=== PATIENT | female | born 1965 | race Caucasian/White ===

== ENCOUNTER → 2017-08-09 09:23 | Outpatient (CLI) | payer OTHER, SELFPAY ==
[2017-08-09 09:39] VITALS: BP 110/69; PULSE 65; RESP 16; TEMP 36.2; O2SAT 99; BMI 35.2
[2017-08-09] MEDS: Cosyntropin 0.25 MG Vial IM (09:51)
== END ==
PROVIDERS: PCP Family Medicine; Visit Provider Nurse Practitioner
DX: R53.81 Other malaise (principal); R53.82 Chronic fatigue, unspecified
CPT/HCPCS: 36415; 82533; 96372; J0834

== ENCOUNTER → 2019-02-13 | Outpatient (CLI) | payer OTHER, SELFPAY | END | disposition home or self-care (01) | LOC: RAD.FUTURE 10:13 | PROVIDERS: Family Provider Nurse Practitioner Family; PCP Nurse Practitioner Family; Referring Provider Nurse Practitioner Family; Visit Provider Nurse Practitioner Family | DX: M25.561 Pain in right knee (principal) ==

== ENCOUNTER → 2019-02-19 | Outpatient (CLI) | payer OTHER, SELFPAY ==
[2017-08-09 09:39] VITALS: BMI 35.2
--- NOTE | 2019-02-19 13:37 | RAD_ITS ---
STUDY: X-RAY - RIGHT KNEE REASON FOR EXAM: Female, 53 years old. Increasing right knee pain TECHNIQUE: 4 view(s) of the knee. COMPARISON: None. FINDINGS: Normal visualized distal femur. Normal visualized proximal tibia and fibula. Normal proximal tibiofibular articulation. There is no demonstrated fracture. Normal medial femorotibial compartment. Normal lateral femorotibial compartment. Normal patellofemoral articulation. There is no demonstrated joint effusion. The soft tissue structures are unremarkable. RAD/Knee 4 or More Views IMPRESSION: No fracture or dislocation. Possible small effusion. Electronically Signed: Adriel Lambert MD at 18:44 EDT , Service support ,
== END | disposition home or self-care (01) ==
LOC: RAD 14:20
PROVIDERS: Family Provider Nurse Practitioner Family; PCP Nurse Practitioner Family; Referring Provider Nurse Practitioner Family; Visit Provider Nurse Practitioner Family
DX: M25.561 Pain in right knee (principal)
CPT/HCPCS: 73564

== ENCOUNTER → 2019-02-26 | Outpatient (CLI) | payer OTHER, SELFPAY ==
[2019-02-26 12:53] LABS: Platelet Count 173 K/mm3 (150-450); RET-HE 36.7 pg (30-35); Reticulocyte Count 1.02 % (0.5-1.5)
[2019-02-26 13:29] LABS: Vitamin B12 690 pg/mL (211-911)
[2019-02-26 14:02] LABS: Ferritin 60 ng/mL (8-252); Iron 50 ug/dL (50-170); Iron Binding Capacity,Total 307 ug/dL (250-450)
== END | disposition home or self-care (01) ==
LOC: LAB 11:47
PROVIDERS: PCP Nurse Practitioner Family; Visit Provider Nurse Practitioner Family
DX: D64.9 Anemia, unspecified (principal)
CPT/HCPCS: 36415; 82607; 82728; 82746; 83540; 83550; 85045

== ENCOUNTER → 2019-03-20 | Outpatient (CLI) | payer OTHER, SELFPAY ==
--- NOTE | 2019-03-20 18:04 | MRI_ITS ---
STUDY: MRI RIGHT KNEE REASON FOR EXAM: Female, 53 years old. Right knee pain and swelling. TECHNIQUE: Standardized fat and water weighted pulse sequences were obtained in all 3 orthogonal planes. COMPARISON: X-ray February 19, 2019. FINDINGS: There is truncation and tear of the body of the medial meniscus, series 3 image 34/42. Normal hyaline cartilage of the medial femorotibial compartment. There is mild osteoarthritic spur formation of the medial knee compartment. Normal medial collateral ligamentous complex (MCL). Normal distal semimembranosus, gracilis and semitendinosus tendons. Normal lateral meniscus. Normal hyaline cartilage of the lateral femorotibial compartment. Normal lateral femoral condyle and tibial plateau. Normal proximal tibiofibular articulation. Normal lateral collateral (fibular) ligament. Normal popliteus tendon. Normal biceps femoris tendon. Normal anterior cruciate ligament (ACL). Normal posterior cruciate ligament (PCL). There is arthrosis of the patellofemoral articulation. There is diffuse, less than 50% thickness articular cartilage loss of the patellofemoral compartment. Normal medial and lateral patellar retinaculum. Normal quadriceps tendon. Normal patellar tendon. Normal Hoffa's fat pad. There is a moderate volume joint effusion. There is a 4.9 cm Troncoso's cyst. The soft tissues are unremarkable. The otherwise visualized osseous structures are unremarkable. MRI/Lower Ext Joint Only (Routine) IMPRESSION: Medial meniscus tear. Degenerative change. Joint effusion with popliteal cyst. Electronically Signed: Ajay Taveras MD at 19:56 EST , Service support ,
== END | disposition home or self-care (01) ==
PROVIDERS: Family Provider Nurse Practitioner Family; PCP Nurse Practitioner Family; Referring Provider Nurse Practitioner Family; Visit Provider Nurse Practitioner Family
DX: M25.561 Pain in right knee (principal)
CPT/HCPCS: 73721

== ENCOUNTER → 2019-03-20 | Outpatient (CLI) | payer OTHER, SELFPAY | END | disposition home or self-care (01) | LOC: LAB.FUTURE 21:47 → LABSPEC 03-21 08:18 | PROVIDERS: Family Provider Nurse Practitioner Family; PCP Nurse Practitioner Family; Referring Provider Nurse Practitioner Family; Visit Provider Nurse Practitioner Family | DX: D64.9 Anemia, unspecified (principal) | CPT/HCPCS: 82274 ==

== ENCOUNTER 2019-04-10 06:59 | Day surgery (SDC) | payer OTHER, SELFPAY ==
--- NOTE | 1949-[birth year] 01:33 | HP_ITS ---
I have re-examined the patient. There are no clinical changes since date of exam. Intake Vital Signs 04/02/19 Body Mass Index (BMI) 35.2 Intake Visit Reasons: Right knee Chief Complaint: right knee Accompanied by: self Is patient in pain?: Yes Pain scale (1-10): 7 Allergies Penicillins Allergy (Verified 04/04/19 14:34) Hives Medications echinacea 380 mg capsule 380 mg PO QDAY 05/22/17 [History Confirmed 04/04/19] ibuprofen 200 mg capsule 200 mg PO Q6H PRN cap 05/22/17 [History Confirmed 04/04/19] bupropion HCl 100 mg tablet 100 mg PO BID 04/02/19 [History Confirmed 04/04/19] Activated Charcoal [Charcoal] 400 mg PO QHS 04/04/19 [History Confirmed 04/04/19] Aloe Vera Juice 1 oz PO TID 04/04/19 [History Confirmed 04/04/19] Fiber Choice 3 cap PO QHS 04/04/19 [History Confirmed 04/04/19] Glucose Metobolic Support 1 tab PO TID 04/04/19 [History Confirmed 04/04/19] L.acidoph,Paracasei, B.lactis [Probiotic] 1 ea PO DAILY 04/04/19 [History Confirmed 04/04/19] Sovereign Silver 1 oz PO TID 04/04/19 [History Confirmed 04/04/19] Tri Iodine 1 tab PO QMONTH 04/04/19 [History Confirmed 04/04/19] PFSH Medical History (Updated 06/02/17 @ 15:33 by Tiffanie Bah) Multiple thyroid nodules (Acute) Adrenal abnormality (Acute) Anxiety (Acute) Back problem (Acute) Bladder infection (Acute) Depression (Acute) Gallstones (Acute) H/O: hysterectomy (Acute) Headache (Acute) Hives (Acute) Plantar neuroma of right foot (Acute) Pneumonia (Acute) Surgical History (Updated 05/22/17 @ 14:43 by Rain Giles) H/O colonoscopy (Acute) H/O hernia repair (Acute) H/O vein stripping (Acute) History of tonsillectomy (Acute) Hx of cholecystectomy (Acute) S/P LASIK surgery of both eyes (Acute) Family History (Updated 06/02/17 @ 15:35 by Tiffanie Bah) Brother Arthritis Daughter Asthma Mother Breast cancer Melanoma in situ Father CAD (coronary artery disease) Social History (Updated 04/05/19 @ 12:52 by Smiley Lainez DO) Smoking Status: Never smoker second hand exposure: No alcohol intake: never substance use type: does not use HPI Right knee: Surgical H&P: Yes Details: Parts of this documentation were recorded by a scribe, this documentation accurately reflects the service provided and the decisions made by me, Smiley Lainez DO 04/02/19 1248. AUSTIN MAZA is a 53 year old F NEW patient here today for right knee pain. She was referred by Nora Dixon. Patient has had this pain since October. She does not recall any injury. Patient is having medial sided right knee pain. She does have popping and painful giving out of her knee. She feels that her knee is very weak and she feels that it is very unstable. Denies numbness, tingling or other associated symptoms. She has had been through PT, she has had x-rays and has had an MRI completed of her right knee. She has also tried steroid injections and PRP injections and Gel injections none of which were not effective. ROS Abby Reports joint pain, Reports joint swelling, Reports muscle weakness, Denies numbness, Denies radiating pain into limb, Reports stiffness, Denies tingling Skin/Breast Denies redness, Denies lesions, Denies itching, Denies rash Neuro No numbness, No tingling Ortho Exam Right Knee Homans Sign: No Knee ROM: Yes ROM-Extension -20 to 0, No ROM-Flexion 0-140 Examination: Yes Med jt line tenderness, Yes Pain with flexion, Yes Kacey's Test No rales rhonchi wheezing, no abdominal pain, no audible bruits Assessment & Plan Problems 1. Tear of medial meniscus of right knee, current, unspecified tear type, initial encounter S83.819A Plan Personally reviewed the patient's medical history, medications, surgeries and recent exams if available. X-rays were reviewed. There is no obvious fracture, dislocation, or lucency noted. Educated on the anatomy of the knee and explained that the MRI shows a medial meniscus tear, her treatment options are do nothing, steroid injection, knee arthroscopy or oral nsaids. Explained that surgery does increase her risk of OA secondary to surgery. Reviewed the difference between repair vs debridement and the post op restrictions based on either procedure. We will get her into an kiln car unloader brace post op. Reviewed the pre-operative plans with the patient. Risks and benefits of the procedure were fully explained, including but not limited to infection, neurovascular injury, continued pain, arthritis, stiffness, need for further surgery, re-injury, DVT, PE, general risks of anesthesia, and loss of limb or life. The patient understands all the risks and does wish to proceed with written consent. Follow up post op or sooner if pain, swelling, numbness or associated symptoms, or concerns develop. All questions answered. Patient in agreement of plan. Coding Level of Care Code 64746 Diagnoses Tear of medial meniscus of right knee, current, unspecified tear type, initial encounter S83.241A ??Encounter type: initial encounter ??Meniscus tear of knee type: unspecified type ??Tear current or old: current 04/05/19 3445 <Electronically signed by Smiley cuellar DO> Date _ Smiley Lainez DO
[2019-04-02 12:52] VITALS: BMI 35.2
[2019-04-10] VITALS (7 sets, daily range): BP systolic 102–139; BP diastolic 58–115; PULSE 60–85; RESP 16–18; TEMP 36.1–37.1; O2SAT 95–100; BMI 41.0
[2019-04-10] MEDS: Lactated Ringers 1,000 ML 100 ML IV (07:31)
[2019-04-10] MEDS: Cefazolin 2 GM in 0.9% Normal Saline 100 ML IV (08:31)
--- NOTE | 2019-04-10 09:00 | DCINST_ITS ---
Discharge Diet: No Restrictions Discharge Activity: May not drive while taking narcotic pain medications. May shower in (days): 3 Ice area for (Minutes): 20 - every 1-2 hours Weight Bearing Status: Full weight bearing Keep extremity elevated above heart level: Right Leg Call your doctor if your incision/area has: Sudden Increased Bleeding, Increased Pain/ Swelling, Increased Redness, Foul Smelling Discharge Call your doctor if you observe: Fever of 101 or Higher, Coldness, Increased Pain, Numbness or Tingling, Change in Color, Inability to urinate, Shortness of breath, Dizziness, Chest pain Change Dressing in (Days):: 3 Remove Dressing in (days):: 3 Cleanse incision/area with: Soap & Water Additional Instructions: Can remove dressing on day 3 and cleanse with soap and water (no scrubbing and pat dry). Change dressing daily thereafter. Can use crutches for ambulation until comfortable Allergies/Adverse Reactions: Allergies Penicillins Allergy (Verified 04/10/19 07:20) Hives Medications to take at Discharge echinacea 380 mg capsule 380 mg PO QDAY 05/22/17 ibuprofen 200 mg capsule 200 mg PO Q6H PRN cap 05/22/17 bupropion HCl 100 mg tablet 100 mg PO BID 04/02/19 Activated Charcoal [Charcoal] 400 mg PO QHS 04/04/19 Aloe Vera Juice 1 oz PO TID 04/04/19 Fiber Choice 3 cap PO QHS 04/04/19 Glucose Metobolic Support 1 tab PO TID 04/04/19 L.acidoph,Paracasei, B.lactis [Probiotic] 1 ea PO DAILY 04/04/19 Sovereign Silver 1 oz PO TID 04/04/19 Tri Iodine 1 tab PO QMONTH 04/04/19 Primary Care Physician: Nora Dixon NP-C [Primary Care Provider] - Test Results: Test results from this visit will be discussed in further detail at your follow- up appointment, if applicable. Please Follow Up With: Donnie Bagley PA When: 2 weeks
[2019-04-10] MEDS: Mupirocin Ointment 22gm Tube 1 APPLIC (09:33)
[2019-04-10] MEDS: Epinephrine (1 mg/ml) 1 MG/ML VIAL (09:33)
--- NOTE | 2019-04-10 09:45 | PCM.OPRPT ---
Report of Operation Date of Procedure: 04/10/19 Pre-Operative Diagnosis: right knee osteoarthritis, medial meniscus tear Post-Operative Diagnosis: same, synovitis Surgery/Procedure Performed:: sark, pmm, patella/trochlea chondroplasty, extensive synovectomy paper sales representative: Donnie Bagley Type of Anesthesia:: General Anesthesiologist: Keith Plaza Fluids Replaced: 1000ml lr Description of Procedure: Preop note Patient is a 53-year-old female with continued right knee pain. Patient has locking and clicking after sustaining a twisting injury to her right knee. Risk benefits and alternatives surgery discussed with patient. MRI confirms medial meniscus tear as well as some arthritis. Risk including but not limited to blood loss, blood clot, infection, neurovascular, failure procedure, loss of life and loss of limb. Patient is aware would like to see with right knee arthroscopy repair as indicated. Operative note Patient seen and examined preop holding area. Right knee was marked. Patient brought to the operating placed supine on the operating table. Signed, anesthesia, antibiotics were administered. The right leg was prepped and draped in usual sterile fashion with a tourniquet on her upper thigh. All bony bump all bony prominences well-padded SCDs placed on her contralateral limb. We marked her anterior lateral anteromedial portal placement. We then elevated exsanguinated the leg and tremors crit was raised to a pressure of 300 torr. We then used an 11 blade creator anterior lateral portal. We began our diagnostic arthroscopy. The patient had grade 2 fibrillated changes on the inferior pole of the patella and grade 3 eburnated changes throughout her trochlea. The moved to the medial joint line. Created anterior medial portal under direct visualization. Patient had extensive synovitis in the anterior medial anterior lateral gutters which was resected with a shaver. We then able to visualize the posterior horn medial meniscus tear which was under stable to probing. We use a combination of a basket and a shaver to resect back the unstable meniscus we then reinserted the probe to ensure that we had good remnant meniscus remaining in good stability and which we did have. ACL and PCL present within the notch. Patient had grade 3 thinning chondromalacia throughout the medial femoral condyle middle medial tibial plateau. The lateral femoral condyle and the lateral tibial plateau were intact and stable probing as well as the lateral meniscus. Again ACL and PCL were present in the notch. The knee was then irrigated with copious amounts of sterile saline. We used a shaver to debride back loose pieces of cartilage of both the patella and the trochlea. Again the knee was irrigated gated with copious muscle sterile saline. Tourniquet was raised for that was deflated. Patient portals were closed with interrupted 4-0 nylon stitches sterile dressings were applied. Patient tolerated procedure well no complication transferred recovery room in stable condition Postoperative note Weight-bear as tolerated right leg Pharmacy has prescriptions Follow-up in 2 weeks We will give family pictures at postop visit Discuss signs and symptoms to watch for for blood clots and infection Call with concerns This note was generated with [employer] dictation software. It may contain incorrect words, spelling, and punctuation that were not noted in checking the note before signing.
[2019-04-10] MEDS: HYDROcodone Bitartrate/Apap 5/325 Tablet PO (11:18)
== END 2019-04-10 15:00 | disposition home or self-care (01) ==
LOC: SDC 07:00 → AC 07:02
PROVIDERS: Family Provider Nurse Practitioner Family; PCP Nurse Practitioner Family; Referring Provider Orthopaedic Surgery; Visit Provider Orthopaedic Surgery
PROC: (CPT 29882; principal; 2019-04-10 08:25)
DX: S83.241A Other tear of medial meniscus, current injury, right knee, initial encounter (principal); M17.11 Unilateral primary osteoarthritis, right knee; F41.9 Anxiety disorder, unspecified; F32.9 Major depressive disorder, single episode, unspecified; Z79.899 Other long term (current) drug therapy; X50.1XXA Overexertion from prolonged static or awkward postures, initial encounter; Y93.89 Activity, other specified; Y92.89 Other specified places as the place of occurrence of the external cause; Y99.8 Other external cause status
CPT/HCPCS: 01400; 29877; J7120; J2405

== ENCOUNTER → 2019-04-23 14:35 | Outpatient (CLI) | payer OTHER, SELFPAY ==
[2019-04-23 12:34] VITALS: BMI 41.0
--- NOTE | 2019-04-23 14:37 | VDLE_ITS ---
Reason For Study: pain RIGHT LEFT CFV is compressible, spontaneous, phasic, CFV is compressible, spontaneous, phasic, competent and demonstrates normal competent, and demonstrates normal augmentation. augmentation. FV is compressible, spontaneous, phasic, competent and demonstrates normal augmentation. POP V is compressible, spontaneous, phasic, competent and demonstrates normal augmentation. T/P Trunk is compressible. PTV is compressible. RT PerV is compressible. GSV is absent. Hypoechoic area behind the knee measuring 1.1 x 3.57 cm. Area is nonvascular. Procedure Exam performed in department. The exam was diagnostic. A preliminary report was called and/or faxed to Dr. Lainez's office. Interpretation Summary There is no evidence of right lower extremity deep vein thrombosis. Right popliteal fossa 1.1 x 3.5 cm Troncoso's cyst Surgically absent right great saphenous vein Patent and compressible left common femoral vein Ordering Physician: Smiley Lainez Performed By: Tam Mishra RVSascha
== END ==
PROVIDERS: Family Provider Nurse Practitioner Family; PCP Nurse Practitioner Family; Referring Provider Orthopaedic Surgery; Visit Provider Orthopaedic Surgery
DX: M79.661 Pain in right lower leg (principal)
CPT/HCPCS: 93971

== ENCOUNTER → 2019-06-18 15:07 | Outpatient (CLI) | payer OTHER, SELFPAY ==
[2019-06-18 14:18] VITALS: BMI 41.0
--- NOTE | 2019-06-18 15:08 | RAD_ITS ---
STUDY: X-RAY - RIGHT KNEE REASON FOR EXAM: Female, 53 years old. KNEE PAIN TECHNIQUE: 4 view(s) of the knee. COMPARISON: None. FINDINGS: Normal visualized distal femur. Normal visualized proximal tibia and fibula. Normal proximal tibiofibular articulation. There is no demonstrated fracture. There is mild degenerative arthrosis of the medial femorotibial compartment. Normal lateral femorotibial compartment. There is mild degenerative arthrosis of the patellofemoral articulation. Trace amount of joint fluid. The soft tissue structures are unremarkable. RAD/Knee 4 or More Views IMPRESSION: Mild degenerative disease as described above along with minimal joint effusion. Electronically Signed: Amanda Dobson MD at 3:47 EST , Service support ,
== END ==
PROVIDERS: PCP Nurse Practitioner Family; Referring Provider Physician Assistant; Visit Provider Physician Assistant
DX: M25.561 Pain in right knee (principal)
CPT/HCPCS: 73564

== ENCOUNTER → 2019-07-05 13:53 | Outpatient (CLI) | payer OTHER, SELFPAY ==
[2019-06-18 14:18] VITALS: BMI 41.0
[2019-07-05 14:33] LABS: Absolute Lymphocyte Count 4.95 X10^3/uL (0.83-4.51); Basophil# 0.08 X10^3/uL; Basophil% 1.1 % (0-1); Eosinophil# 0.03 X10^3/uL; Eosinophils% 0.4 % (0-5); Hematocrit 36.8 % (37-47); Hemoglobin 12.1 g/dL (12.0-15.0); Lymphocyte # 4.95 X10^3/ul (4.0); Lymphocyte % 66.6 % (19-41); Mean Corp Hgb Conc 32.9 g/dL (32-36); Mean Corpuscular Hgb 29.1 pg (27.0-32.0); Mean Corpuscular Volume 88.5 fL (81-99); Mean Platelet Vol. 9.8 fl (6.2-12.0); Monocyte# 0.39 X10^3/uL; Monocyte% 5.2 % (0-10); NRBC Flagged by Analyzer 0 % (0-5); Neutrophil # 1.97 X10^3/uL (2.7-7.7); Neutrophil % 26.6 % (47-70); POSITIVE MORPHOLOGY YES; Platelet Count 125 K/mm3 (150-450); RBC Distribution Width CV 13.8 % (11.6-14.6); RBC Distribution Width SD 44.5 fl (35.1-43.9); Red Blood Count 4.16 M/mm3 (4.2-5.4); White Blood Count 7.4 K/mm3 (4.4-11.0)
[2019-07-05 14:37] LABS: Differential Indicated SCAN CRITERIA MET
[2019-07-05 14:55] LABS: Reactive Lymphocyte 1+
[2019-07-05 15:04] LABS: ALB/GLOB Ratio 1.1 RATIO (0.9-2.4); AST(SGOT) 40 U/L (15-37); Alanine Aminotransfer ALT/SGPT 71 U/L (13-56); Albumin, Serum 3.4 g/dL (3.2-5.0); Alkaline Phosphatase 88 U/L (45-117); Anion Gap 7 (5-15); BUN 18 mg/dL (7-18); BUN/Creat Ratio 20.7 RATIO (10-20); Calcium,Total 8.8 mg/dL (8.5-10.1); Chloride 111 mmol/L (98-107); Creatinine, Serum 0.87 mg/dL (0.55-1.02); EST Glomerular Filtration Rate 72 mL/min (>60); Est Glom Filt Rate - Afr Amer 87 mL/min (>60); Globulin 3.1 g/dL (2.2-4.2); Glucose 82 mg/dL (74-106); Potassium 3.8 mmol/L (3.5-5.1); Protein, Total 6.5 g/dL (6.4-8.2); Sodium Level 142 mmol/L (136-145); Thyroid Stim Hormone (TSH) 2.21 uIU/mL (0.358-3.74)
== END ==
PROVIDERS: PCP Nurse Practitioner Family; Referring Provider Nurse Practitioner Family; Visit Provider Nurse Practitioner Family
DX: H53.8 Other visual disturbances (principal); D64.9 Anemia, unspecified; R53.83 Other fatigue
CPT/HCPCS: 36415; 80053; 84443; 85025

== ENCOUNTER → 2019-07-09 12:09 | Outpatient (CLI) | payer OTHER, SELFPAY ==
[2019-06-18 14:18] VITALS: BMI 41.0
[2019-07-09 14:11] LABS: Hepatitis B Surface Antibody Reactive; Hepatitis B Surface Antigen Non-Reactive (Nonreactive); Hepatitis C Antibody Non-Reactive (Nonreactive)
[2019-07-10 16:08] LABS: Hepatitis A IgM Antibody Negative (Negative)
[2019-07-10 20:03] LABS: EBV Acute VCA IgM < 36.0 U/mL (0.0-35.9); Hepatitis B Core AB IgM Negative (Negative)
== END ==
LOC: LAB.FUTURE 12:10 → LAB 07-10 07:09
PROVIDERS: PCP Nurse Practitioner Family; Referring Provider Nurse Practitioner Family; Visit Provider Nurse Practitioner Family
DX: R74.8 Abnormal levels of other serum enzymes (principal); R53.83 Other fatigue; R79.89 Other specified abnormal findings of blood chemistry
CPT/HCPCS: 36415; 86664; 86665; 86705; 86706; 86709; 86803; 87340

== ENCOUNTER → 2019-07-23 15:52 | Outpatient (CLI) | payer OTHER, SELFPAY ==
[2019-06-18 14:18] VITALS: BMI 41.0
== END ==
PROVIDERS: PCP Nurse Practitioner Family; Referring Provider Nurse Practitioner Family; Visit Provider Nurse Practitioner Family
DX: G47.19 Other hypersomnia (principal)
CPT/HCPCS: 95806

== ENCOUNTER → 2019-09-18 12:20 | Outpatient (CLI) | payer OTHER, SELFPAY ==
[2019-06-18 14:18] VITALS: BMI 41.0
--- NOTE | 2019-09-18 13:28 | CT_ITS ---
STUDY: CT SCAN OF LOWER EXTREMITY RIGHT REASON FOR EXAM: Female, 54 years old. RIGHT VARUS DEFORMITY. NORMA KNEE PROTOCOL RADIATION DOSAGE (If Supplied By Facility): CTDIvol = ( 32.62 ) mGy, DLP = ( 4301.50 ) mGycm. Individualized dose optimization techniques were used for this CT.? TECHNIQUE: Multiple axial tomographic images of the right hip joint, knee joint and ankle joints were obtained. Coronal and sagittal reconstruction was obtained as well. COMPARISON: None. FINDINGS: The right hip joint is unremarkable. No significant narrowing or bony degenerative changes are seen. Marked degree of the joint space narrowing of the medial compartment of the knee joint. No evidence of joint effusion. No bony destruction is seen. Imaging of the ankle joint is unremarkable. No significant abnormality is seen. CT/Extremity Lower without Contra IMPRESSION: Marked degree of joint space narrowing involving the medial compartment of the knee joint. Electronically Signed: Nicholas Lopez, at 14:58 EDT , Service support ,
== END ==
PROVIDERS: PCP Nurse Practitioner Family; Referring Provider Specialist; Visit Provider Specialist
DX: M21.161 Varus deformity, not elsewhere classified, right knee (principal)
CPT/HCPCS: 73700

== ENCOUNTER 2019-09-25 06:25 | Day surgery (SDC) | payer OTHER, SELFPAY ==
[2019-06-18 14:18] VITALS: BMI 41.0
--- NOTE | 2019-09-18 13:04 | EKG12_ITS ---
Test Reason : PRE OP Blood Pressure : / mmHG Vent. Rate : 062 BPM Atrial Rate : 062 BPM P-R Int : 138 ms QRS Dur : 088 ms QT Int : 380 ms P-R-T Axes : 033 017 016 degrees QTc Int : 385 ms Normal sinus rhythm Nonspecific ST abnormality Abnormal ECG Confirmed by BRETT KIRBY ([id number]), editor trade journal PATRICIA OLEA (54) on 09/23/2019 10:11:48 AM Referred By: Huber Roa Confirmed By:BRETT KIRBY
[2019-09-18 13:13] LABS: Absolute Lymphocyte Count 2.05 X10^3/uL (0.83-4.51); Absolute Neutrophil Count 2.9 X10^3/uL (2.0-7.7); Basophil# 0.03 X10^3/uL; Basophil% 0.6 % (0-1); Eosinophil# 0.05 X10^3/uL; Eosinophils% 0.9 % (0-5); Hematocrit 38.3 % (37-47); Hemoglobin 12.5 g/dL (12.0-15.0); Lymphocyte # 2.05 X10^3/ul (4.0); Lymphocyte % 38.2 % (19-41); Mean Corp Hgb Conc 32.6 g/dL (32-36); Mean Corpuscular Hgb 28.8 pg (27.0-32.0); Mean Corpuscular Volume 88.2 fL (81-99); Mean Platelet Vol. 9.6 fl (6.2-12.0); Monocyte% 5.6 % (0-10); NRBC Flagged by Analyzer 0 % (0-5); Neutrophil # 2.93 X10^3/uL (2.7-7.7); Neutrophil % 54.5 % (47-70); Platelet Count 151 K/mm3 (150-450); RBC Distribution Width CV 12.8 % (11.6-14.6); RBC Distribution Width SD 41.4 fl (35.1-43.9); Red Blood Count 4.34 M/mm3 (4.2-5.4); White Blood Count 5.4 K/mm3 (4.4-11.0)
[2019-09-18 13:50] LABS: Anion Gap 6 (5-15); BUN 14 mg/dL (7-18); BUN/Creat Ratio 16.3 RATIO (10-20); Chloride 106 mmol/L (98-107); Creatinine, Serum 0.86 mg/dL (0.55-1.02); EST Glomerular Filtration Rate 73 mL/min (>60); Est Glom Filt Rate - Afr Amer 88 mL/min (>60); Glucose 80 mg/dL (74-106); Potassium 4.1 mmol/L (3.5-5.1); Sodium Level 141 mmol/L (136-145)
--- NOTE | 2019-09-19 16:19 | PCM.HP.BLA ---
History and Physical History and Physical [facility] Patient Name: Jerica Dlegado : 1965 From: JED SERRANO NP DATE OF SURGERY: 09/25/2019 SCHEDULED PROCEDURE: Right knee medial compartment unicompartmental knee arthroplasty HISTORY OF PRESENT ILLNESS: Preoperative history and physical exam was performed on September 18, 2019. This is a 54-year-old female who has been having ongoing knee pain for approximately 10 months. The pain is 8 on a scale of 10 on average. She describes the pain as constant and aching. The pain is increased with walking or weightbearing. Stairs increases the pain. The pain is located of the medial joint line. The pain does wake her at night. The patient is unable to perform activities of daily living without pain. 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 Previous treatments include prednisone, meloxicam, corticosteroid injections, viscosupplementation injections and PRP injections. The patient reports having arthroscopic surgery in March 2019. She denies chest pain, shortness of breath, fevers, chills or recent infections. Surgical clearance was requested from Nora Dixon APRN, JOCELYN. She has given clearance pending lab results. The patient has a medical history pertinent for depression and sleep apnea. After failing conservative measures and discussing treatment options with Dr. Huber Roa, the patient does wish to proceed with a right knee medial compartment unicompartmental knee arthroplasty. REVIEW OF SYSTEMS: ROS: Const: Reports weight change, but denies change in appetite and fever. CV: Denies chest pain, heart murmur and irregular heartbeat. Resp: Denies cough, pneumonia, shortness of breath, tuberculosis and wheezing. GI: Reports constipation, but denies diarrhea, heartburn, nausea, rectal itching, bloody stools and vomiting. : Denies incontinence. Musculo: Reports leg swelling, but denies pain, trouble walking and weakness. Skin: Denies Raynaud's, history of shingles and tattoo. Neuro: Denies ambulatory dysfunction, dizziness, numbness/tingling and tremor. Psych: Reports anxiety and stress, but denies insomnia. Manjinder/Lymph: Reports anemia, but denies bleeding/bruising tendency and past transfusion. Reviewed, no changes. PAST MEDICAL HISTORY: Advance Care Plan: No Advance Directives Effective Date: 09/18/2019 PMH: Medical Problems: Arthritis - (08/12/2019) Depression - (08/12/2019) Sleep Apnea - (08/12/2019) Accidents: Fracture - leg fx 5-8 years ago Surgical Hx: Gallbladder, Hernia Repair, Hysterectomy, Tonsillectomy, Bilat Leg Sheela Stripping Anesthesia Complications: None Assistive Devices: Glasses - READERS Reviewed and updated. 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 Personal Habits: Cigarette Use: Never Smoked Cigarettes - (08/12/2019).Smokeless Tobacco: Never Used Smokeless Tobacco - (08/12/2019).E-Cigarette Use: Never used.Alcohol: Denies use - (08/12/2019).Drug Use: Denies Use.Enjoy Exercising: Exercises 1-3 X/Week. Reviewed and updated. VITALS: Ht: 63.5 Wt: 240lb Wt k.864 BMI: 41.8 BP: 133/95 Pulse: 63 Resp: 12 T: 97.5 T: 36.4C ALLERGIES: Penicillin - hives MEDICATIONS: Oxycodone HCL 5 mg 1-2 tab by mouth every 4 hours, Meloxicam 7.5 mg 1 by mouth twice a day, Promethazine HCL 12.5 mg 1-2 tablets by mouth every 6 hours, Famotidine 20 mg 1 by mouth every day, Transderm-Scop (1.5 MG) 1 MG/3Days 1 patch behind ear every 3 days, to begin the night before surgery PRE-OP EXAM: General appearance:NORMAL Other: Eyes: Conjunctivae and lids: NORMAL Pupils: ERR Ears, Nose, Mouth, and Throat: NORMAL Other: Inspection of lips, teeth and gums: NORMAL Other: Respiratory: Assessment of respiratory effort: NORMAL Other: Auscultation of lungs: clear to auscultation no wheezes, rhonchi or rales. Cardiovascular: Auscultation of heart: regular rate and rhythm, no murmurs, gallops or rubs. Gastrointestinal: Exam of abdomen: soft, nontender, nondistended bowel sounds present. Neurological: see below Psychiatric: Orientation to time, place and person: NORMAL Other: Mood and affect: NORMAL Other: PHYSICAL EXAMINATION: The patient ambulates with a markedly antalgic gait. Bilateral knees are obese. Right knee with mild effusion. Left knee with no effusion. Varus alignment bilaterally. Range of motion: 0-115 right knee. 0-120 left knee. IMAGING STUDIES: X-rays and MRI of the right knee from [facility] were reviewed and x-rays reveal progressive medial joint space narrowing consistent with moderate stage III medial compartment osteoarthritis. The MRI is consistent with degenerative changes of the medial compartment with full-thickness cartilage loss of the distal femoral condyle and an intact ACL. Lateral compartment is healthy with mild patellofemoral compartment changes. IMPRESSION: 1. post-traumatic osteoarthritis, right knee 2. depression 3. sleep apnea PLAN: Dr. Huber Roa did discuss and review with the patient all treatment options including surgical versus nonsurgical. Patient does wish to proceed with the above-stated procedure. Potential risk, benefits and complications of the procedure were discussed in detail including but not limited to , infection, nerve and blood vessel damage, persistent pain, numbness, tingling, paresthesias, blood clot, pulmonary embolism and requirement for possible further surgery. The patient expressed full understanding and has no further questions for the doctor. The patient does agree to proceed with the above-stated procedure and has signed the surgery consent form. The patient was given prescriptions for the following medications at her preoperative visit: Famotidine, meloxicam, oxycodone, promethazine and scopolamine patch. She was also instructed to potato picker [id number] aspirin 81 mg, extra strength Tylenol 500 mg and senna. She will bring a walker the day of surgery. This dictation was created using voice recognition software. Phonetic and/or grammatical errors may exist. ___ I have re-examined the patient. There are no clinical changes since date of exam. ___ See progress notes for changes. ___ Dictated on admission Date: Time: Signature:
[2019-09-25] VITALS (23 sets, daily range): BP systolic 81–113; BP diastolic 41–83; PULSE 52–85; RESP 16; TEMP 36.3–36.4; O2SAT 16–100; BMI 43.2
[2019-09-25 07:11] LABS: Bedside Glucose 75 mg/dL (70-110)
[2019-09-25] MEDS: Lactated Ringers 1,000 ML 100 ML IV (07:23)
[2019-09-25] MEDS: Gabapentin 600 MG Tablet PO (07:24)
[2019-09-25] MEDS: Celecoxib 200 MG Capsule 400 MG PO (07:24)
[2019-09-25] MEDS: Acetaminophen 500 MG Tablet 1000 MG PO (07:24)
[2019-09-25] MEDS: Scopolamine 1mg/72hr Patch 1 PATCH TD (08:15)
--- NOTE | 2019-09-25 08:16 | RAD_ITS ---
STUDY: X-RAY - RIGHT KNEE REASON FOR EXAM: Female, 54 years old. Post op knee TECHNIQUE: 2 view(s) of the knee. COMPARISON: Comparison is made with prior examination dated June 18, 2019. FINDINGS: The patient is status post medial hemiarthroplasty. There is good alignment. Postoperative soft tissue changes. RAD/Knee 1 or 2 Views IMPRESSION: The patient is status post medial hemiarthroplasty. There is good alignment. Postoperative soft tissue changes. Electronically Signed: Nicholas Lopez, at 11:26 EDT , Service support ,
[2019-09-25] MEDS: Cefazolin 2 GM in 0.9% Normal Saline 100 ML IV (08:53)
--- NOTE | 2019-09-25 10:31 | OP.PCM_ITS ---
Report of Operation Date of Procedure: 09/25/19 Pre-Operative Diagnosis: Right knee anteromedial osteoarthritis, primary Post-Operative Diagnosis: Right knee anteromedial osteoarthritis, primary Surgery/Procedure Performed:: Right knee medial compartment robotic assisted minimally invasive knee arthroplasty Description of Surgical Findings:: ACL intact, patellofemoral and lateral compartments appropriate. Well-balanced knee. lighter: Joanna Campbell Type of Anesthesia:: Spinal Anesthesiologist: Keith Plaza Special Medications: 2 g Ancef, 1 g TXA at incision, 1 g TXA closure, 10 mg Decadron, joint cocktail (5 mg Duramorph, 30 mL of 0.5% Ropivicaine, 1000 units of epinephrine, 30 mg of Toradol) Specimen's removed: Bony cuts Estimated Blood Loss (mL): 75 Fluids Replaced: 2400 mL crystalloid Description of Procedure: Implants used: 1. Farrukh size 4 femur 2. Farrukh size 3 tibia 3. Farrukh 8 mm polyethylene component Brief history operative indications: 54-year-old F with history of R knee anterior medial varus osteoarthritis with radiographic findings with loss of joint space, osteophyte formation and subchondral sclerosis. Failed conservative measures as mentioned in the H&P. Discussion of total knee arthroplasty as well as risk and benefits were discussed the patient including but not limited to blood loss, DVTs, PEs, neurovascular damage, general risk of anesthesia including loss of life, and stiffness or instability were discussed with patient. Patient demonstrated understanding and was able to sign informed consent. Procedure: On the date of procedure patient's R lower extremity was marked in the preoperative area. The patient was then taken back to the operating room where the patient was placed on the table in the supine position. All bony prominences were identified a well-padded. Anesthesia assumed control of the C-spine and airway and remained controlled throughout the remainder of the procedure. A tourniquet was placed on the R upper thigh and the leg was prepped in a sterile fashion. The surgeon then scrubbed at this time .Upon reentering the room R lower extremity was draped in a standard orthopedic fashion. A timeout was then called and everyone agreed upon the side, the site, the procedure to be performed, patient's identity and antibiotics given. Esmarch bandage was used to exsanguinate the extremity and the tourniquet was placed up to 250 mmHg with the knee in flexion. A midline skin incision was made and sharp dissection was taken down through skin subcutaneous tissue and fat. The standard medial parapatellar incision was made and the patella was subluxed medially. The standard minimal MCL release was done and a minimal fat pad for visualization. At this time we directed our attention towards the placement of the robotic navigation pins. 2 pins were placed in the tibia handbreadth below the tibial tubercle and 2 pins were placed in the femur with the patella in the trochlear groove 1 handbreadth above the patella. Bicortical fixation was obtained on all 4 pins. Once these pins were placed the arrays and checkpoints were placed and the femur and tibia were registered. After registering the bony landmarks bone spurs were removed and the soft tissues were tensioned and this intraoperative information was used to make intraoperative adjustments to implant position and balance the knee. The robotic arm was brought in and our attention was then directed towards the femur at this time based on our preoperative and intraoperative planning the size 4 femoral component was burred appropriately to the distal femur. Once we had appropriately burred the distal femur the pegs and he will were also burred. Next our attention was directed to the tibia. Where using our preoperative plan we buried the proximal tibia for a size 3 tibial component and then approp riately burred the pegs. Once we had burred the femur and the tibia all excess osteophytes were again removed. The trial components were placed in the tibial trial component was used to press the posterior keel. The knee was taken through range of motion and balancing was verified using the robotic navigation. Once we were happy with our components trial components were removed and the bone was repaired reaming the distal femur and using the toothbrush saw to slot the proximal tibia. Once the bone was adequately prepared the knee was scoped. Out normal saline and 40 mL of joint cocktail was injected in the posterior medial knee. The bone ends were appropriately dried and once the cement was ready the final components were cemented into place with the trial polyethylene and held at 20? flexion. Once the cement had adequately cured and all cement was removed and the final 8 millimeter polyethylene was put into place and the final knee showed is good patella tracking and well-balanced knee without overcorrection. It should be noted that throughout the procedure the MCL was protected during all bony cuts by my assistant director. Once the final components were placed a the wound was copiously irrigated with 500 mL dilute Betadine solution followed by 1 L of normal saline solution and the periarticular injection was given. The wound was closed in a layer sow fashion using #1 vicryl interrupted sutures for the arthrotomy, 2-0 interrupted Vicryl suture for the subcuticular layer and mague for final skin closure. A sterile compressive dressing was then placed. The patient was then awakened from anesthesia, transferred to the [facility] and transferred to the PACU for recovery. Post op plan DVT ppx: ASA 81mg BID for six weeks, thigh high compression stockings for 2 weeks Follow up: in office in 2 weeks for wound check PT: to start POD #0 at hospital, outpatient PT should be arranged. - Complications No intraoperative complications - Admit VTE Documentation VTE Present on Admission: No VTE Mechan Device Prophylaxis: SCD's, Thigh High HAN Hose VTE Pharm Prophylaxis ordered?: Yes
[2019-09-25] MEDS: Cefazolin 1 GM/50 ML BAG IV (12:47)
== END 2019-09-25 16:18 | disposition home or self-care (01) ==
LOC: SDC 06:26 → AC 06:27
PROVIDERS: PCP Nurse Practitioner Family; Referring Provider Specialist; Visit Provider Specialist
PROC: (CPT 27447; principal; 2019-09-25 08:00)
DX: M17.11 Unilateral primary osteoarthritis, right knee (principal); Z11.59 Encounter for screening for other viral diseases; G47.30 Sleep apnea, unspecified; K59.09 Other constipation; G25.81 Restless legs syndrome; R94.31 Abnormal electrocardiogram [ECG] [EKG]
CPT/HCPCS: 01400; 27447; 64447; S2900; 36415; 73560; 80048; 82962; 85025; 87635; 93005; 97162; 97166; C1776; G2023; J7120; J2405; U0002

== ENCOUNTER → 2020-04-27 07:55 | Outpatient (CLI) | payer OTHER, SELFPAY ==
[2019-09-25 06:58] VITALS: BMI 43.2
[2020-04-27 09:40] LABS: Hemoglobin 12.7 g/dL (12.0-15.0); Mean Corp Hgb Conc 32.6 g/dL (32-36); Mean Corpuscular Hgb 28.8 pg (27.0-32.0); Mean Corpuscular Volume 88.4 fL (81-99); Mean Platelet Vol. 9.5 fl (6.2-12.0); Platelet Count 180 K/mm3 (150-450); RBC Distribution Width CV 13.3 % (11.6-14.6); RBC Distribution Width SD 43.6 fl (35.1-43.9); Red Blood Count 4.41 M/mm3 (4.2-5.4); White Blood Count 4.8 K/mm3 (4.4-11.0)
[2020-04-27 10:00] LABS: Vitamin B12 445 pg/mL (211-911)
[2020-04-27 10:08] LABS: Hemoglobin A1c 5.1 % (3.8-5.6)
[2020-04-27 10:16] LABS: Anion Gap 4 (5-15); BUN 12 mg/dL (7-18); Calcium,Total 9.5 mg/dL (8.5-10.1); Chloride 107 mmol/L (98-107); EST Glomerular Filtration Rate 79 mL/min (>60); Est Glom Filt Rate - Afr Amer 95 mL/min (>60); Glucose 77 mg/dL (74-106); Potassium 3.7 mmol/L (3.5-5.1); Sodium Level 141 mmol/L (136-145); Thyroid Stim Hormone (TSH) 3.59 uIU/mL (0.358-3.74)
[2020-04-29 06:26] LABS: Vitamin D 1,25-Dihydroxy 36.3 pg/mL (19.9-79.3)
== END ==
PROVIDERS: PCP Nurse Practitioner Family
DX: D64.9 Anemia, unspecified (principal); R53.83 Other fatigue; Z68.41 Body mass index [BMI] 40.0-44.9, adult
CPT/HCPCS: 36415; 80048; 82607; 82652; 82746; 83036; 84443; 85027

== ENCOUNTER → 2020-07-24 15:49 | Outpatient (CLI) | payer OTHER, SELFPAY ==
[2019-09-25 06:58] VITALS: BMI 43.2
--- NOTE | 2020-07-24 15:57 | RAD_ITS ---
STUDY: X-RAY - RIGHT SHOULDER REASON FOR EXAM: Female, 54 years old. Right shoulder pain. TECHNIQUE: 4 view(s) of the shoulder. COMPARISON: None. FINDINGS: Normal glenohumeral articulation. There is degenerative arthrosis of the acromioclavicular joint without inferior osseous spur formation. Normal acromion. There is no acute fracture, dislocation or destructive osseous pathology. Normal humeral head and visualized proximal humerus. The soft tissue structures are unremarkable. Normal visualized pulmonary apex. RAD/Shoulder min 2 Views IMPRESSION: Minimal degenerative changes of the acromioclavicular joint. There is no acute fracture or dislocation. Electronically Signed: Osei Murphy DO at 21:03 EST Tel [phone], Service support ,
--- NOTE | 2020-07-24 15:57 | RAD_ITS ---
STUDY: X-RAY - RIGHT HUMERUS REASON FOR EXAM: Female, 54 years old. Right upper extremity pain. TECHNIQUE: 2 view(s) of the humerus. COMPARISON: None. FINDINGS: Normal visualized humerus. There is no demonstrated fracture or osseous destructive process. Mild arthrosis of the shoulder. The elbow appears grossly normal. There is no demonstrated soft tissue abnormality. RAD/Humerus min 2 Views IMPRESSION: No acute fracture or dislocation of the humerus. There is mild degenerative changes of the glenohumeral joint Electronically Signed: Osei Murphy DO at 21:02 EST Tel [phone], Service support ,
== END ==
DX: M25.511 Pain in right shoulder (principal); M79.601 Pain in right arm
CPT/HCPCS: 73030; 73060

== ENCOUNTER → 2020-08-14 15:52 | Outpatient (CLI) | payer OTHER, SELFPAY ==
[2019-09-25 06:58] VITALS: BMI 43.2
--- NOTE | 2020-08-14 15:57 | MRI_ITS ---
STUDY: MRI UPPER EXTREMITY RIGHT HUMERUS WITHOUT CONTRAST REASON FOR EXAM: Female, 54 years old. PAIN IN R ARM, palpable lump (marked with oil capsules) TECHNIQUE: Standardized fat and water weighted pulse sequences were obtained in all 3 orthogonal planes. COMPARISON: None. FINDINGS: Normal subcutis adipose space. There is no demonstrated solid, cystic, or lipomatous mass within the subcutaneous adipose space. Normal visualized muscles and fascia. Normal visualized neurovascular bundles. Normal humerus. Specifically, no evidence of abnormality marked with oil capsules. MRI/Upper Ext/No Jt/ wo IMPRESSION: Normal unenhanced MRI of the upper extremity. Electronically Signed: Hany Redmond DO at 1:31 EDT Tel , Service support ,
== END ==
DX: M79.601 Pain in right arm (principal)
CPT/HCPCS: 73218

== ENCOUNTER → 2020-09-21 07:56 | Outpatient (CLI) | payer OTHER, SELFPAY ==
[2020-09-10 14:25] VITALS: BMI 43.2
[2020-09-21 10:46] LABS: ALB/GLOB Ratio 1.3 RATIO (0.9-2.4); AST(SGOT) 14 U/L (15-37); Alanine Aminotransfer ALT/SGPT 22 U/L (13-56); Albumin, Serum 3.9 g/dL (3.2-5.0); Alkaline Phosphatase 77 U/L (45-117); Anion Gap 5 (5-15); BUN 13 mg/dL (7-18); BUN/Creat Ratio 16.2 RATIO (10-20); Calcium,Total 9.1 mg/dL (8.5-10.1); Chloride 107 mmol/L (98-107); EST Glomerular Filtration Rate 78 mL/min (>60); Est Glom Filt Rate - Afr Amer 95 mL/min (>60); Globulin 3.1 g/dL (2.2-4.2); Glucose 85 mg/dL (74-106); Potassium 3.7 mmol/L (3.5-5.1); Sodium Level 140 mmol/L (136-145)
== END ==
DX: E66.9 Obesity, unspecified (principal); Z68.41 Body mass index [BMI] 40.0-44.9, adult
CPT/HCPCS: 36415; 80053

== ENCOUNTER → 2021-02-16 14:29 | Outpatient (CLI) | payer OTHER, SELFPAY | DX: R39.9 Unspecified symptoms and signs involving the genitourinary system (principal) | CPT/HCPCS: 36415; 86769; 87086; 87088 ==

== ENCOUNTER → 2021-02-26 08:27 | Outpatient (CLI) | payer OTHER, SELFPAY ==
[2021-02-26 09:20] LABS: Color, Urine Yellow (Yellow); Glucose, Dipstick Normal (Normal); Ketone-Dipstick Negative (Negative); Leukocyte Esterase-Dipstick Negative /ul (Negative); Nitrite-Dipstick Negative (Negative); Occult Blood-Urine Negative /ul (Negative); Protein-Dipstick Negative (Negative); Urine Bilirubin Dipstick Negative (Negative); Urine Clarity Sl. Cloudy (Clear); Urine Urobilinogen Normal (Normal)
== END ==
DX: R39.9 Unspecified symptoms and signs involving the genitourinary system (principal)
CPT/HCPCS: 81002; 87086; 87088

== ENCOUNTER → 2021-03-19 15:05 | Outpatient (CLI) | payer OTHER, SELFPAY ==
--- NOTE | 2021-03-19 15:09 | US_ITS ---
STUDY: ULTRASOUND - US Abdomen Limited (quadrant) 03/19/2021 4:02 PM REASON FOR EXAM: Female, 55 years old. ABD MASSABD MASS TECHNIQUE: A superficial ultrasound was performed with real-time and static green-scale imaging. COMPARISON: None. FINDINGS: There is no fluid collection. There is no abscess. There is a well-circumscribed lesion in the level of the palpable abnormality. This measures 21 x 27 x 10 mm. There is soft tissue edema. US/Abdomen Limited IMPRESSION: Ultrasound findings suggest a lipoma in the area of interest Electronically Signed: Nathan Ricketts MD at 16:03 EDT , Service support ,
== END ==
DX: R19.00 Intra-abdominal and pelvic swelling, mass and lump, unspecified site (principal)
CPT/HCPCS: 76705

== ENCOUNTER → 2021-10-25 | Outpatient (CLI) | payer OTHER, SELFPAY ==
--- NOTE | 2021-10-25 15:33 | BI_ITS ---
MAMMOGRAPHY - BILATERAL SCREENING REASON FOR EXAM: Female, 56 years old. Routine annual screening examination. PERTINENT HISTORY: Mother with breast cancer. TECHNIQUE: Digital bilateral breast lora (3D mammographic acquisition) in the CC and MLO projections. 2-D mediolateral oblique (MLO) and craniocaudad (CC) views of both breasts were obtained. CAD: Full Field Digital Mammography with Computer Added Detection was performed. COMPARISON: Comparison is made with prior study dated 02/20/2015. FINDINGS: Breast Composition: There are scattered areas of fibroglandular density. There are no dominant masses or suspicious calcifications. Stable small benign-appearing bilateral No other significant abnormalities are identified. There has been no significant change since the prior study. BI/SCRN MAMM (CAD)W/LORA BILAT IMPRESSION: Stable bilateral screening mammogram. Yearly follow-up mammogram recommended. (A) ASSESSMENT CATEGORY: BIRADS Category 2: Benign. A letter regarding these results will be sent to the patient by the facility within 30 days. Approximately 10% of breast cancers are not detected by mammography. A normal mammogram should not delay biopsy of a clinically suspicious abnormality. [id number] Electronically Signed: Nicholas Lopez MD at 8:10 EDT ,
== END | disposition home or self-care (01) ==
PROVIDERS: PCP Student in an Organized Health Care Education/Training Program; Visit Provider Student in an Organized Health Care Education/Training Program
DX: Z12.31 Encounter for screening mammogram for malignant neoplasm of breast (principal)
CPT/HCPCS: 77063; 77067

== ENCOUNTER → 2021-10-26 | Outpatient (CLI) | payer OTHER, SELFPAY ==
[2021-10-26 10:11] LABS: Absolute Lymphocyte Count 1.64 X10^3/uL (0.83-4.51); Absolute Neutrophil Count 2.9 X10^3/uL (2.0-7.7); Basophil# 0.04 X10^3/uL; Basophil% 0.8 % (0-1); Eosinophil# 0.07 X10^3/uL; Eosinophils% 1.4 % (0-5); Hematocrit 37.4 % (37-47); Hemoglobin 12.4 g/dL (12.0-15.0); Lymphocyte # 1.64 X10^3/ul (0.83-4.51); Lymphocyte % 33.3 % (19-41); Mean Corp Hgb Conc 33.2 g/dL (32-36); Mean Corpuscular Hgb 29.5 pg (27.0-32.0); Mean Corpuscular Volume 88.8 fL (81-99); Mean Platelet Vol. 9.8 fl (6.2-12.0); Monocyte# 0.29 X10^3/uL; Monocyte% 5.9 % (0-10); NRBC Flagged by Analyzer 0 % (0-5); Neutrophil # 2.87 X10^3/uL (2.7-7.7); Neutrophil % 58.2 % (47-70); Platelet Count 171 K/mm3 (150-450); RBC Distribution Width CV 13.2 % (11.6-14.6); RBC Distribution Width SD 43.2 fl (35.1-43.9); Red Blood Count 4.21 M/mm3 (4.2-5.4); White Blood Count 4.9 K/mm3 (4.4-11.0)
[2021-10-26 10:29] LABS: Vitamin B12 431 pg/mL (211-911); Vitamin D,25 Hydroxy 34.8 ng/mL
[2021-10-26 11:03] LABS: ALB/GLOB Ratio 1.3 RATIO (0.9-2.4); AST(SGOT) 13 U/L (15-37); Alanine Aminotransfer ALT/SGPT 23 U/L (13-56); Albumin, Serum 3.7 g/dL (3.2-5.0); Alkaline Phosphatase 67 U/L (45-117); Anion Gap 5 (5-15); BUN 13 mg/dL (7-18); Calcium,Total 8.5 mg/dL (8.5-10.1); Chloride 108 mmol/L (98-107); Cholesterol 206 mg/dL (200); Creatinine, Serum 0.76 mg/dL (0.55-1.02); EST Glomerular Filtration Rate 82 mL/min (>60); Est Glom Filt Rate - Afr Amer 100 mL/min (>60); Globulin 2.9 g/dL (2.2-4.2); Glucose 72 mg/dL (74-106); High Density Lipoprotein 75 mg/dL; Potassium 3.6 mmol/L (3.5-5.1); Protein, Total 6.6 g/dL (6.4-8.2); Sodium Level 141 mmol/L (136-145); Triglycerides 47 mg/dL; Very Low Density Lipoprotein 9 mg/dL (5-40)
== END | disposition home or self-care (01) ==
PROVIDERS: PCP Student in an Organized Health Care Education/Training Program; Referring Provider Student in an Organized Health Care Education/Training Program; Visit Provider Student in an Organized Health Care Education/Training Program
DX: Z00.00 Encounter for general adult medical examination without abnormal findings (principal)
CPT/HCPCS: 36415; 80053; 80061; 82306; 82607; 84443; 85025

== ENCOUNTER → 2021-11-10 | Outpatient (CLI) | payer OTHER, SELFPAY ==
--- NOTE | 2021-11-10 12:42 | VDLE_ITS ---
Reason For Study: bilat vein stripping, venous insufficiency RIGHT LEFT CFV is compressible, spontaneous, phasic, CFV is compressible, spontaneous, phasic, competent and demonstrates normal competent, and demonstrates normal augmentation. augmentation. FV is compressible, spontaneous, phasic, FV is compressible, spontaneous, phasic, competent and demonstrates normal competent and demonstrates normal augmentation. augmentation. POP V is compressible, spontaneous, phasic, POP V is compressible, spontaneous, phasic, competent and demonstrates normal competent and demonstrates normal augmentation. augmentation. T/P Trunk is compressible. T/P Trunk is compressible. PTV is compressible. PTV is compressible. RT PerV is compressible. LT PerV is compressible. SFJ is INCOMPETENT and measures .78 cm. SFJ is INCOMPETENT and measures .77 cm. SSV proximal calf is INCOMPETENT for greater ASV proximal thigh is INCOMPETENT for greater than 0.5 seconds and measures .28 x .28 cm. than 0.5 seconds and measures .63 x .55 cm. ASV proximal thigh is INCOMPETENT for greater SSV proximal calf is competent and than 0.5 seconds and measures .42 x .46 cm. measures .14 x .16 cm. Tool Grinder Operator V 15 cm proximal to the medial ASV mid calf is INCOMPETENT for greater than malleolus is incompetent for greater than .5 0.5 seconds and measures .32 x .32 cm. seconds. Procedure This is a venous duplex using B-mode, color flow and spectral Doppler. Exam performed in department. The exam was diagnostic. VL/Venous Duplex US - Rehan Extrem Interpretation Summary Deep veins of the lower extremities are bilaterally patent and compressible seg mentally. There is no evidence of deep vein thrombosis on either side. Valvular competence appears in tact within the proximal deep venous systems bilaterally. The great saphenous veins are absent bilaterally. Sapheno- femoral junctions are bilaterally incompetent . The right small saphenous vein is patent and incompetent. The left small saphenous vein is patent and competent. An accessor y saphenous vein in the right proximal thigh is incompetent. An accessory saphenous vein in the lef t proximal thigh is incompetent. An accessory saphenous vein in the left mid-calf is incompetent. A trolley worker vein in the right calf, located 15 centimeters proximal to the right medial malleolus, is incompetent. Ordering Physician: Bobby Soto Performed By: Tam Mishra RVT
== END | disposition home or self-care (01) ==
LOC: CVS 12:41
PROVIDERS: PCP Student in an Organized Health Care Education/Training Program; Referring Provider Surgery; Visit Provider Surgery
DX: I83.93 Asymptomatic varicose veins of bilateral lower extremities (principal)
CPT/HCPCS: 93970

== ENCOUNTER → 2022-01-25 | Outpatient (CLI) | payer OTHER, SELFPAY ==
--- NOTE | 2022-01-25 16:11 | EKG12_ITS ---
Test Reason : PREOP Blood Pressure : / mmHG Vent. Rate : 068 BPM Atrial Rate : 068 BPM P-R Int : 138 ms QRS Dur : 088 ms QT Int : 374 ms P-R-T Axes : 091 000 023 degrees QTc Int : 397 ms Normal sinus rhythm Nonspecific ST abnormality Abnormal ECG Confirmed by ALEXIA BREWER, JAILENE ([id number]), publication editor SMITA PASCUAL ([id number]) on 01/26/2022 8:41:37 AM Referred By: ARACELI ORTEGA Confirmed By:JAILENE HALE MD
== END | disposition home or self-care (01) ==
PROVIDERS: PCP Student in an Organized Health Care Education/Training Program
DX: L98.7 Excessive and redundant skin and subcutaneous tissue (principal); Z41.1 Encounter for cosmetic surgery
CPT/HCPCS: 93005

== ENCOUNTER → 2022-01-28 | Outpatient (CLI) | payer OTHER, SELFPAY ==
[2022-01-28 08:32] LABS: Hematocrit 38.8 % (37-47); Hemoglobin 12.7 g/dL (12.0-15.0); Mean Corp Hgb Conc 32.7 g/dL (32-36); Mean Corpuscular Hgb 29.5 pg (27.0-32.0); Mean Platelet Vol. 9.2 fl (6.2-12.0); Platelet Count 176 K/mm3 (150-450); RBC Distribution Width CV 13.2 % (11.6-14.6); RBC Distribution Width SD 43.7 fl (35.1-43.9); Red Blood Count 4.31 M/mm3 (4.2-5.4); White Blood Count 6.1 K/mm3 (4.4-11.0)
[2022-01-28 08:55] LABS: Anion Gap 6 (5-15); BUN 17 mg/dL (7-18); BUN/Creat Ratio 22.5 RATIO (10-20); Calcium,Total 9.3 mg/dL (8.5-10.1); Chloride 106 mmol/L (98-107); Creatinine, Serum 0.76 mg/dL (0.55-1.02); EST Glomerular Filtration Rate 84 mL/min (>60); Est Glom Filt Rate - Afr Amer 101 mL/min (>60); Glucose 85 mg/dL (74-106); Potassium 3.8 mmol/L (3.5-5.1); Sodium Level 142 mmol/L (136-145)
== END | disposition home or self-care (01) ==
LOC: LAB.FUTURE 08:21
PROVIDERS: PCP Student in an Organized Health Care Education/Training Program
DX: L98.7 Excessive and redundant skin and subcutaneous tissue (principal); Z41.1 Encounter for cosmetic surgery
CPT/HCPCS: 36415; 80048; 85027

== ENCOUNTER 2022-03-28 15:54 | Emergency (ER) | payer OTHER, SELFPAY ==
[2022-03-28 15:56] VITALS: BP 129/83; PULSE 83; RESP 16; TEMP 36.8; O2SAT 99; BMI 34.5
== END 2022-03-28 16:40 | disposition left against medical advice (07) ==
LOC: ED 16:50
PROVIDERS: PCP Student in an Organized Health Care Education/Training Program
DX: Z53.21 Procedure and treatment not carried out due to patient leaving prior to being seen by health care provider (principal)

== ENCOUNTER → 2022-12-06 | Outpatient (CLI) | payer OTHER, SELFPAY ==
--- NOTE | 2022-12-06 12:59 | RAD_ITS ---
INDICATION: PAIN EXAMINATION/TECHNIQUE: X-RAY - XR Spine Cervical 2 or 3 Views COMPARISON: 03/24/2013 FINDINGS: VERTEBRAE: Preserved vertebral body height. No fracture. No spondylolisthesis. Preservation of the normal cervical lordosis. No significant facet arthropathy. DISCS: Disc space loss and endplate disease most prominent at C5-6 and C6-7. NECK SOFT TISSUES: No prevertebral soft tissue widening. LUNG APICES: Clear. RAD/Cerv Spine 2 or 3 Views IMPRESSION: Degenerative disc and endplate disease most prominent at C5-6 and C6-7. Electronically Signed: Car Rosenberg MD at 23:24 EDT ,
--- NOTE | 2022-12-06 13:00 | RAD_ITS ---
INDICATION: Right shoulder pain EXAMINATION/TECHNIQUE: X-RAY - RIGHT XR Shoulder Min 2 Views 4 VIEWS COMPARISON: 07/24/2020 FINDINGS: SOFT TISSUES: No soft tissue swelling or gas. No radiopaque foreign body. BONES/JOINTS: No acute fracture or subluxation. The humeral head appears seated in the glenoid fossa. Acromioclavicular and coracoclavicular relationships are maintained. No sclerotic or destructive changes observed. RAD/Shoulder min 2 Views IMPRESSION: Negative. Electronically Signed: Car Rosenberg MD at 23:25 EDT ,
== END | disposition home or self-care (01) ==
PROVIDERS: PCP Student in an Organized Health Care Education/Training Program; Referring Provider Internal Medicine; Visit Provider Internal Medicine
DX: M25.511 Pain in right shoulder (principal); G89.29 Other chronic pain
CPT/HCPCS: 72040; 73030

== ENCOUNTER → 2023-04-24 | Outpatient (CLI) | payer OTHER, SELFPAY ==
[2023-04-24 09:57] LABS: Absolute Lymphocyte Count 1.85 X10^3/uL (0.83-4.51); Absolute Neutrophil Count 2.9 X10^3/uL (2.0-7.7); Basophil# 0.04 X10^3/uL; Basophil% 0.8 % (0-1); Eosinophil# 0.09 X10^3/uL; Eosinophils% 1.7 % (0-5); Hematocrit 41.5 % (37-47); Hemoglobin 13.7 g/dL (12.0-15.0); Lymphocyte # 1.85 X10^3/ul (0.83-4.51); Mean Corpuscular Hgb 29.1 pg (27.0-32.0); Mean Corpuscular Volume 88.3 fL (81-99); Mean Platelet Vol. 9.6 fl (6.2-12.0); Monocyte# 0.38 X10^3/uL; Monocyte% 7.2 % (0-10); NRBC Flagged by Analyzer 0 % (0-5); Neutrophil # 2.91 X10^3/uL (2.7-7.7); Neutrophil % 55.1 % (47-70); Platelet Count 180 K/mm3 (150-450); RBC Distribution Width CV 13.1 % (11.6-14.6); RBC Distribution Width SD 42.4 fl (35.1-43.9); White Blood Count 5.3 K/mm3 (4.4-11.0)
[2023-04-24 11:14] LABS: ALB/GLOB Ratio 1.2 RATIO (0.9-2.4); AST(SGOT) 15 U/L (15-37); Alanine Aminotransfer ALT/SGPT 23 U/L (13-56); Albumin, Serum 3.7 g/dL (3.2-5.0); Alkaline Phosphatase 74 U/L (45-117); Anion Gap 8 (5-15); BUN 14 mg/dL (7-18); BUN/Creat Ratio 19.2 RATIO (10-20); Calcium,Total 8.9 mg/dL (8.5-10.1); Chloride 108 mmol/L (98-107); Creatinine, Serum 0.73 mg/dL (0.55-1.02); EST Glomerular Filtration Rate 86 mL/min (>60); Est Glom Filt Rate - Afr Amer 105 mL/min (>60); Glucose 73 mg/dL (74-106); Potassium 3.9 mmol/L (3.5-5.1); Protein, Total 6.7 g/dL (6.4-8.2); Sodium Level 142 mmol/L (136-145); Thyroid Stim Hormone (TSH) 2.82 uIU/mL (0.358-3.74)
[2023-04-27 15:16] LABS: Magnesium 2.4 mg/dL (1.6-2.6)
== END | disposition home or self-care (01) ==
PROVIDERS: PCP Student in an Organized Health Care Education/Training Program; Referring Provider Student in an Organized Health Care Education/Training Program; Visit Provider Student in an Organized Health Care Education/Training Program
DX: R00.2 Palpitations (principal)
CPT/HCPCS: 36415; 80053; 83735; 84443; 85025

== ENCOUNTER → 2023-04-27 | Outpatient (CLI) | payer OTHER, SELFPAY ==
--- NOTE | 2023-04-27 13:03 | ECHOD_ITS ---
Reason For Study: Palpitations Procedure This was a 2D Doppler, Color Flow transthoracic echocardiogram. Exam performed in department. Left Ventricle Normal LV size. The estimated ejection fraction is 55 %. No evidence for diastolic dysfunction. No regional wall motion abnormalities noted. Right Ventricle Normal RV size. Normal systolic function. Atria Normal left atrium. Normal right atrium. No doppler evidence for ASD. Mitral Valve There is no mitral valve stenosis. Trivial mitral valve insufficiency. Tricuspid Valve There is no tricuspid stenosis. Trivial tricuspid valve insufficiency. Pulmonary artery systolic pressure is 30 mmHg. Aortic Valve Trisinus/trileaflet aortic valve. There is no aortic stenosis. No aortic valve insufficiency. Pulmonic Valve There is no pulmonic valvular stenosis. Trivial pulmonic valve insufficiency. Great Vessels Normal aortic root. Pericardium/Pleural No pericardial effusion. MMode/2D Measurements & Calculations LVIDd: 4.8 cm IVSd: 1.1 cm Ao root diam: 3.4 cm LVIDs: 2.9 cm LVPWd: 0.81 cm LA dimension: 4.2 cm RVDd: 3.1 cm FS: 39.7 % LAV(MOD-bp): 54.3 ml LA A4 area: 19.3 cm2 RA A4 area: 15.5 cm2 LAV(MOD-sp2): 51.3 ml LAV(MOD-sp4): 49.6 ml TAPSE: 1.7 cm Time Measurements MV dec time: 0.18 sec Doppler Measurements & Calculations MV E max librado: 64.5 cm/sec Lat Peak E' Librado: 13.1 cm/sec Med Peak E' Librado: 9.4 cm/sec MV A max librado: 70.3 cm/sec E/E' lat: 4.9 E/E' med: 6.9 MV E/A: 0.92 MV V2 max: 88.8 cm/sec MV P1/2t max librado: 79.6 cm/sec Ao V2 max: 144.6 cm/sec MV max P.2 mmHg MV P1/2t: 66.9 msec Ao max P.4 mmHg MV V2 mean: 50.2 cm/sec MV dec slope: 348.3 cm/sec2 Ao V2 mean: 102.7 cm/sec MV mean P.2 mmHg Ao mean P.8 mmHg MV V2 VTI: 25.3 cm MVA(P1/2t): 3.3 cm2 Ao V2 VTI: 32.8 cm AV (velocity ratio): 0.75 LV V1 max: 112.3 cm/sec PA V2 max: 87.2 cm/sec TR max librado: 239.6 cm/sec LV V1 max P.1 mmHg TR max P.0 mmHg LV V1 mean P.5 mmHg LV V1 mean: 72.8 cm/sec LV V1 VTI: 24.5 cm ECHO/Echo Complete Interpretation Summary The estimated ejection fraction is 55 %. No evidence for diastolic dysfunction. Trivial mitral valve insufficiency. Ordering Physician: YOMI LACY Referring Physician: YOMI LACY Performed By: Aren Stewart RCS
== END | disposition home or self-care (01) ==
LOC: CVS 13:00
PROVIDERS: PCP Student in an Organized Health Care Education/Training Program; Referring Provider Student in an Organized Health Care Education/Training Program; Visit Provider Student in an Organized Health Care Education/Training Program
DX: R00.2 Palpitations (principal)
CPT/HCPCS: 93306

== ENCOUNTER → 2023-05-12 | Outpatient (CLI) | payer OTHER, SELFPAY ==
--- OUTSIDE RECORDS SUMMARY | 2023-05-12 12:12 | XMS RPT_ITS | CCD ---
Author Name Unknown Address [address] [place] [address] Organization [facility] Care Team Providers Care [employer] [facility] Aide Name Role Phone Iza Swenson NP Unavailable Zack, Nora D. Unavailable QUINN LEE Unavailable Unavailable ZACK, NORA D. Unavailable Unavailable SABRINA RAMIREZ Unavailable Unavailabl e ZACK, NORA D. Unavailable Unavailable Winger, Nora D Attending Unavailable Zack, Nora D Primary Care Unavailable Winger, Nora D Admitting Unavailable Winger, Nora D Attending Unavailable Zack, Nora D Primary Care Unavailable Winger, Nora D Admitting Unavailable Zack, Nora D Attending Unavailable Zack, Nora D Primary Care Unavailable Winger, Nora D Admitting Unavailable Winger, Nora D Attending Unavailable Zack, Nora D Primary Care Unavailable Winger, Nora D Admitting Unavailable Zack, Nora D Attending Unavailable Winger, Nora D Primary Care Unavailable Zack, Nora D Admitting Unavailable Winger, Nora D Attending Unavailable Zack, Nora D Primary Care Unavailable Zack, Nora D Attending Unavailable Zack, Nora D Primary Care Unavailable Winger, Nora D Admitting Unavailable Unavailable Primary Care Provider Unavailabl e Hollie Neely Unavailable Unavailable Winger, Nora D Unavailable Unavailable Lotus Yuli Unavailable Unavailable Zack, Nora Unavailable Unavailable Raul Dhillon Unavailable Unavailable Ahmet, Goldie Unavailable Unavailable Ag Coles Unavailable Unavailable Ahmet, Goldie Unavailable Unavailable Winger, Nora D Unavailable Unavailable Ag Coles Unavailable Unavailable Nora Dixon. Primary Care Provider [phone] Ahemt Goldie Malick Unavailable Unavailable Unavailable Unavailable Unavailable Sanket Ag Floresen Unavailable Goldie Leo Unavailable Unavailable Mayco De Leon Unavailable Gaston Rojas MD Primary Care Provider [phone] Nora Dixon Primary Care Provider Cindi, Kathi Colon Unavailable Yomi Lacy Unavailable CINDI, Mrs. KATHI PHIPPS Referring Unavailabl e CINDI, Mrs. KATHI PHIPPS Attending Unavailabl e CINDI, Mrs. KATHI PHIPPS Primary Care Unavailabl e Lacy, Dr. Gonzalez Attending Unavailable Lacy, Dr. Gonzalez Primary Care Unavailable Lacy, Dr. Gonzalez Referring Unavailable Lacy, Dr. Gonzalez Attending Unavailable Regino, Dr. Gonzalez Primary Care Unavailable Lacy, Dr. Gonzalez Referring Unavailable Yomi Lacy DO Primary Care Provider CUAUHTEMOC MEYERS Admitting Unavailable CUAUHTEMOC MEYERS Attending Unavailable YOMI RUST~[id number] REGINO Primary Care Unavailable Haley, Ginger Mayco Pizano Attending Lakeisha Lacy, Dr. Gonzalez Ama Primary Care Unavailab le Regino DO Yomi A Primary Care Provider YOMI LACY Attending Unavailable YOMI LACY Primary Care Unavailable ANA AVALOS Attending Unavailable YOMI LACY Primary Care Unavailable ANA AVALOS Attending Unavailable YOMI LACY A Primary Care Unavailable LACYERIC FranciscoYOMI A Attending Unavailable YOMI LACY A Primary Care Unavailable Allergies Allergy Classification Reported Allergen(s) Allergy Type Date of Onset Reaction(s) Facility (6 sources) Penicillins; Translations: [PENICILLINS] Propensity to adverse reactions to drug 8 [facility] (4 sources) Penicillins Propensity to adverse reactions to drug 9 [facility] (20 sources) Penicillins; Translations: [Penicillins] drug allergy [facility] Work Phone: (1 source) Penicillins Propensity to adverse reactions 6 [facility] Work Phone: (4 sources) Penicillins Drug Allergy 2 [facility] Medications Current Medications Medication Drug Class(es) Dates Sig (Normalized) Sig (Original) acetaminophen 500 mg / diphenhydrAMINE hydrochloride 25 mg oral tablet (1 source) Histamine-1 Receptor Antagonist take 1 tablet by mouth once daily in the evening diphenhydrAMINE-a cetaminophen (TYLENOL PM) 25-500 mg per tablet Take 1 tablet by mouth 1 (one) time each day. 0 Active acetaminophen 325 mg / oxyCODONE hydrochloride 5 mg oral tablet (1 source) Opioid Agonist Start: 02-17-2022 End: 02-21-2022 take 1 tablet by mouth every six hours as needed oxyCODONE-acetami nophen (PERCOCET) 5-325 mg per tablet Take 1 tablet by mouth every 6 (six) hours if needed for severe pain for up to 4 days. Max Daily Amount: 4 tablets 15 tablet 0 02/17/2022 02/21/2022 Active D-BIOTIN (3 sources) take 1 tablet by mouth once daily Biotin 00729 MCG Tab Take 10,000 mcg by mouth daily. 0 Active ECHINACEA ORAL (1 source) ECHINACEA ORAL Take by mouth. 0 Active Echinacea Preparation (1 source) echinacea oral tablet Quantity: 0 Refills: 0 Ordered: 03-Mar-2021 Catalina Rutledge Generic Substitution Allowed fluticasone propionate 0.05 mg/actuat metered dose nasal spray (1 source) Corticosteroid Start: 01-29-2018 fluticasone (FLONASE) 50 mcg/actuation nasal spray Indications: Acute recurrent sinusitis, unspecified location INSTILL 2 SPRAYS EACH NARES QD PRN FOR RELIEF OF ALLERGY SYMPTOMS. 16 g 0 01/29/2018 Active 12 hr guaiFENesin 600 mg extended release oral tablet (1 source) Start: 01-29-2018 guaiFENesin (MUCINEX) 600 mg 12 hr tablet Indications: Acute recurrent sinusitis, unspecified location Use 1 to 2 tablets every 12 hours as needed, expectorant (helps to thin secretions). Drink plenty of water.. 40 tablet 0 01/29/2018 Active ibuprofen 400 mg oral tablet (6 sources) Nonsteroidal Anti-inflammatory Drug take 1 tablet by mouth every six hours as needed ibuprofen (ADVIL,MOTRIN) 400 mg tablet Take 400 mg by mouth every 6 (six) hours if needed for mild pain. 0 Active Completed/Discontinued Medications Medication Drug Class(es) Dates Sig (Normalized) Sig (Original) acetaminophen 500 mg oral tablet (1 source) Start: 02-17-2022 End: 02-17-2022 acetaminophen (TYLENOL) tablet 1,000 mg albuterol 0.83 mg/ml inhalation solution (1 source) beta2-Adrenergic Agonist Start: 02-17-2022 End: 02-17-2022 albuterol 2.5 mg /3 mL (0.083 %) nebulizer solution 2.5 mg biotin 5 mg disintegrating oral tablet (8 sources) biotin 5,000 mcg ODT Take by mouth once daily. 0 Active Problems Active Problems Problem Classification Problem Date Documented Da te Episodic/Chronic Anxiety disorders (13 sources) Anxiety; Translations: [Anxiety state, unspecified] Chronic Cardiac dysrhythmias (4 sources) Palpitations; Translations: [Palpitations] Onset: 04-17-2023 04-17-2023 Episodic Coma; stupor; and brain damage (1 source) Daytime somnolence; Translations: [Excessive daytime sleepiness] Episodic Deficiency and other anemia (14 sources) Anemia; Translations: [Anemia, unspecified] Episodic Disorders of lipid metabolism (16 sources) Dyslipidemia; Translations: [Other and unspecified hyperlipidemia] Onset: 06-15-2022 07-27-2022 Chronic Past or Other Problems Problem Classification Problem Date Documented Date Episodic/Chronic Joint disorders and dislocations; trauma-related (20 sources) Tear of medial meniscus of knee; Translations: [Tear of medial cartilage or meniscus of knee, current] Resolved: 05-29-2019 Episodic Other and unspecified benign neoplasm (1 source) Neuroma of foot; Translations: [Benign neoplasm of peripheral nerves and autonomic nervous system of lower limb, including hip] Onset: 11-22-2011 11-22-2011 Episodic Other and unspecified benign neoplasm (7 sources) Lipoma (clinical); Translations: [Lipoma, unspecified site] Onset: 06-15-2022 06-15-2022 Episodic Other connective tissue disease (1 source) Personal history of other diseases of the musculoskeletal system and connective tissue; Translations: [Personal history of diseases of the ms sys and conn tiss] Onset: 01-20-2022 Episodic Other nervous system disorders (5 sources) Paresthesia of hand ; Translations: [Anesthesia of skin] Onset: 12-01-2022 12-01-2022 Episodic Other nervous system disorders (2 sources) Anesthesia of skin; Translations: [Anesthesia of skin] Onset: 12-01-2022 Episodic Other nervous system disorders (2 sources) Paresthesia of skin; Translations: [Paresthesia of skin] Onset: 12-01-2022 Episodic Other non-traumatic joint disorders (14 sources) Knee pain; Translations: [Pain in unspecified knee] Onset: 02-01-2019 02-01-2019 Episodic Other non-traumatic joint disorders (18 sources) Pain in unspecified knee; Translations: [Knee pain] Onset: 06-15-2022 06-15-2022 Episodic Other non-traumatic joint disorders (5 sources) Chronic pain of right upper limb; Translations: [Pain in right shoulder] Onset: 12-01-2022 12-01-2022 Episodic Other non-traumatic joint disorders (2 sources) Pain in right shoulder; Translations: [Pain in right shoulder] Onset: 12-01-2022 Episodic Other screening for suspected conditions (not mental disorders or infectious disease) (20 sources) Patient encounter status; Translations: [Other screening mammogram] Onset: 07-27-2022 01-05-2023 Episodic Results Test Name Value Interpretation Reference Range Facil ity Vital Signs Date Time Vital Sign Value Performing Clinician Facility 04-17-2023 08:49-0500 Body height 160 cm [employer] Phone: [facility] 04-17-2023 08:49-0500 Body mass index (BMI) [Ratio] 37.84 kg/m2 [employer] Phone: [facility] 04-17-2023 08:49-0500 Body weight 96.89 kg Yomi Lacy DO Work Phone: [facility] 04-17-2023 08:49-0500 Diastolic blood pressure 72 mm[Hg] Yomi Lacy DO Work Phone: [facility] 04-17-2023 08:49-0500 Heart rate 64 /min Yomi Lacy DO Work Phone: [facility] 04-17-2023 08:49-0500 Systolic blood pressure 116 mm[Hg] Yomi Lacy DO Work Phone: [facility] 01-05-2023 13:31-0400 Body height 160 cm Ana [place] DO Work Phone: [facility] 01-05-2023 13:31-0400 Body mass index (BMI) [Ratio] 35.85 kg/m2 Ana [place] DO Work Phone: [facility] 01-05-2023 13:31-0400 Body weight 91.81 kg Ana [place] DO Work Phone: [facility] 01-05-2023 13:31-0400 Diastolic blood pressure 76 mm[Hg] Ana [place] DO Work Phone: [facility] 01-05-2023 13:31-0400 Heart rate 63 /min Ana [place] DO Work Phone: [facility] 01-05-2023 13:31-0400 SaO2% (BldA) [Mass fraction] 98 % Ana [place] DO Work Phone: [facility] 01-05-2023 13:31-0400 Systolic blood pressure 130 mm[Hg] Ana [place] DO Work Phone: [facility] 12-01-2022 11:00-0400 Body height 160 cm Ana [place] DO Work Phone: [facility] 07-20-2023 11:00-0400 Body mass index (BMI) [Ratio] 35.96 kg/m2 Ana [place] DO Work Phone: [facility] 12-01-2022 11:00-0400 Body weight 92.08 kg Ana [place] DO Work Phone: [facility] 12-01-2022 11:00-0400 Diastolic blood pressure 76 mm[Hg] Ana [place] DO Work Phone: [facility] 12-01-2022 11:00-0400 Heart rate 70 /min Ana Avalos DO Work Phone: [facility] 12-01-2022 11:00-0400 SaO2% (BldA) [Mass fraction] 98 % Ana Avalos DO Work Phone: [facility] 12-01-2022 11:00-0400 Systolic blood pressure 124 mm[Hg] Ana Avalos DO Work Phone: [facility] 02-17-2022 13:00-0400 Body temperature 98.4 [degF] Cuauhtemoc Meyers MD Work Phone: [employer] 02-17-2022 13:00-0400 Heart rate 66 /min Cuauhtemoc Meyers MD Work Phone: [employer] 02-17-2022 13:00-0400 Respiratory rate 11 /min Cuauhtemoc Meyers MD Work Phone: [employer] 02-17-2022 13:00-0400 SaO2% (BldA) [Mass fraction] 100 % Cuauhtemoc Meyers MD Work Phone: [employer] 02-17-2022 12:40-0400 Diastolic blood pressure 80 mm[Hg] Cuauhtemoc Meyers MD Work Phone: [employer] 02-17-2022 12:40-0400 Systolic blood pressure 106 mm[Hg] Cuauhtemoc Meyers MD Work Phone: [employer] 02-17-2022 06:05-0400 Body height 161.3 cm Cuauhtemoc Meyers MD Work Phone: [facility] 02-17-2022 06:05-0400 Body mass index (BMI) [Ratio] 34.9 kg/m2 Cuauhtemoc Meyers MD Work Phone: [facility] 02-17-2022 06:05-0400 Body weight 90.8 kg Cuauhtemoc Meyers MD Work Phone: [facility] 02-02-2022 14:15-0400 Body height 160.02 cm Yomi A Lacy Work Phone: [facility] DO Work Phone: 02-02-2022 14:15-0400 Body mass index (BMI) [Ratio] 35.78 kg/m2 Yomi A Lacy Work Phone: [facility] DO Work Phone: 02-02-2022 14:15-0400 Body surface area Derived from formula 1.94 m2 Yomi A Lacy Work Phone: [facility] DO Work Phone: 02-02-2022 14:15-0400 Body weight 91.63 kg Yomi A Lacy Work Phone: [facility] DO Work Phone: 02-02-2022 14:15-0400 Diastolic blood pressure 74 mm[Hg] Yomi A Lacy Work Phone: [facility] DO Work Phone: 02-02-2022 14:15-0400 Heart rate 64 /min Yomi A Lacy Work Phone: [facility] DO Work Phone: 02-02-2022 14:15-0400 Systolic blood pressure 114 mm[Hg] Yomi A Lacy Work Phone: [facility] DO Work Phone: 10-20-2021 08:58-0400 Body height 160.02 cm Yomi A Lacy Work Phone: [facility] DO Work Phone: 10-20-2021 08:58-0400 Body mass index (BMI) [Ratio] 37.09 kg/m2 Yomi A Lacy Work Phone: [facility] DO Work Phone: 10-20-2021 08:58-0400 Body surface area Derived from formula 1.97 m2 Yomi A Lacy Work Phone: [facility] DO Work Phone: 10-20-2021 08:58-0400 Body weight 94.97 kg Yomi A Lacy Work Phone: [facility] DO Work Phone: 10-20-2021 08:58-0400 Diastolic blood pressure 74 mm[Hg] Yomi A Lacy Work Phone: [facility] DO Work Phone: 10-20-2021 08:58-0400 Heart rate 64 /min Yomi A Lacy Work Phone: [facility] DO Work Phone: 10-20-2021 08:58-0400 SaO2% (BldA) [Mass fraction] 94 % Yomi A Lacy Work Phone: [facility] DO Work Phone: 10-20-2021 08:58-0400 Systolic blood pressure 118 mm[Hg] Yomi Lacy Work Phone: [facility] DO Work Phone: 10-01-2021 16:15-0400 Body height 162.56 cm Kathi Colon Compton Work Phone: [facility] Work Phone: 10-01-2021 16:15-0400 Body mass index (BMI) [Ratio] 35.75 kg/m2 Kathi Colon Cindi Work Phone: [facility] Work Phone: 10-01-2021 16:15-0400 Body surface area Derived from formula 1.99 m2 Kathi Colon Cindi Work Phone: [facility] Work Phone: 10-01-2021 16:15-0400 Body weight 94.46 kg Kathi Colon Compton Work Phone: [facility] Work Phone: 10-01-2021 16:15-0400 Diastolic blood pressure 70 mm[Hg] Kathi L Compton Work Phone: [facility] Work Phone: 10-01-2021 16:15-0400 Heart rate 64 /min Kathi L Compton Work Phone: [facility] Work Phone: 10-01-2021 16:15-0400 Systolic blood pressure 134 mm[Hg] Kathi L Cindi Work Phone: [facility] Work Phone: 03-03-2021 15:53-0400 Body height 160 cm Ag Coles Other Phone: [facility] 03-03-2021 15:53-0400 Body temperature 98.06 [degF] Ag Flowerser Other Phone: [facility] 03-03-2021 15:53-0400 Diastolic blood pressure 83 mm[Hg] Ag Flowerser Other Phone: [facility] 03-03-2021 15:53-0400 Heart rate 74 /min Ag Flowerser Other Phone: [facility] 03-03-2021 15:53-0400 Respiratory rate 16 /min Ag Flowerser Other Phone: [facility] 03-03-2021 15:53-0400 SaO2% (BldA) [Mass fraction] 96 % Ag Flowerser Other Phone: [facility] 03-03-2021 15:53-0400 Systolic blood pressure 127 mm[Hg] Ag Flowerser Other Phone: [facility] 01-08-2021 16:33-0400 Body height 162.56 cm Goldie Leo Work Phone: [facility] Work Phone: 01-08-2021 16:33-0400 Body mass index (BMI) [Ratio] 36.9 kg/m2 Goldie Leo Work Phone: [facility] Work Phone: 01-08-2021 16:33-0400 Body surface area Derived from formula 2.02 m2 Goldie Leo Work Phone: [facility] Work Phone: 01-08-2021 16:33-0400 Body weight 97.52 kg Goldie Leo Work Phone: [facility] Work Phone: 01-08-2021 16:33-0400 Diastolic blood pressure 70 mm[Hg] Goldie Leo Work Phone: [facility] Work Phone: 01-08-2021 16:33-0400 Heart rate 72 /min Goldie Leo Work Phone: [facility] Work Phone: 01-08-2021 16:33-0400 Systolic blood pressure 110 mm[Hg] Goldie Leo Work Phone: [facility] Work Phone: 05-11-2020 14:25-0500 BMI (Body Mass Index) 43.47 kg/m2 [facility] Work Phone: 05-11-2020 14:25-0500 Body Temperature 97.8 [degF] [facility] Work Phone: 05-11-2020 14:25-0500 Body weight 111.13 kg [facility] Work Phone: 05-11-2020 14:25-0500 BP Diastolic 78 mm[Hg] [facility] Work Phone: 05-11-2020 14:25-0500 BP Systolic 112 mm[Hg] [facility] Work Phone: 05-11-2020 14:25-0500 BSA (Body Surface Area) 2.11 m2 [facility] Work Phone: 05-11-2020 14:25-0500 Height 159.89 cm [facility] Work Phone: 05-11-2020 14:25-0500 Pulse (Heart Rate) 77 /min Goldie [facility] Work Phone: 04-23-2020 14:34-0500 BMI (Body Mass Index) 43.12 kg/m2 [facility] Work Phone: 04-23-2020 14:34-0500 Body weight 110.22 kg [facility] Work Phone: 04-23-2020 14:34-0500 BP Diastolic 78 mm[Hg] [facility] Work Phone: Encounters Encounter Date Encounter Type Care Provider Facility Start: 04-17-2023 End: 04-17-2023 ambulatory [facility] Start: 04-17-2023 End: 04-17-2023 Office outpatient visit 25 minutes Yomi Lacy DO Work Phone: [facility] Procedures Date Procedure Procedure Detail Performing Clinician Start: 04-17-2023 Comprehensive metabo lic 2000 panel - Serum or Plasma YOMI LACY Start: 04-17-2023 TSH WITH REFLEX TO F REE T4 IF ABNORMAL YOMI LACY Start: 04-17-2023 CBC W Auto Different ial panel - Blood YOMI LACY Start: 07-27-2022 GROUP A STREPTOCOCCUS, PCR YOMI LACY Start: 07-27-2022 SARS-COV-2 AND INFLU UVALDO A/B PCR, SYMPTOMATIC YOMI LACY Start: 02-17-2022 Blood count complete automated Simon Csatañeda MD Work Phone: Start: 10-25-2021 Mammography Anaconrad clark DO Work Phone: Start: 04-23-2020 1 25 dihydroxy inclu anna marie fractions if performed Goldie Leo Start: 04-23-2020 Assay of folic acid serum Goldie Leo Start: 04-23-2020 Basic metabolic 1998 panel - Serum or Plasma Goldie Leo Start: 04-23-2020 CBC W Auto Different ial panel - Blood Goldie Leo Start: 04-23-2020 Cyanocobalamin vitamin b-12 Goldie Leo Start: 04-23-2020 Hemoglobin glycosylated a1c Goldie Leo Start: 04-23-2020 TSH WITH REFLEX TO F REE T4 IF ABNORMAL Goldie Leo Start: 03-26-2020 Xray Shoulder Comple te Min 2 Views Goldie Leo Start: 05-29-2019 MG Breast screening Meng Dixon Start: 03-14-2019 Assay of iron Yuli Black Start: 03-14-2019 Blood count complete auto&auto difrntl wbc Yuli Gautam Start: 10-05-2016 Adult depression scr eening assessment Shannan Huber APRN.[employer] MANAGER Work Phone: Start: 07-26-2015 Colonoscopy Shannan duenas APRN.[employer] MANAGER Work Phone: Start: 02-20-2015 Mammography Shannan duenas APRN.[employer] MANAGER Work Phone: Biopsy of skin Yuli Parikh e Cholecystectomy Yuli Dias ne Dilation and curettage Nora Zack Plan of Treatment Date Care Activity Detail Author Start: 07-25-2025 Colonoscopy COLONOSCOPY [facility] Start: 07-25-2025 COLORECTAL CANCER SCREENING COLORECTAL CANCER SCREENING [facility] Start: 05-18-2023 End: 05-18-2023 Patient encounter procedure 05/18/2023 2:20 PM EST Office Visit [facility] [address] [place] [id number] Yomi Lacy DO [address] [facility] [address] [place] [id number] [facility] Start: 04-17-2023 End: 04-17-2024 CBC W Auto Differential panel - Blood CBC and Auto Differential Lab Routine Palpitations Expected: 04/17/2023 (Approximate), Expires: 04/17/2024 [facility] Service Area Work Phone: Payers Date Payer Category Payer Unknown [id number] 2017 Unknown 2017 Unknown [id number] 2015 Unknown [employer] xxxxxxxxxxxx 2015-Present xxxxxxxxxxxx [id number] 2013 Unknown [id number] 1963 Unknown [id number] 1963 Unknown [id number] 2.16.840.1.177053.3.579.2. 1963 Unknown [id number] 2.16.840.1.336064.3.579.2. 1963 Unknown [id number] 2.16.840.1.280804.3.579.2. 1963 Unknown [id number] 2.16.840.1.864979.3.579.2. 1963 Unknown [id number] 2.16.840.1.183063.3.579.2. 1963 Unknown [id number] 2.16.840.1.852356.3.579.2. 1963 Unknown [id number] 2.16.840.1.693598.3.579.2.356 1963 Unknown [id number] 2.16.840.1.823206.3.579.2.356 1963 Unknown [id number] 2.16.840.1.125154.3.579.2.356 1963 Unknown [id number] 2.16.840.1.460734.3.579.2.114 3 1963 Unknown [id number] 2.16.840.1.352454.3.579.2.106 9 1963 Unknown [id number] 2.16.840.1.601146.3.579.2.124 4 1963 Unknown [id number] 2.16.840.1.502505.3.579.2.124 4 1963 Unknown [id number] [id number] 4 1963 Unknown [id number] 4 Social History Date Type Detail Facility Start: 12-06-2017 End: 07-27-2022 Tobacco smoking status NHIS Never smoker [facility] Start: 1965 Sex Assigned At Not on file [facility] Start: 01-29-2018 End: 07-27-2022 Tobacco use and exposure Never used [facility] Start: 10-05-2016 End: 01-29-2018 Alcohol intake Current non-drinker of alcohol (finding) [facility] Start: 12-01-2022 End: 01-05-2023 No advance directives No advance directives [facility] Work Phone: Tobacco smoking consumption unknown [facility] Start: 02-17-2022 Alcohol intake Ex-drinker (finding) [facility] Start: 02-06-2022 End: 04-17-2023 Exposure to SARS-CoV-2 (event) Not sure [facility] Start: 12-01-2022 End: 01-05-2023 Tobacco use panel [facility] Work Phone: NEGATED: Highlighted row - [facility] Work Phone: Goals Date Patient Goal Desired Activity /State Functional Status Date Assessment Result Facility 05-11-2020 PHQ-9 Adult Depressi on Score; Abnormal PHQ-9 Adult Depression Score 16 [facility] Work Phone: Mental Status Date Assessment Result Facility NEGATED: Highlighted row Cognitive function [Interpretation] Cognitive status health issues are not documented [facility] Work Phone: Clinical Notes 01-25-2006 to 04-17-2023 Assessment & Plan Note - Yomi Lacy DO - 04/17/2023 9:51 AM ESTAssessment & Plan Note - Yomi Lacy DO - 04/17/2023 9:51 AM ESTYoim Lacy, DO - 04/17/2023 8:40 AM EST Note Date & Type Note Facility 04-17-2023 Evaluation + Plan note Associated Problem(s): Palpitations Intermittent x2mo after episode of chest pain. Reviewed possible etiologies and usual workup. Will start with labs as well as echo and Holter and will follow up with results when available. Return precautions reviewed. Recommend ED eval if she has recurrence of CP. [facility] Work Phone: 04-17-2023 Miscellaneous Notes Associated Problem(s): Palpitations Intermittent x2mo after episode of chest pain. Reviewed possible etiologies and usual workup. Will start with labs as well as echo and Holter and will follow up with results when available. Return precautions reviewed. Recommend ED eval if she has recurrence of CP. Associated Problem(s): Dyslipidemia Decided not to proceed with CT coronary artery calcium scoring. Discussed utility of the exam. She will consider rescheduling. Lifestyle modifications reviewed. documented in this encounter [facility] Work Phone: 04-17-2023 Evaluation + Plan note Associated Problem(s): Dyslipidemia Decided not to proceed with CT coronary artery calcium scoring. Discussed utility of the exam. She will consider rescheduling. Lifestyle modifications reviewed. [facility] Work Phone: 04-17-2023 History of Present illness Narrative Subjective Patient ID: Austin Maza is a 57 y.o. female who presents for heart fluttering x couple months. Had sharp pains under breasts. Also having bloating HPI Palpitations - episode started with chest pain early 02/2023, was at work and developed sharp pains inferior to breasts bl, episode lasted a few minutes, contemplated going to ED for eval but went away so continued to work, has had occasional fluttering since then, up to three times a day, episodes last a couple seconds, seems to be random, feels swollen/bloated but no other symptoms, no CP, SOB, LH, RAJAN, PND, orthopnea, abd pain, having some constipation which is usual for her, seems like episodes are getting less frequent with time HLD - not interested in statin, missed appt for CACS, and prefers to hold for now Review of Systems Constitutional: Negative for chills and fever. Respiratory: Negative for cough and shortness of breath. Cardiovascular: Positive for palpitations. Negative for chest pain. Gastrointestinal: Positive for constipation. Negative for abdominal pain. Skin: Negative for rash. Psychiatric/Behavioral: Negative for dysphoric mood. The patient is not nervous/anxious. Objective BP 116/72 Pulse 64 Ht 1.6 m (5' 3 ) Wt 96.9 kg (213 lb 9.6 oz) BMI 37.84 kg/m Physical Exam Constitutional: Appearance: Normal appearance. HENT: Head: Normocephalic and atraumatic. Eyes: General: No scleral icterus. Conjunctiva/sclera: Conjunctivae normal. Cardiovascular: Rate and Rhythm: Normal rate and regular rhythm. Heart sounds: No murmur heard. Pulmonary: Effort: Pulmonary effort is normal. No respiratory distress. Breath sounds: Normal breath sounds. Musculoskeletal: Cervical back: Normal range of motion and neck supple. Skin: General: Skin is warm and dry. Findings: No rash. Neurological: General: No focal deficit present. Mental Status: She is alert. Psychiatric: Mood and Affect: Mood normal. Behavior: Behavior normal. Assessment/Plan Problem List Items Addressed This Visit ICD-10-CM Palpitations - Primary R00.2 Intermittent x2mo after episode of chest pain. Reviewed possible etiologies and usual workup. Will start with labs as well as echo and Holter and will follow up with results when available. Return precautions reviewed. Recommend ED eval if she has recurrence of CP. Relevant Orders CBC and Auto Differential Comprehensive Metabolic Panel TSH with reflex to Free T4 if abnormal Transthoracic Echo (TTE) Complete Holter or Event [employer] Follow Up In Primary Care - Established Dyslipidemia E78.5 Decided not to proceed with CT coronary artery calcium scoring. Discussed utility of the exam. She will consider rescheduling. Lifestyle modifications reviewed. Follow up in 1mo for recheck, sooner if needed. documented in this encounter [facility] Work Phone: 01-05-2023 Evaluation + Plan note Associated Problem(s): Moderate obstructive sleep apnea -We briefly discussed this condition and she will read about it [facility] Work Phone: 01-05-2023 Evaluation + Plan note Associated Problem(s): Numbness and tingling in right hand -I am still recommending that she complete the EMG [facility] Work Phone: 01-05-2023 Evaluation + Plan note Associated Problem(s): Chronic right shoulder pain -Much improved after treatment with Naprosyn [facility] Work Phone: 01-05-2023 Evaluation + Plan note Associated Problem(s): Screening for heart disease -She will be scheduled for this exam and she will see Dr. Lacy in follow-up to go over results and an active plan for further risk stratification [facility] Work Phone: 01-05-2023 Evaluation + Plan note Associated Problem(s): Dyslipidemia -We are giving her a handout today that goes over ways to improve cholesterol through diet [facility] Work Phone: 01-05-2023 Miscellaneous Notes Associated Problem(s): Moderate obstructive sleep apnea -We briefly discussed this condition and she will read about it Associated Problem(s): Numbness and tingling in right hand -I am still recommending that she complete the EMG Associated Problem(s): Chronic right shoulder pain -Much improved after treatment with Naprosyn Associated Problem(s): Screening for heart disease -She will be scheduled for this exam and she will see Dr. Lacy in follow-up to go over results and an active plan for further risk stratification Associated Problem(s): Dyslipidemia -We are giving her a handout today that goes over ways to improve cholesterol through diet documented in this encounter [facility] Work Phone: 01-05-2023 History of Present illness Narrative Pt is here today for a work physical. Review labs. Subjective Patient ID: Austin Maza is a 57 y.o. female who presents for No chief complaint on file.. HPI Seeing during Dr. Lacy's absence. She is here today for follow-up. We saw her last time because of some shoulder and neck pain and I prescribed Naprosyn twice daily for about 10 days. She states that much to her surprise she actually is doing better and the discomfort has improved significantly. She is still having some tingling in her hand and she states that she was a little nervous about getting the EMG completed. I did explain that by doing the EMG we can know where a nerve is being pinched and then it can guide therapy in the future. She states she will try to get it done. She also states that she is needing documentation for her workplace indicating that she was in today for a physical. She had lab work done through the [facility] on December 30 and we went over that together. Overall her numbers are looking quite good but she did have an elevated total cholesterol as well as LDL cholesterol. I did explain that her HDL cholesterol is quite robust which helps offset the bad cholesterol. She states that she was adopted but she does know some facts about her biologic father who from heart disease. She is quite concerned about her cholesterol. I have suggested she would benefit from doing a coronary calcium scan and she is quite agreeable. We will get that scheduled and in all likelihood Dr. Lacy will be back from leave and be able to go the results with her. We did conduct a review of systems and I will be giving her a handout today that goes over things she could do with her diet to improve her cholesterol. We also briefly discussed her diagnosis of chronic fatigue and I did mention that in her problem list it was listed that she had moderate obstructive sleep apnea. She states that actually she has been tested more than once and each time she was advised that she was suffering from mild obstructive sleep apnea. We talked about the varying degrees of this condition and how it can affect energy levels and so forth. I did give her a handout that explains sleep apnea. Review of Systems Constitutional: Negative for unexpected weight change. Chronic stable fatigue Respiratory: Negative for cough, chest tightness, shortness of breath and wheezing. Cardiovascular: Negative for chest pain, palpitations and leg swelling. Gastrointestinal: Negative for abdominal pain, blood in stool, diarrhea, nausea and vomiting. Musculoskeletal: Negative for arthralgias and back pain. Objective Physical Exam Vitals and nursing note reviewed. Constitutional: General: She is not in acute distress. Appearance: Normal appearance. HENT: Head: Normocephalic and atraumatic. Eyes: Conjunctiva/sclera: Conjunctivae normal. Cardiovascular: Rate and Rhythm: Normal rate and regular rhythm. Heart sounds: Normal heart sounds. Pulmonary: Effort: No respiratory distress. Breath sounds: No wheezing. Abdominal: Palpations: Abdomen is soft. Tenderness: There is no abdominal tenderness. There is no guarding. Musculoskeletal: General: No swelling. Normal range of motion. Skin: General: Skin is warm and dry. Neurological: General: No focal deficit present. Mental Status: She is alert and oriented to person, place, and time. Psychiatric: Behavior: Behavior normal. Assessment/Plan Problem List Items Addressed This Visit Dyslipidemia - Primary -We are giving her a handout today that goes over ways to improve cholesterol through diet Relevant Orders CT cardiac scoring wo IV contrast Moderate obstructive sleep apnea -We briefly discussed this condition and she will read about it Numbness and tingling in right hand -I am still recommending that she complete the EMG Chronic right shoulder pain -Much improved after treatment with Naprosyn Screening for heart disease -She will be scheduled for this exam and she will see Dr. Lacy in follow-up to go over results and an active plan for further risk stratification Relevant Orders CT cardiac scoring wo IV contrast Ana Avalos DO documented in this encounter [facility] Work Phone: 01-05-2023 Instructions Ana Avalos DO - 01/05/2023 1:20 PM EDT The staff will be helping you to schedule your coronary calcium scan and by the time it comes back you should be able to see Dr. Lacy in follow-up Please read the handout we gave you today going over ways to improve your cholesterol profile Please read the handout I gave you today explaining sleep apnea documented in this encounter [facility] Work Phone: 12-01-2022 Evaluation + Plan note Associated Problem(s): Neck pain -She will get an x-ray of her cervical spine -We discussed the possibility of a radiculopathy from her neck down her right arm [facility] Work Phone: 12-01-2022 Evaluation + Plan note Associated Problem(s): Chronic right shoulder pain -I am sending her for x-rays of her right shoulder -I am prescribing Naprosyn 500 mg twice daily with food for the next 10 to 12 days [facility] Work Phone: 12-01-2022 Miscellaneous Notes Associated Problem(s): Neck pain -She will get an x-ray of her cervical spine -We discussed the possibility of a radiculopathy from her neck down her right arm Associated Problem(s): Chronic right shoulder pain -I am sending her for x-rays of her right shoulder -I am prescribing Naprosyn 500 mg twice daily with food for the next 10 to 12 days Associated Problem(s): Numbness and tingling in right hand -Her numbness and tingling happen to occur in the median nerve distribution of her right hand so I am giving her handout that goes over ways to treat her carpal tunnel conservatively entheses if that is what she has) and I will be ordering an EMG to get a better picture of where the nerve impingement is occurring documented in this encounter [facility] Work Phone: 12-01-2022 Evaluation + Plan note Associated Problem(s): Numbness and tingling in right hand -Her numbness and tingling happen to occur in the median nerve distribution of her right hand so I am giving her handout that goes over ways to treat her carpal tunnel conservatively entheses if that is what she has) and I will be ordering an EMG to get a better picture of where the nerve impingement is occurring [facility] Work Phone: 12-01-2022 History of Present illness Narrative Pt is here today with the C/O right shoulder pain, numbness and tingling down right arm. Subjective Patient ID: Austin Maza is a 57 y.o. female who presents for No chief complaint on file.. HPI I am seeing her during Dr. Betts absence. She explains that she has been having problems with her right shoulder for the past several months. She does not recall any type of injuries although she states she is very active and sometimes does very rigorous work like chopping wood. She states that when she started having her symptoms she went to the chiropractor but despite several sessions it simply not getting better. She points to the anterior portion of her right shoulder close to the acromioclavicular region. She states she feels discomfort there and sometimes when moving her shoulder about the pain becomes quite intense. She was able to bring her arm up to beyond 90 degrees without too much difficulty today but she states sometimes its impossible because of the discomfort. She also suffers from chronic neck pain. She describes getting numbness and tingling in her arm and hand and she points to the first 3 digits of her hand. I did do a Phalen's test with her and it was minimally positive. We talked about nerve impingement and we talked about trying to figure out if it is in the wrist i.e. carpal tunnel or if possibly coming from the neck. She states she has not had an x-ray of her shoulder and I will be sending her for x-rays of both shoulder and neck. I am also going to treat her empirically with Naprosyn for the next 10 to 12 days until we figure out what is going on. I have decided to order an EMG and hopefully this can be done in a timely manner. We did conduct a review of systems Review of Systems Constitutional: Positive for fatigue. Respiratory: Negative for cough, chest tightness, shortness of breath and wheezing. Cardiovascular: Negative for chest pain, palpitations and leg swelling. Gastrointestinal: Negative for abdominal pain, blood in stool, diarrhea, nausea and vomiting. Musculoskeletal: Negative for back pain. Objective Physical Exam Vitals and nursing note reviewed. Constitutional: General: She is not in acute distress. Appearance: Normal appearance. HENT: Head: Normocephalic and atraumatic. Eyes: Conjunctiva/sclera: Conjunctivae normal. Cardiovascular: Rate and Rhythm: Normal rate and regular rhythm. Heart sounds: Normal heart sounds. Pulmonary: Effort: No respiratory distress. Breath sounds: No wheezing. Abdominal: Palpations: Abdomen is soft. Tenderness: There is no abdominal tenderness. There is no guarding. Musculoskeletal: General: No swelling. Normal range of motion. Skin: General: Skin is warm and dry. Neurological: General: No focal deficit present. Mental Status: She is alert and oriented to person, place, and time. Psychiatric: Behavior: Behavior normal. Assessment/Plan Problem List Items Addressed This Visit Numbness and tingling in right hand -Her numbness and tingling happen to occur in the median nerve distribution of her right hand so I am giving her handout that goes over ways to treat her carpal tunnel conservatively entheses if that is what she has) and I will be ordering an EMG to get a better picture of where the nerve impingement is occurring Chronic right shoulder pain - Primary -I am sending her for x-rays of her right shoulder -I am prescribing Naprosyn 500 mg twice daily with food for the next 10 to 12 days Neck pain -She will get an x-ray of her cervical spine -We discussed the possibility of a radiculopathy from her neck down her right arm Ana Avalos DO documented in this encounter [facility] Work Phone: 12-01-2022 Instructions Ana Avalos DO - 12/01/2022 11:00 AM EDT As we discussed I am ordering an x-ray of both your neck and right shoulder. We will see what that shows and then go from there You had mentioned ordering an MRI but MRIs have to be approved through insurance and you have not had x-rays yet or treatment. Often times insurance requires initial evaluation and treatment before they will approve an MRI I sent a prescription to your pharmacy for medication called Naprosyn and please take this twice a day with food. I would like for you to take it every day for the next 10 to 12 days because it provides an anti-inflammatory effect and it might just help eradicate your symptoms. Please remember that Naprosyn is an NSAID and it is important not to take any [id number] medications except for Tylenol. You can safely take Tylenol with the Naprosyn as directed if necessary and you can also use topical liniments like IcyHot or Bengay to the area of concern. They also have lidocaine patches that you can apply to the skin safely The staff will be helping to schedule an EMG of your right extremity because I do suspect that you may have carpal tunnel syndrome. I am giving you a handout today that explains the condition so please read about that and we will see you back after completion of your studies documented in this encounter [facility] Work Phone: 02-17-2022 Procedure note Complete post op instructions reviewed with Farzad. He will get Rx today. Drain instructions reviewed [facility] 02-17-2022 Procedure note Complete post op instructions reviewed with Farzad. He will get Rx today. Drain instructions reviewed PANNICULECTOMY, ABDOMINOPLASTY, MEDIAL THIGH LIFT BILATERAL (B) OPERATIVE NOTE Date: 02/17/2022 [place] [facility] [place] Name: Austin Maza : 1965, Diagnosis Pre-op Diagnosis * Excessive and redundant skin and subcutaneous tissue [L98.7] * Encounter for cosmetic surgery [Z41.1] Post-op Diagnosis * Excessive and redundant skin and subcutaneous tissue [L98.7] * Encounter for cosmetic surgery [Z41.1] Procedures * PANNICULECTOMY * ABDOMINOPLASTY * MEDIAL THIGH LIFT BILATERAL Indications: Austin Maza is an 56 y.o. female who is having surgery for L98.7 Z41.1. Surgeon(s) & Special Education Paraeducator(s) * Cuauhtemoc Meyers MD - Primary Anesthesia: general ASA: III Estimated Blood Loss: 40 cc Drains: Closed/Suction Drain LLQ Bulb 15 Fr. (Active) Closed/Suction Drain RLQ 15 Fr. (Active) Specimen: None Procedure Details: The patient was marked in the preoperative holding area including her medial thighs and abdomen. I explained to her the risk benefits and alternatives including but not limited to pain, bleeding, infection, scar, asymmetry, flap necrosis, umbilical necrosis. All of her questions were answered. The patient was taken the operating room placed in the supine position and general anesthesia was ministered by the anesthesia team. We began with the medial thighs these areas were prepped draped normal sterile fashion. The patient was placed in a carefully padded frog-leg position. We performed elliptical excision of the excess skin and fat of the medial thighs from the level of the inguinal crease to the knee care was taken to avoid deep neurovascular structures. We use electrocautery for meticulous hemostasis. We then closed the incisions bilaterally using 0 Vicryl 2-0 Vicryl and surgical mague for reinforcement. Sterile dressings and a light compressive Lucius wrap were then applied. We then reprepped and redraped the abdomen I made a lower transverse incision along the abdomen we dissected along the skin subcutaneous tissue to the level of the anterior rectus sheath we made an incision around the umbilicus and and skeletonized the umbilicus taking care to preserve the neurovascular structures. We continued our dissection to the level of the subcostal margins bilaterally. We transected the excess skin removing approximately 5 pounds of excess skin and fat. I placed 215 Kenyan drains inferiorly and sutured the securely with 3-0 silk sutures. We closed the flap over the drains using 0 Vicryl 2-0 Vicryl and 3 oh strata fix. Finally made incision in the midline directly over the umbilicus and delivered the umbilicus on its stalk. The umbilicus appeared vascularly intact by visual inspection this was then meticulously inset using a half buried horizontal mattress sutures consisting of 3-0 Monocryl. Prineo Dermabond sterile dressings and a sterile binder were applied all sponge and needle counts were correct. The patient was extubated operating transferred recovery in stable condition. Findings: Excess skin Complications: None; patient tolerated the procedure well. Disposition: PACU - hemodynamically stable. Condition: stable documented in this encounter [facility] 02-17-2022 Hospital course Narrative The patient has a follow-up in the office in 5 to 7 days. Any questions call [phone] Regular diet Empty and record drain output daily. Patient may shower in 24 to 48 hours. Wear abdominal binder and compression of the legs 24 hours a day except for in the shower. No bath tub swimming pool or hot tub. Pre-Surgery Instructions: Medication Instructions NON FORMULARY Continue taking until night before surgery NON FORMULARY Continue taking until night before surgery NON FORMULARY Continue taking until night before surgery Additional Instructions: Nothing to Eat or Drink After Midnight No Gum, Mints or Candy No Smoking After Midnight Limit Smoking After Surgery/Procedure as Tolerated Shower with Anti-Bacterial Soap (Hibiclens) Read Label Before Applying Use Deodorant Only, No Lotions, Powders, Creams or Colognes/Perfum Wear Comfortable Clothes Wear Glasses Instead of Contacts, Bring Case Bring Container for Dentures if Applicable No Jewelry, Including Watches, Rings or Earrings Bring Photo ID and Insurance Information Visitors Welcome Enter Through Main Doors to Registration Desk Upon Discharge Must Have a Slide Forming Machine Tender Home Responsible Adult First 24 Hours documented in this encounter [facility] 02-17-2022 Procedure note PANNICULECTOMY, ABDOMINOPLASTY, MEDIAL THIGH LIFT BILATERAL (B) OPERATIVE NOTE Date: 02/17/2022 [place] [facility] [place] Name: Austin Maza, : 1965, Diagnosis Pre-op Diagnosis * Excessive and redundant skin and subcutaneous tissue [L98.7] * Encounter for cosmetic surgery [Z41.1] Post-op Diagnosis * Excessive and redundant skin and subcutaneous tissue [L98.7] * Encounter for cosmetic surgery [Z41.1] Procedures * PANNICULECTOMY * ABDOMINOPLASTY * MEDIAL THIGH LIFT BILATERAL Indications: Austin Maza is an 56 y.o. female who is having surgery for L98.7 Z41.1. Surgeon(s) & Special Education Paraeducator(s) * Cuauhtemoc Meyers MD - Primary Anesthesia: general ASA: III Estimated Blood Loss: 40 cc Drains: Closed/Suction Drain LLQ Bulb 15 Fr. (Active) Closed/Suction Drain RLQ 15 Fr. (Active) Specimen: None Procedure Details: The patient was marked in the preoperative holding area including her medial thighs and abdomen. I explained to her the risk benefits and alternatives including but not limited to pain, bleeding, infection, scar, asymmetry, flap necrosis, umbilical necrosis. All of her questions were answered. The patient was taken the operating room placed in the supine position and general anesthesia was ministered by the anesthesia team. We began with the medial thighs these areas were prepped draped normal sterile fashion. The patient was placed in a carefully padded frog-leg position. We performed elliptical excision of the excess skin and fat of the medial thighs from the level of the inguinal crease to the knee care was taken to avoid deep neurovascular structures. We use electrocautery for meticulous hemostasis. We then closed the incisions bilaterally using 0 Vicryl 2-0 Vicryl and surgical mague for reinforcement. Sterile dressings and a light compressive Lucius wrap were then applied. We then reprepped and redraped the abdomen I made a lower transverse incision along the abdomen we dissected along the skin subcutaneous tissue to the level of the anterior rectus sheath we made an incision around the umbilicus and and skeletonized the umbilicus taking care to preserve the neurovascular structures. We continued our dissection to the level of the subcostal margins bilaterally. We transected the excess skin removing approximately 5 pounds of excess skin and fat. I placed 215 Kenyan drains inferiorly and sutured the securely with 3-0 silk sutures. We closed the flap over the drains using 0 Vicryl 2-0 Vicryl and 3 oh strata fix. Finally made incision in the midline directly over the umbilicus and delivered the umbilicus on its stalk. The umbilicus appeared vascularly intact by visual inspection this was then meticulously inset using a half buried horizontal mattress sutures consisting of 3-0 Monocryl. Prineo Dermabond sterile dressings and a sterile binder were applied all sponge and needle counts were correct. The patient was extubated operating transferred recovery in stable condition. Findings: Excess skin Complications: None; patient tolerated the procedure well. Disposition: PACU - hemodynamically stable. Condition: stable [facility] 02-17-2022 History of Present illness Narrative Subjective/Objective: The patient presents today for a full abdominoplasty and medial thigh lift bilateral. Physical Exam Last Recorded Vitals: Blood pressure 131/87, pulse 68, temperature 37 C (98.6 F), temperature source Oral, resp. rate 15, height 1.613 m (63.5 ), weight 90.8 kg (200 lb 2.8 oz), SpO2 100 %. Assessment/Plan: No new Assessment & Plan notes have been filed under this hospital service since the last note was generated. Service: Plastic Surgery I explained to the patient and her family the risks, benefits, alternatives of full abdominoplasty with umbilical transposition and bilateral medial thigh lift. I outlined for her and marked the exact placement of the incisions as well as a subsequent scars. I also discussed postoperative care and estimated recovery as well as restrictions. All of her questions and those of her family were answered. The patient presents today for a full abdominoplasty and medial thigh lift bilateral. documented in this encounter [facility] 02-17-2022 History and physical note Sound Consult - History & Physical Patient: Austin Maza Age: 56 y.o. Sex: female : 1965 Admission Information Impression and Plan: Diagnosis: Excessive and redundant skin and subcutaneous tissue-for panniculectomy, abdominoplasty and medial thigh bilateral today Encounter for cosmetic surgery-for OR procedure today herniated disc, cervical-asymptomatic Obstructive sleep apnea, states mild case patient does not use CPAP machine. History of Present Illness: 56 y.o. female patient presents for above elected surgery/procedure. Patient denies any complications with anesthesia. Patient has a past medical history of above noted. Patient denies history of TX, cardiac stenting, cardiac bypass, pacemaker, defibrillator, heart valve disease, CVA/TIA, DVT, seizure, DM. Patient denies fever, chills, cough, nausea/vomiting, abdominal discomfort, recent illness, lower extremity edema, orthopnea, change in baseline weight, bowel or bladder function. Past Medical History: Diagnosis Date Constipation Herniated disc, cervical Sleep apnea Mild Case: No CPAP Medications: Outpatient Medications Marked as Taking for the 02/17/22 encounter (Hospital Encounter) Medication Sig Dispense Refill diphenhydrAMINE-acetaminophen (TYLENOL PM) 25-500 mg per tablet Take 1 tablet by mouth 1 (one) time each day. ibuprofen (ADVIL,MOTRIN) 400 mg tablet Take 400 mg by mouth every 6 (six) hours if needed for mild pain. NON FORMULARY Take by mouth 2 (two) times a day. Truvy: Multiple Vitamins NON FORMULARY Take by mouth at bedtime. Yvette: Detoxification of Bowels NON FORMULARY Take by mouth 3 (three) times a day. Echinacea: Immune Support: Takes 3 Tablets TID Allergies: Allergies Allergen Reactions Penicillins Hives Past Surgical History: Procedure Laterality Date ABLATION 2004 Uterus CHOLECYSTECTOMY DILATION AND CURETTAGE OF UTERUS Times 2 LUMBAR SPINE SURGERY 2016 Shaved Vertibrea Due to Buldge NEUROMA SURGERY Right Foot PARTIAL HYSTERECTOMY Vaginal Left 1 Ovary ? Laterality PARTIAL KNEE ARTHROPLASTY Right 2019 TONSILLECTOMY 1976 VEIN SURGERY Left Ankle to Groin VEIN SURGERY Right Ankle to Groin Family History: Family history is positive for HTN. Social History: Social History Tobacco Use Smoking Status Never Smoker Smokeless Tobacco Never Used Social History Substance and Sexual Activity Alcohol Use Not Currently Social History Substance and Sexual Activity Drug Use Never Review of Systems: Pertinent positives as indicated in the [place] All other systems were reviewed and negative. Physical Examination: Vital Signs: Visit Vitals BP 131/87 Pulse 68 Temp 37 C (98.6 F) (Oral) Resp 15 Ht 1.613 m (63.5 ) Wt 90.8 kg (200 lb 2.8 oz) SpO2 100% BMI 34.90 kg/m OB Status Hysterectomy Smoking Status Never Smoker BSA 1.95 m General In no acute distress, appropriate attention, interaction and responses HENT Normocephalic and atraumatic Skin No visible rash. Respiratory Bilateral lungs clear to auscultation, breath sounds equal, no wheezing, no rales, no rhonchi Cardiovascular Regular rate and rhythm, normal S1 and S2 heart sounds, no murmur, no lower extremity edema Abdomen/GI Non-distended, non tender Musculoskeletal No cyanosis, erythema, edema, clubbing or ulcerations Neurologic Alert and oriented x3 Psychiatric Alert, engaged, calm and cooperative [facility] Phone: 02-17-2022 History and physical note Sound Consult - History & Physical Patient: Austin Maza Age: 56 y.o. Sex: female : 1965 Admission Information Impression and Plan: Diagnosis: Excessive and redundant skin and subcutaneous tissue-for panniculectomy, abdominoplasty and medial thigh bilateral today Encounter for cosmetic surgery-for OR procedure today herniated disc, cervical-asymptomatic Obstructive sleep apnea, states mild case patient does not use CPAP machine. History of Present Illness: 56 y.o. female patient presents for above elected surgery/procedure. Patient denies any complications with anesthesia. Patient has a past medical history of above noted. Patient denies history of TX, cardiac stenting, cardiac bypass, pacemaker, defibrillator, heart valve disease, CVA/TIA, DVT, seizure, DM. Patient denies fever, chills, cough, nausea/vomiting, abdominal discomfort, recent illness, lower extremity edema, orthopnea, change in baseline weight, bowel or bladder function. Past Medical History: Diagnosis Date Constipation Herniated disc, cervical Sleep apnea Mild Case: No CPAP Medications: Outpatient Medications Marked as Taking for the 02/17/22 encounter (Hospital Encounter) Medication Sig Dispense Refill diphenhydrAMINE-acetaminophen (TYLENOL PM) 25-500 mg per tablet Take 1 tablet by mouth 1 (one) time each day. ibuprofen (ADVIL,MOTRIN) 400 mg tablet Take 400 mg by mouth every 6 (six) hours if needed for mild pain. NON FORMULARY Take by mouth 2 (two) times a day. Truvy: Multiple Vitamins NON FORMULARY Take by mouth at bedtime. Yvette: Detoxification of Bowels NON FORMULARY Take by mouth 3 (three) times a day. Echinacea: Immune Support: Takes 3 Tablets TID Allergies: Allergies Allergen Reactions Penicillins Hives Past Surgical History: Procedure Laterality Date ABLATION 2005 Uterus CHOLECYSTECTOMY DILATION AND CURETTAGE OF UTERUS Times 2 LUMBAR SPINE SURGERY 2016 Shaved Vertibrea Due to Buldge NEUROMA SURGERY Right Foot PARTIAL HYSTERECTOMY Vaginal Left 1 Ovary ? Laterality PARTIAL KNEE ARTHROPLASTY Right 2019 TONSILLECTOMY 1976 VEIN SURGERY Left Ankle to Groin VEIN SURGERY Right Ankle to Groin Family History: Family history is positive for HTN. Social History: Social History Tobacco Use Smoking Status Never Smoker Smokeless Tobacco Never Used Social History Substance and Sexual Activity Alcohol Use Not Currently Social History Substance and Sexual Activity Drug Use Never Review of Systems: Pertinent positives as indicated in the [place] All other systems were reviewed and negative. Physical Examination: Vital Signs: Visit Vitals BP 131/87 Pulse 68 Temp 37 C (98.6 F) (Oral) Resp 15 Ht 1.613 m (63.5 ) Wt 90.8 kg (200 lb 2.8 oz) SpO2 100% BMI 34.90 kg/m OB Status Hysterectomy Smoking Status Never Smoker BSA 1.95 m General In no acute distress, appropriate attention, interaction and responses HENT Normocephalic and atraumatic Skin No visible rash. Respiratory Bilateral lungs clear to auscultation, breath sounds equal, no wheezing, no rales, no rhonchi Cardiovascular Regular rate and rhythm, normal S1 and S2 heart sounds, no murmur, no lower extremity edema Abdomen/GI Non-distended, non tender Musculoskeletal No cyanosis, erythema, edema, clubbing or ulcerations Neurologic Alert and oriented x3 Psychiatric Alert, engaged, calm and cooperative documented in this encounter [facility] 10-29-2021 History of Present illness Narrative sciaticaR knee had replacement [place] in [place], 2yrs ago, better but not, meniscus repaired before, PT and shots multiple rounds, partial replacement, inside hurts, just happened a few days ago, wants to go to [place] but not sure what to doL doing same, [employer] exercising, getting worselook into lipomasvaricose veins - teto villanueva in [place], wearing compression stockings, 11/10 doppler legs, maybe a proceduredr. pabon at [place], plastic surgery, was scheduled for 05/2021 but put off for now due to surgeon off, yesterday went to different doctor and [place] Dr. Les Gordon, checking with insurance, paniculectomy, sore on skin, maybe full tummy tuck and pay extra maybe, has lost 40lbs, taking Truvy, plateau for 1yr, wants to lose another 50, maybe 02/2022hair loss - started 3-4yrs ago, thinks it's hormonal, bad after babies, maybe due to stress, lasted for years, tried biotin, had extensive testing, thyroid nodules, went to dr. mchugh, so tiny can't do anything about it Cervical Cancer Screening: s/p hyst, 16yrs ago, [place], heavy bleeding, has 1 ovary remaining, agreeable to 1 more pap, [place] because it's paidBreast Cancer Screening: dueOsteoporosis ScreeninColon Cancer Screening: hx constipation, a few yrs ago, 52-53yrs, [place], unsure when to repeat, Dr. Martinez: neverAlcohol: deniesRecreational Drugs: deniesImmunizations: declines immunizations [facility] 205 DO Work Phone: 10-17-2021 History of Present illness Narrative sciaticaR knee had replacement Hui in [place], 2yrs ago, better but not, meniscus repaired before, PT and shots multiple rounds, partial replacement, inside hurts, just happened a few days ago, wants to go to [place] but not sure what to doL doing same, [employer] exercising, getting worselook into lipomasvaricose veins - teto villanueva in [place], wearing compression stockings, 11/10 doppler legs, maybe a proceduredr. pabon at [place], plastic surgery, was scheduled for 05/2021 but put off for now due to surgeon off, yesterday went to different doctor and [place] Dr. Les Gordon, checking with insurance, paniculectomy, sore on skin, maybe full tummy tuck and pay extra maybe, has lost 40lbs, taking Truvy, plateau for 1yr, wants to lose another 50, maybe 02/2022hair loss - started 3-4yrs ago, thinks it's hormonal, bad after babies, maybe due to stress, lasted for years, tried biotin, had extensive testing, thyroid nodules, went to dr. mchugh, so tiny can't do anything about it Cervical Cancer Screening: s/p hyst, 16yrs ago, [place], heavy bleeding, has 1 ovary remaining, agreeable to 1 more pap, [place] because it's paidBreast Cancer Screening: dueOsteoporosis ScreeninColon Cancer Screening: hx constipation, a few yrs ago, 52-53yrs, [place], unsure when to repeat, Dr. Martinez: neverAlcohol: deniesRecreational Drugs: deniesImmunizations: declines immunizations [facility] 205 DO Work Phone: 10-04-2018 History of Present illness Narrative El a 56 yo female here today with complaints of hair loss, hot flashes, fatigue, and scalp irritation. She reports hair loss is chronic and ongoing for years she has had work up by several different doctors with no valid reason as to why her hair is thinning. She report she eats healthy diet. She does use chemical to dye hair an het products to style hair.Hair thinning for last 3 years. i think its hormonal continuing to have hot flashes, I've tried endocrinology, hair clinic etc and no one can determine the causes.She reports she does have pain to head/scalp and itching. Would like referral to dermatology.Patient also reports fatty mass on right abd and left spine and arm. She states she has had this evaluated in past and was tole they are lipomas.She denies any acute health issues. [facility] Work Phone: 10-02-2018 History of Present illness Narrative Rickey thinning for last 3 years. i think its hormonal continuing to have hot flashes, I've tried endocrinology, hair clinic etc and no one can determine the causes. Have pain to head/scalp and itching. Would like referral to dermatology.fatty mass on right abd and left spine and arm [facility] Work Phone: documented as of this encounter (statuses as of 06/29/2021) [facility] N[facility] - Reportedphysical for work and pre op clearance for abdominal and thigh procedure 10/6[facility] 205 DO Work Phone: Chief complaint Narrative - Reportedphysical for work and pre op clearance for abdominal and thigh procedure 10/6[facility] 205 DO Work Phone: Evaluation note* Diagnosis Chronic right shoulder pain- Primary Pain in joint, shoulder region Neck pain Cervicalgia Numbness and tingling in right hand Disturbance of skin sensation documented in this encounter [facility] Work Phone: Evaluation note* Diagnosis Dyslipidemia- Primary Other and unspecified hyperlipidemia Screening for heart disease Screening for other and unspecified cardiovascular conditions Chronic right shoulder pain Pain in joint, shoulder region Numbness and tingling in right hand Disturbance of skin sensation Moderate obstructive sleep apnea documented in this encounter [facility] Work Phone: Evaluation note* Diagnosis Palpitations- Primary Dyslipidemia Other and unspecified hyperlipidemia documented in this encounter [facility] Work Phone: History of Present illness Narrative* The last health maintenance visit was year(s) ago. there are no concerns today. The patient's health since the last visit is described as good. There are no interval changes in the patient's PMH, PSH, and current medications. There are no interval changes in the patient's social and family history.She has regular dental visits. She denies hearing loss. Immunizations status: up to date . wears glasses. * Lifestyle: She consumes a diverse and healthy diet. She does not have any weight concerns. She doesnot exercise regularly. She does not use tobacco. She denies alcohol use. she has lost 30lbs. * Reproductive health: the patient is postmenopausal. she is sexually active. * Colorectal Cancer Screening: no prior screening for colorectal cancer. * Metabolic screening: lipid profile performed within the past five years. [facility] Work Phone: History of Present illness Narrative* This is a 56yo female with pmhx significant for knee pain, lipomas, varicose veins who presents today to establish and discuss as below. * Regarding knee pain, is s/p R TKR with Dr. Roa in [place] 2yrs ago. Reports improvement in pain,but still occasionally struggles. Went to PT and had multiple rounds of gel/steroid injections. More recently, has started having pain in the L knee which is similar to that pain that she had on the R. Is considering making appt with Dr. Arvizu for evaluation. * Regarding lipomas, * Regarding varicose veins, following with Dr. Teto Villanueva in [place]. Currently managing with compression stockings. Scheduled for ultrasound 11/10/2021 with possible procedure after per pt report. * look into lipomas * dr. pabon at [place], plastic surgery, was scheduled for 05/2021 but put off for now due to surgeon off, yesterday went to different doctor and [place] Dr. Les Gordon, checking with insurance, paniculectomy, sore on skin, maybe full tummy tuck and pay extra maybe, has lost 40lbs, taking Truvy, plateau for 1yr, wants to lose another 50, maybe 02/2022 * hair loss - started 3-4yrs ago, thinks it's hormonal, bad after babies, maybe due to stress, lastedfor years, tried biotin, had extensive testing, thyroid nodules, went to dr. mchugh, so tiny can't do anything about it * Cervical Cancer Screening: s/p hyst, 16yrs ago, [place], heavy bleeding, has 1 ovary remaining, agreeable to 1 more pap, [place] because it's paid * Breast Cancer Screening: due * Osteoporosis Screenin * Colon Cancer Screening: hx constipation, a few yrs ago, 52-53yrs, [place], unsure when to repeat, Dr. Mchugh * Tobacco: never * Alcohol: denies * Recreational Drugs: denies * Immunizations: declines immunizations [facility] 205 DO Work Phone: History of Present illness Narrative* This is a 56yo female with pmhx significant for knee pain, lipomas, varicose veins who presents today to establish and discuss as below. * Regarding knee pain, is s/p R TKR with Dr. Roa in [place] 2yrs ago. Reports improvement in pain,but still occasionally struggles. Went to PT and had multiple rounds of gel/steroid injections. More recently, has started having pain in the L knee which is similar to that pain that she had on the R. Is considering making appt with Dr. Arvizu for evaluation. * Regarding lipomas, reports multiple soft tissue masses including RUQ abdomen. Ultrasound was ordered in 12/2020, but I do not see that it was done. * Regarding varicose veins, following with Dr. Teto Villanueva in [place]. Currently managing with compression stockings. Scheduled for ultrasound 11/10/2021 with possible procedure after per pt report. * Regarding * dr. pabon at [place], plastic surgery, was scheduled for 05/2021 but put off for now due to surgeon off, yesterday went to different doctor and [place] Dr. Les Gordon, checking with insurance, paniculectomy, sore on skin, maybe full tummy tuck and pay extra maybe, has lost 40lbs, taking Truvy, plateau for 1yr, wants to lose another 50, maybe 02/2022 * hair loss - started 3-4yrs ago, thinks it's hormonal, bad after babies, maybe due to stress, lastedfor years, tried biotin, had extensive testing, thyroid nodules, went to dr. mchugh, so tiny can't do anything about it * Cervical Cancer Screening: s/p hyst, 16yrs ago, [place], heavy bleeding, has 1 ovary remaining, agreeable to 1 more pap, [place] because it's paid * Breast Cancer Screening: due * Osteoporosis Screenin * Colon Cancer Screening: hx constipation, a few yrs ago, 52-53yrs, [place], unsure when to repeat, Dr. Mchugh * Tobacco: never * Alcohol: denies * Recreational Drugs: denies * Immunizations: declines immunizations [facility] 205 DO Work Phone: History of Present illness Narrative* This is a 56yo female with pmhx significant for knee pain, lipomas, varicose veins who presents today to establish and discuss as below. * Regarding knee pain, is s/p R TKR with Dr. Roa in [place] 2yrs ago. Reports improvement in pain,but still occasionally struggles. Went to PT and had multiple rounds of gel/steroid injections. More recently, has started having pain in the L knee which is similar to that pain that she had on the R. Is considering making appt with Dr. Arvizu for evaluation. * Regarding lipomas, reports multiple soft tissue masses including RUQ abdomen. Ultrasound was ordered in 12/2020, but I do not see that it was done. * Regarding varicose veins, following with Dr. Teto Villanueva in [place]. Currently managing with compression stockings. Scheduled for ultrasound 11/10/2021 with possible procedure after per pt report. * Regarding BMI, patient is planning to have panniculectomy and possible full tummy tuck. Was scheduled for 05/2021, but this was postponed due to logistics. Met with new surgeon yesterday in [facility]. Has already lost 40lbs and wants to lost 50 more. Tentative surgery date is 02/2022. * Regarding hair loss, first noticed 3-4yrs ago. Attributes to hormones or stress. Has tried biotinand states has had extensive testing which has been unremarkable. * Regarding thyroid nodule, states a small nodule was found during workup for hair loss. Was evaluated by Dr. Fernández ([place]) who told patient that it's so tiny that nothing can be done per pt report. * Cervical Cancer Screening: s/p hyst 16yrs ago in [place] due to heavy bleeding, 1 ovary remaining, agreeable to 1 more pap, plans to go to her obgyn in [place] * Breast Cancer Screening: due * Osteoporosis Screening: plan to start at age 65 * Colon Cancer Screening: colonoscopy a few yrs ago in [place], Dr. Fernández, unsure of details * Tobacco: never * Alcohol: denies * Recreational Drugs: denies * Immunizations: declines immunizations [facility] 205 DO Work Phone: History of Present illness Narrative* there are no concerns today. The patient's health since the last visit is described as good. There are no interval changes in the patient's PMH, PSH, and current medications. There are no interval changes in the patient's social and family history. She has regular dental visits. (q6mo) . She complains of vision problems. (s/p Lasik) . She denies hearing loss. * Lifestyle: She consumes a diverse and healthy diet. * 02/17/2022 [facility]. panniculectomy and abdominopasty, thigh lift * dr. cuauhtemoc meyers * Revised Cardiac Risk Index * Low risk surgery. * No history of ischemic heart disease. * No history of heart failure. * No history of IDDM. * No history of cerebrovascular disease. * Cr <2.0. * 4 METs without symptoms * Cervical Cancer Screening: hasn't scheduled yet * Breast Cancer Screening: * Osteoporosis Screening: * Colon Cancer Screening: * Tobacco: * Alcohol: * Recreational Drugs: * Immunizations: declines all immunizations * get colonoscopy records [facility] 205 DO Work Phone: History of Present illness Narrative* there are no concerns today. The patient's health since the last visit is described as good. There are no interval changes in the patient's PMH, PSH, and current medications. There are no interval changes in the patient's social and family history. She has regular dental visits. (q6mo) . She complains of vision problems. (s/p Lasik) . She denies hearing loss. * Lifestyle: She consumes a diverse and healthy diet. * Reproductive health: the patient is postmenopausal. * Cervical cancer screening: cancer screening reviewed and current . s/p hyst, plans to make appt with verification lead for annual. * Breast cancer screening: cancer screening reviewed and current. * Colorectal Cancer Screening: records remain pending. a colonoscopy was performed within the past ten years. * Metabolic screening: lipid profile performed 01/2022. * Patient presents today physical and preop exam. * Regarding preop exam, is scheduled for panniculectomy, abdominoplasty, thigh lift with Dr. [facility] 02/17/2022. Is a little nervous, but overall excited for result. Has had multiplesurgeries under general anesthesia in the past without problem. Denies CP, SOB, RAJAN, LH, dizziness, abd pain, n/v/d. Is able to achieve >4 METs without symptoms. Risk of TX or cardiac arrest intraoperatively or up to 30 days post-op 0.2% according to [facility] Perioperative Risk Calculator. * Cervical Cancer Screening: hasn't scheduled yet * Breast Cancer Screening: utd * Osteoporosis Screening: plan to start at age 65 * Colon Cancer Screening: utd at [place], records pending * Tobacco: never * Alcohol: denies * Recreational Drugs: denies * Immunizations: declines all immunizations [facility] 205 DO Work Phone: Hospital Discharge instructions* Attachments The following attachments cannot be sent through Care Everywhere. * General Anesthesia (Afghan) * Tummy Tuck: Post-op (Afghan) documented in this encounterTrinity HealthReason for referral (narrative)* Consultation (Routine) - Authorized Specialty Diagnoses / Procedures Referred By Elba ham Referred To Contact Primary Care Diagnoses Palpitations Procedures Follow Up In Primary Care - Established Yomi Lacy DO [address] [facility] [address] [place] [address] Referral ID Status Reason Start Date Expiration Date V isits Requested Visits Authorized [id number] Authorized 04/17/2023 04/16/2024 1 1 * Cardiac Stress Testing (Routine) - Pending Review Specialty Diagnoses / Procedures Referred By Elba ham Referred To Contact Cardiology Diagnoses Palpitations Procedures Holter or Event Manager [employer] Yomi Lacy DO [address] [address] Referral ID Status Reason Start Date Expiration Date V isits Requested Visits Authorized [id number] Pending Review 04/17/2023 04/16/2024 1 1 * CV Imaging (Routine) - Pending Review Specialty Diagnoses / Procedures Referred By Elba ham Referred To Contact Cardiology Diagnoses Palpitations Procedures Transthoracic Echo (TTE) Complete DC ECHO TRANSTHORC R-T 2D W/WO M-MODE REC F-UP/LMTD DC DOP ECHOCARD COLOR FLOW VELOCITY MAPPING DC DOP ECHOCARD PULSE WAVE W/SPECTRAL F-UP/LMTD STD Yomi Lacy DO [address] [address] Referral ID Status Reason Start Date Expiration Date Visits Requested Visits Authorized [id number] Pending Review Perform Procedure 04/17/2023 04/16/2024 1 1 [facility] Work Phone: Reason for visit Narrative* Auth/Cert Specialty Diagnoses / Procedures Referred By Elba ham Referred To Contact Diagnoses Excessive and redundant skin and subcutaneous tissue Encounter for cosmetic surgery L98.7 Z41.1 Procedures DC EXCISION EXCESSIVE SKIN SUBQ TISSUE ABD INFRAUMBILICAL PANNICULECTOMY DC EXCISION EXCESSIVE SKIN AND SUBCUTANEOUS TISSUE ABDOMEN DC EXCISION EXCESSIVE SKIN & SUBCUTANEOUS TISSUE THIGH PANNICULECTOMY ABDOMINOPLASTY MEDIAL THIGH [place] [address] [place] [id number] [place] [address] [place] [phone] Referral ID Status Reason Start Date Expiration Date Visits Re quested Visits Authorized [id number] 1 1 Getting-in Instructions Name Dates Details Instructions not documented Name Dates Details Instructions not documented Name Dates Details Instructions not documented Name Dates Details Instructions not documented Name Dates Details Instructions not documented Assessments Diagnosis Venous stasis dermatitis of left lower extremity - Primary Diagnosis Obesity, morbid, BMI 40.0-49.9- Primary Gastroesophageal reflux disease, esophagitis presence not specified JASON (obstructive sleep apnea) Obstructive sleep apnea (adult) (pediatric) Venous stasis Unspecified venous (peripheral) insufficiency Morbid obesity Chronic bilateral low back pain with bilateral sciatica Chronic pain of both knees Diagnosis Obesity, morbid, BMI 40.0-49.9- Primary Gastroesophageal reflux disease, esophagitis presence not specified JASON (obstructive sleep apnea) Obstructive sleep apnea (adult) (pediatric) Venous stasis Unspecified venous (peripheral) insufficiency Morbid obesity Chronic bilateral low back pain with bilateral sciatica Chronic pain of both knees Summary Purpose Family History No Family History Records Found Mother Name Dates Details Family history of malignant neoplasm of breast(V16.3, Z80.3) Status:Active Father Name Dates Details Family history of myocardial infarction(V17.3, Z82.49) Status:Active Brother Name Dates Details Family history of ankylosing spondylitis(V17.89, Z82.69) Status:Active Mother Name Dates Details Family history of malignant neoplasm of breast(V16.3, Z80.3) Status:Active Father Name Dates Details Family history of myocardial infarction(V17.3, Z82.49) Status:Active Brother Name Dates Details Family history of ankylosing spondylitis(V17.89, Z82.69) Status:Active Mother Name Dates Details Family history of malignant neoplasm of breast(V16.3, Z80.3) Status:Active Father Name Dates Details Family history of myocardial infarction(V17.3, Z82.49) Status:Active Brother Name Dates Details Family history of ankylosing spondylitis(V17.89, Z82.69) Status:Active Mother Name Dates Details Family history of malignant neoplasm of breast(V16.3, Z80.3) Status:Active Father Name Dates Details Family history of myocardial infarction(V17.3, Z82.49) Status:Active Brother Name Dates Details Family history of ankylosing spondylitis(V17.89, Z82.69) Status:Active Unknown Family Member Name Dates Details Family history of malignant neoplasm of breast: Mother(V16.3, Z80.3) Status:Active Family history of myocardial infarction: Father(V17.3, Z82.49) Status:Active Family history of ankylosing spondylitis: Brother(V17.89, Z82.69) Status:Active Unknown Family Member Name Dates Details Family history of malignant neoplasm of breast: Mother(V16.3, Z80.3) Status:Active Family history of myocardial infarction: Father(V17.3, Z82.49) Status:Active Family history of ankylosing spondylitis: Brother(V17.89, Z82.69) Status:Active Unknown Family Member Name Dates Details Family history of malignant neoplasm of breast: Mother(V16.3, Z80.3) Status:Active Family history of myocardial infarction: Father(V17.3, Z82.49) Status:Active Family history of ankylosing spondylitis: Brother(V17.89, Z82.69) Status:Active Unknown Family Member Name Dates Details Family history of malignant neoplasm of breast: Mother(V16.3, Z80.3) Status:Active Family history of myocardial infarction: Father(V17.3, Z82.49) Status:Active Family history of ankylosing spondylitis: Brother(V17.89, Z82.69) Status:Active Unknown Family Member Name Dates Details Family history of malignant neoplasm of breast: Mother(V16.3, Z80.3) Status:Active Family history of myocardial infarction: Father(V17.3, Z82.49) Status:Active Family history of ankylosing spondylitis: Brother(V17.89, Z82.69) Status:Active Unknown Family Member Name Dates Details Family history of malignant neoplasm of breast: Mother(V16.3, Z80.3) Status:Active Family history of myocardial infarction: Father(V17.3, Z82.49) Status:Active Family history of ankylosing spondylitis: Brother(V17.89, Z82.69) Status:Active Unknown Family Member Name Dates Details Family history of malignant neoplasm of breast: Mother(V16.3, Z80.3) Status:Active Family history of myocardial infarction: Father(V17.3, Z82.49) Status:Active Family history of ankylosing spondylitis: Brother(V17.89, Z82.69) Status:Active Unknown Family Member Name Dates Details Family history of malignant neoplasm of breast: Mother(V16.3, Z80.3) Status:Active Family history of myocardial infarction: Father(V17.3, Z82.49) Status:Active Family history of ankylosing spondylitis: Brother(V17.89, Z82.69) Status:Active Unknown Family Member Name Dates Details Family history of malignant neoplasm of breast: Mother(V16.3, Z80.3) Status:Active Family history of myocardial infarction: Father(V17.3, Z82.49) Status:Active Family history of ankylosing spondylitis: Brother(V17.89, Z82.69) Status:Active Unknown Family Member Name Dates Details Family history of malignant neoplasm of breast: Mother(V16.3, Z80.3) Status:Active Family history of myocardial infarction: Father(V17.3, Z82.49) Status:Active Family history of ankylosing spondylitis: Brother(V17.89, Z82.69) Status:Active Unknown Family Member Name Dates Details Family history of malignant neoplasm of breast: Mother(V16.3, Z80.3) Status:Active Family history of myocardial infarction: Father(V17.3, Z82.49) Status:Active Family history of ankylosing spondylitis: Brother(V17.89, Z82.69) Status:Active Unknown Family Member Name Dates Details Family history of ankylosing spondylitis: Brother(V17.89, Z82.69) Status:Active Family history of myocardial infarction: Father(V17.3, Z82.49) Status:Active Family history of malignant neoplasm of breast: Mother(V16.3, Z80.3) Status:Active Unknown Family Member Name Dates Details Family history of malignant neoplasm of breast: Mother(V16.3, Z80.3) Status:Active Family history of myocardial infarction: Father(V17.3, Z82.49) Status:Active Family history of ankylosing spondylitis: Brother(V17.89, Z82.69) Status:Active Unknown Family Member Name Dates Details Family history of malignant neoplasm of breast: Mother(V16.3, Z80.3) Status:Active Family history of myocardial infarction: Father(V17.3, Z82.49) Status:Active Family history of ankylosing spondylitis: Brother(V17.89, Z82.69) Status:Active Advance Directives No Advanced Directives Records FoundNo Advanced Directives Records FoundNo Advanced Directives Records FoundNo Advanced Directives Records FoundNo Advanced Directives Records FoundNo Advanced Directives Records FoundNo Advanced Directives Records FoundNo Advanced Directives Records Found History of Present Illness * Raquel Grayson - 02/01/2019 3:00 PM EDT Samples given at visit: VSL#3 [employer] Food Lot# [id number] Exp Date 10/2019 Qty 2 * Raquel Grayson - 02/01/2019 3:00 PM EDT 5 Times Sit to Stand Test: Time to Completion (in seconds): MICHEAL Modifications: NA used arms of chair/assist level Incomplete test: MICHEAL Timed Up and Go Test (TUG): Time to Completion (in seconds): MICHEAL Modifications: NA used assistive device Incomplete test: MICHEAL 2 Minute Walk Test: Distance (in meters): MICHEAL Modifications: MICHEAL used assistive device Incomplete test: NA PATIENT REFUSED * Nora Tolentino LPN - 02/01/2019 3:00 PM EDT SF-36 Scoring Consult Functional Capacity: 25 Limitation by Physical Aspects: 0 Pain: 22 General State of Health: 42 Vitality: 15 Social Aspects: 38 Limitation by Emotional Aspects: 0 Mental Health: 48 * Raquel Grayson - 02/01/2019 3:00 PM EDT Nurse Note: Review of Systems Constitutional: Positive for fatigue. Negative for chills and fever. HENT: Negative for sinus pressure and sinus pain. Eyes: Negative for pain and itching. Respiratory: Negative for cough, chest tightness and shortness of breath. Cardiovascular: Negative for chest pain, palpitations and leg swelling. Gastrointestinal: Positive for constipation. Negative for abdominal pain, diarrhea, nausea and vomiting. Genitourinary: Negative for difficulty urinating, dysuria and frequency. Musculoskeletal: Positive for back pain. Negative for gait problem and joint swelling. Neurological: Negative for dizziness and headaches. Nursing Assessment: Physical Exam documented in this encounter* Raquel Grayson - 02/01/2019 3:00 PM EDT 5 Times Sit to Stand Test: Time to Completion (in seconds): MICHEAL Modifications: NA used arms of chair/assist level Incomplete test: NA Timed Up and Go Test (TUG): Time to Completion (in seconds): MICHEAL Modifications: NA used assistive device Incomplete test: MICHEAL 2 Minute Walk Test: Distance (in meters): MICHEAL Modifications: NA used assistive device Incomplete test: NA PATIENT REFUSED * Nora Tolentino LPN - 02/01/2019 3:00 PM EDT SF-36 Scoring Consult Functional Capacity: 25 Limitation by Physical Aspects: 0 Pain: 22 General State of Health: 42 Vitality: 15 Social Aspects: 38 Limitation by Emotional Aspects: 0 Mental Health: 48 * Raquel Grayson - 02/01/2019 3:00 PM EDT Nurse Note: Review of Systems Constitutional: Positive for fatigue. Negative for chills and fever. HENT: Negative for sinus pressure and sinus pain. Eyes: Negative for pain and itching. Respiratory: Negative for cough, chest tightness and shortness of breath. Cardiovascular: Negative for chest pain, palpitations and leg swelling. Gastrointestinal: Positive for constipation. Negative for abdominal pain, diarrhea, nausea and vomiting. Genitourinary: Negative for difficulty urinating, dysuria and frequency. Musculoskeletal: Positive for back pain. Negative for gait problem and joint swelling. Neurological: Negative for dizziness and headaches. Nursing Assessment: Physical Exam documented in this encounter Chief Complaint CPX with formConcerns with hair loss.Concerns with hair loss.Pt presents to est PCP, previously seen by Goldie Leo CNP recently but was not happy with visit. States had knee replacement 2 years ago and other knee is giving her the same issues she had with the last one.Pt presents to est PCP, previously seen by Goldie Leo CNP. States had knee replacement 2 years ago and other knee is giving her the same issues she had with the last one.Pt presents to est PCP, previously seen by Goldie Leo CNP. States had knee replacement 2 years ago and other knee is giving her the same issues she had with the last one.Pt presents to est PCP, previously seen by Goldie Leo CNP. States had knee replacement 2 years ago and other knee is giving her the same issues she had with the last one.Pt presents to est PCP, previously seen by Goldie Leo CNP. States had knee replacement 2 years ago and other knee is giving her the same issues she had with the last one.Pt presents to est PCP, previously seen by Goldie Leo CNP. States had knee replacement 2 years ago and other knee is giving her the same issues she had with the last one. Reason for Referral Specialty Diagnoses / Procedures Referred By Elba t Referred To Contact Radiology Diagnoses Neck pain Procedures XR cervical spine 2-3 views Ana Avalos, [address] [facility] [place] [address] Referral ID Status Reason Start Date Expiration Date Visits Requested Visits Authorized [id number] Authorized Perform Procedure 12/01/2022 05/30/2023 1 1 Specialty Diagnoses / Procedures Referred By Dodieac t Referred To Contact Radiology Diagnoses Chronic right shoulder pain Procedures XR shoulder right 2+ views Ana Avalos DO [address] [place] [address] Referral ID Status Reason Start Date Expiration Date Visits Requested Visits Authorized [id number] Authorized Perform Procedure 12/01/2022 05/30/2023 1 1 Specialty Diagnoses / Procedures Referred By Contac t Referred To Contact Diagnoses Numbness and tingling in right hand Procedures EMG & nerve conduction Ana Avalos DO [address] [facility] [place] [address] Referral ID Status Reason Start Date Expiration Date V isits Requested Visits Authorized [id number] Authorized 12/01/2022 05/30/2023 1 1 Specialty Diagnoses / Procedures Referred By Contac t Referred To Contact Radiology Diagnoses Dyslipidemia Screening for heart disease Procedures CT cardiac scoring wo IV contrast Ana Avalos, [address] [facility] [place] [id number] Referral ID Status Reason Start Date Expiration Date Visits Requested Visits Authorized [id number] Authorized Perform Procedure 01/05/2023 07/04/2023 1 1 Additional Source Comments INFORMATION SOURCE (unrecogn ized section and content) DATE CREATED AUTHOR AUTHOR'S ORGANIZ ATION 09/21/2018 [facility] DATE CREATED AUTHOR AUTHOR'S ORGANIZ ATION 09/06/2019 [facility] DATE CREATED AUTHOR AUTHOR'S ORGANIZ ATION 02/13/2022 [facility] DATE CREATED AUTHOR AUTHOR'S ORGANIZ ATION 02/13/2022 [facility] DATE CREATED AUTHOR AUTHOR'S ORGANIZ ATION 03/16/2022 [facility] DATE CREATED AUTHOR AUTHOR'S ORGANIZ ATION 07/29/2022 [facility] DATE CREATED AUTHOR AUTHOR'S ORGANIZ ATION 04/18/2023 [facility] Reason for Visit (unrecogniz ed section and content) Reason Comments Nutrition Consultation Status Reason Specialty Diagnoses / Procedures Referred By Contact Referred To Contact Pending Review Registered Dietitian / Nutrition and Dietetics Diagnoses Initial Nutrition- PT is transfering from [place] Procedures NEW PATIENT - CAITLIN Sonia Troncoso, RD [address] [id number] Reason Comments Establish Care 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 She is transfering from [place], which program she started in October. Reason Comments Other <item> Privacy Markings (unrecogniz ed section and content) Section Author: Lyn Pollard PROHIBITION ON REDISCLOSURE OF CONFIDENTIAL INFORMATION This notice accompanies a disclosure of information concerning a client made to you with the consent of such client. Source Comments (unrecognize d section and content) In the event this informatio n is protected by the Federal Confidentiality of Alcohol and Drug Abuse Patient Records regulations: The Federal rules restrict any use of the information to criminally investigate or prosecute any alcohol or drug abuse patient.[facility] Care Teams (unrecognized sec tion and content) School Health Aide Relationship Specialty Start Date End Date Yomi Lacy DO [address] [place] [address] PCP - General Family Medicine 02/08/22 School Health Aide Relationship Specialty Start Date End Date Yomi Lacy DO [address] [address] PCP - General 10/20/21 School Health Aide Relationship Specialty Start Date End Date Yomi Lacy DO [address] [address] PCP - General 10/20/21 School Health Aide Relationship Specialty Start Date End Date Yomi Lacy DO [address] [address] PCP - General 10/20/21 Ordered Prescriptions (unrec ognized section and content) Scheduled Active and Recently Administ ered Medications (unrecognized section and content) Continuous Medication Order 02/15/2022 02/16/2022 02/17/2022 lactated Ringer's infusion 20 mL/hr, intravenous, Continuous, Starting on Shannan 02/17/22 at 0600, Preprocedure 0613 (New Bag - Prov ider: Mary Colón RN)0747 (Continued by Anesthesia - Provider: Simon Castañeda MD)09 (Paused - Provider: Simon Castañeda MD - Comment: Switch to gravity)09 (New Bag - Provider: Simon Castañeda MD)1043 (Stopped - Provider: Simon Castañeda MD) Oxygen Therapy, Adult inhalation, Continuous, Starting on Shannan 02/17/22 at 1115, Recovery (only), Device: Nasal Cannula, Keep O2 Sat Above: 92% 1115 (Canceled Entry - Provider: Automatic Discharge Provider - Comment: Automatically canceled at discontinue of medication order) PRN Medication Order 02/15/2022 02/16/2022 02/17/2022 albuterol 2.5 mg /3 mL (0.083 %) nebulizer solution 2.5 mg 2.5 mg, nebulization, Once as needed, wheezing, Starting on Shannan 02/17/22 at 1053, For 1 dose, Recovery (only) diphenhydrAMINE (BENADRYL) injection 25 mg 25 mg, intravenous, Every 15 min PRN, itching, Starting on Shannna 02/17/22 at 1053, For 2 doses, Recovery (only) fentaNYL (SUBLIMAZE) injection 25 mcg 25 mcg, intravenous, Every 5 min PRN, severe pain, Starting on Shannan 02/17/22 at 1053, For 6 doses, Recovery (only) 1105 (Given - Provid er: Salima Christensen RN)1110 (Given - Provider: Salima Christensen RN)1117 (Given - Provider: Salima Christensen RN)1130 (Given - Provider: Salima Christensen RN) haloperidol lactate (HALDOL) injection 0.5 mg 0.5 mg, intramuscular, Every 10 min PRN, Nausea/vomiting, Starting on Shannan 02/17/22 at 1053, For 2 doses, Recovery (only), May be ordered via either intramuscular or intravenous route. If ordered IV, maximum of 5 mg/minute. hydrALAZINE (APRESOLINE) injection 5 mg 5 mg, intravenous, Every 10 min PRN, systolic BP greater than:, 190, Starting on Shannan 02/17/22 at 1053, For 4 doses, Recovery (only), As needed for: -SBP GREATER than 190 mmHg -DBP GREATER than 100 mmHg Use as first line if HR is < 60 HYDROmorphone (DILAUDID) injection 0.5 mg 0.5 mg, intravenous, Every 5 min PRN, moderate pain, Starting on Shannan 02/17/22 at 1053, For 6 doses, Recovery (only) labetalol (NORMODYNE) injection 5 mg 5 mg, intravenous, Every 5 min PRN, high blood pressure, HTN in PACU (see admin instructions), Starting on Shannan 02/17/22 at 1053, For 4 doses, Recovery (only), As needed for: -SBP GREATER than 190 mmHg -DBP GREATER than 110 mmHg -HOLD for pulse LESS than 60 bpm meperidine (PF) (DEMEROL) 25 mg/mL injection 12.5 mg 12.5 mg, intravenous, Every 15 min PRN, rigors, shivering, Starting on Shannan 02/17/22 at 1053, For 4 doses, Recovery (only) oxyCODONE (ROXICODONE) immediate release tablet 5 mg 5 mg, oral, Every 30 min PRN, moderate pain, First line if tolerating PO, Starting on Shannan 02/17/22 at 1053, For 2 doses, Recovery (only) 1215 (Given - Provid er: Salima Christensen RN) prochlorperazine (COMPAZINE) injection 10 mg(Linked Group 1) 10 mg, intravenous, Every 6 hours PRN, nausea, vomiting, Starting on Shannan 02/17/22 at 1053, Recovery (only), 1st Line Option: -ONLY give IV if patient is unable to take orally. -Give IM if patient does not have IV Access -If inadequate response within 30 minutes, proceed to next-line agent or contact provider if no further options ordered. prochlorperazine (COMPAZINE) suppository 25 mg(Linked Group 1) 25 mg, rectal, Every 12 hours PRN, nausea, vomiting, Starting on Shannan 02/17/22 at 1053, Recovery (only), 1st Line Option: -ONLY give DC if patient is unable to take orally and cannot receive IV/IM. -If inadequate response within 30 minutes, proceed to next-line agent or contact provider if no further options ordered. prochlorperazine (COMPAZINE) tablet 10 mg(Linked Group 1) 10 mg, oral, Every 6 hours PRN, nausea, vomiting, Starting on Shannan 02/17/22 at 1053, Recovery (only), 1st Line Option: -Give IV or IM if patient is unable to take orally. -If inadequate response within 30 minutes, proceed to next-line agent or contact provider if no further options ordered. No Frequency Medication Order 02/15/2022 02/16/2022 02/17/2022 HYDROmorphone (DILAUDID) 0.5 mg/0.5 mL injection - ADS Override Pull (COMPLETED) Starting on Shannan 02/17/22 at 1044, For 1 dose, Created by cabinet override 1046 (Given - Provid er: Salima Christensen RN) Linked Groups Order Group 1: prochlorperazine (COMPAZINE) tablet 10 mgJump to med 10 mg, oral, Every 6 hours PRN, nausea, vomiting, Starting on Shannan 02/17/22 at 1053, Recovery (only)
1st Line Option: -Give IV or IM if patient is unable to take orally. -If inadequate response within 30 minutes, proceed to next-line agent or contact provider if no further options ordered.
Or prochlorperazine (COMPAZINE) injection 10 mgJump to med 10 mg, intravenous, Every 6 hours PRN, nausea, vomiting, Starting on Shannan 02/17/22 at 1053, Recovery (only)
1st Line Option: -ONLY give IV if patient is unable to take orally. -Give IM if patient does not have IV Access -If inadequate response within 30 minutes, proceed to next-line agent or contact provider if no further options ordered.
Or prochlorperazine (COMPAZINE) suppository 25 mgJump to med 25 mg, rectal, Every 12 hours PRN, nausea, vomiting, Starting on Shannan 02/17/22 at 1053, Recovery (only)
1st Line Option: -ONLY give DC if patient is unable to take orally and cannot receive IV/IM. -If inadequate response within 30 minutes, proceed to next-line agent or contact provider if no further options ordered.
FOR RECORDS PERTAINING TO PATIENTS WHO ARE OR HAVE BEEN ENROLLED IN A CHEMICAL DEPENDENCY/SUBSTANCEABUSE PROGRAM, SOME INFORMATION MAY BE OMITTED. This clinical summary was aggregated from multiple sources. Caution should be exercised in using it in the provision of clinical care. This summary normalizes information from multiple sources, and as a consequence, information in this document may materially change the coding, format and clinical context of patient data. In addition, data may be omitted in some cases. CLINICAL DECISIONS SHOULD BE BASED ON THE PRIMARY CLINICAL RECORDS. [facility] [employer] provides no warranty or guarantee of the accuracy or completeness of information in this document.
== END | disposition home or self-care (01) ==
LOC: PSN 12:00
PROVIDERS: PCP Student in an Organized Health Care Education/Training Program; Referring Provider Student in an Organized Health Care Education/Training Program; Visit Provider Student in an Organized Health Care Education/Training Program
DX: R00.2 Palpitations (principal)
CPT/HCPCS: 93225; 93226

== ENCOUNTER → 2024-04-16 | Outpatient (CLI) | payer OTHER, SELFPAY ==
--- NOTE | 2024-04-16 10:07 | RAD_ITS ---
INDICATION: PAIN EXAMINATION/TECHNIQUE: X-RAY - LEFT XR Knee 3 Views 3 VIEWS COMPARISON: FINDINGS: SOFT TISSUES: No soft tissue swelling or gas. No radiopaque foreign body. Trace effusion. BONES/JOINTS: No acute fracture or subluxation.. Degenerative spurring is narrowing of the medial femorotibial compartment.. No sclerotic or destructive changes observed. RAD/Knee 3 Views IMPRESSION: Degenerative changes and trace effusion. Electronically Signed: Sadi Damico DO at 16:21 EST ,
--- NOTE | 2024-04-16 10:07 | RAD_ITS ---
INDICATION: PAIN EXAMINATION/TECHNIQUE: X-RAY - RIGHT XR Knee 3 Views COMPARISON: FINDINGS: SOFT TISSUES: No soft tissue swelling or gas. No radiopaque foreign body. BONES/JOINTS: No acute fracture or subluxation.. Prosthesis at the medial femorotibial compartment in good alignment.. No sclerotic or destructive changes observed. RAD/Knee 3 Views IMPRESSION: No acute bony injury. Electronically Signed: Sadi Damico DO at 16:35 EST ,
== END | disposition home or self-care (01) ==
LOC: MTRAD 10:04
PROVIDERS: PCP Student in an Organized Health Care Education/Training Program; Referring Provider Student in an Organized Health Care Education/Training Program; Visit Provider Student in an Organized Health Care Education/Training Program
DX: M25.561 Pain in right knee (principal); M25.562 Pain in left knee; G89.29 Other chronic pain
CPT/HCPCS: 73562

== ENCOUNTER 2024-05-27 17:00 | Outpatient (RCR) | payer OTHER, SELFPAY ==
--- NOTE | 2024-05-23 12:40 | HP.PTEVAL_ITS ---
Patient's Visit Information Visit Information Visit Information: AUSTIN MAZA is a 58 year old F referred to Physical Therapy by SIRIA DONNELLY with a diagnosis of L knee pain. Date of Evaluation: 05/22/24 Physical Therapist: Nathan Fournier, PT, ATC Visit Plan Frequency: 2x /Week Duration: 1 Week Plan: Issue and instruct pt on a hep of L LE and core strengthening ex's to perform for prehab Subjective Subjective: Pt reports she has had pain in the L knee for several years. Pt notes she had a R partial knee replacement performed 5 years ago, and has been waiting to take care of L knee. 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 pt reports she is very limited with her walking secondary to pain. Pt notes she has had xrays which revealed she needs to have a L TKA performed, but has to have PT in order for her to have surgery. Pt notes she has 2 spteps to enter her house, and she is able to negotiate them one step at a time. Pt denies tingling or numbness in L LE at this time. Pt reports occasional sleep difficulty at this time secondary to pain. Pt is scheduled for PT 07/03/24. L knee pain 2/10 while sitting here at rest, 7/10 pain at worst Pain L knee: Pain Intensity (Out of 10): 2 Pain Intensity Range: 7 Objective Objective: Neuro: B LE sensation is WNL to light touch. ROM: R knee 0-115; L knee 0-110 degrees MMT: R knee flex= 22, ext= 23; L knee flex= 20, ext= 11 #F Tu sec Balance/Special Test Scores Lower Extremity Functional Score: 19 Goals Goal 1:: I with HEP in 2 visits Goal Time Frame: 1 Week Rehabilitation Potential Physical Therapy Diagnosis: L knee pain, weakness, difficulty with ambulation secondary to L knee OA Rehabilitation Potential: Good Anticipated Interventions Patient/Client Instruction: Educate patient on: Condition and Plan of Care For the Purpose of:: To improve self management Therapeutic Exercise to Include: Strength training, Endurance training, Balance training, Flexibilty training and Dynamic Lumbar Stabilization For the Purpose of:: To decrease pain, To increase ROM and To improve muscle performance and motor function Cryotherapy (ice pack, ice massage): Yes For the Purpose of:: To decrease pain Text: Thank you for the opportunity to evaluate your patient. For Medicare and Medicare HMO plans, please review the plan of care and approve it. It will need to be FAXED BACK to us at [phone] for Medicare purposes. For Medicare only, by signing this I certify the plan of care. Please let me know if there are questions or concerns regarding this plan of care. Physician Signature: Date:
--- NOTE | 2024-05-27 17:52 | HP.PTDCSUM ---
Discharge Summary D/C summary: It has been my pleasure to treat AUSTIN MAZA referred by SIRIA DONNELLY, with the diagnosis of L knee pain for a total of 2 visit(s). Discharge Date: Please see the following information for a summary of their discharge status. Subjective Subjective: Pain is the same Pain L knee: Pain Intensity (Out of 10): 4 Objective Objective/Function: Pt is now I with HEP Goals Goal 1:: I with HEP in 2 visits Goal Progress: Goal Met Plan Plan: Discharge to HEP D/C Information d/c sentence: If there are questions or concerns regarding this patient's physical therapy, please feel free to call me at [phone]. Thank you for the referral of this patient. Sincerely, Nathan Fournier, PT, ATC Balance/Gait/Functional tests Balance/Special Test Scores Lower Extremity Functional Score: 19
== END 2024-05-27 19:00 | disposition home or self-care (01) ==
LOC: PT 17:00
PROVIDERS: PCP Student in an Organized Health Care Education/Training Program
DX: M17.12 Unilateral primary osteoarthritis, left knee (principal)
CPT/HCPCS: 97110; 97161

== ENCOUNTER → 2024-06-14 | Outpatient (CLI) | payer OTHER, SELFPAY ==
--- NOTE | 2024-06-14 14:25 | CDU_ITS ---
Reason For Study: Amaurosis Fugax Rt. Velocities/BP Lt. Velocities/BP Prox CCA 65.0/9.7 cm/sec. Prox CCA 96.5/20.4 cm/sec. Mid CCA 60.0/18.3 cm/sec. Mid CCA 72.4/21.9 cm/sec. Dist CCA 71.1/22.0 cm/sec. Dist CCA 63.6/18.6 cm/sec. Prox ICA 63.7/17.1 cm/sec. Prox ICA 63.6/17.5 cm/sec. Mid ICA 66.2/17.1 cm/sec. Mid ICA 61.9/24.4 cm/sec. Dist ICA 67.4/22.0 cm/sec. Dist ICA 77.2/33.0 cm/sec. Rt. ICA/CCA = 1.1. Lt. ICA/CCA = 1.1. Prox ECA 101.4/14.2 cm/sec. Prox ECA 71.1/17.1 cm/sec. Rt. Vert. 46.5/12.2 cm/sec. Lt. Vert. 52.3/16.7 cm/sec. Right Extracranial There is intimal thickening but no significant atherosclerotic plaque noted in the right common carotid artery. There is intimal thickening but no significant atherosclerotic plaque noted in the right internal carotid artery. There is intimal thickening but no significant atherosclerotic plaque noted in the right external carotid artery. Antegrade flow is noted in the right vertebral artery. Left Extracranial There is intimal thickening but no significant atherosclerotic plaque noted in the left common carotid artery. There is intimal thickening but no significant atherosclerotic plaque noted in the left internal carotid artery. There is intimal thickening but no significant atherosclerotic plaque noted in the left external carotid artery. Antegrade flow is noted in the left vertebral artery. Procedure Carotid Duplex [id number]. This is a Carotid Duplex examination using B-mode, color flow and specral Doppler. The exam was diagnostic. Exam performed in department. VL/Carotid Duplex Ultrasound Interpretation Summary Normal right extracranial internal carotid. Normal left extracranial internal carotid. Patent and antegrade vertebrals bilaterally. Ordering Physician: Albert Ball Referring Physician: Lisa Riley Performed By: Gulshan Pastor RVT
== END | disposition home or self-care (01) ==
LOC: CVS 14:23
PROVIDERS: PCP Student in an Organized Health Care Education/Training Program; Referring Provider Ophthalmology; Visit Provider Ophthalmology
DX: G45.3 Amaurosis fugax (principal)
CPT/HCPCS: 93880

== ENCOUNTER → 2025-03-04 | Outpatient (CLI) | payer OTHER, SELFPAY ==
--- NOTE | 2025-03-04 08:48 | RAD_ITS ---
PROCEDURE: CERV SPINE 4 OR 5 VIEWS 03/04/2025 REASON FOR EXAM: NECK PAIN TECHNIQUE: Procedure Code: RADSPC Modality: DX Procedure: CERV SPINE 4 OR 5 VIEWS COMPARISON: None. FINDINGS: Grade 1 retrolisthesis of C5 on C6 measuring 4.2 mm. There are moderate diffuse spondylotic changes. Findings are demonstrated to by diffuse disc space narrowing, osteophyte formation and degenerative endplate sclerosis. There is diffuse facet joint arthropathy with secondary bilateral neural foramina narrowing. No fracture or dislocation is seen. No aggressive lytic or blastic bony lesion is noted. RAD/Cerv Spine 4 or 5 Views IMPRESSION: Diffuse spondylosis, more prominent at C5-C6. Reading Location: [facility]
--- OUTSIDE RECORDS SUMMARY | 2025-03-04 09:10 | XMS RPT_ITS | CCD ---
Author Organization [facility] Care Team Providers Care Director Of Transportation Name Role Phone Leela LOU, Iza Sam Unavailable [phone] [place], Nora D. Unavailable QUINN LEE Unavailable Unavailable ZACK, NORA D. Unavailable Unavailable ZAHIDA ORDONEZ Unavailable Unavailabl e ZACK, NORA D. Unavailable Unavailable Zack, Nora D Attending Unavailable Zack, Nora D Primary Care Unavailable [place], Nora D Admitting Unavailable Zack, Nora D Attending Unavailable [place], Nora D Primary Care Unavailable [place], Nora D Admitting Unavailable [place], Nora D Attending Unavailable [place], Nora D Primary Care Unavailable Zack, Nora D Admitting Unavailable Zack, Nora D Attending Unavailable [place], Nora D Primary Care Unavailable Zack, Nora D Admitting Unavailable Zack, Nora D Attending Unavailable Zack, Nora D Primary Care Unavailable Zack, Nora D Admitting Unavailable [place], Nora D Attending Unavailable Zack, Nora D Primary Care Unavailable [place], Nora D Attending Unavailable Zack, Nora D Primary Care Unavailable Zack, Nora D Admitting Unavailable Unavailable Primary Care Provider Unavailabl e Hollie Neely Unavailable Unavailable Zack, Nora D Unavailable Unavailable Lotus Yuli Unavailable Unavailable [place], Nora Unavailable Unavailable Dew, Raul Unavailable Unavailable Goldie Leo Unavailable Unavailable ColesAg norris Unavailable Unavailable Ahmet, Goldie Unavailable Unavailable [place], Nora D Unavailable Unavailable Coles, Ag O Unavailable Unavailable [place], Nora D. Primary Care Provider Goldie Leo Unavailable Unavailable Unavailable Unavailable Unavailable Ag Coles Unavailable Ahmet, Goldie Malick Unavailable Unavailable Gil De Leon Unavailable Gaston Rojas MD Primary Care Provider Nora Dixon Primary Care Provider [place], Kathi Colon Unavailable Yomi Lacy Unavailable CINDI, Mrs. KATHI PHIPPS Referring Unavailabl e CINDI, Mrs. KATHI PHIPPS Attending Unavailabl e CINDI, Mrs. KATHI PHIPPS Primary Care Unavailabl e Lcay, Dr. Gonzalez Attending Unavailable Lacy, Dr. Gonzalez Primary Care Unavailable Lacy, Dr. Gonzalez Referring Unavailable Lacy, Dr. Gonzalez Attending Unavailable Lacy, Dr. Gonzalez Primary Care Unavailable Lacy, Dr. Gonzalez Referring Unavailable Yomi Lacy DO Primary Care Provider CUAUHTEMOC ORTEGA Admitting Unavailable CUAUHTEMOC ORTEGA Attending Unavailable YOMI RUST~[id number] REGINO Primary Care Unavailable DO YOMI LACY Primary Care Provider Dr. Car Acuna Attending Provider Dr. Car Acuna Referring Provider Haley Mr. Gil Pizano Attending Lakeisha Lacy, Dr. Gonzalez Ama Primary Care Unavailab le Yomi Lacy DO Primary Care Provider DO YOMI LACY Primary Care Provider Dr. Helder Macdonald Attending Provider Dr. Helder Macdonald Referring Provider Nora Dixon CNP Primary Care Provider Nora Dixon CNP Primary Care Provider Nora Dixon CNP Primary Care Provider [phone] Lacy DO, Yomi Primary Care Provider ANEL LUI Admitting Unavailab le ZACK, NORA D. Primary Care Unavailable ANEL LUI Attending Unavailab le ANEL LUI Attending Unavailab le ZACK, NORA D. Primary Care Unavailable ANEL LUI Referring Unavailab le ANEL LUI Admitting Unavailab le ZACK, NORA D. Primary Care Unavailable ANEL LUI Referring Unavailab le ZACK, NORA D. Primary Care Unavailable SIRIA GROSSMAN Referring Unavailable SIRIA GROSSMAN Attending Unavailable LACY, YOMI A Primary Care Unavailable GIL DE LEON Attending Unavailable GIL DE LEON Referring Unavailable LACY, YOMI A Primary Care Unavailable ANEL LUI Referring Unavailable LACY, YOMI A Primary Care Unavailable ANEL LUI Referring Unavailable LACY, YOMI A Primary Care Unavailable ANEL LUI Referring Unavailable LACY, YOMI A Primary Care Unavailable ANEL LUI Referring Unavailable LACY, YOMI A Primary Care Unavailable ANEL LUI Referring Unavailable LACY, YOMI A Primary Care Unavailable ANEL LUI Referring Unavailable LACY, YOMI A Primary Care Unavailable ANEL LUI Referring Unavailable LACY, YOMI A Primary Care Unavailable ANEL LUI Referring Unavailable LACY, YOMI A Primary Care Unavailable ANEL LUI Referring Unavailable LACY, YOMI A Primary Care Unavailable ANEL LUI Referring Unavailable LACY, YOMI A Primary Care Unavailable ANEL LUI Referring Unavailable LACY, YOMI A Primary Care Unavailable ANEL LUI Referring Unavailable LACY, YOMI A Primary Care Unavailable ANEL LUI Referring Unavailable LACY, YOMI A Primary Care Unavailable ANEL LUI Referring Unavailable LACY, YOMI A Primary Care Unavailable ANEL LUI Referring Unavailable LACY, YOMI A Primary Care Unavailable ANEL LUI Referring Unavailable LACY, YOMI A Primary Care Unavailable SIRIA GROSSMAN Attending Unavailable ZACK, NORA D. Primary Care Unavailable JOSE KEATING Attending Unavailable ZACK, NORA D. Primary Care Unavailable NIRAV BALLARD Attending Unavailable ANEL LUI Admitting Unavailab le SANIAANEL Referring Unavailab le LACY, YOMI Primary Care Unavailable ANEL LUI Attending Unavailab le LACY, YOMI Primary Care Unavailable LACY, YOMI Primary Care Unavailable BERNSTEIN, MARILOU RENO Attending Unavailable BERNSTEIN, MARILOU RENO Referring Unavailable LACY, YOMI Primary Care Unavailable BERNSTEIN, MARILOU RENO Admitting Unavailable LACY, YOMI Admitting Unavailable LACY, YOMI Referring Unavailable SIRIA GROSSMAN Attending Unavailable ZACK, NORA D. Primary Care Unavailable ANEL LUI Attending Unavailab le ZACK, NORA D. Primary Care Unavailable LACY, YOMI Primary Care Unavailable Assessment, Health Risk Attending Unavaila ble LACY, YOMI Primary Care Unavailable Marco Soni Attending Unavailable CLINTON MATHUR Attending Unavailable CLINTON MATHUR Referring Unavailable LACY, YOMI Primary Care Unavailable Albert Ball Referring Unavailable Steven Menon Attending Unavailable LACY, YOMI Primary Care Unavailable LACY, YOMI Referring Unavailable LACY, YOMI Primary Care Unavailable Darrion Michele Attending Unavailable LACY, YOMI Referring Unavailable LACY, YOMI Primary Care Unavailable Nirav Schwarz Attending Unavailable Albert Ball Attending Unavailable Albert Ball Referring Unavailable LACY, YOMI Primary Care Unavailable LACY, YOMI Referring Unavailable LACY, YOMI Primary Care Unavailable LACY, YOMI Attending Unavailable Assessment, Health Risk Attending Unavaila ble Assessment, Health Risk Referring Unavaila ble LACY, YOMI Primary Care Unavailable Lacy DO, Yomi A Primary Care Provider LACY, YOMI A Attending Unavailable LACY, YOMI A Referring Unavailable LACY, YOMI A Primary Care Unavailable LACY, YOMI A Attending Unavailable LACY, YOMI A Primary Care Unavailable Allergies Allergy Classification Reported Allergen(s) Allergy Type Date of Onset Reaction(s) Facility (20 sources) Penicillins; Translations: [PENICILLINS] Propensity to adverse reactions to drug 8 [facility] (4 sources) Penicillins Propensity to adverse reactions to drug 9 [facility] (20 sources) Penicillins; Translations: [Penicillins] drug allergy [facility] Work Phone: (1 source) Penicillins Propensity to adverse reactions 6 [facility] Work Phone: (16 sources) [facility] (7 sources) Penicillins Propensity to adverse reactions to drug 8 [facility] (1 source) Penicillins Drug allergy (disorder) 4 [facility] Repository Medications Current Medications Medication Drug Class(es) Dates Sig (Normalized) Sig (Original) acetaminophen 500 mg / diphenhydrAMINE hydrochloride 25 mg oral tablet (1 source) Histamine-1 Receptor Antagonist take 1 tablet by mouth once daily in the evening diphenhydrAMINE- acetaminophen (TYLENOL PM) 25-500 mg per tablet Take 1 tablet by mouth 1 (one) time each day. 0 Active acetaminophen 325 mg / oxyCODONE hydrochloride 5 mg oral tablet (9 sources) Opioid Agonist Start: 02-17-2022 End: 02-21-2022 take 1 tablet by mouth every six hours as needed oxyCODONE-acetam inophen (PERCOCET) 5-325 mg per tablet Take 1 tablet by mouth every 6 (six) hours if needed for severe pain for up to 4 days. Max Daily Amount: 4 tablets 15 tablet 0 02/17/2022 02/21/2022 Active Start: 04-10-2019 End: 05-01-2019 Oxycodone-Acetaminophen Disc ontinued 1 - 2 EACH PO EVERY 6 HOURS 40 5 April 10, 2019 May 01, 2019 12:08am aspirin 325 mg delayed release oral tablet (4 sources) Platelet Aggregation Inhibitor, Nonsteroidal Anti-inflammatory Drug Start: 07-03-2024 End: 08-02-2024 take 1 tablet by mouth twice daily in the evening aspirin 325 MG EC tablet Take 1 (one) tablet (325 mg total) by mouth 2 (two) times a day . 60 tablet 07/03/2024 3:32 PM EST 07/03/2024 08/02/2024 Active Biotin (11 sources) BIOTIN ORAL Take by mouth. Active biotin 5,000 mcg ODT Take by mouth once daily. 0 Active BIOTIN ORAL Take by mouth. 0 Active Biotin 800 MCG O ral Tablet Refills: 0 Active take 1 tablet by mouth once haris y BIOTIN 5000 PO Take 1 tablet by mouth daily. 0 Active Comment on above: Take by mouth once d aily. cyclobenzaprine hydrochloride 10 mg oral tablet (4 sources) Muscle Relaxant Start: 08-24-19 End: 09-03-19 take 1 tablet by mouth three times daily as needed for muscle spasms cyclobenzaprine (FLEXERIL) 10 MG tablet Indications: Status post total left knee replacement Take 1 (one) tablet (10 mg total) by mouth 3 (three) times a day as needed for muscle spasms . 30 tablet 08/23/2024 09/02/2024 Active Start: 07-19-2024 End: 07-29-2024 take 1 tablet by mouth three times daily as needed for muscle spasms cyclobenzaprine (FLEXERIL) 10 MG tablet Indications: Status post total left knee replacement Take 1 (one) tablet (10 mg total) by mouth 3 (three) times a day as needed for muscle spasms . 30 tablet 07/19/2024 07/29/2024 Active Start: 07-03-2024 End: 07-13-2024 take 1 tablet by mouth three times daily as needed for muscle spasms cyclobenzaprine (FLEXERIL) 10 MG tablet Take 1 (one) tablet (10 mg total) by mouth 3 (three) times a day as needed for muscle spasms . 30 tablet 07/03/2024 3:32 PM EST 07/03/2024 07/13/2024 Active D-BIOTIN (3 sources) take 1 tablet by mouth once daily Biotin 08550 MCG Tab Take 10,000 mcg by mouth daily. 0 Active docusate sodium 50 mg / sennosides, fdc 8.6 mg oral tablet (4 sources) Start: 07-03-2024 End: 08-02-2024 take 1 tablet by mouth twice daily in the evening senna-docusate (SENNA-S) 8.6-50 mg Take 1 (one) tablet by mouth 2 (two) times a day . 60 tablet 07/03/2024 3:32 PM EST 07/03/2024 08/02/2024 Active doxycycline hyclate 100 mg oral capsule (1 source) Tetracycline-cl ass Drug Start: 07-27-2022 End: 08-03-2022 doxycycline (Vibramycin) 100 mg capsule Indications: Sore throat Take 1 capsule (100 mg) by mouth in the morning and 1 capsule (100 mg) before bedtime. Do all this for 7 days. Take with at least 8 ounces (large glass) of water, do not lie down for 30 minutes after. 14 capsule 0 07/27/2022 08/03/2022 Active ECHINACEA ORAL (16 sources) ECHINACEA ORAL T renan by mouth. Active ECHINACEA ORAL T renan by mouth. 0 Active Echinacea (9 sources) Start: 05-22-2017 take 380 mg by mouth once daily Echinacea Active 380 MG PO daily May 22, 2017 12:00am Start: 05-22-2017 take 380 mg by mouth once daily Echinacea Active 380 MG PO daily May 22, 2017 1:00am echinacea oral t ablet Quantity: 0 Refills: 0 Ordered: 03-Mar-2021 Catalina Rutledge Generic Substitution Allowed fluticasone propionate 0.05 mg/actuat metered dose nasal spray (16 sources) Corticosteroid Start: 01-29-2018 fluticasone (FLONASE) 50 mcg/actuation nasal spray Indications: Acute recurrent sinusitis, unspecified location INSTILL 2 SPRAYS EACH NARES QD PRN FOR RELIEF OF ALLERGY SYMPTOMS. 16 g 01/29/2018 Active GENERIC EXTERNAL MEDICATION (12 sources) take 2 tablets by mouth twice daily GENERIC EXTERNAL MEDICATION Take 2 tablets by mouth 2 (two) times a day Truvy supplement . Active 12 hr guaiFENesin 600 mg extended release oral tablet (16 sources) Start: 01-29-2018 guaiFENesin (MUCINEX) 600 mg 12 hr tablet Indications: Acute recurrent sinusitis, unspecified location Use 1 to 2 tablets every 12 hours as needed, expectorant (helps to thin secretions). Drink plenty of water.. 40 tablet 01/29/2018 Active herbal drugs (DETOX DIETARY ORAL) (12 sources) take 1 capsule by mouth twice daily as needed for constipation herbal drugs (DETOX DIETARY ORAL) Take 1 capsule by mouth 2 (two) times a day as needed (constipation) . Active ibuprofen 200 mg oral capsule (20 sources) Nonsteroidal Anti-inflammatory Drug Start: 05-22-2017 take 200 mg by mouth every six hours Ibuprofen Active 200 MG PO EVERY 6 HOURS May 22, 2017 12:00am take 1 tablet by diana th every six hours as needed for pain ibuprofen (ADVIL,MOTRIN) 200 MG tablet T renan 1 (one) tablet (200 mg total) by mouth every 6 (six) hours as needed for pain . Active take 1 tablet by diana th every six hours as needed ibuprofen (ADVIL,MOTRIN) 400 mg tablet T renan 400 mg by mouth every 6 (six) hours if needed for mild pain. 0 Active IBUPROFEN ORAL T renan by mouth as needed. 0 Active Comment on above: Take by mouth as nee ded. Inulin (8 sources) Start: 04-04-2019 take 3 capsules by mouth at bedtime Fiber Choice Active 3 CAP PO AT BEDTIME April 04, 2019 12:00am Start: 04-04-2019 take 3 capsules by m outh at bedtime Fiber Choice Active 3 CAP PO AT BEDTIME April 04, 2019 1:00am levoFLOXacin 750 mg oral tablet (2 sources) Quinolone Antimicrobial Start: 07-03-2024 End: 07-13-2024 take 1 tablet by mouth once daily in the evening levoFLOXacin (LEVAQUIN) 750 MG tablet Take 1 (one) tablet (750 mg total) by mouth daily for 10 days . 10 tablet 07/03/2024 3:32 PM EST 07/03/2024 07/13/2024 Active methylPREDNISolone (1 source) Corticosteroid Start: 07-11-2024 End: 07-17-2024 methylPREDNISolone (MEDROL DOSEPACK) 4 mg tablet Indications: S/P total knee replacement, left Follow package directions . 21 tablet 07/11/2024 07/17/2024 Active Multiple Minerals-Vitamins (CALCIUM CITRATE PLUS/MAGNESIUM) Tab (3 sources) take 1 tablet by mouth once daily Multiple Minerals-Vitamins (CALCIUM CITRATE PLUS/MAGNESIUM) Tab Take 1 tablet by mouth daily. 0 Active naproxen 500 mg oral tablet (1 source) Nonsteroidal Anti-inflammatory Drug Start: 12-01-2022 End: 12-13-2022 take 1 tablet by mouth twice daily at mealtime naproxen (Naprosyn) 500 mg tablet Indications: Chronic right shoulder pain Take 1 tablet (500 mg) by mouth 2 times a day with meals for 12 days. 24 tablet 0 12/01/2022 12/13/2022 Active pantoprazole 20 mg delayed release oral tablet (10 sources) Proton Pump Inhibitor Start: 07-04-2024 End: 08-03-2024 take 1 tablet by mouth once daily in the evening pantoprazole (PROTONIX) 20 MG tablet Take 1 (one) tablet (20 mg total) by mouth daily Start: 07/04/24. 30 tablet 07/03/2024 3:32 PM EST 07/04/2024 Active Pediatric Multiple Vitamins (CHILDRENS MULTI-VITAMINS PO) (3 sources) take 1 tablet by mouth once daily Pediatric Multiple Vitamins (CHILDRENS MULTI-VITAMINS PO) Take 1 tablet by mouth daily. 0 Active predniSONE 10 mg oral tablet (1 source) Start: 03-03-2021 End: 03-11-2021 take 3 tablets by mouth once daily at mealtime, then take 1 tablet by mouth once daily, then take 1 tablet by mouth once daily predniSONE 10 mg oral tablet ; 3 tab(s) orally once a day x 3 days2 tab(s) orally once a day x 3 days1 tab(s) orally once a day x 3 days Quantity: 18 Refills: 0 Ordered: 03-Mar-2021 Gil De Leon Start: 03-Mar-2021 End: 11-Mar-2021 Generic Substitution Allowed Comments: It is very important that you take or use this exactly as directed. Do not skip doses or discontinue unless directed by your doctor.Obtain medical advice before taking any non-prescription drugs as some may affect the action of this medication.Take with food or milk. Comment on above: It is very important that you take or use this exactly as directed. Do not skip doses or discontinue unless directed by your doctor.Obtain medical advice before taking any non-prescription drugs as some may affect the action of this medication.Take with food or milk. Specialty Vitamins Products (ECHINACEA C COMPLETE PO) (3 sources) take 1 capsule by mouth once daily Specialty Vitamins Products (ECHINACEA C COMPLETE PO) Take 1 capsule by mouth daily. 0 Active terbinafine 250 mg oral tablet (8 sources) Allylamine Antifungal Start: 07-29-2020 take 250 mg by mouth once daily Terbinafine Hcl Active 250 MG PO DAILY July 28, 2020 11:00pm for 2 months tirzepatide (ZEPBOUND SUBQ) (1 source) tirzepatide (ZEP BOUND SUBQ) Inject under the skin. Active ubiquinone 200 mg oral capsule (3 sources) take 1 capsule by mouth once daily Coenzyme Q10 (COQ10) 200 MG Cap Take 1 capsule by mouth daily. 0 Active Completed/Discontinued Medications Medication Drug Class(es) Dates Sig (Normalized) Sig (Original) acetaminophen 500 mg oral tablet (13 sources) Start: 02-17-2022 End: 02-17-2022 acetaminophen (TYLENOL) tablet 1,000 mg take 2 tablets by mo ut every six hours as needed for pain acetaminophen (TYLENOL) 325 MG tablet Ta ke 2 (two) tablets (650 mg total) by mouth every 6 (six) hours as needed for pain . Active albuterol 0.83 mg/ml inhalation solution (1 source) beta2-Adrenergic Agonist Start: 02-17-2022 End: 02-17-2022 albuterol 2.5 mg /3 mL (0.083 %) nebulizer solution 2.5 mg Black Cohosh Extract (7 sources) take 1 capsule by mouth once daily Black Cohosh 200 mg cap Take by mouth once daily. 0 Active Black Cohosh CAP S Refills: 0 Active take 1 capsule by mouth once abhay ly Black Cohosh 200 MG Cap Take 200 mg by mouth daily. 0 Active Comment on above: Take by mouth once d aily. 24 hr buPROPion hydrochloride 300 mg extended release oral tablet (8 sources) Aminoketone take 1 tablet by mouth once daily buPROPion XL (WELLBUTRIN XL) 300 mg 24 hr tablet Take 300 mg by mouth once daily. 0 Active Comment on above: Take 300 mg by mouth once daily. 12 hr buPROPion hydrochloride 90 mg / naltrexone hydrochloride 8 mg extended release oral tablet (1 source) Opioid Antagonist, Aminoketone Start: 0 take 1 tablet by mouth once daily, then take 1 tablet by mouth twice daily, then take 2 tablets by mouth in the morning, then take 1 tablet by mouth in the evening, then take 2 tablets by mouth twice daily Contrave 8-90 MG Oral Tablet Extended Release 12 Hour Take 1 tab daily x 1 week, then increase to 1 tab BID x 1 week, then increase to 2 tabs AM and 1 in PM x 1 week, then increase to 2 tabs BID Quantity: 120 Refills: 0 Nora Galvan Start : 29-May-2019 Active Start: 05-29-2019 take 1 tablet by diana th once daily, then take 1 tablet by mouth twice daily, then take 2 tablets by mouth in the morning, then take 1 tablet by mouth in the evening, then take 2 tablets by mouth twice daily Contrave 8-90 MG Oral Tablet Extended Release 12 Hour Take 1 tab daily x 1 week, then increase to 1 tab BID x 1 week, then increase to 2 tabs AM and 1 in PM x 1 week, then increase to 2 tabs BID Quantity: 120 Refills: 0 Zack NAVARRONJohannaJOCELYNNora Start : 29-May-2019 Active calcium carbonate 1500 mg or al tablet (3 sources) Calcium 600 MG O ral Tablet Refills: 0 Active calcium chloride 0.0014 meq/ ml / potassium chloride 0.004 meq/ml / sodium chloride 0.103 meq/ml / sodium lactate 0.028 meq/ml injectable solution (2 sources) Start: 02-17-2022 End: 02-17-2022 lactated Ringer's infusion Start: 02-17-2022 End: 02-17-2022 lactated Ringer's infusion - ADS Override Pull Co Q 10 CAPS (3 sources) Co Q 10 CAPS Ref ills: 0 Active Cough Med With Codeine (8 sources) Start: 07-21-2015 End: 05-22-2017 take 1 mL by mouth every four hours as needed Cough Med With Codeine Discontinued 5 - 10 ML PO EVERY 4 HOURS NEEDED July 21, 2015 12:00am May 22, 2017 2:37pm Start: 07-21-2015 End: 05-22-2017 take 1 mL by mouth every four hours as needed Cough Med With Codeine Discontinued 5 - 10 ML PO EVERY 4 HOURS NEEDED July 21, 2015 1:00am May 22, 2017 3:37pm diphenhydrAMINE (1 source) Histamine-1 Receptor Antagonist Start: 02-17-2022 End: 02-17-2022 diphenhydrAMINE (BENADRYL) injection 25 mg Dulcolax Stool Softener CAPS (4 sources) Dulcolax Stool Softener CAPS Refills: 0 Active ECHINACEA 1X ORAL (1 source) ECHINACEA 1X ORA L Take by mouth as needed. 0 Active Comment on above: Take by mouth as nee ded. 1 ml fentaNYL 0.05 mg/ml injection (1 source) Opioid Agonist Start: 02-17-2022 End: 02-17-2022 fentaNYL (SUBLIMAZE) injection 25 mcg Haloperidol (1 source) Typical Antipsychotic Start: 02-17-2022 End: 02-17-2022 haloperidol lactate (HALDOL) injection 0.5 mg 1 ml hydrALAZINE hydrochloride 20 mg/ml injection (1 source) Arteriolar Vasodilator Start: 02-17-2022 End: 02-17-2022 hydrALAZINE (APRESOLINE) injection 5 mg hydroCHLOROthiazide 12.5 mg oral tablet (4 sources) Thiazide Diuretic take 1 tablet by mouth once daily hydroCHLOROthiazide (HYDRODIURIL, ESIDRIX) 12.5 mg tablet Take 12.5 mg by mouth once daily. 0 Active take 1 capsule by mouth once abhay ly hydrochlorothiazide 12.5 MG Cap capsule Take 12.5 mg by mouth daily. 0 Active Comment on above: Take 12.5 mg by mout h once daily. 0.5 ml HYDROmorphone hydrochloride 1 mg/ml prefilled syringe (2 sources) Opioid Agonist Start: 02-17-2022 End: 02-17-2022 HYDROmorphone (DILAUDID) injection 0.5 mg Start: 02-17-2022 End: 02-17-2022 HYDROmorphone (DILAUDID) 0.5 mg/0.5 mL injection - ADS Override Pull labetalol hydrochloride 5 mg/ml injectable solution (1 source) beta-Adrenergic Lidia Start: 02-17-2022 End: 02-17-2022 labetalol (NORMODYNE) injection 5 mg Meperidine (1 source) Opioid Agonist Start: 02-17-2022 End: 02-17-2022 meperidine (PF) (DEMEROL) 25 mg/mL injection 12.5 mg Multi Vitamin Oral Tablet (3 sources) Multi Vitamin Or al Tablet Refills: 0 Active nitrofurantoin, macrocrystals 25 mg / nitrofurantoin, monohydrate 75 mg oral capsule (5 sources) Nitrofuran Antibacterial Start: 02-16-2021 End: 10-01-2021 take 1 capsule by mouth every twelve hours Nitrofurantoin Monohyd Macro 100 MG Oral Capsule TAKE 1 CAPSULE Every twelve hours Quantity: 14 Refills: 0 Ordered: 16-Feb-2021 Dipesh NAVARROGoldie BARKSDALE Start : 16-Feb-2021 End : 01-Oct-2021 Complete Start: 02-16-2021 take 1 capsule by mo ut twice daily Nitrofurantoin Monohyd Macro 100 MG Oral Capsule Take 1 capsule twice daily Quantity: 7 Refills: 0 Ordered: 16-Feb-2021 Goldie Streeter Start : 16-Feb-2021 Active Drug Treatment Unknown - unknown (3 sources) No information a vailable. No Reported Medications (1 source) No Reported Medi cations Quantity: 0 Refills: 0 Ordered: 08-Jan-2021 DO Active NON FORMULARY (14 sources) End: 02-05-2025 NON FORMULARY Unspecified Medication; TRUVY 02/05/2025 Discontinued (Therapy completed) NON FORMULARY Un specified Medication; TRUVY Active NON FORMULARY Un specified Medication; TRUVY 0 Active NON FORMULARY Ta ke by mouth 2 (two) times a day. Truvy: Multiple Vitamins 0 Active NON FORMULARY Ta ke by mouth at bedtime. Yvette: Detoxification of Bowels 0 Active NON FORMULARY Ta ke by mouth 3 (three) times a day. Echinacea: Immune Support: Takes 3 Tablets TID 0 Active oxyCODONE hydrochloride 5 mg oral tablet (8 sources) Opioid Agonist Start: 08-13-2024 End: 08-21-2024 oxyCODONE (ROXICODONE) 5 MG immediate release tablet Indications: Status post total left knee replacement Take 1 (one) tablet (5 mg total) by mouth every 8 (eight) hours as needed for pain (Days supply per fill: 7) . 21 tablet 08/14/2024 08/21/2024 Start: 07-11-2024 End: 07-26-2024 take 1 tablet by mouth every four hours as needed for pain oxyCODONE (ROXICODONE) 5 MG immediate release tablet Indications: Status post total left knee replacement Take 1 (one) tablet (5 mg total) by mouth every 4 (four) hours as needed for pain . 40 tablet 07/19/2024 07/26/2024 Active Start: 02-17-2022 End: 02-17-2022 oxyCODONE (ROXICODONE) immed iate release tablet 5 mg Oxygen Therapy, Adult (1 source) Start: 02-17-2022 End: 02-17-2022 Oxygen Therapy, Adult phentermine hydrochloride 37.5 mg oral tablet (3 sources) Sympathomimetic Amine Anorectic Start: 08-22-2023 End: 02-29-2024 take 36-36.9 tablets by mouth once daily before mealtime phentermine (Adipex-P) 37.5 mg tablet Indications: Class 2 severe obesity due to excess calories with serious comorbidity and body mass index (BMI) of 36.0 to 36.9 in adult Take 1 tablet (37.5 mg) by mouth once daily in the morning. Take before meals. 30 tablet 08/22/2023 02/29/2024 Discontinued (Therapy completed) Prochlorperazine (1 source) Phenothiazine Start: 02-17-2022 End: 02-17-2022 take 1 tablet by mouth every six hours as needed prochlorperazine (COMPAZINE) tablet 10 mg Psyllium (4 sources) Fiber CAPS Refil ls: 0 Active sennosides (SENNA HERBAL LAXATIVE ORAL) (1 source) sennosides (KEN A HERBAL LAXATIVE ORAL) Take by mouth as needed. 0 Active Comment on above: Take by mouth as nee ded. sennosides, fdc 8.6 mg oral tablet (1 source) Start: 01-08-2020 Senokot 8.6 MG Oral Tablet TAKE DIRECTED. Refills: 0 Ag Coles MD Start : 08-Jan-2020 Active traZODone hydrochloride 50 mg oral tablet (1 source) Serotonin Reuptake Inhibitor Start: 04-23-2020 take 1.5 tablets by mouth at bedtime traZODone HCl - 50 MG Oral Tablet TAKE 1.5 TABLET Bedtime Quantity: 45 Refills: 2 Goldie Streeter Start : 23-Apr-2020 Active Unspecified Medication (10 sources) Unspecified Medication TRUVY Quantity: 0 Refills: 0 Ordered: 20-Oct-2021 DO Active Problems Active Problems Problem Classification Problem Date Documented Da te Episodic/Chronic Anxiety disorders (13 sources) Anxiety; Translations: [Anxiety state, unspecified] Chronic Coma; stupor; and brain damage (1 source) Daytime somnolence; Translations: [Excessive daytime sleepiness] Episodic Deficiency and other anemia (14 sources) Anemia; Translations: [Anemia, unspecified] Episodic Disorders of lipid metabolism (20 sources) Dyslipidemia; Translations: [Other and unspecified hyperlipidemia] Onset: 3 07-27-2022 Chronic Comment on above: 10/2021: 206/75/122/4 7, ASCVD 1.8%; 10/2021: 206/75/122/4 7, ASCVD 1.8%01/2022: 222/86/128/41, ASCVD 1.8%; Esophageal disorders (15 sources) Gastroesophageal reflux disease; Translations: [Gastro-esophageal reflux disease without esophagitis] Onset: 9 02-01-2019 Chronic Essential hypertension (3 sources) Hypertensive disorder; Translations: [Essential (primary) hypertension] Onset: 5 05-22-2024 Chronic Genitourinary symptoms and ill-defined conditions (8 sources) Urinary symptoms ; Translations: [Other symptoms involving urinary system] Episodic Hemorrhoids (10 sources) External hemorrhoids; Translations: [External hemorrhoids without mention of complication] Episodic Malaise and fatigue (8 sources) Malaise and fatigue; Translations: [Chronic fatigue, unspecified] 05-24-2017 Chronic Malaise and fatigue (14 sources) Fatigue; Translations: [Other malaise and fatigue] Episodic Mood disorders (14 sources) Major depressive disorder; Translations: [Major depressive affective disorder, single episode, unspecified] Chronic Mycoses (9 sources) Onychomycosis of toenails; Translations: [Dermatophytosis of nail] Episodic Osteoarthritis (20 sources) Osteoarthritis of left knee joint; Translations: [Unilateral primary osteoarthritis, left knee] Onset: 5 04-17-2024 Chronic Other aftercare (2 sources) Encounter for follow-up examination after completed treatment for conditions other than malignant neoplasm; Translations: [Encounter for follow-up examination after completed treatment for conditions other than malignant neoplasm] Onset: 5 Episodic Other connective tissue disease (8 sources) History of total knee arthroplasty; Translations: [Presence of right artificial knee joint] 04-17-2024 Chronic Other connective tissue disease (6 sources) Presence of left artificial knee joint; Translations: [Presence of left artificial knee joint] Onset: 5 Chronic Other connective tissue disease (9 sources) Pain of right upper arm; Translations: [Pain in limb] Episodic Other connective tissue disease (9 sources) Pain in right arm; Translations: [Pain in limb] Episodic Other connective tissue disease (4 sources) Synovial cyst of right popliteal space; Translations: [Synovial cyst of popliteal space] Episodic Other diseases of veins and lymphatics (1 source) Stasis dermatitis Episodic Other diseases of veins and lymphatics (2 sources) Venous insufficiency (chronic) (peripheral); Translations: [Venous insufficiency (chronic) (peripheral)] Onset: 8 Episodic Other diseases of veins and lymphatics (6 sources) Venous stasis; Translations: [Venous stasis] Onset: 9 02-01-2019 Episodic Other gastrointestinal disorders (12 sources) Soft mass of abdomen; Translations: [Abdominal or pelvic swelling, mass, or lump, unspecified site] Episodic Other inflammatory condition of skin (5 sources) Scalp itchy; Translations: [Unspecified pruritic disorder] Episodic Other inflammatory condition of skin (8 sources) Intertrigo; Translations: [Erythema intertrigo] 04-11-2021 Episodic Other liver diseases (10 sources) Elevated liver enzymes level; Translations: [Other nonspecific abnormal serum enzyme levels] Episodic Other nervous system disorders (2 sources) Other chronic pain; Translations: [Other chronic pain] Onset: 5 Chronic Other non-traumatic joint disorders (10 sources) Shoulder pain; Translations: [Pain in joint, shoulder region] Episodic Other non-traumatic joint disorders (2 sources) Stiffness of left knee, not elsewhere classified; Translations: [Stiffness of left knee, not elsewhere classified] Onset: 5 Episodic Other nutritional; endocrine; and metabolic disorders (8 sources) Morbid obesity; Translations: [Morbid obesity] Onset: 9 02-01-2019 Chronic Other nutritional; endocrine; and metabolic disorders (16 sources) Obesity; Translations: [Obesity, unspecified] Onset: 3 06-15-2022 Chronic Other nutritional; endocrine; and metabolic disorders (13 sources) Body mass index 40+ - severely obese; Translations: [Body Mass Index 40.0-44.9, adult] Chronic Other nutritional; endocrine; and metabolic disorders (8 sources) Excess panniculus of abdomen; Translations: [Localized adiposity] 09-12-2020 Chronic Other nutritional; endocrine; and metabolic disorders (16 sources) Severe obesity; Translations: [Morbid obesity] Onset: 3 06-15-2022 Chronic Other nutritional; endocrine; and metabolic disorders (8 sources) Recent weight loss; Translations: [Abnormal weight loss] 09-12-2020 Episodic Other screening for suspected conditions (not mental disorders or infectious disease) (20 sources) Patient encounter status; Translations: [Other screening mammogram] Onset: 3 Resolved: 4 01-05-2023 Episodic Comment on above: A few years ago, Dr. Fernández; 10/25/2021: mammo wnl ; Other skin disorders (5 sources) Skin irritation ; Translations: [Unspecified disorder of skin and subcutaneous tissue] Episodic Other skin disorders (8 sources) Skin finding; Translations: [Cutis laxa senilis] 04-11-2021 Episodic Other skin disorders (8 sources) Excessive skin and subcutaneous tissue; Translations: [Excessive and redundant skin and subcutaneous tissue] 04-11-2021 Episodic Other skin disorders (2 sources) Excessive and redundant skin and subcutaneous tissue; Translations: [Excessive and redundant skin and subcutaneous tissue] Onset: 2 Episodic Residual codes; unclassified (20 sources) Obstructive sleep apnea syndrome; Translations: [Obstructive sleep apnea (adult)(pediatric)] Onset: 9 02-01-2019 Chronic Residual codes; unclassified (9 sources) Daytime somnolence; Translations: [Hypersomnia, unspecified] Chronic Residual codes; unclassified (9 sources) At risk of heart disease; Translations: [Other specified conditions influencing health status] Episodic Comment on above: 10/2021: 1.8%; 10/2021: 1.8%01/2022: 1.8%; Residual codes; unclassified (2 sources) Encounter for cosmetic surgery; Translations: [Encounter for cosmetic surgery] Onset: 2 Episodic Skin and subcutaneous tissue infections (10 sources) Abscess; Translations: [Cellulitis and abscess of unspecified sites] Episodic Spondylosis; intervertebral disc disorders; other back problems (20 sources) Chronic low back pain; Translations: [Lumbar radiculopathy] Onset: 5 Resolved: 4 02-01-2019 Episodic Thyroid disorders (20 sources) Multinodular goiter; Translations: [Nontoxic multinodular goiter] Onset: 3 06-15-2022 Chronic Transient cerebral ischemia (1 source) Amaurosis fugax; Translations: [Amaurosis fugax] Onset: 5 Chronic Unclassified (3 sources) No current problems or disability 04-10-2017 Unclassified (6 sources) Patient encounter status; Translations: [Encounter for screening mammogram for breast cancer] 02-29-2024 Unclassified (2 sources) SWOLLEN THROAT 03-03-2021 Comment on above: SWOLLEN THROAT Unclassified (2 sources) Low back pain, unspecified; Translations: [Low back pain, unspecified] Onset: 2 Unclassified (2 sources) Chronic pain of left knee 02-29-2024 Past or Other Problems Problem Classification Problem Date Documented Date Episodic/Chronic Cardiac dysrhythmias (13 sources) Palpitations; Translations: [Palpitations] Onset: 04-17-2023 04-17-2023 Episodic Joint disorders and dislocations; trauma-related (20 sources) Tear of medial meniscus of knee; Translations: [Tear of medial cartilage or meniscus of knee, current] Resolved: 05-29-2019 Episodic Other and unspecified benign neoplasm (1 source) Neuroma of foot; Translations: [Benign neoplasm of peripheral nerves and autonomic nervous system of lower limb, including hip] Onset: 11-22-2011 11-22-2011 Episodic Other and unspecified benign neoplasm (15 sources) Lipoma (clinical); Translations: [Lipoma, unspecified site] Onset: 06-15-2022 06-15-2022 Episodic Other connective tissue disease (1 source) Personal history of other diseases of the musculoskeletal system and connective tissue; Translations: [Personal history of diseases of the ms sys and conn tiss] Onset: 01-20-2022 Episodic Other connective tissue disease (2 sources) Tenosynovitis of hand; Translations: [Synovitis and tenosynovitis, unspecified] 01-20-2024 Episodic Other connective tissue disease (2 sources) Synovitis and tenosynovitis, unspecified; Translations: [Synovitis and tenosynovitis, unspecified] Onset: 01-20-2024 Episodic Other nervous system disorders (12 sources) Paresthesia of hand ; Translations: [Anesthesia of skin] Onset: 12-01-2022 Resolved: 08-17-2023 12-01-2022 Episodic Other non-traumatic joint disorders (15 sources) Knee pain; Translations: [Pain in unspecified knee] Onset: 02-01-2019 02-01-2019 Episodic Other non-traumatic joint disorders (20 sources) Pain in unspecified knee; Translations: [Knee pain] Onset: 06-15-2022 Resolved: 08-17-2023 06-15-2022 Episodic Other non-traumatic joint disorders (12 sources) Chronic pain of right upper limb; Translations: [Pain in right shoulder] Onset: 12-01-2022 Resolved: 08-17-2023 12-01-2022 Episodic Other non-traumatic joint disorders (7 sources) Pain in left knee; Translations: [Pain in joint, lower leg] Onset: 02-29-2024 04-15-2024 Episodic Other non-traumatic joint disorders (1 source) Pain in right knee; Translations: [Pain in right knee] Onset: 05-20-2024 Episodic Other non-traumatic joint disorders (1 source) Stiffness of left knee; Translations: [Stiffness of left knee, not elsewhere classified] Onset: 07-05-2024 Resolved: 02-06-2025 02-06-2025 Episodic Other skin disorders (20 sources) Loss of hair; Translations: [Alopecia, unspecified] Onset: 06-15-2022 Resolved: 02-06-2025 06-15-2022 Episodic Other skin disorders (12 sources) Eruption; Translations: [Rash and other nonspecific skin eruption] Onset: 06-15-2022 Resolved: 01-05-2023 06-15-2022 Episodic Other upper respiratory infections (16 sources) Acute pharyngitis, unspecified; Translations: [Acute recurrent sinusitis, unspecified] Onset: 01-29-2018 Resolved: 12-01-2022 12-01-2022 Episodic Unclassified (9 sources) Medication commenced; Translations: [Medication started] Varicose veins of lower extremity (16 sources) Varicose veins of lower extremity; Translations: [Varicose veins of bilateral lower extremities with other complications] Onset: 07-12-2005 07-10-2006 Episodic NEGATED: Highlighted row has not occurred!Residual codes; unclassified (20 sources) Disease Episodic Results Test Name Value Interpretation Reference Range Facility CBC, Employeeon 01-28-2025 Absolute Lymph 1.60 X10 3/uL Normal 0.83-4.51 [facility] Comment on above: Performed By: #### L 400.0100, L100.0200, L500.2900 #### [facility] [address] [place], [address] Absolute Neut 3.3 X10 3/uL Normal 2.0-7.7 [facility] Comment on above: Performed By: #### L 400.0100, L100.0200, L500.2900 #### [facility] [address] [place], [address] Basophils/100 WBC (Bld) 0.4 % Normal 0-1 [facility] Comment on above: Performed By: #### L 400.0100, L100.0200, L500.2900 #### [facility] [address] [place], [address] Eosinophils/100 WBC (Bld) 1.5 % Normal 0-5 [facility] Comment on above: Performed By: #### L 400.0100, L100.0200, L500.2900 #### [facility] [address] [place], [address] Erythrocyte distribution width (RBC) [Ratio] 13.2 % Normal 11.6-14.6 [facility] Comment on above: Performed By: #### L 400.0100, L100.0200, L500.2900 #### [facility] [address] [place], [address] Hematocrit (Bld) [Volume fraction] 39.0 % Normal 37-47 [facility] Comment on above: Performed By: #### L 400.0100, L100.0200, L500.2900 #### [facility] [address] [place], [address] Hemoglobin (Bld) [Mass/Vol] 13.0 g/dL Normal 12.0-15.0 [facility] Comment on above: Performed By: #### L 400.0100, L100.0200, L500.2900 #### [facility] [address] [place], [address] Lymphocytes/100 WBC (Bld) 30.4 % Normal 19-41 [facility] Comment on above: Performed By: #### L 400.0100, L100.0200, L500.2900 #### [facility] [address] [place], [address] MCH (RBC) [Entitic mass] 28.9 pg Normal 27.0-32.0 [facility] Comment on above: Performed By: #### L 400.0100, L100.0200, L500.2900 #### [facility] [address] [place], [address] MCHC (RBC) [Mass/Vol] 33.3 g/dL Normal 32-36 [facility] Comment on above: Performed By: #### L 400.0100, L100.0200, L500.2900 #### [facility] [address] [place], [address] MCV (RBC) [Entitic vol] 86.7 fL Normal 81-99 [facility] Comment on above: Performed By: #### L 400.0100, L100.0200, L500.2900 #### [facility] [address] [place], [address] Monocytes/100 WBC (Bld) 5.5 % Normal 0-10 [facility] Comment on above: Performed By: #### L 400.0100, L100.0200, L500.2900 #### [facility] [address] [place], [address] Neutrophils/100 WBC (Bld) 62.0 % Normal 47-70 [facility] Comment on above: Performed By: #### L 400.0100, L100.0200, L500.2900 #### [facility] [address] [place], [address] NRBC # 0.00 10 3/uL Normal 0-5 [facility] Comment on above: Performed By: #### L 400.0100, L100.0200, L500.2900 #### [facility] [address] [place], [address] Nucleated RBC (Bld) [#/Vol] 0 10*3/uL Normal 0-5 [facility] Comment on above: Performed By: #### L 400.0100, L100.0200, L500.2900 #### [facility] [address] [place], [address] Platelet mean volume (Bld) [Entitic vol] 9.4 fL Normal 6.2-12.0 [facility] Comment on above: Performed By: #### L 400.0100, L100.0200, L500.2900 #### [facility] [address] [place], [address] Platelets (Bld) [#/Vol] 188 10*3/uL Normal 150-450 [facility] Comment on above: Performed By: #### L 400.0100, L100.0200, L500.2900 #### [facility] [address] [place], [address] RBC (Bld) [#/Vol] 4.50 10*6/uL Normal 4.2-5.4 [facility] Comment on above: Performed By: #### L 400.0100, L100.0200, L500.2900 #### [facility] [address] [place], [address] RDW SD 41.2 fl Normal 35.1-43.9 [facility] Comment on above: Performed By: #### L 400.0100, L100.0200, L500.2900 #### [facility] [address] [place], [address] WBC (Bld) [#/Vol] 5.3 10*3/uL Normal 4.4-11.0 [facility] Comment on above: Performed By: #### L 400.0100, L100.0200, L500.2900 #### [facility] [address] [place], [address] Employee Profileon 5 CHOL:HDL 3.32 Normal [facility] Comment on above: Performed By: #### L 400.0100, L100.0200, L500.2900 #### [facility] [address] [place], [address] Cholesterol [Mass/Vol] 187 mg/dL Normal <=200 [facility] Comment on above: Result Comment: Chol esterol level, Desirable <200 mg/dL Borderline high cholesterol 200-239 mg/dL High cholesterol >=240 mg/dL Recommendations of the NCEP Adult Treatment Panel for the following risk-cutoff thresholds for the [place] population. Performed By: #### L 400.0100, L100.0200, L500.2900 #### [facility] [address] [place], [address] Cholesterol in HDL [Mass/Vol] 56 mg/dL Normal [facility] Comment on above: Result Comment: [place] onal Cholesterol Education Program (NCEP) guidelines: <40 mg/dL: Low HDL-cholesterol (major risk factor for CHD) >= 60 mg/dL: High HDL-cholesterol (negative risk factor for CHD) HDL-cholesterol is affected by a number of factors, e.g. smoking, exercise, hormones, sex and age. Performed By: #### L 400.0100, L100.0200, L500.2900 #### [facility] [address] [place], [address] Cholesterol in LDL [Mass/Vol] 115 mg/dL Normal [facility] Comment on above: Result Comment: Bord pfgkvz=236-592 mg/dL Higher Euvv=981 mg/dL or greater Friedwald Equation for LDL-C Performed By: #### L 400.0100, L100.0200, L500.2900 #### [facility] [address] [place], [address] Cholesterol in VLDL [Mass/Vol] 16 mg/dL Normal 5-40 [facility] Comment on above: Performed By: #### L 400.0100, L100.0200, L500.2900 #### [facility] [address] [place], [address] LDH 187 U/L Normal 84-246 [facility] Comment on above: Performed By: #### L 400.0100, L100.0200, L500.2900 #### [facility] [address] [place], [address] Phosphate [Mass/Vol] 3.4 mg/dL Normal 2.7-4.5 [facility] Comment on above: Performed By: #### L 400.0100, L100.0200, L500.2900 #### [facility] [address] [place], [address] Triglyceride [Mass/Vol] 79 mg/dL Normal [facility] Comment on above: Result Comment: The drugs N-Acetylcysteine and Metamizole may falsely depress this assay. Normal range: <150 mg/dL Borderline High: 150-199 mg/dL High: 200-499 mg/dL Very High: >500 mg/dL Performed By: #### L 400.0100, L100.0200, L500.2900 #### [facility] [address] [place], [address] URIC 3.7 mg/dL Normal 2.6-6.0 [facility] Comment on above: Result Comment: The drugs N-Acetylcysteine and Metamizole may falsely depress this assay. Performed By: #### L 400.0100, L100.0200, L500.2900 #### [facility] [address] [place], [address] Urinalysis, Employeeon 01-28 BILIRUBIN URINE Negative Normal Negative [facility] Comment on above: Order Comment: CLEAN CATCH Performed By: #### L 400.0100, L100.0200, L500.2900 #### [facility] [address] [place], [address] Clarity (U) Clear Normal Clear [facility] Comment on above: Order Comment: CLEAN CATCH Performed By: #### L 400.0100, L100.0200, L500.2900 #### [facility] [address] [place], [address] Color (U) Straw Normal Yellow [facility] Comment on above: Order Comment: CLEAN CATCH Performed By: #### L 400.0100, L100.0200, L500.2900 #### [facility] [address] [place], [address] GLUCOSE, UR Normal Normal Normal [facility] Comment on above: Order Comment: CLEAN CATCH Performed By: #### L 400.0100, L100.0200, L500.2900 #### [facility] [address] [place], [address] KETONE UR Negative Normal Negative [facility] Comment on above: Order Comment: CLEAN CATCH Performed By: #### L 400.0100, L100.0200, L500.2900 #### [facility] [address] [place], [address] LEUK ESTERASE Negative Normal Negative [facility] Comment on above: Order Comment: CLEAN CATCH Performed By: #### L 400.0100, L100.0200, L500.2900 #### [facility] [address] [place], [address] Nitrite Ql (U) Negative Normal Negative [facility] Comment on above: Order Comment: CLEAN CATCH Performed By: #### L 400.0100, L100.0200, L500.2900 #### [facility] [address] [place], [address] OCCULT BLOOD-UR Negative Normal Negative [facility] Comment on above: Order Comment: CLEAN CATCH Performed By: #### L 400.0100, L100.0200, L500.2900 #### [facility] [address] [place], [address] pH UR 8.0 Normal 5.0 - 8.0 [facility] Comment on above: Order Comment: CLEAN CATCH Performed By: #### L 400.0100, L100.0200, L500.2900 #### [facility] [address] [place], [address] PROT DIPSTX Negative Normal Negative [facility] Comment on above: Order Comment: CLEAN CATCH Performed By: #### L 400.0100, L100.0200, L500.2900 #### [facility] [address] [place], [address] SP.GR. DIPSTX 1.015 Normal 1.002-1.030 [facility] Comment on above: Order Comment: CLEAN CATCH Performed By: #### L 400.0100, L100.0200, L500.2900 #### [facility] [address] [place], [address] UROBILI Normal Normal Normal [facility] Comment on above: Order Comment: CLEAN CATCH Performed By: #### L 400.0100, L100.0200, L500.2900 #### [facility] [place], [address] XR KNEE LEFT 3 VIEWS (SPECIF Y VIEWS IN COMMENTS)on 08-23-2024 XR KNEE LEFT 3 VIEWS (SPECIFY VIEWS IN COMMENTS) EXAMINATION: XR KNEE LEFT 3 VIEWS (SPECIFY VIEWS IN COMMENTS) HISTORY: ORDERING SYSTEM PROVIDED HISTORY: Follow-up exam, TECHNOLOGIST PROVIDED HISTORY: Illness/Other Reason for exam: p/o left total knee replacement 07/03/24 Cancer History: u Surgery, RadiationHistory: u Encounter Type: Subsequent/Follow-up Additional signs and symptoms: none ORDERING SYSTEM PROVIDED DIAGNOSIS CODES: Z09 Follow-up exam COMPARISON: 07/03/2024 FINDINGS: Three views of the left knee. Postoperative changes of total knee arthroplasty are seen, components are well seated within atomic alignment. Soft tissue air has resolved. There appears to be a joint effusion present. Probable varicose veins medially are noted. IMPRESSION: Total knee arthroplasty, anatomic alignment with resolution of soft tissue air. Workstation ID: [id number] Dictated by: MATI FAJARDO on Sat Aug 24, 2024 1:03:36 PM EDT Transcribed by: MATI FAJARDO on Sat Aug 24, 2024 1:03:36 PM EDT Finalized by: MATI FAJARDO on [facility] Aug 24, 2024 1:03:36 PM EDT Normal [facility] Comment on above: Order Comment: Injur y/Trauma or Illness?:Illness/Other How long have you had these symptoms (acute/chronic)?:Unknown Reason for exam?:p/o left total knee replacement 07/03/24 History of cancer?:u Surgeries, chemotherapy, or radiation?:u Type of Exam?:Subsequent/Follow-up Additional signs and symptoms?:none OP NOTEon 07-03-2024 OP NOTE ATTENDING PHYSICIAN ANEL LUI MD PRIMARY CARE PHYSICIAN NORA DIXON CNP ADMITTING PHYSICIAN ANEL LUI MD PREOPERATIVE DIAGNOSIS Left knee degenerative arthrosis. POSTOP DIAGNOSIS Left knee degenerative arthrosis. PROCEDURE Robotic assisted left total knee replacement. ANESTHESIA Spinal. COMPLICATIONS None. SPECIMENS Bone. ESTIMATED BLOOD LOSS 1 cc. TOURNIQUET TIME 36 minutes. INDICATIONS Amita is a 58-year-old patient, with a significant history of left knee degenerative arthrosis. She has already had a right partial knee replacement, now presents for left knee replacement. She was explained all the risks and complications of surgery including, but not limited to the risk of infection, bleeding, neurologic or vascular injury, the possibility of a deep venous thrombosis, pulmonary embolism, myocardial infarction, stroke, or even with surgery. Explained the possibilities of continued pain, stiffness, loss of range of motion, as well as need for future surgery, given all the options of anesthetic per the anesthesia team and at this point in time elected for a spinal anesthetic. PROCEDURE IN DETAIL The patient was met in the preoperative holding area where the left knee was confirmed to be the appropriate site and marked by myself. The patient was taken to the operative suite, given preoperative Kefzol per protocol as well as a spinal anesthetic. The left leg was placed in a proximal thigh tourniquet. The left leg was then sterilely prepped and draped using ChloraPrep solution. After sterilization of the left leg we did our final time-out to confirm that the left leg was in fact the appropriate site that had been marked by myself. We then went ahead and proceeded forward with elevation of the left leg tourniquet. A 10 cm incision was made along the medial border of the patella. A medial arthrotomy was performed, suprapatellar synovectomy was performed, patella fat pad was debulked, and patella was cut. We placed our distal femoralcheckpoint, proximal tibial checkpoint, placed our distal femoral array and proximal tibial array. We then did robotic-assisted mapping of the distal femur and the proximal tibia in the usual and standard fashion. We then went ahead and did flexion-extension gap balancing. After the flexion-extension gaps were balanced we did robotic-assisted cuts of the distal femur and the proximal tibia in the usual and standard fashion. We then went ahead and proceeded forward with removing medial and lateral redundant menisci, stripped posterior femoral capsule, posterior femoral osteophytes, and sized the proximal tibia to be a size 3 tibial base plate. We then went ahead and did sequential reductions, settled on a 9 mm cruciate-retaining tibial insert, which gave us full extension, full flexion with excellent varus and valgus stability and good patellar tracking. No lateral release was felt required. We are using the A32 patella. After all components were selected we then injected local anesthetic around the distal femur and proximal tibia. We then went ahead and did IrriSept irrigation. After this, we then went ahead and proceeded forward with placing our final implants, placing our size 3 tibial baseplate, 9 mm cruciate-retaining tibial insert, 4 left femoral component, A32 patella. The knee was ranged throughout a range of motion. There was full extension, full flexion with excellent varus and valgus stability and good patellar tracking. No lateral release was felt required. We then went ahead and proceeded forward with placing our A32 patella. After all implants were in place, the knee was ranged throughout a range of motion. There was full extension, full flexion, excellentvarus and valgus stability with good patellar tracking. No lateral release was felt required. We then did our final copious Surgiphor and IrriSept irrigation, placed our ON-Q pain catheter in the adductor canal. We then sprinkled 1 g of vancomycin powder throughout the contact surface areas of the left knee. Medial arthrotomy was closed using #1 Stratafix. A final series of local was injected subcutaneously, 2-0 and 3-0 Stratafix was used to reapproximate the skin edges. Prineo dressing was applied as well as a Mepilex dressing. The patient was then taken to PACU without intraoperative complication. D 07/03/2024 09:25 [id number] /[id number] T 07/03/2024 09:49 MCB/MODL AUTHENTICATED BY ANEL LUI, ON 07/03/2024 12:30:34 Normal [facility] Glucose [Mass/Vol] 76 mg/dL Normal 65-99 [facility] Comment on above: Performed By: #### L [id number] #### [facility] [address] [place], [place] [address] Alejandro Gao M.D. [id number] Glucose [Mass/Vol] 62 mg/dL Low 65-99 [facility] Comment on above: Performed By: #### 4 [id number] #### [facility] [address] [place], [place] [address] Alejandro Gao M.D. [id number] TISSUE EXAMon 07-03-2024 TISSUE EXAM Surgical Pathology Report Case: [id number] Authorizing Provider: Anel Lui MD Collected: 07/03/2024 08:34 AM Ordering Location: [facility] Periop Received: 07/03/2024 10:34 AM Pathologist: Tevin Richardson IV, MD Specimen: Knee, Left, Portions of bone and soft tissue A. Knee, Left, total arthroplasty: Total knee arthroplasty with findings consistent with degenerative joint disease. Primary osteoarthritis of left knee [M17.12] A. The specimen is received in formalin designated "knee, left-portions of bone and soft" and consists of pieces of baird bone and scant soft tissue measuring 10 x 8 x 1.8 cm in aggregate. A portion of tibial plateau is identified and the articular surface is coarsely granular and eroded. A portion of femoral condyle is identified and the articular surface is coarsely granular and eroded. Osteophytes are present. The underlying cancellous bone appears unremarkable. The specimen is submitted for decalcification. Cassettes 1 and 2 contain applications sales representative sections. JK Gross examination performed at: [facility] - [address] [place] [address] Microscopic examination is performed. Normal [facility] Comment on above: Performed By: #### 4 [id number] #### [place] [address] Alejandro Gao M.D. [id number] XR KNEE LEFT 2 VIEWS (STANDA RD)on 07-03-2024 XR KNEE LEFT 2 VIEWS (STANDARD) EXAMINATION: XR KNEE LEFT 2 VIEWS (STANDARD) 07/03/2024 9:10 AM HISTORY: ORDERING SYSTEM PROVIDED HISTORY: s/p Lt. TKA in OR, TECHNOLOGIST PROVIDED HISTORY: Illness/Other Reason for exam: Post-op Left knee replacemetn hx of OA and chronic pain Cancer History: u Surgery, RadiationHistory: u Encounter Type: Initial Additional signs and symptoms: . ORDERING SYSTEM PROVIDED DIAGNOSIS CODES: M17.12 Primary osteoarthritis of left knee Z01.812 Blood tests prior to treatment or procedure COMPARISON: 04/17/2024. FINDINGS: Two views of the left knee were obtained. There are postsurgical findings of total knee arthroplasty. Joint space is symmetric. No acute fracture or dislocation. Intraarticular and subcutaneous air is present. IMPRESSION: Postsurgical findings of left total knee arthroplasty without complicating features. [facility] Workstation ID: [id number] Dictated by: YENNY PETE on MonJul 04, 2024 2:58:23 PM EST Transcribed by: DEEP MAURICE on MonJul 04, 2024 3:30:18 PM EST Finalized by: YENNY PETE on MonJul 04, 2024 4:19:01 PM EST Normal [facility] Comment on above: Order Comment: Injur y/Trauma or Illness?:Illness/Other How long have you had these symptoms (acute/chronic)?:Acute Reason for exam?:Post-op Left knee replacemetn hx of OA and chronic pain History of cancer?:u Surgeries, chemotherapy, or radiation?:u Type of Exam?:Initial Additional signs and symptoms?:. Carotid Duplex Ultrasoundon 06-14-2024 Carotid Duplex Ultrasound [facility] [address] [place] [address]. [place] [address] Carotid Duplex Ultrasound 06/14/24 1428 MR#: [id number] Acct: [id number] Name: AUSTIN MAZA Rep #: [id number] : 1965 58 From: Steven Menon MD Attending Dr: Dr. Albert Ball MD Status: R EG I Ordering Dr: Albert Ball MD Date: 06/14/24 Location: [facility] Sex: F C Admitted: Reason For Study: Amaurosis Fugax Rt. Velocities/BP Lt. Velocities/BP Prox CCA 65.0/9.7 cm/sec. Prox CCA 96.5/20.4 cm/sec. Mid CCA 60.0/18.3 cm/sec. Mid CCA 72.4/21.9 cm/sec. Dist CCA 71.1/22.0 cm/sec. Dist CCA 63.6/18.6 cm/sec. Prox ICA 63.7/17.1 cm/sec. Prox ICA 63.6/17.5 cm/sec. Mid ICA 66.2/17.1 cm/sec. Mid ICA 61.9/24.4 cm/sec. Dist ICA 67.4/22.0 cm/sec. Dist ICA 77.2/33.0 cm/sec. Rt. ICA/CCA = 1.1. Lt. ICA/CCA = 1.1. Prox ECA 101.4/14.2 cm/sec. Prox ECA 71.1/17.1 cm/sec. Rt. Vert. 46.5/12.2 cm/sec. Lt. Vert. 52.3/16.7 cm/sec. Right Extracranial There is intimal thickening but no significant atherosclerotic plaque noted in the right common carotid artery. There is intimal thickening but no significant atherosclerotic plaque noted in the right internal carotid artery. There is intimal thickening but no significant atherosclerotic plaque noted in the right external carotid artery. Antegrade flow is noted in the right vertebral artery. Left Extracranial There is intimal thickening but no significant atherosclerotic plaque noted in the left common carotid artery. There is intimal thickening but no significant atherosclerotic plaque noted in the left internal carotid artery. There is intimal thickening but no significant atherosclerotic plaque noted in the left external carotid artery. Antegrade flow is noted in the left vertebral artery. Procedure Carotid Duplex [id number]. This is a Carotid Duplex examination using B-mode, color flow and specral Doppler. The exam was diagnostic. Exam performed in department. VL/Carotid Duplex Ultrasound Interpretation Summary Normal right extracranial internal carotid. Normal left extracranial internal carotid. Patent and antegrade vertebrals bilaterally. Ordering Physician: Albert Blal Referring Physician: Yomi Lacy Performed By: Gulshan Pastor, T 06/17/24 1139 Date Steven Menon MD CC: Dr. Albert Ball MD; YOMI LACY DO Date Dictated: 06/14/24 1428 Date Transcribed: 06/17/24 1139 Clip Wrapper: Signed Normal [facility] BASIC METABOLIC PANELon 05-16 Anion gap [Moles/Vol] 13 mmol/L Normal 10-20 [facility] Comment on above: Order Comment: [facility] has implemented the eGFR calculation approach that does not have a coefficient for race that conforms to the NKF-ASN Task Force Recommendations. Performed By: #### 4 [id number] #### LAB [address] [place] [address] Alejandro Gao M.D. [id number] Calcium [Mass/Vol] 9.3 mg/dL Normal 8.4-10.2 [facility] Comment on above: Order Comment: [facility] has implemented the eGFR calculation approach that does not have a coefficient for race that conforms to the NKF-ASN Task Force Recommendations. Performed By: #### 4 6124 #### LAB [address] [place] [address] Alejandro Gao M.D. [id number] Chloride [Moles/Vol] 105 mmol/L Normal 98-108 [facility] Comment on above: Order Comment: [facility] has implemented the eGFR calculation approach that does not have a coefficient for race that conforms to the NKF-ASN Task Force Recommendations. Performed By: #### 4 6124 #### LAB [address] [place] [address] Alejandro Gao M.D. [id number] Creatinine [Mass/Vol] 0.92 mg/dL Normal 0.40-1.10 [facility] Comment on above: Order Comment: [facility] has implemented the eGFR calculation approach that does not have a coefficient for race that conforms to the NKF-ASN Task Force Recommendations. Performed By: #### 4 6124 #### LAB [address] [place] [address] Alejandro Gao M.D. [id number] EGFR 71 mL/min/1.73 m2 Normal >=60 [facility] Comment on above: Order Comment: [facility] has implemented the eGFR calculation approach that does not have a coefficient for race that conforms to the NKF-ASN Task Force Recommendations. Result Comment: Amy mated GFR was calculated using the 2020 CKD-EPI creatinine equation. Performed By: #### 4 6154 #### LAB [address] [place] [address] Alejandro Gao M.D. [id number] Glucose [Mass/Vol] 82 mg/dL Normal 65-99 [facility] Comment on above: Order Comment: [facility] Services has implemented the eGFR calculation approach that does not have a coefficient for race that conforms to the NKF-ASN Task Force Recommendations. Performed By: #### 4 6124 #### LAB [address] [place] [address] Alejandro Gao M.D. [id number] HCO3 (Bld) [Moles/Vol] 27 mmol/L Normal 21-32 [facility] Comment on above: Order Comment: [facility] Services has implemented the eGFR calculation approach that does not have a coefficient for race that conforms to the NKF-ASN Task Force Recommendations. Performed By: #### 4 6124 #### LAB [address] [place] [address] Alejandro Gao M.D. [id number] Potassium [Moles/Vol] 3.8 mmol/L Normal 3.5-5.1 [facility] Comment on above: Order Comment: [facility] has implemented the eGFR calculation approach that does not have a coefficient for race that conforms to the NKF-ASN Task Force Recommendations. Performed By: #### 4 6195 #### LAB [address] [place] [address] Alejandro Gao M.D. [id number] Sodium [Moles/Vol] 141 mmol/L Normal 135-145 [facility] Comment on above: Order Comment: [facility] Services has implemented the eGFR calculation approach that does not have a coefficient for race that conforms to the NKF-ASN Task Force Recommendations. Performed By: #### 4 6190 #### LAB [address] [place] [address] Alejandro Gao M.D. [id number] Urea nitrogen [Mass/Vol] 17 mg/dL Normal 8-25 [facility] Comment on above: Order Comment: [facility] Services has implemented the eGFR calculation approach that does not have a coefficient for race that conforms to the NKF-ASN Task Force Recommendations. Performed By: #### 4 6124 #### [facility] [address] [place] [address] Alejandro Gao M.D. [id number] Urea nitrogen/Creatinine [Mass ratio] 18.5 mg/mg Normal 10.0-20.0 [facility] Comment on above: Order Comment: [facility] Services has implemented the eGFR calculation approach that does not have a coefficient for race that conforms to the NKF-ASN Task Force Recommendations. Performed By: #### 4 6124 #### LAB [address] [place] [address] Alejandro Gao M.D. [id number] CBC WITH AUTO DIFFERENTIALon 06-06-2024 AUTO NRBC 0.0 % [facility] Comment on above: Performed By: #### L [id number] #### [facility] [address] [place] [address] Alejandro Gao M.D. [id number] AUTO NRBC ABS COUNT 0.00 K/mcL Normal 0.00-0.00 [facility] Comment on above: Performed By: #### L [id number] #### [facility] [address] [place] [address] Alejandro Gao M.D. [id number] BASOPHILS ABSOLUTE COUNT 0.03 K/mcL Normal 0.00-0.30 [facility] Comment on above: Performed By: #### L [id number] #### [facility] [address] [place] [address] Alejandro Gao M.D. [id number] Basophils/100 WBC (Bld) 0.7 % [facility] Comment on above: Performed By: #### L [id number] #### [facility] [address] [place] [address] Alejandro Gao M.D. [id number] Eosinophils (Bld) [#/Vol] 0.07 10*3/uL Normal 0.00-0.50 [facility] Comment on above: Performed By: #### L [id number] #### LAB [address] [place] [address] Alejandro Gao M.D. [id number] Eosinophils/100 WBC (Bld) 1.7 % Normal [facility] Comment on above: Performed By: #### L [id number] #### LAB [address] [place] [address] Alejandro Gao M.D. [id number] Erythrocyte distribution width (RBC) [Ratio] 13.5 % Normal 11.6-14.8 [facility] Comment on above: Performed By: #### L [id number] #### LAB [address] [place] [address] Alejandro Gao M.D. [id number] Hematocrit (Bld) [Volume fraction] 39.8 % Normal 36.0-46.0 [facility] Comment on above: Performed By: #### L [id number] #### LAB [address] [place] [address] Alejandro Gao M.D. [id number] Hemoglobin (Bld) [Mass/Vol] 12.8 g/dL Normal 12.0-16.0 [facility] Comment on above: Performed By: #### L [id number] #### LAB [address] [place] [address] Alejandro Gao M.D. [id number] IG ABSOLUTE 0.01 K/mcL Normal 0.00-0.30 [facility] Comment on above: Performed By: #### L [id number] #### LAB [address] [place] [address] Alejandro Gao M.D. [id number] IG PERCENT 0.20 % Normal [facility] Comment on above: Result Comment: The IG parameter is the percentage of metamyelocytes, myelocytes and promyelocytes. An immature granulocyte count (IG) of 1% or more suggests the possibility of infection, an IG count of 3% is very likely related to an infection. Performed By: #### L [id number] #### LAB [address] [place] [address] Alejandro Gao M.D. [id number] Lymphocytes (Bld) [#/Vol] 1.33 10*3/uL Normal 0.90-4.00 [facility] Comment on above: Performed By: #### L [id number] #### LAB [address] [place] [address] Alejandro Gao M.D. [id number] Lymphocytes/100 WBC (Bld) 33.2 % Normal [facility] Comment on above: Performed By: #### L [id number] #### LAB [address] [place] [address] Alejandro Gao M.D. [id number] MCH (RBC) [Entitic mass] 28.4 pg Normal 26.0-34.0 [facility] Comment on above: Performed By: #### L [id number] #### LAB [address] [place] [address] Alejandro Gao M.D. [id number] MCV (RBC) [Entitic vol] 88.4 fL Normal 80.0-100.0 [facility] Comment on above: Performed By: #### L [id number] #### LAB [address] [place] [address] Alejandro Gao M.D. [id number] MEAN CORPUSCULAR HEMOGLOBIN CONC 32.2 g/dL Normal 31.0-37.0 [facility] Comment on above: Performed By: #### L [id number] #### [facility] [address] [place] [address] Alejandro Gao M.D. [id number] Monocytes (Bld) [#/Vol] 0.27 10*3/uL Low 0.30-0.90 [facility] Comment on above: Performed By: #### L [id number] #### LAB [address] [place] [address] Alejandro Gao M.D. [id number] Monocytes/100 WBC (Bld) 6.7 % Normal [facility] Comment on above: Performed By: #### L [id number] #### LAB [address] [place] [address] Alejandro Gao M.D. [id number] NEUTROPHILS ABSOLUTE COUNT 2.30 K/mcL Normal 1.70-7.00 [facility] Comment on above: Performed By: #### L [id number] #### LAB [address] [place] [address] Alejandro Gao M.D. [id number] Neutrophils/100 WBC (Bld) 57.5 % Normal [facility] Comment on above: Performed By: #### L [id number] #### LAB [address] [place] [address] Alejandro Gao M.D. [id number] Platelet mean volume (Bld) [Entitic vol] 10.0 fL Normal 9.4-12.4 [facility] Comment on above: Performed By: #### L [id number] #### LAB [address] [place] [address] Alejandro Gao M.D. [id number] Platelets (Bld) [#/Vol] 173 10*3/uL Normal 150-400 [facility] Comment on above: Performed By: #### L [id number] #### LAB [address] [place] [address] Alejandro Gao M.D. [id number] RBC (Bld) [#/Vol] 4.50 10*6/uL Normal 4.00-5.20 [facility] Comment on above: Performed By: #### L [id number] #### [facility] [address] [place] [address] Alejandro Gao M.D. [id number] WBC (Bld) [#/Vol] 4.01 10*3/uL Low 4.50-11.00 [facility] Comment on above: Performed By: #### L [id number] #### LAB [address] [place] [address] Alejandro Gao M.D. [id number] CT KNEE LEFT WITHOUT CONTRAS Ton 06-06-2024 CT KNEE LEFT WITHOUT CONTRAST EXAMINATION: CT KNEE LEFT WITHOUT CONTRAST HISTORY: ORDERING SYSTEM PROVIDED HISTORY: pre operative for upcoming Lt TKR scheduled for 07/03/24, TECHNOLOGIST PROVIDED HISTORY: Illness/Other Reason for exam: pre operative for upcoming Lt TKR scheduled for 07/03/24 Encounter Type: Initial Additional signs and symptoms: . ORDERING SYSTEM PROVIDED DIAGNOSIS CODES: M17.12 Primary osteoarthritis of left knee COMPARISON: None TECHNIQUE: Axial CT imaging of the left hip, knee and ankle without contrast. FARRUKH protocol. Dose reduction techniques were achieved by using automated exposure control and/or adjustment of mA and/or kV according to patient size and/or use of iterative reconstruction technique. FINDINGS: KNEE: No acute osseous abnormality. Medial compartment joint space narrowing with subchondral cystic changes, subchondral sclerosis and moderate marginal osteophytes. Moderate patellofemoral and lateral knee compartment marginal osteophytes. Moderate joint effusion. Moderate Troncoso cyst. Varicose veins scattered throughout medial aspect of the knee. HIP: No acute osseous abnormality. No CT evidence of avascular necrosis of the femoral head. Normal alignment. Hip joint space narrowing with mild marginal osteophyte spurring. No significant joint effusion. ANKLE: No acute osseous abnormality. Normal joint alignment. No significant tibiotalar osteoarthritis. Surrounding soft tissues appear unremarkable. Miscellaneous: Prior partial knee replacement of the right knee medial compartment. IMPRESSION: Left knee tricompartmental osteoarthritis with moderate joint effusion and moderate Troncoso cyst. / Workstation ID: [id number] Dictated by: VISHAL LICONA on MonJun 06, 2024 10:52:36 AM EST Transcribed by: ALISON MARCUS on MonJun 06, 2024 10:56:52 AM EST Finalized by: VISHAL LICONA on MonJun 06, 2024 8:40:38 PM EST Normal [facility] Comment on above: Order Comment: Sumeet carreon only schedule at [facility]. Do not schedule Ct scan appointment with patient. Ordering Doctor's office will call to schedule Ct scan appointment. Injury/Trauma or Illness?:Illness/Other How long have you had these symptoms (acute/chronic)?:Chronic Reason for exam?:pre operative for upcoming Lt TKR scheduled for 07/03/24 Type of Exam?:Initial Additional signs and symptoms?:. MRSA CULTURE/SCREENon 2024 MRSA CULTURE/SCREEN MRSA CULTURE No Methicillin Resistant Staphylococcus (MRSA) Isolated Normal [facility] Comment on above: Performed By: #### L [id number] #### [facility] [address] [facility] [place] [place] [address] Alejandro Gao M.D. [id number] PT D/C Summary (1)on 025 PT D/C Summary (1) [facility] Physical Therapy [facility] [place] [address] / REHABILITATION SERVICES DISCHARGE SUMMARY MR#: [id number] Acct: [id number] Name: AUSTIN MAZA Rep #: [id number] : 1965 58 From: Nathan Fournier PT, ATC Referring DrGinger: OUT OF TOWN DOCTOR Status: REG R CR Insurance: [employer] SELF PAY INSURANCE Discharge Summary D/C summary: It has been my pleasure to treat AUSTIN MAZA referred by SIRIA GROSSMAN, with the diagnosis of L knee pain for a total of 2 visit(s). Discharge Date: Please see the following information for a summary of their discharge status. Subjective Subjective: Pain is the same Pain L knee: Pain Intensity (Out of 10): 4 Objective Objective/Function: Pt is now I with [facility] Goals Goal 1:: I with [facility] in 2 visits Goal Progress: Goal Met Plan Plan: Discharge to [facility] D/C Information d/c sentence: If there are questions or concerns regarding this patient's physical therapy, please feel free to call me at [phone]. Thank you for the referral of this patient. Sincerely, Nathan Fournier, PT, ATC Balance/Gait/Function al tests Balance/Special Test Scores Lower Extremity Functional Score: 05/27/24 1752 CC: SIRIA GROSSMAN; YOMI LACY DO [facility] Signed Normal [facility] Inital Evaluation (1) - PTon 05-23-2024 Inital Evaluation (1) - PT [facility] [address] [place] [address] / REHABILITATION SERVICES INITIAL EVALUATION MR#: [id number] Acct: [id number] Name: AUSTIN MAZA Rep #: [id number] : 1965 58 From: Nathan Fournier PT, ATC Referring Dr.: SIRIA GROSSMAN Status: REG RCR Insurance: [employer] SELF PAY INSURANCE Patient's Visit Information Visit Information Visit Information: AUSTIN MAZA is a 58 year old F referred to Physical Therapy by SIRIA GROSSMAN with a diagnosis of L knee pain. Date of Evaluation: 05/22/24 Physical Therapist: Nathan Fournier, PT, ATC Visit Plan Frequency: 2x /Week Duration: 1 Week Plan: Issue and instruct pt on a hep of L LE and core strengthening ex's to perform for prehab Subjective Subjective: Pt reports she has had pain in the L knee for several years. Pt notes she had a R partial knee replacement performed 5 years ago, and has been waiting to take care of L knee. 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 pt reports she is very limited with her walking secondary to pain. Pt notes she has had xrays which revealed she needs to have a L TKA performed, but has to have PT in order for her to have surgery. Pt notes she has 2 spteps to enter her house, and she is able to negotiate them one step at a time. Pt denies tingling or numbness in L LE at this time. Pt reports occasional sleep difficulty at this time secondary to pain. Pt is scheduled for PT 07/03/24. L knee pain 2/10 while sitting here at rest, 7/10 pain at worst Pain L knee: Pain Intensity (Out of 10): 2 Pain Intensity Range: 7 Objective Objective: Neuro: B LE sensation is WNL to light touch. ROM: R knee 0-115; L knee 0-110 degrees MMT: R knee flex= 22, ext= 23; L knee flex= 20, ext= 11 #F Tu sec Balance/Special Test Scores Lower Extremity Functional Score: 19 Goals Goal 1:: I with HEP in 2 visits Goal Time Frame: 1 Week Rehabilitation Potential Physical Therapy Diagnosis: L knee pain, weakness, difficulty with ambulation secondary to L knee OA Rehabilitation Potential: Good Anticipated Interventions Patient/Client Instruction: Educate patient on: Condition and Plan of Care For the Purpose of:: To improve self management Therapeutic Exercise to Include: Strength training, Endurance training, Balance training, Flexibilty training and Dynamic Lumbar Stabilization For the Purpose of:: To decrease pain, To increase ROM and To improve muscle performance and motor function Cryotherapy (ice pack, ice massage): Yes For the Purpose of:: To decrease pain Text: Thank you for the opportunity to evaluate your patient. For Medicare and Medicare HMO plans, please review the plan of care and approve it. It will need to be FAXED BACK to us at [phone] for Medicare purposes. For Medicare only, by signing this I certify the plan of care. Please let me know if there are questions or concerns regarding this plan of care. Physician Signature: Date : 05/23/24 1240 CC: SIRIA LACY DO [facility] Signed Normal [facility] 12 Lead EKG performed by [facility] on 05-22-2024 12 Lead EKG performed by [facility] [address] [place] [address] 12 Lead EKG performed by [facility] 05/22/24 0652 MR#: [id number] Acct: [id number] Name: AUSTIN MAZA Rep #: [id number] : 1965 58 From: Nirav Schwarz MD Attending Dr: Dr. Nirav Schwarz MD Status: PAYNE Ordering Dr: Nirav Schwarz MD Date: 05/22/24 Location: [facility] Sex: F C Admitted: [facility]/12 Lead EKG performed by [facility] ECG Report Interpretation -----Sinus Rhythm Low voltage in precordial leads. ABNORMAL Electronically signed on 05/22/2024 at 15:[address] Nirav Figueredowood Software Version 8610 05/22/24 1513 Date Nirav Schwarz MD CC: YOMI LACY, Date Dictated: 05/22/24651 Date Transcribed: 05/22/24651 Clip Wrapper: Signed Normal [facility] XR KNEE LEFT 4+ VIEWS (SPECI FY VIEWS IN COMMENTS)on 04-17-2024 XR KNEE LEFT 4+ VIEWS (SPECIFY VIEWS IN COMMENTS) EXAMINATION: XR KNEE LEFT 4+ VIEWS (SPECIFY VIEWS IN COMMENTS) HISTORY: Left knee pain, unspecified chronicity COMPARISON: None. IMPRESSION: FINDINGS/ 1. No acute fracture or dislocation. 2. Moderate degeneration of the left knee medial compartment. 3. Mild degeneration of the left knee patellofemoral compartment. 4. Small left knee joint effusion. 5. Arthroplasty hardware of the right knee medial compartment. [employer] Workstation ID: [id number] Dictated by: DIVYA MAYFIELD on MonApr 17, 2024 5:07:27 PM EST Transcribed by: CLAUS DEL CID on MonApr 17, 2024 5:42:07 PM EST Finalized by: DIVYA MAYFIELD on MonApr 17, 2024 8:32:37 PM EST Normal [facility] Comment on above: Order Comment: STAND ING Injury/Trauma or Illness?:Illness/Other How long have you had these symptoms (acute/chronic)?:Chronic Reason for exam?:left knee pain History of cancer?:u Surgeries, chemotherapy, or radiation?:u Type of Exam?:Initial Additional signs and symptoms?:left knee catches at times Knee 3 Viewson 04-16-2024 Knee 3 Views [facility] Imaging Services [address] [place], [place] [address] Knee 3 Views MR#: [id number] Acct: [id number] Name: AUSTIN MAZA Rep #: [id number] : 1965 F 58 From: Sadi Damico DO PCP: YOMI LACY DO Status: REG CLI Study: Knee 3 Views Date of Exam: 04/16/24 Exam# [id number] Ordering Dr: YOMI LACY DO [id number] INDICATION: PAIN EXAMINATION/TECHNIQUE : X-RAY - LEFT XR Knee 3 Views 3 VIEWS COMPARISON: __ FINDINGS: SOFT TISSUES: No soft tissue swelling or gas. No radiopaque foreign body. Trace effusion. BONES/JOINTS: No acute fracture or subluxation.. Degenerative spurring is narrowing of the medial femorotibial compartment.. No sclerotic or destructive changes observed. RAD/Knee 3 Views IMPRESSION: Degenerative changes and trace effusion. Electronically Signed: Sadi Damico DO at 16:21 EST Reading Location ID and State: [facility] / [place] Tel [phone], Service support , CC: YOMI LACY DO Clip Wrapper: Signed Normal [facility] Knee 3 Views [facility] Imaging Services [address] [place] [address] Knee 3 Views MR#: [id number] Acct: [id number] Name: LINKAUSTIN Charles Rep #: [id number] : 1965 F 58 From: Sadi Damico DO PCP: YOMI LACY DO Status: REG CLI Study: Knee 3 Views Date of Exam: 04/16/24 Exam# [id number] Ordering Dr: YOMI LACY DO [id number] INDICATION: PAIN EXAMINATION/TECHNIQUE : X-RAY - RIGHT XR Knee 3 Views COMPARISON: __ FINDINGS: SOFT TISSUES: No soft tissue swelling or gas. No radiopaque foreign body. BONES/JOINTS: No acute fracture or subluxation.. Prosthesis at the medial femorotibial compartment in good alignment.. No sclerotic or destructive changes observed. RAD/Knee 3 Views IMPRESSION: No acute bony injury. Electronically Signed: Sadi Damico DO at 16:35 EST Reading Location ID and State: [facility] / [place] Tel [phone], Service support , CC: YOMI LACY DO Clip Wrapper: Signed Normal [facility] M100.678on 03-29-2024 M100.678 Pending SARS-CoV-2 (COVID 19) Negative INFLUENZA A Negative INFLUENZA B Negative RSV PCR Negative Normal [facility] Comment on above: Performed By: #### M 100.678 #### [facility] [address] [place], [address] CBC, Employeeon 02-20-2024 Absolute Lymph 2.07 X10 3/uL Normal 0.83-4.51 [facility] Comment on above: Performed By: #### L 100.0200, L400.0100, L500.2900 #### [facility] [address] [place], [address] Absolute Neut 2.8 X10 3/uL Normal 2.0-7.7 [facility] Comment on above: Performed By: #### L 100.0200, L400.0100, L500.2900 #### [facility] [address] [place], [address] Basophils/100 WBC (Bld) 0.7 % Normal 0-1 [facility] Comment on above: Performed By: #### L 100.0200, L400.0100, L500.2900 #### [facility] [address] [place], [address] Eosinophils/100 WBC (Bld) 1.5 % Normal 0-5 [facility] Comment on above: Performed By: #### L 100.0200, L400.0100, L500.2900 #### [facility] [address] [place], [address] Erythrocyte distribution width (RBC) [Ratio] 13.1 % Normal 11.6-14.6 [facility] Comment on above: Performed By: #### L 100.0200, L400.0100, L500.2900 #### [facility] [address] [place], [address] Hematocrit (Bld) [Volume fraction] 39.4 % Normal 37-47 [facility] Comment on above: Performed By: #### L 100.0200, L400.0100, L500.2900 #### [facility] [address] [place], [address] Hemoglobin (Bld) [Mass/Vol] 12.4 g/dL Normal 12.0-15.0 [facility] Comment on above: Performed By: #### L 100.0200, L400.0100, L500.2900 #### [facility] [address] [place], [address] Lymphocytes/100 WBC (Bld) 38.4 % Normal 19-41 [facility] Comment on above: Performed By: #### L 100.0200, L400.0100, L500.2900 #### [facility] [address] [place], [address] MCH (RBC) [Entitic mass] 28.2 pg Normal 27.0-32.0 [facility] Comment on above: Performed By: #### L 100.0200, L400.0100, L500.2900 #### [facility] [address] [place], [address] MCHC (RBC) [Mass/Vol] 31.5 g/dL Low 32-36 [facility] Comment on above: Performed By: #### L 100.0200, L400.0100, L500.2900 #### [facility] [address] [place], [address] MCV (RBC) [Entitic vol] 89.5 fL Normal 81-99 [facility] Comment on above: Performed By: #### L 100.0200, L400.0100, L500.2900 #### [facility] [address] [place], [address] Monocytes/100 WBC (Bld) 6.9 % Normal 0-10 [facility] Comment on above: Performed By: #### L 100.0200, L400.0100, L500.2900 #### [facility] [address] [place], [address] Neutrophils/100 WBC (Bld) 52.1 % Normal 47-70 [facility] Comment on above: Performed By: #### L 100.0200, L400.0100, L500.2900 #### [facility] [address] [place], [address] NRBC # 0.00 10 3/uL Normal 0-5 [facility] Comment on above: Performed By: #### L 100.0200, L400.0100, L500.2900 #### [facility] [address] [place], [address] Nucleated RBC (Bld) [#/Vol] 0 10*3/uL Normal 0-5 [facility] Comment on above: Performed By: #### L 100.0200, L400.0100, L500.2900 #### [facility] [address] [place], [address] Platelet mean volume (Bld) [Entitic vol] 9.7 fL Normal 6.2-12.0 [facility] Comment on above: Performed By: #### L 100.0200, L400.0100, L500.2900 #### [facility] [address] [place], [address] Platelets (Bld) [#/Vol] 181 10*3/uL Normal 150-450 [facility] Comment on above: Performed By: #### L 100.0200, L400.0100, L500.2900 #### [facility] [address] [place], [address] RBC (Bld) [#/Vol] 4.40 10*6/uL Normal 4.2-5.4 [facility] Comment on above: Performed By: #### L 100.0200, L400.0100, L500.2900 #### [facility] [address] [place], [address] RDW SD 43.1 fl Normal 35.1-43.9 [facility] Comment on above: Performed By: #### L 100.0200, L400.0100, L500.2900 #### [facility] [address] [place], [address] WBC (Bld) [#/Vol] 5.4 10*3/uL Normal 4.4-11.0 [facility] Comment on above: Performed By: #### L 100.0200, L400.0100, L500.2900 #### [facility] [address] [place], [address] Employee Profileon 4 Albumin [Mass/Vol] 3.7 g/dL Normal 3.2-5.0 [facility] Comment on above: Performed By: #### L 100.0200, L400.0100, L500.2900 ####[facility] [address] [place], [address] Albumin/Globulin [Mass ratio] 1.3 {ratio} Normal 0.9-2.4 [facility] Comment on above: Performed By: #### L 100.0200, L400.0100, L500.2900 ####[facility] [address] [place], [address] ALK P 88 U/L Normal 45-117 [facility] Comment on above: Performed By: #### L 100.0200, L400.0100, L500.2900 ####[facility] [address] [place], [address] ALT [Catalytic activity/Vol] 29 U/L Normal 13-56 [facility] Comment on above: Performed By: #### L 100.0200, L400.0100, L500.2900 ####[facility] [address] [place], [address] AST [Catalytic activity/Vol] 16 U/L Normal 15-37 [facility] Comment on above: Performed By: #### L 100.0200, L400.0100, L500.2900 ####[facility] [address] [place], [address] Bilirubin [Mass/Vol] 0.60 mg/dL Normal 0.20-1.00 [facility] Comment on above: Result Comment: For patients on eltrombopag therapy, use of Dimension [place] TBIL is not recommended. Performed By: #### L 100.0200, L400.0100, L500.2900 ####[facility] [address] [place], [address] Bilirubin.direct [Mass/Vol] 0.18 mg/dL Normal 0.00-0.30 [facility] Comment on above: Performed By: #### L 100.0200, L400.0100, L500.2900 ####[facility] [address] [place], [address] BUN/CRE 13.5 RATIO Normal 10-20 [facility] Comment on above: Performed By: #### L 100.0200, L400.0100, L500.2900 ####[facility] [address] [place], [address] CA,Total 9.4 mg/dL Normal 8.5-10.1 [facility] Comment on above: Performed By: #### L 100.0200, L400.0100, L500.2900 ####[facility] [address] [place], [address] Chloride [Moles/Vol] 107 mmol/L Normal 98-107 [facility] Comment on above: Performed By: #### L 100.0200, L400.0100, L500.2900 ####[facility] [address] [place], [address] CHOL:HDL 2.50 Normal [facility] Comment on above: Performed By: #### L 100.0200, L400.0100, L500.2900 ####[facility] [address] [place], [address] Cholesterol [Mass/Vol] 217 mg/dL High 200 [facility] Comment on above: Result Comment: <200 mg/dL Desirable 200-240 mg/dL Borderline >240 mg/dL High Risk Performed By: #### L 100.0200, L400.0100, L500.2900 ####[facility] [address] [place], [address] Cholesterol in HDL [Mass/Vol] 87 mg/dL Normal [facility] Comment on above: Result Comment: The drugs N-Acetylcysteine and Metamizole may falsely depress this assay. Reference Range HDL <40 mg/dL Low HDL Cholesterol HDL >or= 60 mg/dL High HDL Cholesterol Performed By: #### L 100.0200, L400.0100, L500.2900 ####[facility] [address] [place], [address] Cholesterol in LDL [Mass/Vol] 120 mg/dL Normal 0-130 [facility] Comment on above: Performed By: #### L 100.0200, L400.0100, L500.2900 ####[facility] [address] [place], [address] Cholesterol in VLDL [Mass/Vol] 10 mg/dL Normal 5-40 [facility] Comment on above: Performed By: #### L 100.0200, L400.0100, L500.2900 ####[facility] [address] [place], [address] CO2 [Moles/Vol] 28.0 mmol/L Normal 21.0-32.0 [facility] Comment on above: Performed By: #### L 100.0200, L400.0100, L500.2900 ####[facility] [address] [place], [address] Creatinine [Mass/Vol] 0.74 mg/dL Normal 0.55-1.02 [facility] Comment on above: Result Comment: The validity of the calculated GFR GFRAA in patients over 70 years has not been determined. Clinical correlation is essential. Performed By: #### L 100.0200, L400.0100, L500.2900 ####[facility] [address] [place], [address] EST GFR - AA 102 mL/min Normal >60 [facility] Comment on above: Result Comment: Afri can Israeli GFR Calc Performed By: #### L 100.0200, L400.0100, L500.2900 ####[facility] [address] [place], [address] GAP 8 Normal 5-15 [facility] Comment on above: Performed By: #### L 100.0200, L400.0100, L500.2900 ####[facility] [address] [place], [address] GFR/1.73 sq M.predicted among non-blacks MDRD (S/P/Bld) [Vol rate/Area] 85 mL/min/{1.73_m2} Normal >60 [facility] Comment on above: Result Comment: Non- GFR Calc Performed By: #### L 100.0200, L400.0100, L500.2900 ####[facility] [address] [place], [address] Globulin (S) [Mass/Vol] 2.9 g/dL Normal 2.2-4.2 [facility] Comment on above: Performed By: #### L 100.0200, L400.0100, L500.2900 ####[facility] [address] [place], [address] Glucose [Mass/Vol] 85 mg/dL Normal 74-106 [facility] Comment on above: Performed By: #### L 100.0200, L400.0100, L500.2900 ####[facility] [address] [place], [address] LDH 175 U/L Normal 84-246 [facility] Comment on above: Performed By: #### L 100.0200, L400.0100, L500.2900 ####[facility] [address] [place], [address] Phosphate [Mass/Vol] 3.8 mg/dL Normal 2.5-4.9 [facility] Comment on above: Performed By: #### L 100.0200, L400.0100, L500.2900 ####[facility] [address] [place], [address] Potassium [Moles/Vol] 4.1 mmol/L Normal 3.5-5.1 [facility] Comment on above: Performed By: #### L 100.0200, L400.0100, L500.2900 ####[facility] [address] [place], [address] Sodium [Moles/Vol] 143 mmol/L Normal 136-145 [facility] Comment on above: Performed By: #### L 100.0200, L400.0100, L500.2900 ####[facility] [address] [place], [address] T PROT 6.6 g/dL Normal 6.4-8.2 [facility] Comment on above: Performed By: #### L 100.0200, L400.0100, L500.2900 ####[facility] [address] [place], [address] Triglyceride [Mass/Vol] 48 mg/dL Normal [facility] Comment on above: Result Comment: The drugs N-Acetylcysteine and Metamizole may falsely depress this assay. Serum Triglycerides Reference Interval Normal <150 mg/dL Borderline high 150 - 199 mg/dL High 200 - 499 mg/dL Very High > or = 500 mg/dL Performed By: #### L 100.0200, L400.0100, L500.2900 ####[facility] [address] [place], [address] Urea nitrogen [Mass/Vol] 10 mg/dL Normal 7-18 [facility] Comment on above: Performed By: #### L 100.0200, L400.0100, L500.2900 ####[facility] [address] [place], [address] URIC 3.6 mg/dL Normal 2.6-6.0 [facility] Comment on above: Result Comment: The drugs N-Acetylcysteine and Metamizole may falsely depress this assay. Performed By: #### L 100.0200, L400.0100, L500.2900 ####[facility] [address] [place], [address] Urinalysis, Employeeon 02-19 BILIRUBIN URINE Negative Normal Negative [facility] Comment on above: Order Comment: CLEAN CATCH Performed By: #### L 100.0200, L400.0100, L500.2900 ####[facility] [address] [place], [address] Clarity (U) Clear Normal Clear [facility] Comment on above: Order Comment: CLEAN CATCH Performed By: #### L 100.0200, L400.0100, L500.2900 ####[facility] [address] [place], [address] Color (U) Yellow Normal Yellow [facility] Comment on above: Order Comment: CLEAN CATCH Performed By: #### L 100.0200, L400.0100, L500.2900 ####[facility] [address] [place], [address] GLUCOSE, UR Normal Normal Normal [facility] Comment on above: Order Comment: CLEAN CATCH Performed By: #### L 100.0200, L400.0100, L500.2900 ####[facility] [address] [place], [address] KETONE UR Negative Normal Negative [facility] Comment on above: Order Comment: CLEAN CATCH Performed By: #### L 100.0200, L400.0100, L500.2900 ####[facility] [address] [place], [address] LEUK ESTERASE 25 /ul Abnormal Negative [facility] Comment on above: Order Comment: CLEAN CATCH Performed By: #### L 100.0200, L400.0100, L500.2900 ####[facility] [address] [place], [address] Nitrite Ql (U) Negative Normal Negative [facility] Comment on above: Order Comment: CLEAN CATCH Performed By: #### L 100.0200, L400.0100, L500.2900 ####[facility] [address] [place], [address] OCCULT BLOOD-UR Negative Normal Negative [facility] Comment on above: Order Comment: CLEAN CATCH Performed By: #### L 100.0200, L400.0100, L500.2900 ####[facility] [address] [place], [address] pH UR 7.0 Normal 5.0 - 8.0 [facility] Comment on above: Order Comment: CLEAN CATCH Performed By: #### L 100.0200, L400.0100, L500.2900 ####[facility] [address] [place], [address] PROT DIPSTX Negative Normal Negative [facility] Comment on above: Order Comment: CLEAN CATCH Performed By: #### L 100.0200, L400.0100, L500.2900 ####[facility] [address] [place], [address] SP.GR. DIPSTX 1.010 Normal 1.002-1.030 [facility] Comment on above: Order Comment: CLEAN CATCH Performed By: #### L 100.0200, L400.0100, L500.2900 ####[facility] [address] [place], [address] UROBILI Normal Normal Normal [facility] Comment on above: Order Comment: CLEAN CATCH Performed By: #### L 100.0200, L400.0100, L500.2900 ####[facility] [address] [place], [address] Office Visit Reporton 2023 Office Visit Report [facility] [address] [place] [address] OFFICE VISIT Date of Service: 02/08/24 MR#: [id number] Acct: [id number] Patient: ROOSEVELTAUSTIN JERNIGAN Charles Rep #: [id number] : 1965 Provider: ESTEBAN Osuna Age/Sex: 58/F Location: [facility] Status: Signed Employer Purchased Covid Test Note: Patient here today for Covid Testing, requested by their Employer. Assessment and Plan Assessment and Plan Orders: Orders POC Cepheid Covid, FluAB, RSV Today 02/08/24 1540 Date Darrion ORELLANA Cosigner Signature: Date (if applicable) CC: [facility] XR HAND RIGHT 3+ VIEWSon XR HAND RIGHT 3+ VIEWS Interpreted By: Sha Rueda, STUDY: XR HAND RIGHT 3+ VIEWS; 01/20/2024 12:55 pm INDICATION: Signs/Symptoms:right 4th proximal phalanx pain, limited ROM due to pain. COMPARISON: None. ACCESSION NUMBER(S): [id number] ORDERING CLINICIAN: GIL DE LEON FINDINGS: No acute fracture or dislocation. No lytic or blastic lesions or periosteal reaction. Mild degenerative changes of right hand. IMPRESSION: No acute fracture or dislocation. Signed by: Sha Rueda 01/20/2024 1:15 PM Dictation workstation: [id number] [facility] XR Hand - right 3 Viewson No acute fracture or dislocation. Signed by: Sha Rueda 01/20/2024 1:15 PM Dictation workstation: [id number] [facility] Interpreted By: Sha Rueda, STUDY: XR HAND RIGHT 3+ VIEWS; 01/20/2024 12:55 pm INDICATION: Signs/Symptoms:right 4th proximal phalanx pain, limited ROM due to pain. COMPARISON: None. ACCESSION NUMBER(S): [id number] ORDERING CLINICIAN: GIL DE LEON FINDINGS: No acute fracture or dislocation. No lytic or blastic lesions or periosteal reaction. Mild degenerative changes of right hand. MMODAL Sha Rueda MD - 01/20/2024 Interpreted By: Sha Rueda, STUDY: XR HAND RIGHT 3+ VIEWS; 01/20/2024 12:55 pm INDICATION: Signs/Symptoms:right 4th proximal phalanx pain, limited ROM due to pain. COMPARISON: None. ACCESSION NUMBER(S): [id number] ORDERING CLINICIAN: GIL DE LEON FINDINGS: No acute fracture or dislocation. No lytic or blastic lesions or periosteal reaction. Mild degenerative changes of right hand. IMPRESSION: No acute fracture or dislocation. Signed by: Sha Rueda 01/20/2024 1:15 PM Dictation workstation: [id number] [facility] Work Phone: Radiology Study observation (narrative) [facility] Work Phone: XR Hand - right 3 ViewsOrder ed By: Sha Rueda on 01-20-2024 [facility] Work Phone: CT for calcium scoring WO co ntrast and CTA W contrast IV Heart and coronary arterieson 06-22-2023 1. Coronary artery calcium score of 0*. *Coronary artery calcium scoring may be helpful in predicting the risk for future coronary heart disease events. According to the [employer] Clinical Expert Consensus Task Force, such testing provides important prognostic information in patients with more than one coronary heart disease risk factor. The coronary artery calcium score correlates with the annual risk of a non-fatal myocardial infarction or coronary heart disease . Coronary artery score Annual Risk 0-99 0.4% 100-399 1.3% >400 2.4% These three breakpoints correspond to lower, intermediate and high risk states for future coronary events. Such information should be used, along with appropriate clinical judgment, to make decisions regarding the intensity of risk factor management strategies to treat blood lipids and to modify other non-lipid coronary risk factors. Reference: David P et al. Circulation. 2007; 115:402-426 MACRO: None Signed by: Sebastien Chaudhry 06/22/2023 6:17 PM Dictation workstation: [id number] [facility] Interpreted By: Sebastien Chaudhry, STUDY: CT CARDIAC SCORING WO IV CONTRAST; 06/22/2023 1:45 pm INDICATION: Signs/Symptoms:screen ing for heart disease. COMPARISON: None. ACCESSION NUMBER(S): [id number] ORDERING CLINICIAN: YOMI LACY TECHNIQUE: Using prospective ECG gating, CT scan of the coronary arteries was performed without intravenous contrast. Coronary calcium scoring was performed according to the method of Agatston. FINDINGS: The score and distribution of calcium in the coronary arteries is as follows: LM 0, LAD 0, LCx 0, RCA 0, Total 0 The visualized mid/lower ascending thoracic aorta measures 3.6 cm in diameter. The heart is normal in size. No pericardial effusion is present. No gross mediastinal or hilar lymphadenopathy or mass is identified. Right hilar alberto calcifications are present. The visualized segments of the lungsare normally expanded and clear. The visualized subdiaphragmatic structures appear intact. The flight engineer image shows right upper quadrant abdominal surgical clips. [facility] Sebastien Chaudhry MD - 06/22/2023 Interpreted By: Sebastien Chaudhry, STUDY: CT CARDIAC SCORING WO IV CONTRAST; 06/22/2023 1:45 pm INDICATION: Signs/Symptoms:screen ing for heart disease. COMPARISON: None. ACCESSION NUMBER(S): [id number] ORDERING CLINICIAN: YOMI LACY TECHNIQUE: Using prospective ECG gating, CT scan of the coronary arteries was performed without intravenous contrast. Coronary calcium scoring was performed according to the method of Agatston. FINDINGS: The score and distribution of calcium in the coronary arteries is as follows: LM 0, LAD 0, LCx 0, RCA 0, Total 0 The visualized mid/lower ascending thoracic aorta measures 3.6 cm in diameter. The heart is normal in size. No pericardial effusion is present. No gross mediastinal or hilar lymphadenopathy or mass is identified. Right hilar alberto calcifications are present. The visualized segments of the lungsare normally expanded and clear. The visualized subdiaphragmatic structures appear intact. The flight engineer image shows right upper quadrant abdominal surgical clips. IMPRESSION: 1. Coronary artery calcium score of 0*. *Coronary artery calcium scoring may be helpful in predicting the risk for future coronary heart disease events. According to the [employer] Clinical Expert Consensus Task Force, such testing provides important prognostic information in patients with more than one coronary heart disease risk factor. The coronary artery calcium score correlates with the annual risk of a non-fatal myocardial infarction or coronary heart disease . Coronary artery score Annual Risk 0-99 0.4% 100-399 1.3% >400 2.4% These three breakpoints correspond to lower, intermediate and high risk states for future coronary events. Such information should be used, along with appropriate clinical judgment, to make decisions regarding the intensity of risk factor management strategies to treat blood lipids and to modify other non-lipid coronary risk factors. Reference: Philip P et al. Circulation. 2007; 115:402-426 MACRO: None Signed by: Sebastien Chaudhry 06/22/2023 6:17 PM Dictation workstation: [id number] [facility] Work Phone: Radiology Study observation (narrative) [facility] Work Phone: CT for calcium scoring WO co ntrast and CTA W contrast IV Heart and coronary arteriesOrdered By: Sebastien Chaudhry on 06-22-2023 [facility] Work Phone: Absolute lymphocyte countOrd ered By: YOMI LACY on 04-24-2023 Lymphocytes Auto (Unsp spec) [#/Vol] 1.85 10*3/uL 0.83-4.51 [facility] Basophil percentageOrdered B y: YOMI LACY on 04-24-2023 Basophils/100 WBC (Bld) 0.8 % 0-1 [facility] Bilirubin [Mass/Vol] 0.50 mg/dL 0.20-1.00 [facility] Comment on above: For patients on eltr ombopag therapy, use of Dimension [place] TBIL is not recommended. Chloride [Moles/Vol] 108 mmol/L 98-107 [facility] Eosinophils/100 WBC (Bld) 1.7 % 0-5 [facility] Glucose [Mass/Vol] 73 mg/dL 74-106 [facility] Neutrophils (Bld) [#/Vol] 2.9 10*3/uL 2.0-7.7 [facility] Neutrophils/100 WBC (Bld) 55.1 % 47-70 [facility] Potassium [Moles/Vol] 3.9 mmol/L 3.5-5.1 [facility] Protein [Mass/Vol] 6.7 g/dL 6.4-8.2 [facility] Sodium [Moles/Vol] 142 mmol/L 136-145 [facility] WBC (Bld) [#/Vol] 5.3 10*3/uL 4.4-11.0 [facility] Blood erythrocytes count (nu mber/volume)Ordered By: YOMI LACY on 04-24-2023 RBC (Bld) [#/Vol] 4.70 10*6/uL 4.2-5.4 [facility] Blood hemoglobin measurement (mass/volume)Ordered By: YOMI LACY on 04-24-2023 Hemoglobin (Bld) [Mass/Vol] 13.7 g/dL 12.0-15.0 [facility] Blood lymphocytes/100 leukoc ytesOrdered By: YOMI LACY on 04-24-2023 Lymphocytes/100 WBC (Bld) 35.0 % 19-41 [facility] Blood monocytes/100 leukocyt esOrdered By: YOMI LACY on 04-24-2023 Monocytes/100 WBC (Bld) 7.2 % 0-10 [facility] Blood platelet mean volumeOr dered By: YOMI LACY on 04-24-2023 Platelet mean volume (Bld) [Entitic vol] 9.6 fL 6.2-12.0 [facility] Determination of erythrocyte mean corpuscular volume (MCV)Ordered By: YOMI LACY on 04-24-2023 MCV (RBC) [Entitic vol] 88.3 fL 81-99 [facility] Hematocrit Auto (Bld) [Volum e fraction]Ordered By: YOMI LACY on 04-24-2023 Hematocrit (Bld) [Volume fraction] 41.5 % 37-47 [facility] Laboratory - Chemistry and C hemistry - challengeOrdered By: YOMI LACY on 04-24-2023 ALP [Catalytic activity/Vol] 74 U/L 45-117 [facility] ALT [Catalytic activity/Vol] 23 U/L 13-56 [facility] CO2 [Moles/Vol] 26.0 mmol/L 21.0-32.0 [facility] Globulin (S) [Mass/Vol] 3.0 g/dL 2.2-4.2 [facility] Magnesium [Mass/Vol] 2.4 mg/dL 1.6-2.6 [facility] Urea nitrogen/Creatinine [Mass ratio] 19.2 mg/mg 10-20 [facility] Laboratory - Hematology and Cell countsOrdered By: YOMI LACY on 04-24-2023 Erythrocyte distribution width (RBC) [Entitic vol] 42.4 fL 35.1-43.9 [facility] Erythrocyte distribution width (RBC) [Ratio] 13.1 % 11.6-14.6 [facility] Immature granulocytes/100 WBC (Bld) 0.200 % 0.0-0.9 [facility] Comment on above: IG% - Immature Granu locytes (promyelocytes, myelocytes and metamyelocytes) > 1% indicates that a LEFT SHIFT is Present. MCH (RBC) [Entitic mass] 29.1 pg 27.0-32.0 [facility] Nucleated RBC/100 WBC (Bld) [Ratio] 0 % 0-5 [facility] MCHC Auto (RBC) [Mass/Vol]Or dered By: YOMI LACY on 04-24-2023 MCHC (RBC) [Mass/Vol] 33.0 g/dL 32-36 [facility] No Panel InformationOrdered By: YOMI LACY on 04-24-2023 Estimated GFR (MDRD) Amer 105 mL/min >60 [facility] Comment on above: GFR Calc Estimated GFR (MDRD) Non-Af Amer 86 mL/min >60 [facility] Comment on above: Non- GFR Calc Thyroid Stimulating Hormone (TSH) 2.82 uIU/mL 0.358-3.74 [facility] Platelets bldOrdered By: KENTRELL LACY on 04-24-2023 Platelets (Bld) [#/Vol] 180 10*3/uL 150-450 [facility] Serum or plasma albumin brant urement (mass/volume)Ordered By: YOMI LACY on 04-24-2023 Albumin [Mass/Vol] 3.7 g/dL 3.2-5.0 [facility] Serum or plasma albumin/glob ulin mass ratioOrdered By: YOMI LACY on 04-24-2023 Albumin/Globulin [Mass ratio] 1.2 {ratio} 0.9-2.4 [facility] Serum or plasma calcium brant urement (mass/volume)Ordered By: YOMI LACY on 04-24-2023 Calcium [Mass/Vol] 8.9 mg/dL 8.5-10.1 [facility] Serum or plasma creatinine m easurement (mass/volume)Ordered By: YOMI LACY on 04-24-2023 Creatinine [Mass/Vol] 0.73 mg/dL 0.55-1.02 [facility] Comment on above: The validity of the calculated GFR & GFRAA in patients over 70 years has not been determined. Clinical correlation is essential. Serum or plasma urea nitroge n measurement (mass/volume)Ordered By: YOMI LACY on 04-24-2023 Urea nitrogen [Mass/Vol] 14 mg/dL 7-18 [facility] Thin prep Papanicolaou smear with manual screeningOrdered By: YOMI HALE on 04-24-2023 Thin prep Papanicolaou smear with manual screening 15 U/L 15-37 [facility] Thin prep Papanicolaou smear with manual screening 8 5-15 [facility] Absolute lymphocyte countOrd ered By: HEALTH ASSESSMENT on 12-30-2022 Lymphocytes Auto (Unsp spec) [#/Vol] 2.05 10*3/uL 0.83-4.51 [facility] Absolute reticulocyte countO rdered By: HEALTH ASSESSMENT on 12-30-2022 Reticulocytes (Bld) [#/Vol] 0.00 10*3/uL 0-5 [facility] Basophil percentageOrdered B y: HEALTH ASSESSMENT on 12-30-2022 Basophil percentage 3.7 mg/dL 2.5-4.9 [facility] Bilirubin [Mass/Vol] 0.70 mg/dL 0.20-1.00 [facility] Comment on above: For patients on eltr ombopag therapy, use of Dimension [place] TBIL is not recommended. Chloride [Moles/Vol] 109 mmol/L 98-107 [facility] Cholesterol [Mass/Vol] 227 mg/dL <200 [facility] Comment on above: <200 mg/dL Desirable 200-240 mg/dL Borderline >240 mg/dL High Risk Glucose [Mass/Vol] 86 mg/dL 74-106 [facility] LDH [Catalytic activity/Vol] 172 U/L 84-246 [facility] Neutrophils (Bld) [#/Vol] 2.5 10*3/uL 2.0-7.7 [facility] Potassium [Moles/Vol] 3.8 mmol/L 3.5-5.1 [facility] Protein [Mass/Vol] 6.4 g/dL 6.4-8.2 [facility] Sodium [Moles/Vol] 142 mmol/L 136-145 [facility] Triglyceride [Mass/Vol] 52 mg/dL <199 [facility] Comment on above: The drugs N-Acetylcy steine and Metamizole may falsely depress this assay.Serum Triglycerides Reference Interval Normal <150 mg/dL Borderline high 150 - 199 mg/dL High 200 - 499 mg/dL Very High > or = 500 mg/dL WBC (Bld) [#/Vol] 5.1 10*3/uL 4.4-11.0 [facility] Bilirubin Test strip Ql (U)O rdered By: HEALTH ASSESSMENT on 12-30-2022 Bilirubin Ql (U) Negative Negative [facility] Blood erythrocytes count (nu mber/volume)Ordered By: HEALTH ASSESSMENT on 12-30-2022 RBC (Bld) [#/Vol] 4.46 10*6/uL 4.2-5.4 [facility] Blood hemoglobin measurement (mass/volume)Ordered By: HEALTH ASSESSMENT on 12-30-2022 Hemoglobin (Bld) [Mass/Vol] 12.7 g/dL 12.0-15.0 [facility] Blood platelet mean volumeOr dered By: HEALTH ASSESSMENT on 12-30-2022 Platelet mean volume (Bld) [Entitic vol] 9.6 fL 6.2-12.0 [facility] Determination of erythrocyte mean corpuscular volume (MCV)Ordered By: HEALTH ASSESSMENT on 12-30-2022 MCV (RBC) [Entitic vol] 89.7 fL 81-99 [facility] Direct bilirubinOrdered By: HEALTH ASSESSMENT on 12-30-2022 Bilirubin.direct [Mass/Vol] 0.20 mg/dL 0.00-0.30 [facility] Hematocrit Auto (Bld) [Volum e fraction]Ordered By: HEALTH ASSESSMENT on 12-30-2022 Hematocrit (Bld) [Volume fraction] 40.0 % 37-47 [facility] Ketones Test strip Ql (U)Ord ered By: HEALTH ASSESSMENT on 12-30-2022 Ketones Ql (U) Negative Negative [facility] Laboratory - Chemistry and C hemistry - challengeOrdered By: HEALTH ASSESSMENT on 12-30-2022 ALP [Catalytic activity/Vol] 73 U/L 45-117 [facility] ALT [Catalytic activity/Vol] 23 U/L 13-56 [facility] Cholesterol.total/Chol esterol in HDL [Mass ratio] 3.00 {ratio} [facility] CO2 [Moles/Vol] 29.0 mmol/L 21.0-32.0 [facility] Globulin (S) [Mass/Vol] 2.6 g/dL 2.2-4.2 [facility] Urea nitrogen/Creatinine [Mass ratio] 21.3 mg/mg 10-20 [facility] Laboratory - Hematology and Cell countsOrdered By: HEALTH ASSESSMENT on 12-30-2022 Erythrocyte distribution width (RBC) [Entitic vol] 43.5 fL 35.1-43.9 [facility] Erythrocyte distribution width (RBC) [Ratio] 13.2 % 11.6-14.6 [facility] MCH (RBC) [Entitic mass] 28.5 pg 27.0-32.0 [facility] Nucleated RBC/100 WBC (Bld) [Ratio] 0 % 0-5 [facility] MCHC Auto (RBC) [Mass/Vol]Or dered By: HEALTH ASSESSMENT on 12-30-2022 MCHC (RBC) [Mass/Vol] 31.8 g/dL 32-36 [facility] Nitrite Test strip Ql (U)Ord ered By: HEALTH ASSESSMENT on 12-30-2022 Nitrite Ql (U) Negative Negative [facility] No Panel InformationOrdered By: HEALTH ASSESSMENT on 12-30-2022 Estimated GFR (MDRD) Amer 95 mL/min >60 [facility] Comment on above: GFR Calc Estimated GFR (MDRD) Non-Af Amer 78 mL/min >60 [facility] Comment on above: Non- GFR Calc Platelets bldOrdered By: RENAY [facility] ASSESSMENT on 12-30-2022 Platelets (Bld) [#/Vol] 176 10*3/uL 150-450 [facility] Protein Test strip Ql (U)Ord ered By: HEALTH ASSESSMENT on 12-30-2022 Protein Ql (U) Negative Negative [facility] Segmented neutrophils/100 WB C Auto (Bld)Ordered By: HEALTH ASSESSMENT on 12-30-2022 Segmented neutrophils/100 WBC (Bld) 49.6 % 47-70 [facility] Serum or plasma albumin brant urement (mass/volume)Ordered By: HEALTH ASSESSMENT on 12-30-2022 Albumin [Mass/Vol] 3.8 g/dL 3.2-5.0 [facility] Serum or plasma albumin/glob ulin mass ratioOrdered By: HEALTH ASSESSMENT on 12-30-2022 Albumin/Globulin [Mass ratio] 1.5 {ratio} 0.9-2.4 [facility] Serum or plasma calcium brant urement (mass/volume)Ordered By: HEALTH ASSESSMENT on 12-30-2022 Calcium [Mass/Vol] 8.9 mg/dL 8.5-10.1 [facility] Serum or plasma cholesterol in HDL measurement (mass/volume)Ordered By: HEALTH ASSESSMENT on 12-30-2022 Cholesterol in HDL [Mass/Vol] 76 mg/dL >40 [facility] Comment on above: The drugs N-Acetylcy steine and Metamizole may falsely depress this assay. Reference Range HDL <40 mg/dL Low HDL Cholesterol HDL >or= 60 mg/dL High HDL Cholesterol Serum or plasma cholesterol in VLDL measurement (mass/volume)Ordered By: HEALTH ASSESSMENT on 12-30-2022 Cholesterol in VLDL [Mass/Vol] 10 mg/dL 5-40 [facility] Serum or plasma creatinine m easurement (mass/volume)Ordered By: HEALTH ASSESSMENT on 12-30-2022 Creatinine [Mass/Vol] 0.80 mg/dL 0.55-1.02 [facility] Comment on above: The validity of the calculated GFR & GFRAA in patients over 70 years has not been determined. Clinical correlation is essential. Serum or plasma low density lipoprotein (LDL) cholesterol measurement (mass/volume)Ordered By: HEALTH ASSESSMENT on 12-30-2022 Cholesterol in LDL [Mass/Vol] 141 mg/dL 0-130 [facility] Serum or plasma urea nitroge n measurement (mass/volume)Ordered By: HEALTH ASSESSMENT on 12-30-2022 Urea nitrogen [Mass/Vol] 17 mg/dL 7-18 [facility] Serum or plasma uric acid me asurement (mass/volume)Ordered By: HEALTH ASSESSMENT on 12-30-2022 Urate [Mass/Vol] 4.1 mg/dL 2.6-6.0 [facility] Comment on above: The drugs N-Acetylcy steine and Metamizole may falsely depress this assay. Thin prep Papanicolaou smear with manual screeningOrdered By: HEALTH ASSESSMENT on 12-30-2022 Thin prep Papanicolaou smear with manual screening 15 U/L 15-37 [facility] Thin prep Papanicolaou smear with manual screening 4 5-15 [facility] Urine blood detectionOrdered By: HEALTH ASSESSMENT on 12-30-2022 RBC Ql (U) Negative Negative [facility] Urine clarityOrdered By: A [facility] ASSESSMENT on 12-30-2022 Clarity (U) Clear Clear [facility] Urine color determinationOrd ered By: HEALTH ASSESSMENT on 12-30-2022 Color (U) Yellow Yellow [facility] Urine glucose detectionOrder ed By: HEALTH ASSESSMENT on 12-30-2022 Glucose Ql (U) Normal mg/dl Normal [facility] Urine leukocyte esterase det ection by dipstickOrdered By: HEALTH ASSESSMENT on 12-30-2022 Leukocyte esterase Test strip Ql (U) 100 /ul Negative [facility] Urine pHOrdered By: HEALTH A SSESSMENT on 12-30-2022 pH (U) 6.0 [pH] 5.0 - 8.0 [facility] Urine specific gravity measu rementOrdered By: HEALTH ASSESSMENT on 12-30-2022 Specific gravity (U) [Rel density] 1.020 1.002-1.030 [facility] Urobilinogen Auto test strip Ql (U)Ordered By: HEALTH ASSESSMENT on 12-30-2022 Urobilinogen Ql (U) Normal mg/dl Normal [facility] GROUP A STREP,PCRon 07-29-19 23 GROUP A STREP,PCR Not detected Normal Not Detected [facility] Comment on above: Result Comment: This test and its performance have been Validated by [facility] Laboratory using analyte specific reagents (ASR). It has not been cleared or approved by the U.S. Food and Drug Administration. The FDA has determined that such clearance or approval is not necessary. Performed By: #### G APC1 #### [facility] [address] [place] [address] INFLUENZA A/B, COVID 2019 PC R,SYMPTOMATICon 07-28-2022 INFLUENZA A, PCR Not detected Normal Not Detected [facility] Comment on above: Result Comment: Resp iratory virus testing is performed routinely by PCR for Influenza A/B and RSV. If Influenza and RSV PCR are negative, testing for parainfluenza 1,2,3 viruses and adenovirus is routinely performed for oncology inpatients and intensive care unit patients at [facility] and is available on request on other patients by calling Laboratory Client Services at [phone]. Not Detected results do not preclude Influenza A/B or RSV infections since the adequacy of sample collection or low viral burden may impact the clinical sensitivity of this test method. Performed By: #### C OINP #### [facility] [address] [place] [address] INFLUENZA B, PCR Not detected Normal Not Detected [facility] Comment on above: Result Comment: Resp iratory virus testing is performed routinely by PCR for Influenza A/B and RSV. If Influenza and RSV PCR are negative, testing for parainfluenza 1,2,3 viruses and adenovirus is routinely performed for oncology inpatients and intensive care unit patients at [facility] and is available on request on other patients by calling Laboratory Client Services at [phone] Not Detected results do not preclude Influenza A/B or RSV infections since the adequacy of sample collection or low viral burden may impact the clinical sensitivity of this test method. Performed By: #### C OINP #### [facility] [address] [place] [address] SARS-CoV-2 (COVID-19) RNA RAFAEL+probe Ql (Unsp spec) Not detected Normal Not Detected [facility] Comment on above: Result Comment: . This assay is designed to detect the ORF1a/b and E genes of SARS-CoV-2 via nucleic acid amplification. A Not Detected result does not preclude 2019-nCoV infection since the adequacy of sample collection and/or low viral burden may result in presence of viral nucleic acids below the clinical sensitivity of this test method. Fact sheet for providers: https://www.fda.gov/media/446149/download Fact sheet for patients: https://www.fda.gov/media/238777/download This test has received FDA Emergency Use Authorization (EUA) and has been verified for use by [facility] ([facility]). This test is only authorized for the duration of time that circumstances exist to justify the authorization of the emergency use of in vitro diagnostic tests for the detection of SARS-CoV-2 virus and/or diagnosis of COVID-19 infection under section 564(b)(1) of the Act, 21 U.S.C. 360bbb-3(b)(1), unless the authorization is terminated or revoked sooner. [facility] is certified under CLIA-88 as qualified to perform high complexity testing. Testing is performed in the [facility] laboratories located at [address] [place] [address]. Performed By: #### C OINP #### [address] [place] [address] GROUP A STREP,PCRon 07-28-19 Lab Specimen Source Throat Normal [facility] Comment on above: Performed By: #### G APC1 #### [address] [place] [address] INFLUENZA A/B, COVID 2019 PC R,SYMPTOMATICon 07-27-2022 Lab Specimen Source Nasal, Nasopharyngeal [facility] Comment on above: Performed By: #### C OINP #### [address] [place] [address] Hemogram and platelets WO di fferential panel (Bld)on 02-17-2022 Erythrocyte distribution width (RBC) [Ratio] 13.4 % Normal 11.0-14.8 [facility] Comment on above: Performed By: #### 2 4317-0 #### [facility] [address] [place] [address] Hematocrit (Bld) [Volume fraction] 37.9 % Normal 34.3-47.9 [facility] Comment on above: Performed By: #### 2 4317-0 #### [facility] [address] [place] [address] Hemoglobin (Bld) [Mass/Vol] 12.8 g/dL Normal 12.0-16.0 [facility] Comment on above: Performed By: #### 2 4316-0 #### [facility] [address] [place] [id number] MCH 30.0 pcg Normal 27.0-34.0 [facility] Comment on above: Performed By: #### 2 431-0 #### [facility] [address] [place] [id number] MCHC (RBC) [Mass/Vol] 33.8 g/dL Normal 30.8-35.3 [facility] Comment on above: Performed By: #### 2 431-0 #### [facility] [address] [place] [address] MCV (RBC) [Entitic vol] 89.0 fL Normal 80.0-97.0 [facility] Comment on above: Performed By: #### 2 4317-0 #### [facility] [address] [place] [address] Platelet mean volume (Bld) [Entitic vol] 10.2 fL Normal 6.2-12.1 [facility] Comment on above: Performed By: #### 2 4317-0 #### [facility] [address] [place] [address] Platelets (Bld) [#/Vol] 190 10*3/uL Normal 142-424 [facility] Comment on above: Performed By: #### 2 4317-0 #### [facility] [address] [place] [address] RBC (Bld) [#/Vol] 4.26 10*6/uL Normal 3.74-5.34 [facility] Comment on above: Performed By: #### 2 4317-0 #### [facility] [address] [place] [address] WBC (Bld) [#/Vol] 6.9 10*3/uL Normal 4.6-10.2 [facility] Comment on above: Performed By: #### 2 4317-0 #### [facility] [address] [place] [address] Erythrocyte distribution width (RBC) [Ratio] 13.4 % 11.0 - 14.8 % [facility] Hematocrit (Bld) [Volume fraction] 37.9 % 34.3 - 47.9 % [facility] Hemoglobin (Bld) [Mass/Vol] 12.8 g/dL 12.0 - 16.0 g/dL [facility] Interpretation and review of laboratory results Normal [facility] MCH (RBC) [Entitic mass] 30.0 pg [facility] MCHC (RBC) [Mass/Vol] 33.8 g/dL 30.8 - 35.3 g/dL [facility] MCV (RBC) [Entitic vol] 89.0 fL [facility] Platelet mean volume (Bld) [Entitic vol] 10.2 fL [facility] Platelets (Bld) [#/Vol] 190 10*3/uL [facility] RBC (Bld) [#/Vol] 4.26 10*6/uL [facility] WBC (Bld) [#/Vol] 6.9 10*3/uL [facility] 50+ Yearson 02-02-2022 50+ Years Diagnoses/Problems Assessed Preoperative examination (V72.84) (Z01.818) Scheduled for panniculectomy, abdominoplasty, thigh lift with Dr. Ortega at [facility] 02/17/2022. Able achieve >4 METs without symptoms and risk of cardiac event 0.2%. Patient is at acceptable risk for procedure and anesthesia. Annual physical exam (V70.0) (Z00.00) Age appropriate health maintenance discussed. Patient to follow up in 6mo or sooner as needed. Dyslipidemia (272.4) (E78.5) 10/2021: 206/75/122/47, ASCVD 1.8% 01/2022: 222/86/128/41, ASCVD 1.8% Reviewed FLP and ASCVD risk. Statin not indicated. Discussed lifestyle modifications. Recommend 150 minutes of moderate-intensity exercise weekly. Class 2 severe obesity with serious comorbidity and body mass index (BMI) of 35.0 to 35.9 in adult (278.01,V85.35) (E66.01,Z68.35) Chief Complaint physical for work and pre op clearance for abdominal and thigh procedure 02/17 History of Present Illnessthere are no concerns today. The patient's health since the last visit is described as good. There are no interval changes in the patient's PMH, PSH, and current medications. There are no interval changes in the patient's social and family history. She has regular dental visits. (q6mo) . She complains of vision problems. (s/p Lasik) . She denies hearing loss. Lifestyle: She consumes a diverse and healthy diet. Reproductive health: the patient is postmenopausal. Cervical cancer screening: cancer screening reviewed and current . s/p hyst, plans to make appt with project lead for annual. Breast cancer screening: cancer screening reviewed and current. Colorectal Cancer Screening: records remain pending. a colonoscopy was performed within the past ten years. Metabolic screening: lipid profile performed 01/2022. Patient presents today physical and preop exam. Regarding preop exam, is scheduled for panniculectomy, abdominoplasty, thigh lift with Dr. Ortega at [facility] 02/17/2022. Is a little nervous, but overall excited for result. Has had multiple surgeries under general anesthesia in the past without problem. Denies CP, SOB, RAJAN, LH, dizziness, abd pain, n/v/d. Is able to achieve >4 METs without symptoms. Risk of IA or cardiac arrest intraoperatively or up to 30 days post-op 0.2% according to [facility] Perioperative Risk Calculator. Cervical Cancer Screening: hasn't scheduled yet Breast Cancer Screening: utd Osteoporosis Screening: plan to start at age 65 Colon Cancer Screening: utd at [place], records pending Tobacco: never Alcohol: denies Recreational Drugs: denies Immunizations: declines all immunizations 'Scores and Scales' PHQ-9 [id number] 01:39PM PHQ-9 Depression Severity PHQ-9 #1. Little interest or pleasure in doing thingsMore than half the days - 2 PHQ-9 #2. Feeling down, depressed, or hopelesSMore than half the days - 2 PHQ-9 #3. Trouble falling or staying asleep, or sleeping too muchMore than half the days - 2 PHQ-9 #4. Feeling tired or having little energyMore than half the days - 2 PHQ-9 #5. Poor appetite or overeatingMore than half the days - 2 PHQ-9 #6. Feeling bad about yourself or you are a failure or that you have let yourself or your family downMore than half the days - 2 PHQ-9 #7. Trouble concentrating on things, such as reading the newspaper or watch televisionMore than half the days - 2 PHQ-9 #8. Moving or speaking so slowly that other people could have noticed. Or the opposite-being so fidgety or restless that you have been moving around a lot more than usualMore than half the days - 2 PHQ-9 #9. Thoughts that you would be better off , or of hurting yourselfNot at all - 0 PHQ-9 #10. If you checked off any problems, how difficult have these problems made it for you to do your work, take care of things at home, or get along with other people?Somewhat difficult PHQ-9 Total Score (Please update problem list based on total score)16 JULIO C-7 [id number] JULIO C-7 Total Score12 Feeling nervous, anxious or on edgeOver half the days - 2 Not being able to stop or control worryingOver half the days - 2 Worrying too much about different thingsOver half the days - 2 Trouble relaxingOver half the days - 2 Being so restless that it's hard to sit stillNot at all - 0 Becoming easily annoyed or irritableOver half the days - 2 Feeling afraid as if something awful might happenOver half the days - 2 Review of Systems Constitutional: no fever, no chills, not feeling poorly and not feeling tired. ENT: no earache, no hearing loss, no nosebleeds, no nasal discharge, no sore throat and no hoarseness. Cardiovascular: the heart rate was not slow, the heart rate was not fast, no chest pain, no palpitations, no intermittent leg claudication and no lower extremity edema. Respiratory: no cough, not coughing up sputum and no wheezing that is consistent with asthma. Gastrointestinal: no abdominal pain, no constipation, no melena, no nausea, no diarrhea, no vomiting and no blood in sto (more content not included)... Normal [employer] Tobacco Screening.on 022 Tobacco use status CPHS b) No -[facility] 205 DO Work Phone: Absolute lymphocyte counton 01-28-2022 Lymphocytes Auto (Unsp spec) [#/Vol] 1.91 10*3/uL 0.83-4.51 [facility] Work Phone: Absolute reticulocyte counto n 01-28-2022 Reticulocytes (Bld) [#/Vol] 0.00 10*3/uL 0-5 [facility] Work Phone: Basophil percentageon 2021 Basophil percentage 3.8 mg/dL 2.5-4.9 [facility] Work Phone: Bilirubin [Mass/Vol] 0.50 mg/dL 0.20-1.00 [facility] Work Phone: Comment on above: For patients on eltr ombopag therapy, use of Dimension [place] TBIL is not recommended. Chloride [Moles/Vol] 106 mmol/L 98-107 [facility] Work Phone: Cholesterol [Mass/Vol] 222 mg/dL <200 [facility] Work Phone: Comment on above: <200 mg/dL Desirable 200-240 mg/dL Borderline >240 mg/dL High Risk Glucose [Mass/Vol] 85 mg/dL 74-106 [facility] Work Phone: Glucose [Mass/Vol] 86 mg/dL 74-106 [facility] Work Phone: Neutrophils (Bld) [#/Vol] 3.7 10*3/uL 2.0-7.7 [facility] Work Phone: Potassium [Moles/Vol] 3.8 mmol/L 3.5-5.1 [facility] Work Phone: Protein [Mass/Vol] 6.7 g/dL 6.4-8.2 [facility] Work Phone: Sodium [Moles/Vol] 142 mmol/L 136-145 [facility] Work Phone: Triglyceride [Mass/Vol] 41 mg/dL <199 [facility] Work Phone: Comment on above: The drugs N-Acetylcy steine and Metamizole may falsely depress this assay.Serum Triglycerides Reference Interval Normal <150 mg/dL Borderline high 150 - 199 mg/dL High 200 - 499 mg/dL Very High > or = 500 mg/dL WBC (Bld) [#/Vol] 6.1 10*3/uL 4.4-11.0 [facility] Work Phone: WBC (Bld) [#/Vol] 6.2 10*3/uL 4.4-11.0 [facility] Work Phone: Bilirubin Test strip Ql (U)o n 01-28-2022 Bilirubin Ql (U) Negative Negative [facility] Work Phone: Blood erythrocytes count (nu mber/volume)on 01-28-2022 RBC (Bld) [#/Vol] 4.31 10*6/uL 4.2-5.4 [facility] Work Phone: RBC (Bld) [#/Vol] 4.38 10*6/uL 4.2-5.4 [facility] Work Phone: Blood hemoglobin measurement (mass/volume)on 01-28-2022 Hemoglobin (Bld) [Mass/Vol] 12.7 g/dL 12.0-15.0 [facility] Work Phone: Blood platelet mean volumeon 01-28-2022 Platelet mean volume (Bld) [Entitic vol] 9.2 fL 6.2-12.0 [facility] Work Phone: Platelet mean volume (Bld) [Entitic vol] 9.4 fL 6.2-12.0 [facility] Work Phone: Determination of erythrocyte mean corpuscular volume (MCV)on 01-28-2022 MCV (RBC) [Entitic vol] 90.0 fL 81-99 [facility] Work Phone: MCV (RBC) [Entitic vol] 90.4 fL 81-99 [facility] Work Phone: Direct bilirubinon Bilirubin.direct [Mass/Vol] 0.15 mg/dL 0.00-0.30 [facility] Work Phone: Hematocrit Auto (Bld) [Volum e fraction]on 01-28-2022 Hematocrit (Bld) [Volume fraction] 38.8 % 37-47 [facility] Work Phone: Hematocrit (Bld) [Volume fraction] 39.6 % 37-47 [facility] Work Phone: Ketones Test strip Ql (U)on 01-28-2022 Ketones Ql (U) Negative Negative [facility] Work Phone: Laboratory - Chemistry and C hemistry - challengeon 01-28-2022 ALP [Catalytic activity/Vol] 74 U/L 45-117 [facility] Work Phone: ALT [Catalytic activity/Vol] 21 U/L 13-56 [facility] Work Phone: Cholesterol.total/Chol esterol in HDL [Mass ratio] 2.60 {ratio} [facility] Work Phone: CO2 [Moles/Vol] 30.0 mmol/L 21.0-32.0 [facility] Work Phone: CO2 [Moles/Vol] 29.0 mmol/L 21.0-32.0 [facility] Work Phone: Globulin (S) [Mass/Vol] 2.9 g/dL 2.2-4.2 [facility] Work Phone: Urea nitrogen/Creatinine [Mass ratio] 22.5 mg/mg -20 [facility] Work Phone: Urea nitrogen/Creatinine [Mass ratio] 20.7 mg/mg -20 [facility] Work Phone: Laboratory - Hematology and Cell countson 01-28-2022 Erythrocyte distribution width (RBC) [Entitic vol] 43.7 fL 35.1-43.9 [facility] Work Phone: Erythrocyte distribution width (RBC) [Entitic vol] 44.0 fL 35.1-43.9 [facility] Work Phone: Erythrocyte distribution width (RBC) [Ratio] 13.2 % 11.6-14.6 [facility] Work Phone: MCH (RBC) [Entitic mass] 29.5 pg 27.0-32.0 [facility] Work Phone: MCH (RBC) [Entitic mass] 29.0 pg 27.0-32.0 [facility] Work Phone: Nucleated RBC/100 WBC (Bld) [Ratio] 0 % 0-5 [facility] Work Phone: MCHC Auto (RBC) [Mass/Vol]on 01-28-2022 MCHC (RBC) [Mass/Vol] 32.7 g/dL [facility] Work Phone: MCHC (RBC) [Mass/Vol] 32.1 g/dL [facility] Work Phone: Nitrite Test strip Ql (U)on 01-28-2022 Nitrite Ql (U) Negative Negative [facility] Work Phone: No Panel Informationon 01-28 Estimated GFR (MDRD) Amer 101 mL/min >60 [facility] Work Phone: Comment on above: GFR Calc Estimated GFR (MDRD) Amer 98 mL/min >60 [facility] Work Phone: Comment on above: GFR Calc Estimated GFR (MDRD) Non-Af Amer 84 mL/min >60 [facility] Work Phone: Comment on above: Non- GFR Calc Estimated GFR (MDRD) Non-Af Amer 81 mL/min >60 [facility] Work Phone: Comment on above: Non- GFR Calc Platelets bldon 01-28-2022 Platelets (Bld) [#/Vol] 176 10*3/uL 150-450 [facility] Work Phone: Platelets (Bld) [#/Vol] 183 10*3/uL 150-450 [facility] Work Phone: Protein Test strip Ql (U)on 01-28-2022 Protein Ql (U) Negative Negative [facility] Work Phone: Segmented neutrophils/100 WB C Auto (Bld)on 01-28-2022 Segmented neutrophils/100 WBC (Bld) 60.2 % 47-70 [facility] Work Phone: Serum or plasma albumin brant urement (mass/volume)on 01-28-2022 Albumin [Mass/Vol] 3.8 g/dL 3.2-5.0 [facility] Work Phone: Serum or plasma albumin/glob ulin mass ratioon 01-28-2022 Albumin/Globulin [Mass ratio] 1.3 {ratio} 0.9-2.4 [facility] Work Phone: Serum or plasma calcium brant urement (mass/volume)on 01-28-2022 Calcium [Mass/Vol] 9.3 mg/dL 8.5-10.1 [facility] Work Phone: Calcium [Mass/Vol] 9.1 mg/dL 8.5-10.1 [facility] Work Phone: Serum or plasma cholesterol in HDL measurement (mass/volume)on 01-28-2022 Cholesterol in HDL [Mass/Vol] 86 mg/dL >40 [facility] Work Phone: Comment on above: The drugs N-Acetylcy steine and Metamizole may falsely depress this assay. Reference Range HDL <40 mg/dL Low HDL Cholesterol HDL >or= 60 mg/dL High HDL Cholesterol Serum or plasma cholesterol in VLDL measurement (mass/volume)on 01-28-2022 Cholesterol in VLDL [Mass/Vol] 8 mg/dL 5-40 [facility] Work Phone: Serum or plasma creatinine m easurement (mass/volume)on 01-28-2022 Creatinine [Mass/Vol] 0.76 mg/dL 0.55-1.02 [facility] Work Phone: Comment on above: The validity of the calculated GFR & GFRAA in patients over 70 years has not been determined. Clinical correlation is essential. Creatinine [Mass/Vol] 0.77 mg/dL 0.55-1.02 [facility] Work Phone: Comment on above: The validity of the calculated GFR & GFRAA in patients over 70 years has not been determined. Clinical correlation is essential. Serum or plasma low density lipoprotein (LDL) cholesterol measurement (mass/volume)on 01-28-2022 Cholesterol in LDL [Mass/Vol] 128 mg/dL 0-130 [facility] Work Phone: Serum or plasma urea nitroge n measurement (mass/volume)on 01-28-2022 Urea nitrogen [Mass/Vol] 17 mg/dL 7-18 [facility] Work Phone: Urea nitrogen [Mass/Vol] 16 mg/dL 7-18 [facility] Work Phone: Serum or plasma uric acid me asurement (mass/volume)on 01-28-2022 Urate [Mass/Vol] 3.1 mg/dL 2.6-6.0 [facility] Work Phone: Comment on above: The drugs N-Acetylcy steine and Metamizole may falsely depress this assay. Thin prep Papanicolaou smear with manual screeningon 01-28-2022 Thin prep Papanicolaou smear with manual screening 12 U/L 15-37 [facility] Work Phone: Thin prep Papanicolaou smear with manual screening 6 5-15 [facility] Work Phone: Thin prep Papanicolaou smear with manual screening 7 5-15 [facility] Work Phone: Thin prep Papanicolaou smear with manual screening 167 U/L 84-246 [facility] Work Phone: Urine blood detectionon 01-13 RBC Ql (U) Negative Negative [facility] Work Phone: Urine clarityon 01-28-2022 Clarity (U) Clear Clear [facility] Work Phone: Urine color determinationon 01-28-2022 Color (U) Yellow Yellow [facility] Work Phone: Urine glucose detectionon Glucose Ql (U) Normal mg/dl Normal [facility] Work Phone: Urine leukocyte esterase det ection by dipstickon 01-28-2022 Leukocyte esterase Test strip Ql (U) 25 /ul Negative [facility] Work Phone: Urine pHon 01-28-2022 pH (U) 6.0 [pH] 5.0 - 8.0 [facility] Work Phone: Urine specific gravity measu rementon 01-28-2022 Specific gravity (U) [Rel density] 1.015 1.002-1.030 [facility] Work Phone: Urobilinogen Auto test strip Ql (U)on 01-28-2022 Urobilinogen Ql (U) Normal mg/dl Normal [facility] Work Phone: Provider Note - ED v3on 0 Provider Note - ED v3 Provider Note: Chart Review: HISTORY OF PRESENTING ILLNESS AUSTIN is a 56 year old Female and was seen by me at 20-Jan-2022 18:45 for a chief complaint of back pain. The historian is the patientsignificant other. Triage Information: Most recent Vital Sign Value Date Presenting Symptoms: difficulty bending.Located in the lumbar area. The quality is aching and throbbing. The context is bending. The duration of the pain is 1 week(s). The timing is gradual onset and constant. Modifying Factors: bending over hurts more. Better with heat. Worse with activity and movement. Pertinent History is (h/o lumbar surgery). PAST MEDICAL HISTORY ALLERGIES/INTOLERANCE S: Allergy Allergen: penicillin Type: Drug Reaction: Hives/Urticaria HEALTH HISTORY: No documented data. OUTPATIENT MEDICATIONS: Home Medications Review Status for Reconciliation: Complete Med Status: Patient Currently Takes Medications Drug Name: echinacea oral tablet Instructions: null Drug Name: TRUVY Instructions: null Drug Name: hydrocodone-acetamino phen 5 mg-325 mg oral tablet Instructions: 1 tab(s) orally every 6 hours Drug Name: predniSONE 10 mg oral tablet Instructions: 3 tab(s) orally once a day Drug Name: cyclobenzaprine 10 mg oral tablet Instructions: 1 tab(s) orally 3 times a day, As Needed -for spasms ; as needed for neck pain SIGNIFICANT EVENTS: No documented data. REVIEW OF SYSTEMS CONSTITUTIONAL: Negative for: chills, fever and malaise ENMTNose: Negative for: congestion and discharge CARDIOVASCULAR: Negative for: chest pain RESPIRATORY: Negative for: cough and dyspnea GASTROINTESTINAL: Negative for: abdominal pain, diarrhea and vomiting; GENITOURINARY: Negative for: dysuria and urgency; MUSCULOSKELETAL: POSITIVE for: back pain and stiffness Negative for: pain, sensory deficits and weakness NEUROLOGICAL: Negative for: dizziness and headache; PHYSICAL EXAM CONSTITUTIONAL: Well appearing, well nourished, awake, alert, oriented to person, place, time/situation and in no apparent distress. HENMT: Airway patent, ears with clear tympanic membranes bilaterally. Nasal mucosa clear. Mouth with normal mucosa. Throat has no vesicles, no oropharyngeal exudates and uvula is midline. Face with no lymph node enlargement. EYES: Clear bilaterally, pupils equal, round and reactive to light. RESPIRATORY: Breath sounds clear and equal bilaterally. MUSCULOSKELETAL: Musculoskeletal Exam: atraumatic Neck Exam: no deformity, pain or tenderness. no restriction of movement Weight Bearing: able Spinal Exam: Bruising Location: none Deformity Location: none Tenderness Location: LUMBAR (left paraspinal region) NEUROLOGICAL: Level of Consciousness: alert Memory: memory/cognition intact Neck: normal Speech: clear Gait and Weight Bearing: normal (no foot drop observed.) SKIN: Skin normal color for race, warm, dry and intact. No evidence of trauma. surgical scar midline LS spine region. CRITICAL CARE VITAL SIGNS: T PRBP SpO2O2(LPM) %FiO2 Method 20-Jan-2022 17:54:[id number]/ 88 99RA MDM MDM/ED COURSE: 1) left lower back strain with h/o herniated disc: pt received an IM QL injection in office with kenalog & bupvicaine, discussed tx at bedside to include use of [place] (moderate pain >6/10 or above threshold. ) & flexeril (to assist with spasm), discussed use of heat and stretching with continued activity AT & f/u with Chiro or return to NeuroSx.Differential Diagnosis: contusion, degenerative disc disease, herniated disc, low back pain, myofascial strain, pain, sciatica, spondylosis, sprain and strain Myofascial Strain Type: lumbar Discussed Findings with: patient and family Data Reviewed: vital signs Conducted Detailed Discussion with Patient and/or Guardian Regarding: need for outpatient follow-up DISPOSITION Diagnosis/Annotation: ED Dx Name:Sacroiliac joint dysfunction of left side Code:M53.3 Name:Low back pain Code:M54.50 Name:History of herniated intervertebral disc Code:Z87.39 Disposition: discharged CONSULT CRITICAL CARE TIME Is this a critically ill patient: no Electronic Signatures: Gil De Leon (PAC) (Signed 20-Jan-2022 19:30) Authored: HPI, PMH, ROS, PE, Results/Vital Signs, MDM/ED Course, Clinical Impression, Attestation, Chart Review, Scores Last Updated: 20-Jan-2022 19:30 by Gil De Leon (PAC) [facility] Absolute lymphocyte counton 10-26-2021 Lymphocytes Auto (Unsp spec) [#/Vol] 1.64 10*3/uL 0.83-4.51 [facility] Work Phone: Basophil percentageon 2021 Basophils/100 WBC (Bld) 0.8 % 0-1 [facility] Work Phone: Bilirubin [Mass/Vol] 0.70 mg/dL 0.20-1.00 [facility] Work Phone: Comment on above: For patients on eltr ombopag therapy, use of Dimension [place] TBIL is not recommended. Chloride [Moles/Vol] 108 mmol/L 98-107 [facility] Work Phone: Cholesterol [Mass/Vol] 206 mg/dL <200 [facility] Work Phone: Comment on above: <200 mg/dL Desirable 200-240 mg/dL Borderline >240 mg/dL High Risk Eosinophils/100 WBC (Bld) 1.4 % 0-5 [facility] Work Phone: Glucose [Mass/Vol] 72 mg/dL 74-106 [facility] Work Phone: Neutrophils (Bld) [#/Vol] 2.9 10*3/uL 2.0-7.7 [facility] Work Phone: Neutrophils/100 WBC (Bld) 58.2 % 47-70 [facility] Work Phone: Potassium [Moles/Vol] 3.6 mmol/L 3.5-5.1 [facility] Work Phone: Protein [Mass/Vol] 6.6 g/dL 6.4-8.2 [facility] Work Phone: Sodium [Moles/Vol] 141 mmol/L 136-145 [facility] Work Phone: Triglyceride [Mass/Vol] 47 mg/dL <199 [facility] Work Phone: Comment on above: The drugs N-Acetylcy steine and Metamizole may falsely depress this assay.Serum Triglycerides Reference Interval Normal <150 mg/dL Borderline high 150 - 199 mg/dL High 200 - 499 mg/dL Very High > or = 500 mg/dL WBC (Bld) [#/Vol] 4.9 10*3/uL 4.4-11.0 [facility] Work Phone: Blood erythrocytes count (nu mber/volume)on 10-26-2021 RBC (Bld) [#/Vol] 4.21 10*6/uL 4.2-5.4 [facility] Work Phone: Blood hemoglobin measurement (mass/volume)on 10-26-2021 Hemoglobin (Bld) [Mass/Vol] 12.4 g/dL 12.0-15.0 [facility] Work Phone: Blood lymphocytes/100 leukoc yteson 10-26-2021 Lymphocytes/100 WBC (Bld) 33.3 % 19-41 [facility] Work Phone: Blood monocytes/100 leukocyt eson 10-26-2021 Monocytes/100 WBC (Bld) 5.9 % 0-10 [facility] Work Phone: Blood platelet mean volumeon 10-26-2021 Platelet mean volume (Bld) [Entitic vol] 9.8 fL 6.2-12.0 [facility] Work Phone: Determination of erythrocyte mean corpuscular volume (MCV)on 10-26-2021 MCV (RBC) [Entitic vol] 88.8 fL 81-99 [facility] Work Phone: Hematocrit Auto (Bld) [Volum e fraction]on 10-26-2021 Hematocrit (Bld) [Volume fraction] 37.4 % 37-47 [facility] Work Phone: Laboratory - Chemistry and C hemistry - challengeon 10-26-2021 ALP [Catalytic activity/Vol] 67 U/L 45-117 [facility] Work Phone: ALT [Catalytic activity/Vol] 23 U/L 13-56 [facility] Work Phone: CO2 [Moles/Vol] 28.0 mmol/L 21.0-32.0 [facility] Work Phone: Cobalamin (Vitamin B12) [Mass/Vol] 431 pg/mL 211-911 [facility] Work Phone: Globulin (S) [Mass/Vol] 2.9 g/dL 2.2-4.2 [facility] Work Phone: Urea nitrogen/Creatinine [Mass ratio] 17.0 mg/mg 10-20 [facility] Work Phone: Laboratory - Hematology and Cell [place]son 10-26-2021 Erythrocyte distribution width (RBC) [Entitic vol] 43.2 fL 35.1-43.9 [facility] Work Phone: Erythrocyte distribution width (RBC) [Ratio] 13.2 % 11.6-14.6 [facility] Work Phone: Immature granulocytes/100 WBC (Bld) 0.400 % 0.0-0.9 [facility] Work Phone: Comment on above: IG% - Immature Granu locytes (promyelocytes, myelocytes and metamyelocytes) > 1% indicates that a LEFT SHIFT is Present. MCH (RBC) [Entitic mass] 29.5 pg 27.0-32.0 [facility] Work Phone: Nucleated RBC/100 WBC (Bld) [Ratio] 0 % 0-5 [facility] Work Phone: MCHC Auto (RBC) [Mass/Vol]on 10-26-2021 MCHC (RBC) [Mass/Vol] 33.2 g/dL 32-36 [facility] Work Phone: No Panel Informationon 10-26 Estimated GFR (MDRD) Amer 100 mL/min >60 [facility] Work Phone: Comment on above: GFR Calc Estimated GFR (MDRD) Non-Af Amer 82 mL/min >60 [facility] Work Phone: Comment on above: Non- GFR Calc Thyroid Stimulating Hormone (TSH) 3.10 uIU/mL 0.358-3.74 [facility] Work Phone: Vitamin D 25-Hydroxy 34.8 ng/mL [facility] Work Phone: Comment on above: Vitamin D 25(OH) Sta tus Range Deficiency <20 ng/mL (50nmol/L) Insufficiency 20 - 30 ng/mL (50 - 75 nmol/L) Sufficiency 30 - 100 ng/mL (75 - 250 nmol/L) Toxicity >100 ng/mL (>250 nmol/L) Platelets bldon 10-26-2021 Platelets (Bld) [#/Vol] 171 10*3/uL 150-450 [facility] Work Phone: Serum or plasma albumin brant urement (mass/volume)on 10-26-2021 Albumin [Mass/Vol] 3.7 g/dL 3.2-5.0 [facility] Work Phone: Serum or plasma albumin/glob ulin mass ratioon 10-26-2021 Albumin/Globulin [Mass ratio] 1.3 {ratio} 0.9-2.4 [facility] Work Phone: Serum or plasma calcium brant urement (mass/volume)on 10-26-2021 Calcium [Mass/Vol] 8.5 mg/dL 8.5-10.1 [facility] Work Phone: Serum or plasma cholesterol in HDL measurement (mass/volume)on 10-26-2021 Cholesterol in HDL [Mass/Vol] 75 mg/dL >40 [facility] Work Phone: Comment on above: The drugs N-Acetylcy steine and Metamizole may falsely depress this assay. Reference Range HDL <40 mg/dL Low HDL Cholesterol HDL >or= 60 mg/dL High HDL Cholesterol Serum or plasma cholesterol in VLDL measurement (mass/volume)on 10-26-2021 Cholesterol in VLDL [Mass/Vol] 9 mg/dL 5-40 [facility] Work Phone: Serum or plasma creatinine m easurement (mass/volume)on 10-26-2021 Creatinine [Mass/Vol] 0.76 mg/dL 0.55-1.02 [facility] Work Phone: Comment on above: The validity of the calculated GFR & GFRAA in patients over 70 years has not been determined. Clinical correlation is essential. Serum or plasma low density lipoprotein (LDL) cholesterol measurement (mass/volume)on 10-26-2021 Cholesterol in LDL [Mass/Vol] 122 mg/dL 0-130 [facility] Work Phone: Serum or plasma urea nitroge n measurement (mass/volume)on 10-26-2021 Urea nitrogen [Mass/Vol] 13 mg/dL 7-18 [facility] Work Phone: Thin prep Papanicolaou smear with manual screeningon 10-26-2021 Thin prep Papanicolaou smear with manual screening 13 U/L 15-37 [facility] Work Phone: Thin prep Papanicolaou smear with manual screening 5 5-15 [facility] Work Phone: Office Visit (Primary Care F orms)on 10-20-2021 Follow-up visit Diagnosis/Problems Assessed Encounter for screening mammogram for malignant neoplasm of breast (V76.12) (Z12.31) Order placed. Lipoma (214.9) (D17.9) Per pt report. Will continue to monitor clinically. Hair loss (704.00) (L65.9) Will obtain labs as below to rule out vitamin deficiency, metabolic derangement, thyroid disturbance and follow up with results. Varicose veins of legs (454.9) (I83.93) Reviewed conservative management. Continue close follow up with Dr. Soto as previously scheduled. Thyroid nodule (241.0) (E04.1) Per pt report. Will attempt to obtain records for review. Cervical cancer screening (V76.2) (Z12.4) Due. Plans to make appt with obgyn in [place]. Screening for colorectal cancer (V76.51,V76.41) (Z12.11,Z12.12) A few years ago, Dr. Fernández Will attempt to obtain records for review. Class 2 severe obesity with serious comorbidity and body mass index (BMI) of 37.0 to 37.9 in adult (278.01,V85.37) (E66.01,Z68.37) Considering panniculectomy/full tummy tuck. Follow up with surgeon as previously scheduled. Discussed lifestyle modifications. Recommend 150 minutes of moderate-intensity exercise weekly. Knee pain (719.46) (M25.569) Continue close follow up with ortho as previously scheduled. Orders Encounter for screening mammogram for malignant neoplasm of breast Mamm - Screening Mammogram w/ Tomosynthesis; Status:Hold For - Scheduling; Requested for:20Oct2021; Perform:[facility]; Due:18Jan2022;Ordered ; For:Encounter for screening mammogram for malignant neoplasm of breast; Ordered By:Yomi Lacy; Radiologist to Determine Optimal Study : Y What are the patient's signs and symptoms ? : Annual Screening Mammogram Health Maintenance Complete Blood Count + Differential; Status:Active; Requested for:20Oct2021; Perform:Lab Services - Lab To Draw (Blood Test); Due:18Jan2022;Ordered ; For:Health Maintenance; Ordered By:Yomi Lacy; Comprehensive Metabolic Panel; Status:Active; Requested for:20Oct2021; Perform:Lab Services - Lab To Draw (Blood Test); Due:18Jan2022;Ordered ; For:Health Maintenance; Ordered By:Yomi Lacy; Lipid Panel; Status:Active; Requested for:20Oct2021; Perform:Lab Services - Lab To Draw (Blood Test); Due:18Jan2022;Ordered ; For:Health Maintenance; Ordered By:Yomi Lacy; TSH WITH REFLEX TO FREE T4 IF ABNORMAL; Status:Active; Requested for:20Oct2021; Perform:Lab Services - Lab To Draw (Blood Test); Due:18Jan2022;Ordered ; For:Health Maintenance; Ordered By:Yomi Lacy; Vitamin B12, Serum; Status:Active; Requested for:20Oct2021; Perform:Lab Services - Lab To Draw (Blood Test); Due:18Jan2022;Ordered ; For:Health Maintenance; Ordered By:Yomi Lacy; Vitamin D 25-Hydroxy; Status:Active; Requested for:20Oct2021; Perform:Lab Services - Lab To Draw (Blood Test); Due:18Jan2022;Ordered ; For:Health Maintenance; Ordered By:Yomi Lacy; Patient Discussion/Summary Will obtain labs as above and follow up with result. Follow up in 6mo for recheck, sooner if needed. Chief Complaint Pt presents to est PCP, previously seen by Goldie Leo CNP. States had knee replacement 2 years ago and other knee is giving her the same issues she had with the last one. History of Present IllnessThis is a 56yo female with pmhx significant for knee pain, lipomas, varicose veins who presents today to establish and discuss as below. Regarding knee pain, is s/p R TKR with Dr. Roa in [place] 2yrs ago. Reports improvement in pain, but still occasionally struggles. Went to PT and had multiple rounds of gel/steroid injections. More recently, has started having pain in the L knee which is similar to that pain that she had on the R. Is considering making appt with Dr. Lui for evaluation. Regarding lipomas, reports multiple soft tissue masses including RUQ abdomen. Ultrasound was ordered in 12/2020, but I do not see that it was done. Regarding varicose veins, following with Dr. Teto Soto in [place]. Currently managing with compression stockings. Scheduled for ultrasound 11/10/2021 with possible procedure after per pt report. Regarding BMI, patient is planning to have panniculectomy and possible full tummy tuck. Was scheduled for 05/2021, but this was postponed due to logistics. Met with new surgeon yesterday in [facility]. Has already lost 40lbs and wants to lost 50 more. Tentative surgery date is 02/2022. Regarding hair loss, first noticed 3-4yrs ago. Attributes to "hormones" or stress. Has tried biotin and states has had extensive testing which has been unremarkable. Regarding thyroid nodule, states a small nodule was found during workup for hair loss. Was evaluated by Dr. Fernández ([place]) who told patient that it's so tiny that nothing can be done" per pt report. Cervical Cancer Screening: s/p hyst 16yrs ago in [place] due to heavy bleeding, 1 ovary remaining, agreeable to 1 more pap, plans to go to her obgyn in [place] Breast Cancer Screening: due O (more content not included)... Normal [employer] Tobacco Screening.on 022 Tobacco use status CPHS b) No -[facility] 205 DO Work Phone: Office Visit (Family Medicin e)on 10-01-2021 Follow-up visit Diagnoses/Problems Scalp itch (698.9) (L29.9) Scalp irritation (709.9) (R23.8) Hair loss (704.00) (L65.9) Fatigue (780.79) (R53.83) Orders Fatigue Vitamin B12, Serum; Status:Active; Requested for:01Oct2021; Vitamin D 25-Hydroxy; Status:Active; Requested for:01Oct2021; Hair loss Basic Metabolic Panel; Status:Active; Requested for:01Oct2021; Complete Blood Count; Status:Active; Requested for:01Oct2021; TSH WITH REFLEX TO FREE T4 IF ABNORMAL; Status:Active; Requested for:01Oct2021; Hair loss, Scalp itch Dermatology Referral Evaluation and Treatment Evaluate AND Treat, refer to Dr Gladys Michele in [facility], patient is known to practice, ' Address: [address] [place] [address] [address], [place] [address] Status: Hold For - Scheduling Requested for: 04Oct2021 Provider Impressions Hair loss/scalp itching: Will refer to dermatology for further evaluation. Fatigue: will check lab for TSH, CBC, CMP, Vitamin B12 and Vitamin D Recommend she schedule annual wellness exam soon. Chief Complaint Concerns with hair loss. History of Present Illness El a 56 yo female here today with complaints of hair loss, hot flashes, fatigue, and scalp irritation. She reports hair loss is chronic and ongoing for years she has had "work up" by several different doctors with no valid reason as to why her hair is thinning. She report she eats healthy diet. She does use chemical to dye hair an het products to style hair. Hair thinning for last 3 years. "i think its hormonal" continuing to have hot flashes, I've tried endocrinology, hair clinic etc and no one can determine the causes. She reports she does have pain to head/scalp and itching. Would like referral to dermatology. Patient also reports fatty mass on right abd and left spine and arm. She states she has had this evaluated in past and was tole they are lipomas. She denies any acute health issues. 'Scores and Scales' PHQ-9 [id number] 01:39PM PHQ-9 Depression Severity PHQ-9 #1. Little interest or pleasure in doing thingsMore than half the days - 2 PHQ-9 #2. Feeling down, depressed, or hopelesSMore than half the days - 2 PHQ-9 #3. Trouble falling or staying asleep, or sleeping too muchMore than half the days - 2 PHQ-9 #4. Feeling tired or having little energyMore than half the days - 2 PHQ-9 #5. Poor appetite or overeatingMore than half the days - 2 PHQ-9 #6. Feeling bad about yourself or you are a failure or that you have let yourself or your family downMore than half the days - 2 PHQ-9 #7. Trouble concentrating on things, such as reading the newspaper or watch televisionMore than half the days - 2 PHQ-9 #8. Moving or speaking so slowly that other people could have noticed. Or the opposite-being so fidgety or restless that you have been moving around a lot more than usualMore than half the days - 2 PHQ-9 #9. Thoughts that you would be better off , or of hurting yourselfNot at all - 0 PHQ-9 #10. If you checked off any problems, how difficult have these problems made it for you to do your work, take care of things at home, or get along with other people?Somewhat difficult PHQ-9 Total Score (Please update problem list based on total score)16 JULIOC -7 [id number] JULIO C-7 Total Score12 Feeling nervous, anxious or on edgeOver half the days - 2 Not being able to stop or control worryingOver half the days - 2 Worrying too much about different thingsOver half the days - 2 Trouble relaxingOver half the days - 2 Being so restless that it's hard to sit stillNot at all - 0 Becoming easily annoyed or irritableOver half the days - 2 Feeling afraid as if something awful might happenOver half the days - 2 Review of Systems Constitutional: no chills, no fever and no night sweats. Neck: no mass(es) and no swelling. Cardiovascular: no chest pain, no intermittent leg claudication, no lower extremity edema, no palpitations and no syncope. Respiratory: no cough, no shortness of breath during exertion, no shortness of breath at rest and no wheezing. Gastrointestinal: no abdominal pain, no blood in stools, no constipation, no diarrhea, no melena, no nausea, no rectal pain and no vomiting. Genitourinary: no dysuria, no change in urinary frequency, no urinary hesitancy, no feelings of urinary urgency and no vaginal discharge. Musculoskeletal: no arthralgias, no back pain and no myalgias. Integumentary: itching and mass(es), but as noted in HPI. Neurological: no difficulty walking, no headache, no limb weakness, no numbness and no tingling. Psychiatric: no anxiety, no depression, no anhedonia and no substance use disorders. Active Problems Abscess (682.9) (L02.91) Anxiety (300.00) (F41.9) Body mass index (BMI) of 40.0 to 44.9 in adult (V85.41) (Z68.41) Elevated liver enzymes (790.5) (R74.8) Encounter for screening mammogram for breast cancer (V76.12) (Z12.31) Excessive daytime sleepiness (780.54) (G47.19) External hemorrhoid (455.3) (K64.4) Fati (more content not included)... Normal [employer] Tobacco Screening.on 022 Tobacco use status HS b) No [employer] Work Phone: IO Vision Screeningon 2020 Visual acuity best corrected Left eye by Snellen eye chart 20/20 [facility] Work Phone: Visual acuity best corrected Right eye by Snellen eye chart 20/20 [facility] Work Phone: Tobacco Screening.on 021 Tobacco use status HS b) No [employer] Work Phone: Otheron 05-11-2020 Not at all - 0 [facility] Work Phone: Positive Abnormal [facility] Work Phone: More than half the days - 2 [facility] Work Phone: Moderately Severe Depression [facility] Work Phone: Somewhat difficult [facility] Work Phone: Moderate Anxiety [facility] Work Phone: Somewhat difficult [facility] Work Phone: Comment on above: How difficult have t hose problems made it for you to do your work, take care of things at home, or get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 up with psychology as an inpatient if needed *Follow up with psychology at 1, 3, 6, and 12 months postsurgery *Do not use alcohol, tobacco, and street drugs for 3 to 6 months prior to and after surgery. 3) The patient is to follow up in 4-6 weeks. 4) Above recommendations and treatment plan will be communicated back to the referring physician by way of the shared medical record. Thank you for this referral. Please feel free to call or page with any questions. Tata Del Cid, Ph.D., Clinical Psychologist [facility] BARIATRIC EVALUATION SUMMARY DATE : January 01, 2019 PATIENT NAME: Ms. Maza 1. Consent: Good 2. Expectations: Good 3. Social support: Good 4. Mental Health: Fair 5. Chemical/Alcohol Abuse/Dependence: Excellent 6. Eating Behaviors: Guarded 7. Adherence: Fair 8. Coping/Stressors: Guarded 9. Overall Psychological Impression: Fair Normal [facility] CNOVon 12-27-2018 CNOV Office Visit ([id number]) AUSTIN MAZA ([id number]) 1965 F Date Time Provider Department 12/27/18 1:00 PM KAREN PERDOMO4 During your visit today, we recorded the following information about you: Pulse Blood pressure Weight Height 66/minute 112/62 103.1 kg 1.[address], LD 12/28/2018 8:55 AM Signed Austin Maza 07/15 Education Class: scheduled for 01/01/19 Pre-Op weight goal: 227# Education Class: Patient received instruction regarding healthy food choices and eating behaviors identified as optimal when preparing for surgery, losing weight after surgery, and maintaining weight loss long-term. Patient also received instruction regarding the Bariatric Full Liquid diet following surgery and optimal post-operative high-protein supplement choices. Other topics discussed included healthy grocery shopping and food preparation. Pre-Surgical Preparation: Post-Class Quiz: N/A Behaviors Accomplished: Visit # 3 Date: 12/24/2018 Weight: 103.1 kg (227 lb 3.2 oz) Weight goal met: Yes: pt presents with a 5# wt loss since last encounter. Currently 10# below initial wt and at GW. Behaviors that helped/hindered weight loss: HELPED: avoiding junk food and condensed sweets. Keeping journal daily Eating 3 meals/one snack Choose healthy foods Daily multivitamin Sip beverages slowly Exercise: no formal exercise currently initiated -dining out meals 1x/week Written information provided and reviewed: Healthy plate/menus Behavior Checklist Journal Patient brought food journal to appointment today. Congratulated patient on achieving goal weight during appointment today. Upon review of food journal, note little calculations present of protein and fluid intake. She does report some confusion with food items and what contains protein, did redirect to front page of food journal for reference. Recommended use of a phone cesario food journal to improve consistency with keeping a food journal, did instruct patient to document as she is consuming a meal to improve compliance. Demonstrated how to find protein/fluid intake with phone cesario food journal, counseled on the importance of monitor protein and fluid intake for next appointment. Counseled on starting to implement formal, planned exercise with reference to postoperative wt loss and sparing lean muscle. She has discontinued all caffeine and carbonation this past month, commended on this. Goals: Goals - *formal exercise 3-4x/week for 20 minutes (can break into 10-15 minute intervals) (elliptical, walking, youtube videos, chair exercises) - *start to calculate protein and fluid intake--60g protein and 64oz fluids--can use [employer] cesario - stat consistent with documenting in food journal--documenting as you are eating - use myplate to aid with meals--1/2 plate vegetables, 3oz protein (palm of hand) and 1/2-1cup starch - wait 10 minutes after a meal to start sipping Fanta Colunga RD, LD This note was generated using voice recognition technology and may contain grammatical errors. Shannan Barrientos APRN.CHEMIST 12/28/2018 8:55 AM Signed Date: December 27, 2018 Time: 1:32 PM Pre-op Visit #: 3 Weight: Wt 103.1 kg (227 lb 3.2 oz) BMI 40.25 kg/m2 Pre-op Goal: 227 Last 2 Encounter Wt Readings: Date: Wt: 12/27/2018 103.1 kg (227 lb 3.2 oz) 11/27/2018 105.1 kg (231 lb 9.6 oz) Name: Austin Maza CHIEF COMPLAINT: This is a 53 year old female with morbid obesity (Body mass index is 40.25 kg/m?.) who presents to clinic for bariatric surgery HISTORY OF PRESENTING ILLNESS: Has completed 3 of 3 months required supervised weight loss. Denies recent infections, nausea/vomitting, abdominal/epigastric pain. Hx of GERD absent . Current GERD symptoms absent. Controlled with NA IMPRESSION: Austin Maza is a 53 year old female with the following diagnosis and co-morbidities: Body mass index is 40.25 kg/m?. PLAN: The plan of treatment for Austin Maza is Psychosocial evaluation: Pending Sleep study: Mild versus borderline JASON, she is following up with her sleep specialist who recommended she did not need PAP therapy. If we can confirm, ok to proceed Educational class: Scheduled 01/01 EGD: Ordered Upper GI:Doesn't needed US RUQ:Ordered Labs, chest xray, EKG:At next visit Additional consults: Medicine before Shannan Barrientos APRN.CHEMIST Karen Perdomo MD 12/27/2018 2:02 PM Signed Please continue to focus on good diet and exercise choices as you learn how to use your new tool Karen Perdomo MD 12/28/2018 8:55 AM Signed BARIATRIC SURGERY NEW PATIENT CONSULTATION HISTORY AND PHYSICAL Date: December 27, 2018 Time: 2:02 PM Name: Austin Maza This is a 53 year old female with morbid obesity (Body mass index is 40.25 kg/m?.) who presents to clinic for consideration of bariatric surgery. She has suffered with weight problems most of her life. She has tried numerous weight loss programs in the past with minimal success. She would either lose minimal weight or would gain back any weight she did lose. She has numerous motivations for considering bariatric surgery including weight loss, control of obesity-related co-morbidities, quality of life improvement and overall longevity. She does have a questionable previous history of mild obstructive sleep apnea for which she was not compliant with CPAP therapy and then her sleep specialist deemed of mild enough she did not need therapy. She has no history of heart attack, stroke, asthma or other respiratory issues. Denies significant acid reflux. No dysphagia-like symptoms. She does have severe osteoarthritis of multiple joints and takes frequent NSAIDs. She does have issues with chronic constipation. No melena or bright red blood per rectum. No history of jaundice. 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 PAST MEDICAL HISTORY: PAST MEDICAL HISTORY Diagnosis Date - Lesion of plantar nerve - Obesity (BMI 30-39.9) - Stasis edema from leaky veins - Varicose veins of other sites PAST SURGICAL HISTORY: PAST SURGICAL HISTORY Procedure Laterality Date - KERATOMILEUSIS LASIK ENHANCEMENT - LAMINECTOMY,LUMBAR 2015 L4-L-5 - LIGATE/STRIP LONG SAPH VEIN BELW SEP-FEM JUNC 08/29/06 LEFT - PAST SURGICAL HISTORY OF 2000; 2001 miscarriage x2 - PAST SURGICAL HISTORY OF Excision neuroma right foot - REMOVAL GALLBLADDER 1998 - REMOVAL OF TONSILS,<12 Y/O - REPAIR UMBILICAL MELI,<5Y/O,REDUC 1998 Hernia repair, umbilical - REVISE SECONDARY VARICOSITY 09/01/05 Varicose Vein Surgery - STAB PHELBECT > 20 INCISIONS 08/29/06 - UNL VAGINAL SALPINGO-OOPHORECTOMY - VAGINAL HYSTERECTOMY 2006 Hysterectomy, vaginal FAMILY HISTORY: FAMILY HISTORY Problem Relation Age of Onset - Heart Father heart disease - other (MS [Other]) Maternal Grandmother - Cancer Paternal Grandfather unknown - Breast Cancer Mother - Arthritis Brother - Heart Paternal Grandmother - Heart Paternal Uncle - Heart Paternal Aunt - Alcohol/Drug Maternal Grandfather - Heart Paternal Grandfather SOCIAL HISTORY: Social History Tobacco Use - Smoking status: Never Smoker - Smokeless tobacco: Never Used Substance Use Topics - Alcohol use: No - Drug use: No MEDICATIONS: Prior to Admission Medications: OTC NUTRITIONAL SUPPLEMENT once daily. Q 10 calcium carb/magnesium ox,carb (CODEY-MAG ORAL) Take by mouth once daily. cyclobenzaprine (FLEXERIL) 5 mg tablet Take 5 mg by mouth three times daily as needed. buPROPion XL (WELLBUTRIN XL) 300 mg 24 hr tablet Take 300 mg by mouth once daily. biotin 5,000 mcg ODT Take by mouth once daily. Black Cohosh 200 mg cap Take by mouth once daily. IBUPROFEN ORAL Take by mouth as needed. ECHINACEA 1X ORAL Take by mouth as needed. sennosides (SENNA HERBAL LAXATIVE ORAL) Take by mouth as needed. hydroCHLOROthiazide (HYDRODIURIL, ESIDRIX) 12.5 mg tablet Take 12.5 mg by mouth once daily. ALLERGIES: ALLERGIES Allergen Reactions - Penicillins REVIEW OF SYSTEMS: GENERAL: Negative for malaise, significant weight loss and fever RESPIRATORY: Negative for cough, wheezing or shortness of breath. CARDIOVASCULAR: Negative for chest pain, leg swelling or palpitations. GI: Negative for abdominal discomfort, blood in stools or black stools or change in bowel habits : No history of dysuria, frequency or incontinence PHYSICAL EXAM: BP 112/62 Pulse 66 Ht 160 cm (5' 3") Wt 103.1 kg (227 lb 3.2 oz) BMI 40.25 kg/m? General appearance: obese, appears stated age, no obvious distress, no jaundice or scleral icterus Skin: warm, mucous membranes moist, good turgor pressure Heart: regular rhythm and rate Abdomen: soft, non-tender, no masses, no organomegaly, unable to palpate the liver or splenic edge, non-tympanic to percussion. No rebound or guarding. Negative Champion's sign. Previous surgical incisions from cholecystectomy noted. No obvious abdominal wall hernia. Extremities: Normal exam of the extremities, no pitting edema IMPRESSION: Austin Maza is a 53 year old female with the following diagnosis and co-morbidities: Body mass index is 40.25 kg/m?., possible mild sleep apnea, osteoarthritis and joint pain worsened by her weight Diagnosis noted as above, no additional diagnosis at this time. This patient does meet the criteria for a surgical weight loss procedure according to NIH guidelines. Today we spent over 60 minutes in the office with her in direct patient contact. Over 50% of that time was spent in counseling and coordinating her care. She was given the opportunity to ask numerous questions and I used various visual aids to explain the anatomy related to the various bariatric surgical options. PLAN: The plan of treatment for Austin Maza is to continue with the consultations and tests ordered today in hopes of qualifying for pre-operative clearance for bariatric surgery. Patient is interested in: Sleeve gastrectomy Needs EGD - booked today Ultrasound of RUQ before surgery Continue with psychology and nutrition assessment Karen Perdomo MD Advanced Laparoscopic and Bariatric Surgery *This note was generated using voice recognition technology and may contain grammatical errors Referring Provider: SELF [[id number]] Allergies As of Date: 12/27/2018 Noted Allergy Reaction PENICILLINS 07/12/2005 Date Reviewed: 12/27/2018 Reviewed by: Karen Perdomo - Fully Assessed Reason for Visit: Consult [173] Primary Visit Diagnosis:Obesity, Class III, BMI 40-49.9 (morbid obesity) ([facility]) [E66.01] Order(s):US ABD RT UPPER QUADRANT [[id number]] Order #: [id number] FUTURE EGD [[id number]] Order #: [id number] FUTURE Prescriptions as of 12/27/2018 Sig: OTC NUTRITIONAL SUPPLEMENT once daily. Q 10 CODEY-MAG ORAL Take by mouth once daily. CYCLOBENZAPRINE 5 MG TABLET Take 5 mg by mouth three time* BUPROPION XL 300 MG 24 HR TAB Take 300 mg by mouth once abhay* BIOTIN 5,000 MCG DISINTEGRATI* Take by mouth once daily. BLACK COHOSH 200 MG CAPSULE Take by mouth once daily. IBUPROFEN ORAL Take by mouth as needed. ECHINACEA 1X ORAL Take by mouth as needed. SENNA HERBAL LAXATIVE ORAL Take by mouth as needed. HYDROCHLOROTHIAZIDE 12.5 MG T* Take 12.5 mg by mouth once da* Problem List As Of Date 12/27/2018 Noted Resolved VARICOSE VEINS WITH OTHER COMPLICATIONS [I83.89*INVALID FOR* More... Acute pharyngitis [J02.9] INVALID FOR*08/30/2012 Neuroma of foot [D36.13] INVALID FOR* More... Lumbar radiculopathy, acute [M54.16] INVALID FOR* Other instructions from your clinician: Please continue to focus on good diet and exercise choices as you learn how to use your new tool Disposition: Return in about 4 weeks (around 01/24/2019) for SURVEY DATA TECHNICIAN. Follow-up and Disposition History Recorded Questionnaire: AG GEN SURG BARIATRIC PRE-OP VISITS WEIGHT (pounds) (PRE OP) -> 227.2 GOAL WEIGHT -> 227 Encounter Status:Closed by SHANNAN DEAN on 12/28/18 [facility] PROGRESSon 12-27-2018 PROGRESS HNO ID: [id number] Author: Karen Perdomo Service: ? Author Type: Physician Type: Progress Notes Filed: 12/28/2018 8:55 AM Note Text: BARIATRIC SURGERY NEW PATIENT CONSULTATION HISTORY AND PHYSICAL Date: December 27, 2018 Time: 2:02 PM Name: Austin Maza This is a 53 year old female with morbid obesity (Body mass index is 40.25 kg/m?.) who presents to clinic for consideration of bariatric surgery. She has suffered with weight problems most of her life. She has tried numerous weight loss programs in the past with minimal success. She would either lose minimal weight or would gain back any weight she did lose. She has numerous motivations for considering bariatric surgery including weight loss, control of obesity-related co-morbidities, quality of life improvement and overall longevity. She does have a questionable previous history of mild obstructive sleep apnea for which she was not compliant with CPAP therapy and then her sleep specialist deemed of mild enough she did not need therapy. She has no history of heart attack, stroke, asthma or other respiratory issues. Denies significant acid reflux. No dysphagia-like symptoms. She does have severe osteoarthritis of multiple joints and takes frequent NSAIDs. She does have issues with chronic constipation. No melena or bright red blood per rectum. No history of jaundice. 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 PAST MEDICAL HISTORY: PAST MEDICAL HISTORY Diagnosis Date - Lesion of plantar nerve - Obesity (BMI 30-39.9) - Stasis edema from leaky veins - Varicose veins of other sites PAST SURGICAL HISTORY: PAST SURGICAL HISTORY Procedure Laterality Date - KERATOMILEUSIS LASIK ENHANCEMENT - LAMINECTOMY,LUMBAR 2015 L4-L-5 - LIGATE/STRIP LONG SAPH VEIN BELW SEP-FEM JUNC 08/29/06 LEFT - PAST SURGICAL HISTORY OF 2000; 2001 miscarriage x2 - PAST SURGICAL HISTORY OF Excision neuroma right foot - REMOVAL GALLBLADDER 1998 - REMOVAL OF TONSILS,<12 Y/O - REPAIR UMBILICAL MELI,<5Y/O,REDUC 1998 Hernia repair, umbilical - REVISE SECONDARY VARICOSITY 09/01/05 Varicose Vein Surgery - STAB PHELBECT > 20 INCISIONS 08/29/06 - UNL VAGINAL SALPINGO-OOPHORECTOMY - VAGINAL HYSTERECTOMY 2006 Hysterectomy, vaginal FAMILY HISTORY: FAMILY HISTORY Problem Relation Age of Onset - Heart Father heart disease - other (MS [Other]) Maternal Grandmother - Cancer Paternal Grandfather unknown - Breast Cancer Mother - Arthritis Brother - Heart Paternal Grandmother - Heart Paternal Uncle - Heart Paternal Aunt - Alcohol/Drug Maternal Grandfather - Heart Paternal Grandfather SOCIAL HISTORY: Social History Tobacco Use - Smoking status: Never Smoker - Smokeless tobacco: Never Used Substance Use Topics - Alcohol use: No - Drug use: No MEDICATIONS: Prior to Admission Medications: OTC NUTRITIONAL SUPPLEMENT once daily. Q 10 calcium carb/magnesium ox,carb (CODEY-MAG ORAL) Take by mouth once daily. cyclobenzaprine (FLEXERIL) 5 mg tablet Take 5 mg by mouth three times daily as needed. buPROPion XL (WELLBUTRIN XL) 300 mg 24 hr tablet Take 300 mg by mouth once daily. biotin 5,000 mcg ODT Take by mouth once daily. Black Cohosh 200 mg cap Take by mouth once daily. IBUPROFEN ORAL Take by mouth as needed. ECHINACEA 1X ORAL Take by mouth as needed. sennosides (SENNA HERBAL LAXATIVE ORAL) Take by mouth as needed. hydroCHLOROthiazide (HYDRODIURIL, ESIDRIX) 12.5 mg tablet Take 12.5 mg by mouth once daily. ALLERGIES: ALLERGIES Allergen Reactions - Penicillins REVIEW OF SYSTEMS: GENERAL: Negative for malaise, significant weight loss and fever RESPIRATORY: Negative for cough, wheezing or shortness of breath. CARDIOVASCULAR: Negative for chest pain, leg swelling or palpitations. GI: Negative for abdominal discomfort, blood in stools or black stools or change in bowel habits : No history of dysuria, frequency or incontinence PHYSICAL EXAM: BP 112/62 Pulse 66 Ht 160 cm (5' 3") Wt 103.1 kg (227 lb 3.2 oz) BMI 40.25 kg/m? General appearance: obese, appears stated age, no obvious distress, no jaundice or scleral icterus Skin: warm, mucous membranes moist, good turgor pressure Heart: regular rhythm and rate Abdomen: soft, non-tender, no masses, no organomegaly, unable to palpate the liver or splenic edge, non-tympanic to percussion. No rebound or guarding. Negative Champion's sign. Previous surgical incisions from cholecystectomy noted. No obvious abdominal wall hernia. Extremities: Normal exam of the extremities, no pitting edema IMPRESSION: Austin Maza is a 53 year old female with the following diagnosis and co-morbidities: Body mass index is 40.25 kg/m?., possible mild sleep apnea, osteoarthritis and joint pain worsened by her weight Diagnosis noted as above, no additional diagnosis at this time. This patient does meet the criteria for a surgical weight loss procedure according to NIH guidelines. Today we spent over 60 minutes in the office with her in direct patient contact. Over 50% of that time was spent in counseling and coordinating her care. She was given the opportunity to ask numerous questions and I used various visual aids to explain the anatomy related to the various bariatric surgical options. PLAN: The plan of treatment for Austin Maza is to continue with the consultations and tests ordered today in hopes of qualifying for pre-operative clearance for bariatric surgery. Patient is interested in: Sleeve gastrectomy Needs EGD - booked today Ultrasound of RUQ before surgery Continue with psychology and nutrition assessment Karen Perdomo MD Advanced Laparoscopic and Bariatric Surgery *This note was generated using voice recognition technology and may contain grammatical errors Normal [facility] PROGRESS HNO ID: [id number] Author: Shannan Barrientos Service: ? Author Type: Nurse Practitioner Type: Progress Notes Filed: 12/28/2018 8:55 AM Note Text: Date: December 27, 2018 Time: 1:32 PM Pre-op Visit #: 3 Weight: Wt 103.1 kg (227 lb 3.2 oz) BMI 40.25 kg/m2 Pre-op Goal: 227 Last 2 Encounter Wt Readings: Date: Wt: 12/27/2018 103.1 kg (227 lb 3.2 oz) 11/27/2018 105.1 kg (231 lb 9.6 oz) Name: Austin Maza CHIEF COMPLAINT: This is a 53 year old female with morbid obesity (Body mass index is 40.25 kg/m?.) who presents to clinic for bariatric surgery HISTORY OF PRESENTING ILLNESS: Has completed 3 of 3 months required supervised weight loss. Denies recent infections, nausea/vomitting, abdominal/epigastric pain. Hx of GERD absent . Current GERD symptoms absent. Controlled with NA IMPRESSION: Austin Maza is a 53 year old female with the following diagnosis and co-morbidities: Body mass index is 40.25 kg/m?. PLAN: The plan of treatment for Austin Maza is Psychosocial evaluation: Pending Sleep study: Mild versus borderline JASON, she is following up with her sleep specialist who recommended she did not need PAP therapy. If we can confirm, ok to proceed Educational class: Scheduled 01/01 EGD: Ordered Upper GI:Doesn't needed US RUQ:Ordered Labs, chest xray, EKG:At next visit Additional consults: Medicine before Shannan Barrientos APRN.CHEMIST Normal [facility] PROGRESS HNO ID: [id number] Author: Fanta Colunga Service: ? Author Type: Registered Dietitian Type: Progress Notes Filed: 12/28/2018 8:55 AM Note Text: Austin Maza Month 07/15 Education Class: scheduled for 01/01/19 Pre-Op weight goal: 227# Education Class: Patient received instruction regarding healthy food choices and eating behaviors identified as optimal when preparing for surgery, losing weight after surgery, and maintaining weight loss long-term. Patient also received instruction regarding the Bariatric Full Liquid diet following surgery and optimal post-operative high-protein supplement choices. Other topics discussed included healthy grocery shopping and food preparation. Pre-Surgical Preparation: Post-Class Quiz: N/A Behaviors Accomplished: Visit # 3 Date: 12/24/2018 Weight: 103.1 kg (227 lb 3.2 oz) Weight goal met: Yes: pt presents with a 5# wt loss since last encounter. Currently 10# below initial wt and at GW. Behaviors that helped/hindered weight loss: HELPED: avoiding junk food and condensed sweets. Keeping journal daily Eating 3 meals/one snack Choose healthy foods Daily multivitamin Sip beverages slowly Exercise: no formal exercise currently initiated -dining out meals 1x/week Written information provided and reviewed: Healthy plate/menus Behavior Checklist Journal Patient brought food journal to appointment today. Congratulated patient on achieving goal weight during appointment today. Upon review of food journal, note little calculations present of protein and fluid intake. She does report some confusion with food items and what contains protein, did redirect to front page of food journal for reference. Recommended use of a phone cesario food journal to improve consistency with keeping a food journal, did instruct patient to document as she is consuming a meal to improve compliance. Demonstrated how to find protein/fluid intake with phone cesario food journal, counseled on the importance of monitor protein and fluid intake for next appointment. Counseled on starting to implement formal, planned exercise with reference to postoperative wt loss and sparing lean muscle. She has discontinued all caffeine and carbonation this past month, commended on this. Goals: Goals - *formal exercise 3-4x/week for 20 minutes (can break into 10-15 minute intervals) (elliptical, walking, youtube videos, chair exercises) - *start to calculate protein and fluid intake--60g protein and 64oz fluids--can use [employer] cesario - stat consistent with documenting in food journal--documenting as you are eating - use myplate to aid with meals--1/2 plate vegetables, 3oz protein (palm of hand) and 1/2-1cup starch - wait 10 minutes after a meal to start sipping Fanta Colunga RD, LD This note was generated using voice recognition technology and may contain grammatical errors. Normal [facility] CNOVon 11-27-2018 CNOV Office Visit ([id number]) AUSTIN MAZA ([id number]) 1965 F Date Time Provider Department 11/27/18 1:00 PM SHANNAN BARRIENTOS During your visit today, we recorded the following information about you: Pulse Blood pressure Weight Height 68/minute 107/67 105.1 kg 1.[address], LD 11/29/2018 2:52 PM Signed Austin Maza 06/17 Education Class: scheduled for 01/01 Pre-Op weight goal: 227# Education Class: Patient received instruction regarding healthy food choices and eating behaviors identified as optimal when preparing for surgery, losing weight after surgery, and maintaining weight loss long-term. Patient also received instruction regarding the Bariatric Full Liquid diet following surgery and optimal post-operative high-protein supplement choices. Other topics discussed included healthy grocery shopping and food preparation. Pre-Surgical Preparation: Post-Class Quiz: N/A Behaviors Accomplished: Visit # 2 Date: 11/27/2018 Weight: 105.1 kg (231 lb 9.6 oz) Weight goal met: No: pt presents with a 5# wt loss since last encounter. Currently 5# below initial wt and 5# above GW. Behaviors that helped/hindered weight loss: HELPED: increased motivation, consuming high protein items such as eggs, yogurt, has tried a protein shake, eating meat with vegetables. Eating 3 meals/one snack Daily multivitamin Sip beverages slowly Exercise: no formal exercise currently initiated -dining out meals 1x/week ([place] [employer], singaporean or Nigerien, [place]--salad w/ chz, mushrooms, chx w/ broccoli -has switched over to decaf coffee, on and off, Zevia (2x) Written information provided and reviewed: Healthy plate/menus Behavior Checklist Journal Pt did not bring food journal to appointment today. Patient reports she has been doing well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 with quickly shifting thought processes, emotional lability, and complex psychological history, requiring additional time to complete interview BILLING CODE: Del Cid DATE OF FIRST SERVICE THIS CYCLE: October 31, 2018 SESSION #: 1 The patient signed the Informed Consent for Psychological Evaluation AND Care Form, and the behavioral health care insurance benefits, fees for service, emergency procedures, and the limits of confidentiality that may pertain with any given case were discussed with the patient. Ms. Maza was given a copy of the consent form. Note: Full evaluation was not completed due to time limitations. An appointment was scheduled to complete remainder of evaluation. IDENTIFYING INFORMATION: Ms. Austin Maza is a 53 year old female. She was referred by Surgery. Ms. Maza is seeking gastric sleeve surgery for morbid obesity. Her surgeon is Dr. Perdomo. COLLATERAL PARTIES PRESENT: spouse. MOTIVATION FOR SURGERY / UNDERSTANDING OF PROCEDURE / EXPECTATIONS: Ms. Maza notes she is motivated for surgery by medical problems. The patient has a fair understanding of the surgery, risks, and benefits. She has talked with other people who have undergone the procedure. Specific areas of understanding that should be addressed include nutrition after surgery and behavioral changes necessary. The patient has not attended a weight loss surgery support group. The patient expects to lose 60-80 lbs. following surgery over 18-24 months. Other expectations include increased quality of life and increased activity. Educated patient regarding expected weight loss after surgical procedure and timeline of weight loss/surgery recovery. CAPACITY TO CONSENT: Ms. Maza evidences the following concerns regarding capacity to consent: none noted. MEDICAL PROBLEMS ACTIVE PROBLEM LIST VARICOSE VEINS WITH OTHER COMPLICATIONS Neuroma of Foot Lumbar Radiculopathy, Acute Past surgeries? Yes History of psychological complications post-surgery? No MEDICATIONS Current Outpatient Medications: cyclobenzaprine (FLEXERIL) 5 mg tablet Take 5 mg by mouth three times daily as needed. buPROPion XL (WELLBUTRIN XL) 300 mg 24 hr tablet Take 300 mg by mouth once daily. biotin 5,000 mcg ODT Take by mouth once daily. Black Cohosh 200 mg cap Take by mouth once daily. IBUPROFEN ORAL Take by mouth as needed. sennosides (SENNA HERBAL LAXATIVE ORAL) Take by mouth as needed. hydroCHLOROthiazide (HYDRODIURIL, ESIDRIX) 12.5 mg tablet Take 12.5 mg by mouth once daily. ECHINACEA 1X ORAL Take by mouth. No current facility-administered medications for this visit. Wellbutrin has been prescribed by PCP for depression; has been taking for about six months. Previously took a few other medications. ALLERGIES Allergen Reactions - Penicillins EATING/WEIGHT HISTORY: Ms. Maza was average weight to slightly overweight as a child. Always very self-conscious about weight. Her weight at age 16 was 120 lbs. The patient reports the following factors as contributing to weight gain: trauma, emotional eating, genetic predisposition, inactivity, depression. The patient reports a family history of obesity. The patient has tried weight loss strategies in the past including walking, changing eating habits, Weight Watchers, Rejuve (HcG drops), personal trainers, kickboxing, diet pills. The most weight the patient has lost is 40 lbs. using HcG program with chiropractor. The patient reports a history of laxative use. The patient denies a history of vomiting to lose weight. The patient denies a history of eating disorder(s). She has not had treatment for eating disorders in the past. Patient reports eating ?? meals/day, with ?? snacks. The patient describes her eating pattern as I eat all day. Eating for coping/emotional eating: endorsed significant history of emotional eating Coffee/tea and soda/pop use not assessed. The patient shows graze eating behaviors: Yes. Does patient note loss of control with grazing? No. Grazing occurs 7 days/week. BINGE EATING ASSESSMENT: A. Recurrent episodes of binge eating. An episode is characterized by: 1. Eating a larger amount of food than normal during a short period of time (within any two hour period): No 2. Lack of control over eating during the binge episode (i.e. the feeling that one cannot stop eating): No B. Binge eating episodes are associated with three or more of the followin. Eating until feeling uncomfortably full: Information not assessed due to time limitations. Will be reviewed at continuation of evaluation. 2. Eating large amounts of food when not physically hungry: Information not assessed due to time limitations. Will be reviewed at continuation of evaluation. 3. Eating much more rapidly than normal: Information not assessed due to time limitations. Will be reviewed at continuation of evaluation. 4. Eating alone because you are embarrassed by how much you're eating: Information not assessed due to time limitations. Will be reviewed at continuation of evaluation. 5. Feeling disgusted, depressed, or guilty after overeating: Information not assessed due to time limitations. Will be reviewed at continuation of evaluation. THREE ASSOCIATED SYMPTOMS MET? Information not assessed due to time limitations. Will be reviewed at continuation of evaluation. C. Marked distress regarding binge eating is present: not applicable D. Binge eating occurs, on average, at least 1 days a week for three months: not applicable The patient reports 0 binge episodes per week for the past 12 months. E. The binge eating is not associated with the regular use of inappropriate compensatory behavior (i.e. purging, excessive exercise, etc.) and does not occur exclusively during the course of bulimia nervosa or anorexia nervosa.not applicable PATIENT MEETS ABOVE CRITERIA FOR BINGE EATING DISORDER: No: BES will be administered at continuation of evaluation. NIGHT EATING SYNDROME A. Demonstrates a significantly increased intake in the evening and/or nighttime, as evidenced by one or both of the following. 1. At least 25% of food is consumed after the evening meal: Yes 2. At least two episodes of nocturnal eating per week: No B. The clinical picture is characterized by three or more of the followin. Lack of desire to eat in the morning and/or breakfast is skipped four or more mornings per week: Yes 2. A strong urge to eat between dinner and sleep onset and/or during the night:Yes 3. Insomnia is present four or more nights per week (onset or maintenance): No 4. Belief one must eat to initiate or return to sleep: Yes 5. Mood is frequently depressed or worsens in the evening: Yes C. Marked distress or impairment around night eating is present: Yes D. Night eating has occurred for at least 3 months: Yes PATIENT MEETS ABOVE CRITERIA FOR NIGHT EATING SYNDROME: Yes--7 days a week MENTAL HEALTH HISTORY Information not assessed due to time limitations. Will be reviewed at continuation of evaluation. SUBSTANCE USE Information not assessed due to time limitations. Will be reviewed at continuation of evaluation. FAMILY OF ORIGIN Information not assessed due to time limitations. Will be reviewed at continuation of evaluation. MARITAL FAMILY/SIGNIFICANT RELATIONSHIPS Information not assessed due to time limitations. Will be reviewed at continuation of evaluation. EDUCATION/EMPLOYMENT Information not assessed due to time limitations. Will be reviewed at continuation of evaluation. CURRENT STRESSORS: Information not assessed due to time limitations. Will be reviewed at continuation of evaluation. COPING STRATEGIES Information not assessed due to time limitations. Will be reviewed at continuation of evaluation. LEISURE/EXERCISE Information not assessed due to time limitations. Will be reviewed at continuation of evaluation. SLEEP: Information not assessed due to time limitations. Will be reviewed at continuation of evaluation. MENTAL STATUS EXAMINATION: Appearance: wearing dress with colorful leggings; observed hair to be half blonde and half purple Eye contact: normal Rapport: average. Orientation: alert and oriented in all spheres (time, person, place, situation, object) Approach to evaluation/attitude toward examiner: cooperative Mood: with crying spells Affect: labile and tearful. Self worth: low. Body Image: Dissatisfied, possibly Distorted Suicidal/homicidal ideation: Pt denied suicidal/homicidal ideation, plan and intent. Recall/Memory: normal Attention: distractible Concentration: Scattered Speech: within normal limits with regard to rate, tone and volume Psychomotor activity: average. Thought process: circumstantiality. Abstract thinking: over elaborative. Thought content: preoccupied with body image Hallucinations/Illusi ons: none Intellectual functioning: average. Insight: fair Judgment: fair PROVISIONAL DIAGNOSTIC IMPRESSION Primary Diagnoses: Psychological Factors Affecting Morbid Obesity Night Eating Syndrome r/o depressive disorder r/o anxiety disorder r/o PTSD Personality Diagnoses: r/o Cluster B Traits/PD Global Assessment of Functionin Inadequate information IMPRESSIONS: 1) While the full evaluation was not completed due to time limitations, from the information gathered, pt does report compulsive graze eating all day and a strong emotional attachment to/connection with food. She also reported a significant history of traumatic experiences and depressive symptoms that significantly impact her life. She does present with high motivation and a history of making changes to diet and behavior. However, pt also reported consistent [id number] thought patterns, which are unhelpful when making lifelong change. A follow-up was set to complete evaluation and provide recommendations. BEST Start was offered, but pt works on Monday afternoons; individual BEST Start review will likely be recommended. TREATMENT PLAN AND RECOMMENDATIONS: 1) Follow-up to finish evaluation and receive recommendations. Tata Del Cid, Ph.D., Clinical Psychologist Tata Del Cid, PhD 10/31/2018 4:19 PM Signed Tata Del Cid, Ph.D., Clinical Psychologist [facility] [address] [place] [address], [address] [place] [address] PSYCHOLOGICAL TEST REPORT PATIENT: Austin Maza ( ) TEST ADMINISTERED: [place] Multiphasic Personality Inventory-2 Restructured Form (MMPI-2-RF) Binge Eating Scale (BES) DATE: ADMINISTERED: 10/31/2018 DATE REVIEWED: 10/31/2018 TIME REVIEWED: 45 minutes Nehemias CPT#: 16023 Psych testing evaluation, first hour [id number] Psych testing administration, 30 minutes [id number] Psych testing administration, each additional 30 minutes (1 unit) The patient completed the MMPI-2-RF and the BES (with interpretation in separate evaluation report) in the [facility] and was proctored by trained personnel. The automotive service writer was available for help with the testing and completed the subsequent interpretation and summary. Test completion took the patient approximately 60 minutes and the psychologist interpretation and report writing took an additional 45 minutes. Feedback was provided to patient, taking approximately 15 minutes. BACKGROUND INFORMATION: Ms. Maza is a 53 year old female seeking bariatric surgery referred by Surgery. She completed the MMPI-2-RF as part of a comprehensive evaluation. TEST RESULTS: Validity and Interpretation ? She verbalized an understanding of the purposes of the assessment. Ms. Maza responded to MMPI-2-RF test items with possible overreporting and underreporting. She also skipped items which rendered some scales unscorable. ? Specifically, patient responded to questions in an unusual pattern that is associated with non-credible memory complaints. This combination of responses may occur in individuals with significant emotional dysfunction, although it may also reflect exaggeration. Scores on the Cognitive Complaints scale should be interpreted with this in mind. ? She also presented herself in a very positive light by denying common faults and shortcomings that most people acknowledge. This level of virtuous presentation is uncommon but may, to some extent, reflect a background stressing traditional values. It may also reflect a desire to portray oneself in a positive light. Absence of elevation on substantive scales should be interpreted with caution, and elevated scores may underestimate the level of concerns measured by the scales. ? Finally, patient answered less than 90% of the questions on the Inefficacy scale, which rendered its results uninterpretable. She declined to answer the following items: ? "I have often lost out on things because I couldn't make up my mind soon enough." ? "Most people will use somewhat unfair means to gain profit or an advantage rather than to lose it." ? The resulting test protocol is possibly valid but should be interpreted with caution. Overall Functioning ? Based on her score profile, pt?s overall functioning generally reflects significant emotional distress (MARICRUZ = 65-79), no clinically significant thought dysfunction (THD < 65), and no significant behavioral dysfunction (BXD = 39-64). Specific Problem and Strength Areas ? Specifically, the patient profile reflects extreme feelings of sadness, dysphoria, and dissatisfaction with current life circumstances. Such individuals often feel overwhelmed with significant emotional turmoil. (RCd >= 80). Such individuals frequently ruminate and complain about depression or anxiety. They feel hopeless, pessimistic, sad, and insecure and evidence problems with coping, concentration, and low self-esteem. They are also at risk for suicidal ideation. While patient denied suicidal ideation, she did report experiencing depressive symptoms. ? Patient reported various negative emotional experiences including anxiety, anger, and fear (RC7 >=65). As such, individuals tend to be behaviorally constrained, ruminative over intrusive ideation, anger- and worry-prone, and stress-reactive. Highly self-critical, they also perceive others as overly critical. This finding is consistent with pt's report during the clinical interview; she reported being very self-critical and experiencing negative mood and cognitions. ? Patient also reported various unusual thought and perceptual processes (RC8 = 65-74). Such individuals engage in unrealistic thinking and experience thought disorganization. They believe themselves to have unusual sensory-perceptual abilities. It is unclear whether this finding is consistent with pt's self-report. She did present as somewhat scattered and reported being distractible. She did not endorse any perceptual abnormalities, and this will be explored with her on follow-up. Patient endorsed the following critical items related to aberrant experiences: ? "I often feel I can read other people's minds." ? "I have had very peculiar and strange experiences." I have never seen a vision." (answered 'false') I have had blank spells in which my activities were interrupted and I did not know what was going on around me." I have strange and peculiar thoughts." Sometimes I am sure that other people can tell what I am thinking." ? Patient's profile reflects a lack of positive emotional experiences, significant anhedonia, and lack of interest (RC2 >= 65). Such individuals are often pessimistic, socially introverted, and socially disengaged. They lack energy and display vegetative symptoms of depression. These findings are also in line with pt's self-reported symptoms of depression. ? Finally, patient's profile also reflects a below-average level of activation and engagement with patient's environment (RC9 < 39). Such individuals often exhibit a very low energy level, which is consistent with pt's report of significant fatigue. ? Specific areas of strength cannot be determined due to indications of possible under-reporting. Somatic/Cognitive Complaints ? The patient reports experiencing poor health and feeling weak or tired (T=65-79). Such individuals are preoccupied with poor health and likely to complain of sleep disturbance, fatigue, low energy, and sexual dysfunction. ? The patient reports a diffuse pattern of cognitive difficulties including memory problems, difficulties concentrating, intellectual limitations, and confusion (T>=81). Such individuals often complain of memory and concentration difficulties and have a low tolerance for frustration. Internalizing ? The patient reports lacking confidence and feeling useless (T>=70). Such individuals often feel inferior and insecure. They are also prone to rumination and self-disparaging thoughts. ? The patient reports an above-average level of stress and worry (T65-79). Such individuals tend to be worry-prone and stress-reactive, engaging in obsessive rumination. ? The patient reports being anger-prone (T65-79). Such individuals have problems with anger, irritability, and low frustration tolerance. They are likely to be argumentative, have temper tantrums, and hold grudges. ? There are no indications of historical or active suicidal ideation and/or attempts in this protocol. Externalizing ? There are no indications of externalizing dysfunction in this protocol. However, due to indications of possible under-reporting, these problems cannot be ruled out. ? The patient does not report significant past or current substance abuse. Interpersonal Functioning ? There is no evidence of interpersonal dysfunction; however, problems cannot be ruled out due to possible under-reporting. Interests ? Patient reports an average interest in activities or occupations of an aesthetic or literary nature (e.g., writing, music, theater). ? Patient reports little to no interest in activities or occupations of a mechanical or physical nature (e.g., fixing and building things, the outdoors, sports) (T<39). Personality ? The patient reports overly constrained behavior. ? The patient reports various negative emotional experiences including anxiety, insecurity, and worry. Such individuals tend to experience intrusive ideation and be self-critical, guilt-prone, and behaviorally inhibited as a result. Diagnostic Considerations Ms. Maza's test results indicate the following possible diagnoses for further consideration: ? Anger-related disorders ? Anxiety related disorders ? Depression-related disorder ? Disorders involving excessive stress and worry such as OCD ? Disorders manifesting psychotic symptoms ? Personality disorders manifesting unusual thoughts and perceptions ? Somatoform disorder, if physical origin of somatic complaints has been ruled out Treatment Considerations Areas for Further Evaluation ? Explore origin of malaise complaints and cognitive complaints, bearing in mind possible overreporting. This may require a neuropsychological evaluation. ? Explore need for antidepressant medication. Psychotherapy Process Issues ? Serious emotional difficulties may motivate pt for treatment ? Impaired thinking may disrupt treatment ? Malaise may impede willingness or ability to engage in treatment Possible Targets for Treatment ? Anger management ? Anhedonia ? Dysfunctional negative emotions ? Low self-esteem and other manifestations of self-doubt ? Psychological distress as an initial target ? Stress management and excessive worry and rumination IMPRESSIONS: The above test results are somewhat consistent with pt's presentation during clinical interview. Patient did report symptoms of depression, including fatigue that interferes in her daily life. She also reported experiencing some problems with attention/concentrati on and memory. However, findings indicating perceptual abnormalities and thought dysfunction are not consistent with her self-report, and these findings will be explored with her at follow-up. In addition, the level of thought dysfunction shown in the MMPI-2-RF results appears higher than the level pt reported during the clinical interview. This may be due to exaggeration or a "cry for help." Based on the information gathered through the interview and testing process: 1. Diagnostic considerations include Psychological Factors related to Morbid Obesity. 2. Pt appears to be a(n) indeterminate candidate for surgery at this time due to incomplete evaluation. PLAN: 1) Follow-up in 2-6 weeks to continue evaluation and receive recommendations. This report is not intended for forensic purposes. Tata Del Cid, Ph.D., Clinical Psychologist Patient Name: Austin Maza [facility] #: [id number] Allergies As of Date: 10/31/2018 Noted Allergy Reaction PENICILLINS 07/12/2005 Date Reviewed: 10/31/2018 Reviewed by: Shannan Barrientos - Fully Assessed Primary Visit Diagnosis:Psychologic al factors affecting morbid obesity (HCC) [E66.01, F54] Other Visit Diagnosis:Other disorder of eating [F50.89] Prescriptions as of 10/31/2018 Sig: CYCLOBENZAPRINE 5 MG TABLET Take 5 mg by mouth three time* BUPROPION XL 300 MG 24 HR TAB Take 300 mg by mouth once abhay* BIOTIN 5,000 MCG DISINTEGRATI* Take by mouth once daily. BLACK COHOSH 200 MG CAPSULE Take by mouth once daily. IBUPROFEN ORAL Take by mouth as needed. SENNA HERBAL LAXATIVE ORAL Take by mouth as needed. HYDROCHLOROTHIAZIDE 12.5 MG T* Take 12.5 mg by mouth once da* ECHINACEA 1X ORAL Take by mouth. Problem List As Of Date 10/31/2018 Noted Resolved VARICOSE VEINS WITH OTHER COMPLICATIONS [I83.89*INVALID FOR* More... Acute pharyngitis [J02.9] INVALID FOR*08/30/2012 Neuroma of foot [D36.13] INVALID FOR* More... Lumbar radiculopathy, acute [M54.16] INVALID FOR* Follow-up and Disposition History Recorded Encounter Status:Closed by TATA DEL CID PHD on 10/31/18 [facility] CNOV Office Visit (AGGENS4) AUSTIN MAZA ([id number]) 1965 F Date Time Provider Department 10/31/18 10:00 AM SHANNAN BARRIENTOSENS4 During your visit today, we recorded the following information about you: Pulse Blood pressure Weight Height 67/minute 113/58 107.5 kg 1.6 m Shannan Barrientos APRN.CNP 10/31/2018 10:10 AM Signed Welcome to the first step towards your new healthy life! As we discussed, please review the bariatric Center program and contract. Review with the handouts that were given to an explained to include; the plate diet, food journal, follow-up schedule, bariatric patient flowsheet, and support group flyer with upcoming dates. Please incorporate efforts at eating 3 meals per day with each meal lasting approximately the longer than 30 minutes. Anything longer would be considered "grazing". Also, as recommended in incorporating exercise 4-5 times per week for 30 minutes. This will help you achieve your presurgical weight loss goal. Please attend educational class scheduled. Please schedule your appointment with our psychologist for your evaluation as directed. Please complete any additional orders and/or testing as directed by your provider. You will see us monthly for medically supervised weight loss and we'll progress you towards surgery. Shannan Barrientos APRN.CNP 11/14/2018 3:05 PM Signed BARIATRIC SURGERY NEW PATIENT CONSULTATION HISTORY AND PHYSICAL Date: October 31, 2018 Time: 10:10 AM Name: Austin Maza CHIEF COMPLAINT: This is a 53 year old female with morbid obesity (Body mass index is 41.98 kg/m?.) who presents to clinic for consideration of bariatric surgery. HISTORY OF PRESENTING ILLNESS: Austin Maza presents today for consideration of bariatric surgery. Austin Maza has suffered from weight problems majority of her lifespan and has numerous attempts at weight loss. This individual is has lost weight through diet and exercise attempts, however ultimately regained this weight. It should be noted, throughout the encounter she was in a significant degree of emotional distress asking numerous questions during the encounter as well as demanding several things were accomplished for her today. It was very difficult to obtain an accurate medical history given emotional distress and in her directions with questioning. Nonetheless, she does suffer from severe osteoarthritis frequent NSAIDs as well as chronic venous insufficiency and leg edema. She denies hypertension, hyperlipidemia, type 2 diabetes, further cardiac and her pulmonary disease. Denies GERD, nausea or vomiting, abdominal pain Denies DVT and RPE She does suffer from depression, as noted above, she exhibited significant emotional distress in the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 BES will be administered at continuation of evaluation. NIGHT EATING SYNDROME A. Demonstrates a significantly increased intake in the evening and/or nighttime, as evidenced by one or both of the following. 1. At least 25% of food is consumed after the evening meal: Yes 2. At least two episodes of nocturnal eating per week: No B. The clinical picture is characterized by three or more of the followin. Lack of desire to eat in the morning and/or breakfast is skipped four or more mornings per week: Yes 2. A strong urge to eat between dinner and sleep onset and/or during the night:Yes 3. Insomnia is present four or more nights per week (onset or maintenance): No 4. Belief one must eat to initiate or return to sleep: Yes 5. Mood is frequently depressed or worsens in the evening: Yes C. Marked distress or impairment around night eating is present: Yes D. Night eating has occurred for at least 3 months: Yes PATIENT MEETS ABOVE CRITERIA FOR NIGHT EATING SYNDROME: Yes--7 days a week MENTAL HEALTH HISTORY Information not assessed due to time limitations. Will be reviewed at continuation of evaluation. SUBSTANCE USE Information not assessed due to time limitations. Will be reviewed at continuation of evaluation. FAMILY OF ORIGIN Information not assessed due to time limitations. Will be reviewed at continuation of evaluation. MARITAL FAMILY/SIGNIFICANT RELATIONSHIPS Information not assessed due to time limitations. Will be reviewed at continuation of evaluation. EDUCATION/EMPLOYMENT Information not assessed due to time limitations. Will be reviewed at continuation of evaluation. CURRENT STRESSORS: Information not assessed due to time limitations. Will be reviewed at continuation of evaluation. COPING STRATEGIES Information not assessed due to time limitations. Will be reviewed at continuation of evaluation. LEISURE/EXERCISE Information not assessed due to time limitations. Will be reviewed at continuation of evaluation. SLEEP: Information not assessed due to time limitations. Will be reviewed at continuation of evaluation. MENTAL STATUS EXAMINATION: Appearance: wearing dress with colorful leggings; observed hair to be half blonde and half purple Eye contact: normal Rapport: average. Orientation: alert and oriented in all spheres (time, person, place, situation, object) Approach to evaluation/attitude toward examiner: cooperative Mood: with crying spells Affect: labile and tearful. Self worth: low. Body Image: Dissatisfied, possibly Distorted Suicidal/homicidal ideation: Pt denied suicidal/homicidal ideation, plan and intent. Recall/Memory: normal Attention: distractible Concentration: Scattered Speech: within normal limits with regard to rate, tone and volume Psychomotor activity: average. Thought process: circumstantiality. Abstract thinking: over elaborative. Thought content: preoccupied with body image Hallucinations/Illusi ons: none Intellectual functioning: average. Insight: fair Judgment: fair PROVISIONAL DIAGNOSTIC IMPRESSION Primary Diagnoses: Psychological Factors Affecting Morbid Obesity Night Eating Syndrome r/o depressive disorder r/o anxiety disorder r/o PTSD Personality Diagnoses: r/o Cluster B Traits/PD Global Assessment of Functionin Inadequate information IMPRESSIONS: 1) While the full evaluation was not completed due to time limitations, from the information gathered, pt does report compulsive graze eating all day and a strong emotional attachment to/connection with food. She also reported a significant history of traumatic experiences and depressive symptoms that significantly impact her life. She does present with high motivation and a history of making changes to diet and behavior. However, pt also reported consistent [id number] thought patterns, which are unhelpful when making lifelong change. A follow-up was set to complete evaluation and provide recommendations. BEST Start was offered, but pt works on Monday afternoons; individual BEST Start review will likely be recommended. TREATMENT PLAN AND RECOMMENDATIONS: 1) Follow-up to finish evaluation and receive recommendations. Tata Del Cid, Ph.D., Clinical Psychologist [facility] PROGRESS HNO ID: [id number] Author: Shannan Barrientos Service: ? Author Type: Nurse Practitioner Type: Progress Notes Filed: 11/14/2018 3:05 PM Note Text: BARIATRIC SURGERY NEW PATIENT CONSULTATION HISTORY AND PHYSICAL Date: October 31, 2018 Time: 10:10 AM Name: Austin Maza CHIEF COMPLAINT: This is a 53 year old female with morbid obesity (Body mass index is 41.98 kg/m?.) who presents to clinic for consideration of bariatric surgery. HISTORY OF PRESENTING ILLNESS: Austin Maza presents today for consideration of bariatric surgery. Austin Maza has suffered from weight problems majority of her lifespan and has numerous attempts at weight loss. This individual is has lost weight through diet and exercise attempts, however ultimately regained this weight. It should be noted, throughout the encounter she was in a significant degree of emotional distress asking numerous questions during the encounter as well as demanding several things were accomplished for her today. It was very difficult to obtain an accurate medical history given emotional distress and in her directions with questioning. Nonetheless, she does suffer from severe osteoarthritis frequent NSAIDs as well as chronic venous insufficiency and leg edema. She denies hypertension, hyperlipidemia, type 2 diabetes, further cardiac and her pulmonary disease. Denies GERD, nausea or vomiting, abdominal pain Denies DVT and RPE She does suffer from depression, as noted above, she exhibited significant emotional distress in the office created quite a barrier towards our discussion and recommendations PAST MEDICAL HISTORY Diagnosis Date - Lesion of plantar nerve - Obesity (BMI 30-39.9) - Stasis edema from leaky veins - Varicose veins of other sites PAST SURGICAL HISTORY Procedure Laterality Date - KERATOMILEUSIS LASIK ENHANCEMENT - LAMINECTOMY,LUMBAR 2014 L4-L-5 - LIGATE/STRIP LONG SAPH VEIN BELW SEP-FEM JUNC 08/29/06 LEFT - PAST SURGICAL HISTORY OF 2000; 2001 miscarriage x2 - PAST SURGICAL HISTORY OF Excision neuroma right foot - REMOVAL GALLBLADDER 1998 - REMOVAL OF TONSILS,<12 Y/O - REPAIR UMBILICAL MELI,<5Y/O,REDUC 1998 Hernia repair, umbilical - REVISE SECONDARY VARICOSITY 09/01/05 Varicose Vein Surgery - STAB PHELBECT > 20 INCISIONS 08/29/06 - UNL VAGINAL SALPINGO-OOPHORECTOMY - VAGINAL HYSTERECTOMY 2006 Hysterectomy, vaginal FAMILY HISTORY Problem Relation Age of Onset - Heart Father heart disease - other (MS [Other]) Maternal Grandmother - Cancer Paternal Grandfather unknown - Breast Cancer Mother - Arthritis Brother - Heart Paternal Grandmother - Heart Paternal Uncle - Heart Paternal Aunt - Alcohol/Drug Maternal Grandfather - Heart Paternal Grandfather SOCIAL HISTORY: Social History Tobacco Use - Smoking status: Never Smoker - Smokeless tobacco: Never Used Substance Use Topics - Alcohol use: No - Drug use: No MEDICATIONS: Prior to Admission Medications: cyclobenzaprine (FLEXERIL) 5 mg tablet Take 5 mg by mouth three times daily as needed. buPROPion XL (WELLBUTRIN XL) 300 mg 24 hr tablet Take 300 mg by mouth once daily. biotin 5,000 mcg ODT Take by mouth once daily. Black Cohosh 200 mg cap Take by mouth once daily. IBUPROFEN ORAL Take by mouth as needed. sennosides (SENNA HERBAL LAXATIVE ORAL) Take by mouth as needed. hydroCHLOROthiazide (HYDRODIURIL, ESIDRIX) 12.5 mg tablet Take 12.5 mg by mouth once daily. ECHINACEA 1X ORAL Take by mouth. ALLERGIES Allergen Reactions - Penicillins REVIEW OF SYSTEMS: GENERAL: No weight loss, malaise or fevers HEENT: Negative for frequent or significant headaches, No changes in hearing or vision, no nose bleeds or other nasal problems NECK: Negative for lumps, goiter, pain and significant neck swelling RESPIRATORY: Negative for cough, hemoptysis, wheezing, COPD, dyspnea or shortness of breath CARDIOVASCULAR: Leg swelling GI: No nausea, vomiting, or diarrhea and No heartburn or reflux symptoms : No history of dysuria, frequency or incontinence, No difficulty urinating, nocturia > 1 time per night or hematuria MUSCULOSKELETAL: joint pain or swelling SKIN: Negative for lesions, rash, and itching PSYCH:See HPI HEMATOLOGY/LYMPHOLOGY : Negative for prolonged bleeding, bruising easily or swollen nodes ENDOCRINE: Negative for cold or heat intolerance, polyuria, polydipsia and goiter PHYSICAL EXAM: BP 113/58 Pulse 67 Ht 160 cm (5' 3") Wt 107.5 kg (237 lb) BMI 41.98 kg/m? GENERAL APPEARANCE: Pleasant, interacts appropriately and in no apparent distress. Appropriately groomed ENT: Oral mucosa pink without lesions/ulcerations, dentition intact. NECK: Supple without lymphadenopathy or thyromegaly ABDOMEN: Obese, soft, non-tender, no masses, no palpable hernia. MUSCULOSKELETAL: No joint deformities, good range of motion spine, hips, knees, and ankles. SKIN: Skin of normal texture, temperature without rashes/lesions/ulcera tions. PSYCH: Oriented to person, place, time; appropriate insight and judgement. Appropriate affect. Diagnostic Tests Reviewed for Today's Visit No new labs IMPRESSION AND PLAN: Austin aMza is a 53 year old female with the following diagnosis and co-morbidities: Body mass index is 41.98 kg/m?. This patient does meet the criteria for a surgical weight loss procedure according to NIH guidelines. Time was spent discussing both surgical options as well as she was provided with estimations in terms of percent excess weight loss. Procedure she is interested in: sLEEVE gastrectomy, however ultimately need to be cleared by psychology ? Austin Maza complete a 3month trial of diet and exercise. Therefore, Austin Maza was given a 10 pound weight loss goal, received 10-15 minutes of dietary counseling in office today, as well as was scheduled for our shared education class. She will also need to be cleared by psychology. 1. Obesity, Class III, BMI 40-49.9 (morbid obesity) (HCC) - ICD9: 278.01, ICD10: E66.01 (primary diagnosis) Requested outside sleep study 2. Arthritis - ICD9: 716.90, ICD10: M19.90 3. Hx of hernia repair - ICD9: V45.89, ICD10: Z98.890, Z87.19 Requested records Our psychologist was available to see Austin Maza today, we will determine further follow-up after recommendations are received from psychology Shannan Barrientos APRN.CHEMIST Of the 60 minutes spent with the patient, >50% counseling and or coordinating care. This note was generated using voice recognition technology and may contain grammatical errors. Normal [facility] Lab Report: Thyroid Stim Imm unoglobon 04-06-2017 TSI [id number] 62 % Invalid Interpretation Code 0-139 [facility] Work Phone: Lab Report: Anti-Mitochondri al ABon 03-31-2017 MITOCHN AB <20.0 Units Invalid Interpretation Code 0.0-20.0 [facility] Work Phone: Lab Report: Vitamin B12on Cobalamins (Vitamin B12) 567 pg/mL Invalid Interpretation Code 211-911 [facility] Work Phone: Lab Report: Folates, (Folic Acid)on 03-30-2017 Folate 23.10 ng/mL Invalid Interpretation Code 3.1-55.4 [facility] Work Phone: Lab Report: Free T3on 2016 Triiodothyronine (T3) free 2.9 pg/mL Invalid Interpretation Code 2.18-3.98 [facility] Work Phone: Lab Report: Iron Binding Cap acity,Totalon 03-30-2017 iron binding capacity, total 418 ug/dL Invalid Interpretation Code 250-450 [facility] Work Phone: Lab Report: T4 Free Directon 03-30-2017 Thyroxine (T4) free 1.00 ng/dL Invalid Interpretation Code 0.76-1.46 [facility] Work Phone: Lab Report: Thyroid Stim Hor ujdy (TSH)on 03-30-2017 Thyroid stimulating hormone (TSH) 2.14 u[iU]/mL Invalid Interpretation Code 0.358-3.74 [facility] Work Phone: Vital Signs Date Time Vital Sign Value Performing Clinician Facility 02-05-2025 13:33-0400 Body height 160 cm Sooqini DO Work Phone: [facility] 02-05-2025 13:33-0400 Body mass index (BMI) [Ratio] 39.15 kg/m2 Sooqini DO Work Phone: [facility] 02-05-2025 13:33-0400 Body weight 100.25 kg Sooqini DO Work Phone: [facility] 02-05-2025 13:33-0400 Diastolic blood pressure 78 mm[Hg] Yomi Lacy DO Work Phone: [facility] 02-05-2025 13:33-0400 Heart rate 84 /min Yomi Lacy DO Work Phone: [facility] 02-05-2025 13:33-0400 Systolic blood pressure 110 mm[Hg] Yomi Lacy DO Work Phone: [facility] 06-26-2024 13:25-0500 Body height 160 cm Nirav Ballard MD Work Phone: [facility] 06-26-2024 13:25-0500 Body mass index (BMI) [Ratio] 39.15 kg/m2 Nirav Ballard MD Work Phone: [facility] 06-26-2024 13:25-0500 Body weight 100.25 kg Nirav Ballard MD Work Phone: [facility] 06-26-2024 13:25-0500 Diastolic blood pressure 80 mm[Hg] Nirav Ballard MD Work Phone: [facility] 06-26-2024 13:25-0500 Heart rate 74 /min Nirav Ballard MD Work Phone: [facility] 06-26-2024 13:25-0500 SaO2% (BldA) [Mass fraction] 96 % Nirav Ballard MD Work Phone: [facility] 06-26-2024 13:25-0500 Systolic blood pressure 121 mm[Hg] Nirav Ballard MD Work Phone: [facility] 06-21-2024 14:39-0500 Body height 160 cm Anel Lui MD Work Phone: [facility] 06-21-2024 14:39-0500 Body mass index (BMI) [Ratio] 37.91 kg/m2 Anel Lui MD Work Phone: [facility] 06-21-2024 14:39-0500 Body weight 97.07 kg Anel Lui MD Work Phone: [facility] 06-21-2024 14:39-0500 Diastolic blood pressure 75 mm[Hg] Anel Lui MD Work Phone: [facility] 06-21-2024 14:39-0500 Heart rate 57 /min Anel Lui MD Work Phone: [facility] 06-21-2024 14:39-0500 Systolic blood pressure 135 mm[Hg] Anel Lui MD Work Phone: [facility] 04-17-2024 11:16-0500 Body height 162.6 cm Siria Grossman CNP Work Phone: [facility] 04-17-2024 11:16-0500 Body mass index (BMI) [Ratio] 36.05 kg/m2 Siria Grossman CNP Work Phone: [facility] 04-17-2024 11:16-0500 Body weight 95.25 kg Siria Grossman CNP Work Phone: [facility] 02-29-2024 13:26-0400 Body height 160 cm Yomi Lacy DO Work Phone: [facility] 02-29-2024 13:26-0400 Body mass index (BMI) [Ratio] 37.41 kg/m2 Yomi Lacy DO Work Phone: [facility] 02-29-2024 13:26-0400 Body weight 95.8 kg Yomi Lacy DO Work Phone: [facility] 02-29-2024 13:26-0400 Diastolic blood pressure 72 mm[Hg] Yomi Lacy DO Work Phone: [facility] 02-29-2024 13:26-0400 Heart rate 64 /min Yomi Lacy DO Work Phone: [facility] 02-29-2024 13:26-0400 Systolic blood pressure 122 mm[Hg] Yomi Lacy DO Work Phone: [facility] 01-20-2024 12:15-0400 Body height 160 cm Gil Haley PA-C Work Phone: 0(771)317-407750 [place] [address] 01-20-2024 12:15-0400 Body mass index (BMI) [Ratio] 36.31 kg/m2 Gil Haley PA-C Work Phone: 6(450)569-750422 [place] [address] 01-20-2024 12:15-0400 Body temperature 98.71 [degF] Gil Haley PA-C Work Phone: 7(882)708-724922 [place] [address] 01-20-2024 12:15-0400 Body weight 92.99 kg Gil Haley PA-C Work Phone: 9(756)780-558822 [place] [address] 01-20-2024 12:15-0400 Diastolic blood pressure 81 mm[Hg] Gil Haley PA-C Work Phone: 6(056)071-307722 [place] [address] 01-20-2024 12:15-0400 Heart rate 66 /min Gil Haley PA-C Work Phone: 6(687)433-495822 [place] [address] 01-20-2024 12:15-0400 Respiratory rate 16 /min Gil Haley PA-C Work Phone: 5(186)670-365822 [place] [address] 01-20-2024 12:15-0400 SaO2% (BldA) [Mass fraction] 98 % Gil Haley PA-C Work Phone: 8(396)700-210522 [place] [address] 01-20-2024 12:15-0400 Systolic blood pressure 127 mm[Hg] Gil Haley PA-C Work Phone: 5(581)903-901322 [place] [address] 08-17-2023 13:46-0400 Body mass index (BMI) [Ratio] 36.38 kg/m2 Yomi Lacy DO Work Phone: 0(046)576-515783 [place] [address] 08-17-2023 13:46-0400 Body weight 93.17 kg Yomi Lacy DO Work Phone: 8(550)306-709012 [place] [address] 08-17-2023 13:46-0400 Diastolic blood pressure 76 mm[Hg] Yomi Lacy DO Work Phone: 1(660)020-160283 [place] [address] 08-17-2023 13:46-0400 Heart rate 86 /min Yomi Lacy DO Work Phone: 8(607)462-836583 [place] [address] 08-17-2023 13:46-0400 SaO2% (BldA) [Mass fraction] 98 % Yomi Lacy DO Work Phone: 3(139)689-387483 [place] [address] 08-17-2023 13:46-0400 Systolic blood pressure 118 mm[Hg] Yomi Lacy DO Work Phone: 4(667)486-353412 [place] [address] 05-18-2023 14:29-0500 Body height 160 cm Yomi Lacy DO Work Phone: 4(676)150-171012 [place] [address] 05-18-2023 14:29-0500 Body mass index (BMI) [Ratio] 37.7 kg/m2 Yomi Lacy DO Work Phone: 0(050)886-820912 [place] [address] 05-18-2023 14:29-0500 Body weight 96.53 kg Yomi Lacy DO Work Phone: 0(373)112-981912 [place] [address] 05-18-2023 14:29-0500 Diastolic blood pressure 80 mm[Hg] Yomi Lacy DO Work Phone: 4(514)521-678312 [place] [address] 05-18-2023 14:29-0500 Heart rate 64 /min Yomi Lacy DO Work Phone: 2(936)386-083912 [place] [address] 05-18-2023 14:29-0500 Systolic blood pressure 112 mm[Hg] Yomi Lacy DO Work Phone: 1(043)966-823312 [place] [address] 04-17-2023 08:49-0500 Body height 160 cm Yomi Lacy DO Work Phone: 6(469)284-958812 [place] [address] 04-17-2023 08:49-0500 Body mass index (BMI) [Ratio] 37.84 kg/m2 Yomi Lacy DO Work Phone: [facility] 04-17-2023 08:49-0500 Body weight 96.89 kg Yomi Lacy DO Work Phone: [facility] 04-17-2023 08:49-0500 Diastolic blood pressure 72 mm[Hg] Yomi Lacy DO Work Phone: [facility] 04-17-2023 08:49-0500 Heart rate 64 /min Yomi Lacy DO Work Phone: [facility] 04-17-2023 08:49-0500 Systolic blood pressure 116 mm[Hg] Oymi Lacy DO Work Phone: [facility] 01-05-2023 13:31-0400 Body height 160 cm Ana Argonia DO Work Phone: [facility] 01-05-2023 13:31-0400 Body mass index (BMI) [Ratio] 35.85 kg/m2 Ana Argonia DO Work Phone: [facility] 01-05-2023 13:31-0400 Body weight 91.81 kg Ana Argonia DO Work Phone: [facility] 01-05-2023 13:31-0400 Diastolic blood pressure 76 mm[Hg] Ana Argonia DO Work Phone: [facility] 01-05-2023 13:31-0400 Heart rate 63 /min Ana Argonia DO Work Phone: [facility] 01-05-2023 13:31-0400 SaO2% (BldA) [Mass fraction] 98 % Ana Argonia DO Work Phone: [facility] 01-05-2023 13:31-0400 Systolic blood pressure 130 mm[Hg] Ana Argonia DO Work Phone: [facility] 12-01-2022 11:00-0400 Body height 160 cm Ana Argonia DO Work Phone: [facility] 12-01-2022 11:00-0400 Body mass index (BMI) [Ratio] 35.96 kg/m2 Ana Argonia DO Work Phone: [facility] 12-01-2022 11:00-0400 Body weight 92.08 kg Ana Argonia DO Work Phone: [facility] 12-01-2022 11:00-0400 Diastolic blood pressure 76 mm[Hg] Ana Argonia DO Work Phone: [facility] 12-01-2022 11:00-0400 Heart rate 70 /min Ana Argonia DO Work Phone: [facility] 12-01-2022 11:00-0400 SaO2% (BldA) [Mass fraction] 98 % Ana Argonia DO Work Phone: [facility] 12-01-2022 11:00-0400 Systolic blood pressure 124 mm[Hg] Ana Argonia DO Work Phone: [facility] 07-27-2022 14:09-0400 Body height 160 cm Yomi Lacy DO Work Phone: [facility] 07-27-2022 14:09-0400 Body mass index (BMI) [Ratio] 35.92 kg/m2 Yomi Lacy DO Work Phone: [facility] 07-27-2022 14:09-0400 Body weight 91.99 kg Yomi Lacy DO Work Phone: [facility] 07-27-2022 14:09-0400 Diastolic blood pressure 80 mm[Hg] Ymoi Lacy DO Work Phone: [facility] 07-27-2022 14:09-0400 Heart rate 76 /min Yomi Lacy DO Work Phone: [facility] 07-27-2022 14:09-0400 Systolic blood pressure 126 mm[Hg] Yomi Lacy DO Work Phone: [facility] 03-28-2022 15:56-0500 Body height 160.02 cm DO YOMI LACY Work Phone: [facility] Work Phone: 03-28-2022 15:56-0500 Body mass index (BMI) [Ratio] 34.5 kg/m2 DO YOMI LACY Work Phone: [facility] Work Phone: 03-28-2022 15:56-0500 Body temperature 98.3 [degF] DO YOMI LACY Work Phone: [facility] Work Phone: 03-28-2022 15:56-0500 Body weight 88.45 kg DO YOMI LACY Work Phone: [facility] Work Phone: 03-28-2022 15:56-0500 Diastolic blood pressure 83 mm[Hg] DO YOMI LACY Work Phone: [facility] Work Phone: 03-28-2022 15:56-0500 Heart rate 83 /min DO YOMI LACY Work Phone: [facility] Work Phone: 03-28-2022 15:56-0500 Respiratory rate 16 /min DO YMOI LACY Work Phone: [facility] Work Phone: 03-28-2022 15:56-0500 SaO2% (BldA) [Mass fraction] 99 % DO YOMI LACY Work Phone: [facility] Work Phone: 03-28-2022 15:56-0500 Systolic blood pressure 129 mm[Hg] DO YOMI LACY Work Phone: [facility] Work Phone: 02-17-2022 13:00-0400 Body temperature 98.4 [degF] Cuauhtemoc Ortega MD Work Phone: [facility] 02-17-2022 13:00-0400 Heart rate 66 /min Cuauhtemoc Ortega MD Work Phone: [facility] 02-17-2022 13:00-0400 Respiratory rate 11 /min Cuauhtemoc Ortega MD Work Phone: [facility] 02-17-2022 13:00-0400 SaO2% (BldA) [Mass fraction] 100 % Cuauhtemoc Ortega MD Work Phone: [facility] 02-17-2022 12:40-0400 Diastolic blood pressure 80 mm[Hg] Cuauhtemoc Ortega MD Work Phone: [facility] 02-17-2022 12:40-0400 Systolic blood pressure 106 mm[Hg] Cuauhtemoc Ortega MD Work Phone: [facility] 02-17-2022 06:05-0400 Body height 161.3 cm Cuauhtemoc Ortega MD Work Phone: [facility] 02-17-2022 06:05-0400 Body mass index (BMI) [Ratio] 34.9 kg/m2 Cuauhtemoc Ortega MD Work Phone: [facility] 02-17-2022 06:05-0400 Body weight 90.8 kg Cuauhtemoc Ortega MD Work Phone: [facility] 02-02-2022 14:15-0400 Body height 160.02 cm Yomi A Lacy Work Phone: [facility] 205 DO Work Phone: 02-02-2022 14:15-0400 Body mass index (BMI) [Ratio] 35.78 kg/m2 Yomi A Lacy Work Phone: [facility] 205 DO Work Phone: 02-02-2022 14:15-0400 Body surface area Derived from formula 1.94 m2 Yomi A Lacy Work Phone: [facility] 205 DO Work Phone: 02-02-2022 14:15-0400 Body weight 91.63 kg Yomi A Lacy Work Phone: [facility] 205 DO Work Phone: 02-02-2022 14:15-0400 Diastolic blood pressure 74 mm[Hg] Yomi A Lacy Work Phone: [facility] 205 DO Work Phone: 02-02-2022 14:15-0400 Heart rate 64 /min Yomi A Lacy Work Phone: [facility] 205 DO Work Phone: 02-02-2022 14:15-0400 Systolic blood pressure 114 mm[Hg] Yomi A Lacy Work Phone: [facility] 205 DO Work Phone: 10-20-2021 08:58-0400 Body height 160.02 cm Yomi A Lacy Work Phone: [facility] 205 DO Work Phone: 10-20-2021 08:58-0400 Body mass index (BMI) [Ratio] 37.09 kg/m2 Yomi A Lacy Work Phone: [facility] 205 DO Work Phone: 10-20-2021 08:58-0400 Body surface area Derived from formula 1.97 m2 Yomi A Lacy Work Phone: [facility] 205 DO Work Phone: 10-20-2021 08:58-0400 Body weight 94.97 kg Yomi A Lacy Work Phone: [facility] 205 DO Work Phone: 10-20-2021 08:58-0400 Diastolic blood pressure 74 mm[Hg] Yomi A Lacy Work Phone: [facility] 205 DO Work Phone: 10-20-2021 08:58-0400 Heart rate 64 /min Yomi A Lacy Work Phone: [facility] 205 DO Work Phone: 10-20-2021 08:58-0400 SaO2% (BldA) [Mass fraction] 94 % Yomi A Lacy Work Phone: [facility] 205 DO Work Phone: 10-20-2021 08:58-0400 Systolic blood pressure 118 mm[Hg] Yomi A Lacy Work Phone: [place] [address] DO Work Phone: 10-01-2021 16:15-0400 Body height 162.56 cm Kathi Perera Work Phone: [facility] Work Phone: 10-01-2021 16:15-0400 Body mass index (BMI) [Ratio] 35.75 kg/m2 Kathi Perera Work Phone: [facility] Work Phone: 10-01-2021 16:15-0400 Body surface area Derived from formula 1.99 m2 Kathi Perera Work Phone: [facility] Work Phone: 10-01-2021 16:15-0400 Body weight 94.46 kg Kathi Camachod Work Phone: [facility] Work Phone: 10-01-2021 16:15-0400 Diastolic blood pressure 70 mm[Hg] Kathi Colon Cindi Work Phone: [facility] Work Phone: 10-01-2021 16:15-0400 Heart rate 64 /min Kathi Colon [place] Work Phone: [facility] Work Phone: 10-01-2021 16:15-0400 Systolic blood pressure 134 mm[Hg] Kathi Colon Cindi Work Phone: [facility] Work Phone: 03-03-2021 15:53-0400 Body height 160 cm Ag Coles Other Phone: [facility] 03-03-2021 15:53-0400 Body temperature 98.06 [degF] Ag Coles Other Phone: [facility] 03-03-2021 15:53-0400 Diastolic blood pressure 83 mm[Hg] Ag Coles Other Phone: [facility] 03-03-2021 15:53-0400 Heart rate 74 /min Ag Coles Other Phone: [facility] 03-03-2021 15:53-0400 Respiratory rate 16 /min Ag Coles Other Phone: [facility] 03-03-2021 15:53-0400 SaO2% (BldA) [Mass fraction] 96 % Ag Coles Other Phone: [facility] 03-03-2021 15:53-0400 Systolic blood pressure 127 mm[Hg] Ag Coles Other Phone: [facility] 01-08-2021 16:33-0400 Body height 162.56 cm Goldie Leo Work Phone: [facility] Work Phone: 01-08-2021 16:33-0400 Body mass index (BMI) [Ratio] 36.9 kg/m2 Goldie Leo Work Phone: [facility] Work Phone: 01-08-2021 16:33-0400 Body surface area Derived from formula 2.02 m2 Goldie Leo Work Phone: [facility] Work Phone: 01-08-2021 16:33-0400 Body weight 97.52 kg Goldie Leo Work Phone: [facility] Work Phone: 01-08-2021 16:33-0400 Diastolic blood pressure 70 mm[Hg] Goldie Leo Work Phone: [facility] Work Phone: 01-08-2021 16:33-0400 Heart rate 72 /min Goldie Leo Work Phone: [facility] Work Phone: 01-08-2021 16:33-0400 Systolic blood pressure 110 mm[Hg] Goldie Leo Work Phone: [facility] Work Phone: 05-11-2020 14:25-0500 BMI (Body Mass Index) 43.47 kg/m2 Goldie Leo [facility] Work Phone: 05-11-2020 14:25-0500 Body Temperature 97.8 [degF] Goldie Leo [facility] Work Phone: 05-11-2020 14:25-0500 Body weight 111.13 kg Goldie Leo [facility] Work Phone: 05-11-2020 14:25-0500 BP Diastolic 78 mm[Hg] Goldie Leo [facility] Work Phone: 05-11-2020 14:25-0500 BP Systolic 112 mm[Hg] Goldie Leo [facility] Work Phone: 05-11-2020 14:25-0500 BSA (Body Surface Area) 2.11 m2 [facility] Work Phone: 05-11-2020 14:25-0500 Height 159.89 cm Goldie Leo [facility] Work Phone: 05-11-2020 14:25-0500 Pulse (Heart Rate) 77 /min [facility] Work Phone: 04-23-2020 14:34-0500 BMI (Body Mass Index) 43.12 kg/m2 [facility] Work Phone: 04-23-2020 14:34-0500 Body weight 110.22 kg Goldie Leo [facility] Work Phone: 04-23-2020 14:34-0500 BP Diastolic 78 mm[Hg] [facility] Work Phone: Comment on above: Location: [facility]; 04-23-2020 14:34-0500 BP Systolic 128 mm[Hg] Goldie Leo [facility] Work Phone: Comment on above: Location: [facility]; 04-23-2020 14:34-0500 BSA (Body Surface Area) 2.1 m2 Goldie Leo [facility] Work Phone: 04-23-2020 14:34-0500 Height 159.89 cm Goldie Leo [facility] Work Phone: 04-23-2020 14:34-0500 Pulse (Heart Rate) 72 /min [facility] Work Phone: 05-29-2019 12:16-0500 BMI (Body Mass Index) 42.34 kg/m2 [facility] Work Phone: 05-29-2019 12:16-0500 Body weight 108.41 kg [facility] Work Phone: 05-29-2019 12:16-0500 BP Diastolic 86 mm[Hg] [facility] Work Phone: Comment on above: Location: [facility]; 05-29-2019 12:16-0500 BP Systolic 132 mm[Hg] [facility] Work Phone: Comment on above: Location: E; 05-29-2019 12:16-0500 BSA (Body Surface Area) 2.09 m2 [facility] Work Phone: 05-29-2019 12:16-0500 Height 160.02 cm [facility] Work Phone: 05-29-2019 12:16-0500 Pulse (Heart Rate) 84 /min [facility] Work Phone: 02-01-2019 15:25-0400 BMI (Body Mass Index) 40.96 kg/m2 [facility] 02-01-2019 15:25-0400 Body weight 104.87 kg [facility] 02-01-2019 15:25-0400 BP Diastolic 86 mm[Hg] [facility] 02-01-2019 15:25-0400 BP Systolic 144 mm[Hg] [facility] 02-01-2019 15:25-0400 Height 160 cm [facility] 02-01-2019 15:25-0400 Pulse (Heart Rate) 66 /min [facility] 02-01-2019 15:25-0400 Pulse Oximetry 100 % [facility] 02-01-2019 14:15-0400 BMI (Body Mass Index) 40.96 kg/m2 [facility] 02-01-2019 14:15-0400 Body weight 104.87 kg [facility] 02-01-2019 14:15-0400 Height 160 cm [facility] 12-06-2017 14:17-0400 BMI (Body Mass Index) 36.9 kg/m2 Zahida [facility] 12-06-2017 14:17-0400 Body Temperature 99.61 [degF] Zahida [facility] 12-06-2017 14:17-0400 BP Diastolic 87 mm[Hg] Zahida [facility] 12-06-2017 14:17-0400 BP Systolic 134 mm[Hg] Zahida [facility] 12-06-2017 14:17-0400 Height 162.6 cm [facility] 12-06-2017 14:17-0400 Pulse (Heart Rate) 68 /min [facility] 12-06-2017 14:17-0400 Pulse Oximetry 96 % [facility] 12-06-2017 14:17-0400 Respiratory Rate 12 /min [facility] 12-06-2017 14:17-0400 Weight 97.52 kg [facility] Encounters Encounter Date Encounter Type Care Provider Facility Start: 02-05-2025 End: 02-05-2025 ambulatory [facility] Start: 02-05-2025 End: 02-05-2025 Encounter for general adult medical examination without abnormal findings [facility] Start: 02-05-2025 End: 02-05-2025 Patient encounter status Yomi Lacy Work Phone: [facility] Work Phone: Start: 02-05-2025 End: 02-05-2025 Periodic preventive med est patient 40-64yrs Yomi Lacy Work Phone: [facility] Comment on above: Routine general medi codey examination at a health care facility (Primary Dx); Encounter for screening mammogram for breast cancer; Chronic neck pain; Class 2 severe obesity due to excess calories with serious comorbidity and body mass index (BMI) of 39.0 to 39.9 in adult; Dyslipidemia Start: 01-28-2025 ambulatory Health Risk Assessment Facility:[facility] Start: 09-27-2024 End: 09-27-2024 Documentation procedure Bessy Joseph LPN [facility] Start: 08-23-2024 End: 08-27-2024 Refill Eve Fay [facility] Comment on above: Status post total le ft knee replacement (Primary Dx) Start: 08-23-2024 End: 08-23-2024 Postop follow up visit related to original px Marilou Bernstein CHEMIST Work Phone: [facility] Comment on above: Status post total le ft knee replacement (Primary Dx) Start: 08-19-2024 End: 08-19-2024 ambulatory [facility] Start: 08-15-2024 End: 08-28-2024 Refill Eve Fay INTERNET ARCHITECT [facility] Start: 08-14-2024 End: 08-14-2024 Refill Eve Fay [facility] Comment on above: Status post total le ft knee replacement (Primary Dx) Start: 08-13-2024 End: 08-13-2024 Refill Eve Fay [facility] Comment on above: Status post total le ft knee replacement (Primary Dx) Start: 08-07-2024 End: 08-07-2024 ambulatory [facility] Start: 08-05-2024 End: 08-05-2024 ambulatory [facility] Start: 08-02-2024 End: 08-02-2024 ambulatory [facility] Start: 07-31-2024 End: 07-31-2024 ambulatory [facility] Start: 07-29-2024 End: 07-29-2024 ambulatory [facility] Start: 07-22-2024 End: 07-22-2024 ambulatory [facility] Start: 07-19-2024 End: 07-19-2024 Postop follow up visit related to original px Anel Lui MD Work Phone: [facility] Comment on above: Status post total le ft knee replacement (Primary Dx) Start: 07-19-2024 End: 07-19-2024 Refill Bessy Joseph LPN [facility] Comment on above: Status post total le ft knee replacement (Primary Dx) Start: 07-17-2024 End: 07-17-2024 ambulatory [facility] Start: 07-15-2024 End: 07-15-2024 ambulatory [facility] Start: 07-12-2024 End: 07-12-2024 ambulatory [facility] Start: 07-11-2024 End: 07-11-2024 Documentation procedure Eve Fay LPN [facility] Comment on above: S/P total knee repla cement, left (Primary Dx) Start: 07-10-2024 End: 07-10-2024 ambulatory [facility] Start: 07-08-2024 End: 07-08-2024 ambulatory [facility] Start: 07-05-2024 End: 07-05-2024 ambulatory [facility] Start: 07-03-2024 End: 07-03-2024 ambulatory [facility] Start: 07-03-2024 End: 07-03-2024 Encounter for preprocedural laboratory examination [facility] Start: 06-26-2024 End: 06-26-2024 Office outpatient new 45 minutes Anel Lui MD Work Phone: [facility] Comment on above: Pre-operative cardio vascular examination (Primary Dx); Primary osteoarthritis of left knee Start: 06-26-2024 End: 06-26-2024 Patient encounter status Anel Lui MD Work Phone: [facility] Start: 06-26-2024 End: 06-26-2024 ambulatory NIRAV BALLARD [facility] Ambulatory Start: 06-26-2024 End: 06-26-2024 Encounter for preprocedural cardiovascular examination NIRAV BALLARD [facility] Ambulatory Start: 06-25-2024 ambulatory [facility] Start: 06-21-2024 End: 06-21-2024 Office outpatient visit 15 minutes Anel Lui MD Work Phone: [facility] Comment on above: Primary osteoarthrit is of left knee (Primary Dx) Start: 06-21-2024 End: 06-21-2024 ambulatory ANEL LUI [facility] Ambulatory Start: 06-14-2024 ambulatory Albert Sandoval y:[facility] Start: 06-14-2024 End: 06-14-2024 ambulatory Albert Ball Facility:[facility] Start: 06-06-2024 End: 06-10-2024 ambulatory ANEL LUI [facility] Start: 05-27-2024 End: 05-27-2024 ambulatory CLINTON EASTMANE Facility:[facility] Start: 05-22-2024 End: 05-22-2024 Admission to same day surgery center Anel Lui MD Work Phone: [facility] Comment on above: Primary osteoarthrit is of left knee (Primary Dx); Hypertension, unspecified type; Blood tests prior to treatment or procedure Start: 05-22-2024 End: 05-22-2024 Evaluation finding Anel Lui MD Work Phone: [facility] Start: 05-22-2024 End: 05-22-2024 ambulatory YOMI LACY Facility:[facility] Start: 05-02-2024 ambulatory SIRIA GROSSMAN [facility] Ambulatory Start: 04-17-2024 End: 04-17-2024 ambulatory NORA Beckham [facility] Start: 04-17-2024 End: 04-17-2024 Office outpatient new 30 minutes Yomi Lacy DO Work Phone: [facility] Comment on above: Primary osteoarthrit is of left knee (Primary Dx); Chronic pain of left knee; Status post right knee replacement Start: 04-15-2024 End: 04-16-2024 Orders Only Siria Grossman CHEMIST Work Phone: [facility] Comment on above: Left knee pain, unsp ecified chronicity (Primary Dx) Start: 03-29-2024 ambulatory [facility] Facility: [facility] Start: 02-29-2024 End: 02-29-2024 [facility] Ambulatory Start: 02-29-2024 End: 02-29-2024 Periodic preventive med est patient 40-64yrs Yomi A Lacy DO Work Phone: [facility] Comment on above: Chronic pain of left knee (Primary Dx); Encounter for screening mammogram for breast cancer; Palpitations; Dyslipidemia; Class 2 severe obesity due to excess calories with serious comorbidity and body mass index (BMI) of 37.0 to 37.9 in adult Start: 02-20-2024 ambulatory [facility] Facility: [facility] Start: 02-08-2024 End: 02-08-2024 ambulatory [facility] Facility:[facility] Start: 01-20-2024 End: 01-20-2024 Subsequent hospital visit by physician Danny Edmondson145 X-Ray [facility] Comment on above: Tenosynovitis of fin alice and hand Start: 01-20-2024 End: 01-20-2024 Patient encounter procedure Gil De Leon PA-C Work Phone: [facility] Comment on above: Tenosynovitis of fin alice and hand (Primary Dx) Start: 01-20-2024 End: 01-20-2024 ambulatory GIL DE LEON [facility] Start: 08-17-2023 End: 08-17-2023 Office outpatient visit 25 minutes Yomi A Lacy DO Work Phone: [facility] Comment on above: Palpitations (Primar y Dx); Class 2 severe obesity due to excess calories with serious comorbidity and body mass index (BMI) of 36.0 to 36.9 in adult ([facility]) Start: 06-22-2023 End: 06-22-2023 Subsequent hospital visit by physician Danny Banks 1 [facility] Comment on above: Screening for heart disease Start: 05-18-2023 End: 05-18-2023 Office outpatient visit 15 minutes Yomi A Lacy DO Work Phone: [facility] Comment on above: Palpitations (Primar y Dx); Screening for heart disease Start: 05-12-2023 End: 05-12-2023 ambulatory DO YOMI LACY Work Phone: [facility] Work Phone: Start: 05-12-2023 End: 05-12-2023 Patient encounter procedure DO YOMI LACY Work Phone: [facility]-Pulmonary Services/Neurology Work Phone: Start: 04-27-2023 Non-patient / Non-visit DO KENTRELL RICHARDITH LACY Work Phone: [facility] Start: 04-27-2023 End: 04-27-2023 ambulatory DO YOMI LACY Work Phone: [facility] Work Phone: Start: 04-27-2023 End: 04-27-2023 Patient encounter procedure [facility]Cardiovascul [facility] Services Work Phone: Start: 04-24-2023 End: 04-24-2023 ambulatory [facility] Work Phone: Start: 04-24-2023 End: 04-24-2023 Patient encounter procedure [facility] [place] Work Phone: Start: 04-17-2023 End: 04-17-2023 Office outpatient visit 25 minutes Yomi A Lacy DO Work Phone: [facility] Comment on above: Palpitations (Primar y Dx); Dyslipidemia Start: 01-05-2023 End: 01-05-2023 Office outpatient visit 25 minutes Ana S Argonia DO Work Phone: [facility] [employer] [facility] Comment on above: Dyslipidemia (Primar y Dx); Screening for heart disease; Chronic right shoulder pain; Numbness and tingling in right hand; Moderate obstructive sleep apnea Start: 12-30-2022 Registered Referred [facility] Start: 12-06-2022 End: 12-06-2022 ambulatory [facility] Work Phone: Start: 12-06-2022 End: 12-06-2022 Patient encounter procedure [facility] [place] Work Phone: Start: 12-01-2022 End: 12-01-2022 Office outpatient visit 15 minutes Ana S Argonia DO Work Phone: [facility] [employer] [facility] Comment on above: Chronic right should er pain (Primary Dx); Neck pain; Numbness and tingling in right hand Start: 07-27-2022 End: 07-27-2022 Office outpatient visit 25 minutes Yomiesdras Lacy DO Work Phone: [facility] [employer] [facility] Comment on above: Sore throat (Primary Dx); Encounter for screening mammogram for malignant neoplasm of breast; Dyslipidemia Start: 03-28-2022 End: 03-28-2022 Emergency department patient visit DO YOMI LACY Work Phone: [facility]-Emergency Department Start: 03-28-2022 AUDIT Yomi Haque James e Work Phone: [facility] 205 DO Work Phone: Start: 02-17-2022 End: 02-17-2022 ambulatory CUAUHTEMOC ORTEGA [facility] Start: 02-17-2022 End: 02-17-2022 Evaluation and management of inpatient Cuauhtemoc Ortega MD Work Phone: [facility] Start: 02-17-2022 End: 02-17-2022 Subsequent hospital visit by physician Cuauhtemoc Ortega MD Work Phone: [facility] Start: 02-02-[address] Yomi Lacy [facility] ity:[id number] Start: 02-02-2022 Patient encounter procedure Yomi Lacy Work Phone: [facility] 205 DO Work Phone: Start: 02-02-2022 Periodic preventive med est patient 40-64yrs Yomi Lacy Work Phone: [facility] 205 DO Work Phone: Start: 01-28-2022 End: 01-28-2022 Patient encounter procedure DO YOMI LACY [facility] Start: 01-28-2022 Registered Referred DO DAVID LACY [facility] Start: 01-25-2022 Patient encounter procedure DO YOMI LACY Work Phone: [facility]-Pulmonary Services/Neurology Start: 01-25-2022 Non-patient / Non-visit DO KENTRELL LACY Work Phone: [facility] Start: 01-20-2022 End: 01-20-2022 Emergency department patient visit Mr. Gil De Leon Facility:[id number] Start: 11-10-2021 End: 11-10-2021 Patient encounter procedure [facility]Cardi[facility] Services Start: 10-29-2021 AUDIT Yomi carreon Work Phone: [facility] 205 DO Work Phone: Start: 10-26-2021 End: 10-26-2021 Patient encounter procedure [facility] Start: 10-25-2021 End: 10-25-2021 Patient encounter procedure [facility]-Outpatient Breast Imaging Start: 10-20-2021 Office outpatient ne w 45 minutes Yomi Lacy Work Phone: [facility] 205 DO Work Phone: Start: 10-20-2021 Patient encounter procedure Yomi Lacy Work Phone: [facility] 205 DO Work Phone: Start: 10-20-[address] Yomi Lacy Facil ity:[id number] Start: 10-01-[address] KATHI PHIPPS CINDI Fa cility:[id number] Start: 10-01-2021 Office outpatient vi sit 15 minutes Kathi Perera Work Phone: [facility] Work Phone: Start: 10-01-2021 Patient encounter procedure Kathi Perera Work Phone: [facility] Work Phone: Start: 09-22-2021 AUDIT Goldie mcleod Work Phone: [facility] Work Phone: Start: 03-03-2021 End: 03-03-2021 Emergency department patient visit Gil De Leon [facility] [place] [address] Start: 02-16-2021 AUDIT Goldie mcleod Work Phone: [facility] Work Phone: Start: 01-08-2021 Periodic preventive med est patient 40-64yrs Goldie Leo Work Phone: [facility] Work Phone: Start: 07-22-2020 End: 07-22-2020 Orders Only Aracely Yary Martinez Work Phone: [facility] Start: 05-11-2020 Patient encounter procedure Goldie Leo [facility] Work Phone: Start: 04-23-2020 Patient encounter procedure Goldie Leo [facility] Work Phone: Start: 03-26-2020 Patient encounter procedure Goldie Leo [facility] Work Phone: Start: 03-19-2020 Patient encounter procedure Goldie Leo [facility] Work Phone: Start: 01-08-2020 Patient encounter procedure Goldie Leo [facility] Work Phone: Start: 09-11-2019 Patient encounter procedure Goldie Leo [facility] Work Phone: Start: 08-14-2019 Patient encounter procedure Goldie Leo [facility] Work Phone: Start: 07-03-2019 Patient encounter procedure Goldie Leo [facility] Work Phone: Start: 06-28-2019 Patient encounter procedure Goldie Leo [facility] Work Phone: Start: 05-29-2019 Patient encounter procedure Nora Dixon [facility] Work Phone: Start: 05-22-2019 Patient encounter procedure Hollie Chin [facility] [place] Work Phone: Start: 05-16-2019 Patient encounter procedure Raul Dhillon [facility] [place] Work Phone: Start: 05-06-2019 Patient encounter procedure Yuli Gautam [facility] [place] Work Phone: Start: 05-01-2019 Patient encounter procedure Yuli Gautam [facility] [place] Work Phone: Start: 04-29-2019 [facility] [place] Work Phone: Start: 04-25-2019 Patient encounter procedure Yuli Gautam [facility] [place] Work Phone: Start: 03-15-2019 End: 03-15-2019 Telephone encounter Cyn Giraldo [facility] Comment on above: Other Start: 03-15-2019 Patient encounter procedure Yuli Gautam [facility] Work Phone: Start: 03-13-2019 Patient encounter procedure Yuli Gautam [facility] Work Phone: Start: 03-06-2019 Patient encounter procedure Yuli Gautam [facility] Work Phone: Start: 02-01-2019 End: 02-06-2019 Office outpatient new 45 minutes Severino Louise Work Phone: [facility] Comment on above: Obesity, morbid, BMI 40.0-49.9 (Primary Dx); Gastroesophageal reflux disease, esophagitis presence not specified; JASON (obstructive sleep apnea); Venous stasis; Morbid obesity; Chronic bilateral low back pain with bilateral sciatica; Chronic pain of both knees Start: 02-01-2019 End: 02-01-2019 Subsequent hospital visit by physician Sonia Troncoso [facility] Comment on above: Arrived Start: 01-15-2019 End: 01-15-2019 Patient encounter procedure Other Other [facility] Start: 01-15-2019 End: 01-15-2019 Telephone encounter Raquel Kenan [facility] Comment on above: Other (Bariatric Int erview - Self Referral - Transfering from [place] [facility]) Start: 10-26-2018 Chart abstracting Shannan Barrientos APRN.CNP Work Phone: [facility] Start: 09-13-2018 End: 09-14-2018 Patient encounter procedure Nora Dixon Facility:[facility] Start: 07-05-2018 End: 07-06-2018 Patient encounter procedure Nora Dixon Facility:[facility] Start: 05-31-2018 End: 06-01-2018 Patient encounter procedure Nora Dixon Facility:[facility] Start: 04-19-2018 End: 04-20-2018 Patient encounter procedure Nora Dixon Facility:[facility] Start: 03-22-2018 End: 03-23-2018 Patient encounter procedure Nora Dixon Facility:[facility] Start: 01-29-2018 End: 01-29-2018 Patient encounter QUINN LEE [facility] Start: 12-22-2017 End: 12-23-2017 Patient encounter procedure Nora Dixon Facility:[facility] Start: 12-06-2017 End: 12-06-2017 Patient encounter ZAHIDA ORDONEZ [facility] Start: 12-06-2017 End: 12-06-2017 Office outpatient visit 10 minutes Zahida Ordonez Work Phone: [facility] Patient encounter procedure Yomi Lacy Work Phone: [facility] 205 DO Work Phone: Patient encounter status David Lacy Work Phone: [facility] 205 DO Work Phone: Procedures Date Procedure Procedure Detail Performing Clinician Start: 01-20-2024 Radex hand minimum 3 views Gil De Leon PA-C Work Phone: Start: 06-22-2023 Ct heart no contrast quant eval coronry calcium Yomi Lacy DO Work Phone: Start: 12-06-2022 Plain X-ray of shoulder Start: 12-06-2022 X-ray of cervical spine Start: 02-17-2022 Blood count complete automated Simon Castañeda MD Work Phone: Start: 10-25-2021 End: 10-25-2021 Screening mammography Start: 04-23-2020 1 25 dihydroxy inclu anna [...] TO F REE T4 IF ABNORMAL Goldie Velaer Start: 03-26-2020 Xray Shoulder Comple te Min 2 Views Goldiekitty Velaer Start: 05-29-2019 MG Breast screening Meng Dixon Start: 03-14-2019 Assay of iron Yuli M Sofia Start: 03-14-2019 Blood count complete auto&auto difrntl wbc Yuli Lotus Start: 10-05-2016 Adult depression scr eening assessment Shannan Barrientos APRN.CHEMIST Work Phone: Start: 07-26-2015 Colonoscopy Shannan duenas APRN.CHEMIST Work Phone: Start: 02-20-2015 Mammography Shannan duenas APRN.CHEMIST Work Phone: Start: 12-29-2014 Colonoscopy Gil fragoso PA-C Work Phone: Biopsy of skin Yuli carreon Cholecystectomy Yuli Dias ne Dilation and curettage Nora Dixon Comment on above: x2; Endometrial ablation Nora michel 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 Yuli Gautam Hysterectomy Yuli Gautam Comment on above: one ovary spared; Ligation of varicose vein Al mike Gautam Operative procedure on knee Goldie Leo Comment on above: partial knee replace ment; Repair of meniscus Nora carl Comment on above: right; Surgical procedure on thorax Yuli Gautam Tonsillectomy Yuli Gautam Plan of Treatment Date Care Activity Detail Author Start: 08-19-2038 Respiratory Syncytia l Virus Immunization: Risk, 60-74 Risk, or 75+ (1 - 1-dose 75+ series) Respiratory Syncytial Virus Immunization: Risk, 60-74 Risk, or 75+ (1 - 1-dose 75+ series) [facility] Start: 08-19-2038 RSV High Risk: (Elderly (60+) or Population) (1 - 1-dose 75+ series) RSV High Risk: (Elderly (60+) or Population) (1 - 1-dose 75+ series) [facility] Start: 07-03-2027 Diabetes mellitus screening Diabetes Screening [facility] Start: 02-11-2026 End: 02-11-2026 Patient encounter procedure 02/11/2026 3:00 PM EDT Office Visit [facility] [address] [facility] [address] [place] [address] Yomi Lacy DO [address] [facility] [address] [place] [address] [facility] Start: 02-06-2026 Yearly Adult Physical Yearly Adult P hysical [facility] Start: 07-25-2025 Colonoscopy COLONOSCOPY [facility] Start: 07-25-2025 COLORECTAL CANCER SCREENING COLORECTAL CANCER SCREENING [facility] Start: 07-25-2025 Screening for malignant neoplasm of colon [facility] Start: 02-28-2025 History and physical examination, annual for health maintenance Wellness Visit [facility] Start: 02-05-2025 End: 04-07-2026 DBT Breast - bilateral BI mammo bilateral screening tomosynthesis Imaging Routine Encounter for screening mammogram for breast cancer Expected: 02/05/2025, Expires: 04/07/2026 [facility] Service Area Work Phone: Comment on above: Expected: 02/05/2025 , Expires: 04/07/2026 Start: 02-05-2025 End: 02-05-2026 XR Cervical spine 4 or 5 Views XR cervical spine complete 4-5 views Imaging Routine Chronic neck pain Expected: 02/05/2025, Expires: 02/05/2026 [facility] Work Phone: Comment on above: Expected: 02/05/2025 , Expires: 02/05/2026 Start: 02-05-2025 End: 02-05-2025 Patient encounter procedure 02/05/2025 1:20 PM EDT Office Visit [facility] [address] [facility] [address] [place] [address] Yomi Lacy DO [address] [facility] [address] [place] [address] [facility] Start: 01-13-2025 COVID-19 Vaccine ( season) COVID-19 Vaccine ( season) [facility] Start: 01-13-2025 Influenza vaccination [facility] Start: 12-29-2024 Screening for malignant neoplasm of colon [facility] Start: 08-23-2024 End: 08-23-2024 Follow-up encounter 08/23/2024 2:45 PM EDT Follow-Up [facility] [address] [place] [address] Anel Lui MD [address] [place] [address] [facility] Start: 07-19-2024 End: 07-19-2024 Follow-up encounter 07/19/2024 2:00 PM EST Follow-Up [facility] [address] [place] [address] Anel Lui MD [address] [place] [address] [facility] Start: 07-03-2024 End: 07-03-2024 Admission to same day surgery center 07/03/2024 7:50 AM EST - 07/03/2024 10:07 AM EST Surgery [facility] [address] [facility] [place] [address] Anel Lui MD [address] [place] [address] Left total knee replacement Robotic [facility] Comment on above: Left total knee repl acement Robotic Start: 07-03-2024 End: 07-03-2024 Arthrp kne condyle&platu medial&lat compartments ARTHROPLASTY KNEE TOTAL ROBOTIC Primary osteoarthritis of left knee 07/03/2024 7:50 AM EST [facility] Main [facility] Start: 07-03-2024 Subsequent hospital visit by physician [facility] Start: 06-26-2024 End: 06-26-2024 Patient encounter procedure 06/26/2024 1:30 PM EST Office Visit [facility] [address] [place] [address], 3rd floor [place] [phone] Anel Lui MD [address] [place] [phone] Nirav Ballard MD [address] [place] [address] [facility] Start: 06-21-2024 End: 06-21-2024 Patient encounter procedure 06/21/2024 2:15 PM EST Surgical Consult [facility] [address] [place] [address] Anel Lui MD [address] [place] [phone] [facility] Start: 04-17-2024 End: 04-17-2024 Patient encounter procedure 04/17/2024 11:00 AM EST Office Visit [facility] [address] [place] [address] [place] [address] Yomi Lacy DO [address] [facility] [address] [place] [address] Siria Grossman CNP [address] [place] [phone] [facility] Start: 02-29-2024 End: 04-30-2025 DBT Breast - bilateral BI mammo bilateral screening tomosynthesis Imaging Routine Encounter for screening mammogram for breast cancer Expected: 02/29/2024, Expires: 04/30/2025 [facility] Service Area Work Phone: Comment on above: Expected: 02/29/2024 , Expires: 04/30/2025 Start: 01-14-2024 COVID-19 Vaccine () COVID-19 Vaccine () [facility] Start: 01-14-2024 COVID-19 Vaccine () COVID-19 Vaccine () [facility] Start: 01-14-[address] [facility] Start: 09-21-2023 End: 09-21-2023 Patient encounter procedure 09/21/2023 3:00 PM EDT Office Visit [facility] [address] [place] [phone] Yomi Lacy DO [address] [facility] [address] [place] [address] [facility] Start: 2023 RSV patient s and/or patients aged 60+ years (1 - 1-dose 60+ series) RSV patients and/or patients aged 60+ years (1 - 1-dose 60+ series) [facility] Start: 08-17-2023 End: 08-16-2024 Drugs of abuse screen W Reflex confirm panel - Urine Drug Screen, Urine With Reflex to Confirmation Lab Routine Class 2 severe obesity due to excess calories with serious comorbidity and body mass index (BMI) of 36.0 to 36.9 in adult (CMS/[facility]) Expected: 08/17/2023 (Approximate), Expires: 08/16/2024 [facility] Service Area Work Phone: Comment on above: Expected: 08/17/2023 (Approximate), Expires: 08/16/2024 Start: 08-17-2023 End: 08-17-2023 Patient encounter procedure 08/17/2023 1:40 PM EDT Office Visit [facility] [address] [address] [place] [id number] Yomi Lacy DO [address] [facility] [address] [place] [address] [facility] Start: 06-22-2023 End: 06-22-2023 Patient encounter procedure 06/22/2023 1:15 PM EST Appointment [facility] [address] [place] [address] [facility] Start: 05-18-2023 End: 05-18-2023 Patient encounter procedure 05/18/2023 2:20 PM EST Office Visit [facility] [address] [place] [address] Yomi Lacy DO [address] [place] [address] [facility] Start: 05-18-2023 End: 05-18-2024 CT for calcium scoring WO contrast and CTA W contrast IV Heart and coronary arteries CT cardiac scoring wo IV contrast Imaging Routine Screening for heart disease Expected: 05/18/2023, Expires: 05/18/2024 [facility] Work Phone: Comment on above: Expected: 05/18/2023 , Expires: 05/18/2024 Start: 04-17-2023 End: 04-17-2024 CBC W Auto Differential panel - Blood CBC and Auto Differential Lab Routine Palpitations Expected: 04/17/2023 (Approximate), Expires: 04/17/2024 [facility] Work Phone: Comment on above: Expected: 04/17/2023 (Approximate), Expires: 04/17/2024 Start: 04-17-2023 End: 04-17-2024 Comprehensive metabolic 2000 panel - Serum or Plasma Comprehensive Metabolic Panel Lab Routine Palpitations Expected: 04/17/2023 (Approximate), Expires: 04/17/2024 [facility] Work Phone: Comment on above: Expected: 04/17/2023 (Approximate), Expires: 04/17/2024 Start: 04-17-2023 End: 04-17-2024 Holter monitor study Holter or Event [employer] [facility] Routine Palpitations Expected: 04/17/2023, Expires: 04/17/2024 [facility] Work Phone: Comment on above: Expected: 04/17/2023 , Expires: 04/17/2024 Start: 04-17-2023 End: 04-17-2024 TSH with reflex to Free T4 if abnormal TSH with reflex to Free T4 if abnormal Lab Routine Palpitations Expected: 04/17/2023 (Approximate), Expires: 04/17/2024 [facility] Work Phone: Comment on above: Expected: 04/17/2023 (Approximate), Expires: 04/17/2024 Start: 04-17-2023 End: 04-17-2025 [facility] Transthoracic Transthoracic Echo (TTE) Complete Echocardiography Routine Palpitations Expected: 04/17/2023 (Approximate), Expires: 04/17/2025 [facility] Work Phone: Comment on above: Expected: 04/17/2023 (Approximate), Expires: 04/17/2025 Start: 01-25-2023 End: 01-25-2023 Patient encounter procedure 01/25/2023 1:20 PM EDT Office Visit [facility] [address] [facility] [address] [place] [address] Yomi Lacy DO [address] [facility] [address] [place] [address] [facility] Start: 01-13-2023 Influenza vaccination Influenza Vacc ine (#1) [facility] Start: 01-05-2023 End: 01-06-2024 CT for calcium scoring WO contrast and CTA W contrast IV Heart and coronary arteries CT cardiac scoring wo IV contrast Imaging Routine Dyslipidemia Screening for heart disease Expected: 01/05/2023 (Approximate), Expires: 01/06/2024 [facility] Service Area Work Phone: Comment on above: Expected: 01/05/2023 (Approximate), Expires: 01/06/2024 Start: 12-01-2022 End: 12-02-2023 EMG & nerve conduction EMG & nerve conduction Neurology Routine Numbness and tingling in right hand Expected: 12/01/2022 (Approximate), Expires: 12/02/2023 [facility] Work Phone: Comment on above: Expected: 12/01/2022 (Approximate), Expires: 12/02/2023 Start: 12-01-2022 End: 12-02-2023 XR Cervical spine 2 or 3 Views XR cervical spine 2-3 views Imaging Routine Neck pain Expected: 12/01/2022 (Approximate), Expires: 12/02/2023 [facility] Work Phone: Comment on above: Expected: 12/01/2022 (Approximate), Expires: 12/02/2023 Start: 12-01-2022 End: 12-02-2023 XR Shoulder - right 2 Views XR shoulder right 2+ views Imaging Routine Chronic right shoulder pain Expected: 12/01/2022 (Approximate), Expires: 12/02/2023 [facility] Work Phone: Comment on above: Expected: 12/01/2022 (Approximate), Expires: 12/02/2023 Start: 10-25-2022 Screening for malignant neoplasm of breast Mammogram [facility] Start: 10-17-2022 End: 09-27-2023 BI mammo bilateral screening tomosynthesis BI mammo bilateral screening tomosynthesis Imaging Routine Encounter for screening mammogram for malignant neoplasm of breast Expected: 10/17/2022, Expires: 09/27/2023 [facility] Work Phone: Comment on above: Expected: 10/17/2022 , Expires: 09/27/2023 Start: 07-27-2022 FUV, Provider: Yomi Lacy, Status: Pen, Time: 2:00 PM FUV, Provider: Yomi Lacy, Status: Pen, Time: 2:00 PM [facility] [address] DO Work Phone: Start: 07-27-2022 End: 07-28-2023 CBC W Auto Differential panel - Blood CBC and Auto Differential Lab Routine Dyslipidemia Expected: 07/27/2022 (Approximate), Expires: 07/28/2023 [facility] Work Phone: Comment on above: Expected: 07/27/2022 (Approximate), Expires: 07/28/2023 Start: 07-27-2022 End: 07-28-2023 Comprehensive metabolic 2000 panel - Serum or Plasma Comprehensive Metabolic Panel Lab Routine Dyslipidemia Expected: 07/27/2022 (Approximate), Expires: 07/28/2023 [facility] Work Phone: Comment on above: Expected: 07/27/2022 (Approximate), Expires: 07/28/2023 Start: 07-27-2022 End: 07-28-2023 Lipid 1996 panel - Serum or Plasma Lipid Panel Lab Routine Dyslipidemia Expected: 07/27/2022 (Approximate), Expires: 07/28/2023 [facility] Work Phone: Comment on above: Expected: 07/27/2022 (Approximate), Expires: 07/28/2023 Start: 04-20-2022 FUV, Provider: Yomi Lacy, Status: Pen, Time: 4:00 PM FUV, Provider: Yomi Lacy, Status: Pen, Time: 4:00 PM [facility] 205 DO Work Phone: Start: 02-17-2022 End: 02-17-2022 ABDOMINOPLASTY ABDOMINOPLASTY Excessive and redundant skin and subcutaneous tissue Encounter for cosmetic surgery 02/17/2022 7:52 AM EDT [facility] Main OR Start: 02-17-2022 End: 02-17-2022 LIFT THIGH LIFT THIGH Excessive and redundant skin and subcutaneous tissue Encounter for cosmetic surgery 02/17/2022 7:52 AM EDT [facility] Main OR Start: 02-17-2022 End: 02-17-2022 PANNICULECTOMY PANNICULECTOMY Excessive and redundant skin and subcutaneous tissue Encounter for cosmetic surgery 02/17/2022 7:52 AM EDT [facility] Main OR Start: 02-08-2022 Adolescent depressio n screening assessment Depression Screening [facility] Start: 02-08-2022 Hepatitis C screening Hepatitis C Sc reening [facility] Start: 02-08-2022 HIV screening HIV Screening [facility] Start: 02-08-2022 Lipid panel Cholesterol Sc reening (Lipid Panel) [facility] Start: 02-08-2022 Screening for malignant neoplasm of breast Breast Cancer Screening [facility] Start: 02-08-2022 Screening for malignant neoplasm of colon Colorectal Cancer Screening: Colonoscopy [facility] Start: 02-08-2022 Social Influencers o f Health Screening Social Influencers of Health Screening [facility] Start: 01-13-2022 Influenza vaccination Influenza Vacc ine (#1) [facility] Start: 10-01-2021 EPV, Provider: Kathi Perera, Status: Pen, Time: 4:00 PM EPV, Provider: Kathi Perera, Status: Pen, Time: 4:00 PM [facility] Work Phone: Start: 01-13-2021 Influenza vaccination INFLUENZA (#1) [facility] Start: 01-14-2020 Influenza vaccinatio n given Sequential Influenza Vaccine (#1) [facility] Start: 11-18-2019 LIPID SCREEN LIPID SCREEN [facility] Start: 05-29-2019 MG Breast screening Mamm - Scr eening Mammogram w/ Tomosynthesis [facility] Work Phone: Start: 03-07-2019 End: 03-07-2019 Hospital Encounter [facility] Comment on above: GERD (gastroesophage al reflux disease) EGD W/ BX Start: 02-01-2019 End: 02-01-2019 Appointment [facility] Start: 01-13-2019 Influenza vaccination INFLUENZA VACC INE (#1) [facility] Start: 01-13-2018 Influenza vaccination SEQUENTI AL INFLUENZA VACCINE (#1) [facility] Start: 11-17-2017 DIABETES SCREEN DIABETES SCREEN [facility] Start: 10-05-2017 Adult depression screening assessment DEPRESSION SCREENING [facility] Start: 02-21-2016 Mammography MAMMOGRAM [facility] Start: 08-19-2013 Administration of herpes zoster vaccine Zoster Vaccines (1 of 2) [facility] Start: 08-19-2013 Colonoscopy COLON CANCER S CREENING DISCUSSION [facility] Start: 08-19-2013 Pneumococcal vaccination Pneumococcal Vaccine (1 of 1 - PCV) [facility] Start: 08-19-2013 Pneumococcal Vaccine : Age 50+ (1 of 1 - PCV) Pneumococcal Vaccine: Age 50+ (1 of 1 - PCV) [facility] Start: 08-19-2013 Screening for malignant neoplasm of colon [facility] Start: 08-19-2013 SHINGRIX VACCINE (1 of 2) SHINGRIX VACCINE (1 of 2) [facility] Start: 08-19-2013 Zoster vaccine hzv live for subcutaneous use ZOSTER (SHINGLES) VACCINE (1 of 2) [facility] Start: 08-19-2013 Zoster Vaccines (1 o f 2) Zoster Vaccines (1 of 2) [facility] Start: 08-19-2008 COLOGUARD (FIT-DNA) COLOGUARD (FIT-D NA) [facility] Start: 08-19-[address] COLONOGRAPHY [facility] Start: 08-19-2008 FECAL OCCULT BLOOD FECAL OCCULT BLOO D [facility] Start: 08-19-2008 SIGMOIDOSCOPY SIGMOIDOSCOPY [facility] Start: 2003 Fasting lipid profile LIPID SCREENIN G [facility] Start: 2003 Screening for malignant neoplasm of breast Mammogram [facility] Start: 2003 Screening mammography MAMMOGRA M SCREENING DISCUSSION [facility] Start: 08-19-1985 DTaP/Tdap/Td Vaccine s (1 - Tdap) DTaP/Tdap/Td Vaccines (1 - Tdap) [facility] Start: 08-19-1984 Screening for malignant neoplasm of cervix [facility] Start: 08-19-1982 DTaP,Tdap,and Td Vaccines (1 - Tdap) DTaP,Tdap,and Td Vaccines (1 - Tdap) [facility] Start: 08-19-1982 Third diphtheria, tetanus and acellular pertussis (DTaP) vaccination TDAP (ADULT) [facility] Start: 08-19-1982 Urine microalbumin profile DTAP,TDAP,TD (1 - Tdap) [facility] Start: 08-19-1981 COVID-19 Vaccine (#1) COVID-19 Vacci ne (#1) [facility] Start: 08-19-1981 Diabetes mellitus screening Diabetes Screening [facility] Start: 08-19-1981 Hepatitis C antibody , confirmatory test Hepatitis C Screening [facility] Start: 08-19-1981 HEPATITIS C SCREENING HEPATITIS C [facility] Start: 08-19-1981 Hepatitis C screening Hepatitis C Sc [facility] Start: 08-19-1981 HIV SCREENING HIV SCREENING [facility] Start: 08-19-1981 Tetanus vaccination [facility] Start: 1979 COVID-19 Vaccine (1 of 2) COVID-19 Vaccine (1 of 2) [facility] Start: 08-19-1978 HIV screening HIV Screening [facility] Start: 08-19-1976 HIV screening HIV SCREENING DISCUSSI ON [facility] Start: 1975 Adolescent depressio n screening assessment Depression Screening (PHQ9) [facility] Start: 1975 Depression screening using PHQ-9 (Patient Health Questionnaire 9) score Depression Screening/Follow-Up (PHQ-2/9) [facility] Start: 08-19-1970 DTaP/Tdap/Td Vaccine s (1 - Tdap) DTaP/Tdap/Td Vaccines (1 - Tdap) [facility] Start: 08-19-1968 COVID-19 VACCINE (1) COVID-19 VACCIN E (1) [facility] Start: 08-19-1966 History and physical examination, annual for health maintenance Wellness Visit [facility] Start: 08-19-1964 MMR Vaccines (1 of 1 - Standard series) MMR Vaccines (1 of 1 - Standard series) [facility] Start: 02-19-1964 COVID-19 Vaccine (#1) COVID-19 Vacci ne (#1) [facility] Start: 1963 Hepatitis B Vaccines (1 of 3 - 3-dose series) Hepatitis B Vaccines (1 of 3 - 3-dose series) [facility] Start: 1963 Hepatitis C antibody , confirmatory test HEPATITIS C VIRUS SCREENING [facility] Start: 1963 HIV screening HIV Screening [facility] Start: 1963 Lipid panel Lipid Panel [facility] Start: 1963 Potassium [Moles/Vol] POTASSIUM [facility] Start: 1963 Screening for malignant neoplasm of colon [facility] Start: 1963 Screening mammography Mammogram [facility] Start: 1963 Yearly Adult Physical Yearly Adult P [facility] Start: 1963 HEPATITIS C SCREENING HEPATITIS C SC REENING [facility] Start: 1963 Screening colonoscopy COLONOSCOPY [facility] Start: 1963 End: 1963 Screening for malignant neoplasm of cervix PAP SMEAR [facility] Start: 1963 End: 1963 Tetanus vaccination [facility] End: 05-22-2025 12 lead ECG ECG 12 Lead ECG Routine Primary osteoarthritis of left knee 1 Occurrences starting 05/22/2024 until 05/22/2025 [facility] Comment on above: 1 Occurrences starti ng 05/22/2024 until 05/22/2025 Arthrp kne condyle&platu medial&lat compartments ARTHROPLASTY KNEE TOTAL ROBOTIC Primary osteoarthritis of left knee [facility] Main OR B12 & FOLATE B12 & FOLATE Lab Routine Obesity, morbid, BMI 40.0-49.9 Gastroesophageal reflux disease, esophagitis presence not specified JASON (obstructive sleep apnea) Venous stasis Morbid obesity Chronic bilateral low back pain with bilateral sciatica Chronic pain of both knees Ordered: 02/01/2019 [employer] [facility] Comment on above: Ordered: 02/01/2019 End: 05-22-2025 Basic metabolic 2000 panel - Serum or Plasma Basic metabolic panel Lab Routine Primary osteoarthritis of left knee 1 Occurrences starting 05/22/2024 until 05/22/2025 [facility] Comment on above: 1 Occurrences starti ng 05/22/2024 until 05/22/2025 CBC, EDIF, PLATELET CBC, EDIF, P LATELET Lab Routine Obesity, morbid, BMI 40.0-49.9 Gastroesophageal reflux disease, esophagitis presence not specified JASON (obstructive sleep apnea) Venous stasis Morbid obesity Chronic bilateral low back pain with bilateral sciatica Chronic pain of both knees Ordered: 02/01/2019 [employer] [facility] Comment on above: Ordered: 02/01/2019 End: 05-22-2025 Complete blood count with white cell differential, manual CBC and differential Lab Routine Primary osteoarthritis of left knee Hypertension, unspecified type 1 Occurrences starting 05/22/2024 until 05/22/2025 [facility] Comment on above: 1 Occurrences starti ng 05/22/2024 until 05/22/2025 Comprehensive metabolic 2000 panel COMPREHENSIVE METABOLIC PANEL Lab Routine Obesity, morbid, BMI 40.0-49.9 Gastroesophageal reflux disease, esophagitis presence not specified JASON (obstructive sleep apnea) Venous stasis Morbid obesity Chronic bilateral low back pain with bilateral sciatica Chronic pain of both knees Ordered: 02/01/2019 [email or web address] Comment on above: Ordered: 02/01/2019 End: 05-22-2025 CT Knee - left WO contrast CT Knee Left Without Contrast Imaging Routine Primary osteoarthritis of left knee 1 Occurrences starting 05/22/2024 until 05/22/2025 [facility] Comment on above: 1 Occurrences starti ng 05/22/2024 until 05/22/2025 HbA1c (Bld) [Mass fraction] HEMOGLOBIN A1C Lab Routine Obesity, morbid, BMI 40.0-49.9 Gastroesophageal reflux disease, esophagitis presence not specified JASON (obstructive sleep apnea) Venous stasis Morbid obesity Chronic bilateral low back pain with bilateral sciatica Chronic pain of both knees Ordered: 02/01/2019 [email or web address] Comment on above: Ordered: 02/01/2019 End: 05-22-2025 Incentive spirometry - Initial Instruction Incentive spirometry - Initial Instruction Respiratory Care Routine Primary osteoarthritis of left knee 1 Occurrences starting 05/22/2024 until 05/22/2025 [facility] Work Phone: Comment on above: 1 Occurrences starti ng 05/22/2024 until 05/22/2025 Influenza virus A an d B and SARS-CoV-2 (COVID-19) identified in Respiratory specimen by RAFAEL with probe detection Sars-CoV-2 and Influenza A/B PCR, Symptomatic Lab Routine Sore throat 07/27/2022 2:47 PM EDT [facility] Work Phone: IRON/IRON BINDING/TRANSFERRIN IRON/IRON BINDING/TRANSFERRIN Lab Routine Obesity, morbid, BMI 40.0-49.9 Gastroesophageal reflux disease, esophagitis presence not specified JASON (obstructive sleep apnea) Venous stasis Morbid obesity Chronic bilateral low back pain with bilateral sciatica Chronic pain of both knees Ordered: 02/01/2019 [email or web address] Comment on above: Ordered: 02/01/2019 LIPID PANEL W CALCULATED LDL LIPID PANEL W CALCULATED LDL Lab Routine Obesity, morbid, BMI 40.0-49.9 Gastroesophageal reflux disease, esophagitis presence not specified JASON (obstructive sleep apnea) Venous stasis Morbid obesity Chronic bilateral low back pain with bilateral sciatica Chronic pain of both knees Ordered: 02/01/2019 [email or web address] Comment on above: Ordered: 02/01/2019 End: 05-22-2025 Methicillin resistant Staphylococcus aureus [Presence] in Unspecified specimen by Organism specific culture MRSA Culture Microbiology Routine Primary osteoarthritis of left knee 1 Occurrences starting 05/22/2024 until 05/22/2025 [facility] Comment on above: 1 Occurrences starti ng 05/22/2024 until 05/22/2025 Streptococcus pyogen es DNA [Presence] in Throat by RAFAEL with probe detection Group A Streptococcus, PCR Microbiology Routine Sore throat 07/27/2022 2:48 PM EDT [facility] Work Phone: TSH Qn TSH Lab Routine Obesity, morbid, BMI 40.0-49.9 Gastroesophageal reflux disease, esophagitis presence not specified JASON (obstructive sleep apnea) Venous stasis Morbid obesity Chronic bilateral low back pain with bilateral sciatica Chronic pain of both knees Ordered: 02/01/2019 [email or web address] Comment on above: Ordered: 02/01/2019 VITAMIN B1 VITAMIN B1 Lab R outine Obesity, morbid, BMI 40.0-49.9 Gastroesophageal reflux disease, esophagitis presence not specified JASON (obstructive sleep apnea) Venous stasis Morbid obesity Chronic bilateral low back pain with bilateral sciatica Chronic pain of both knees Ordered: 02/01/2019 [email or web address] Comment on above: Ordered: 02/01/2019 VITAMIN D (25-HYDROXY,TOTAL) VITAMIN D (25-HYDROXY,TOTAL) Lab Routine Obesity, morbid, BMI 40.0-49.9 Gastroesophageal reflux disease, esophagitis presence not specified JASON (obstructive sleep apnea) Venous stasis Morbid obesity Chronic bilateral low back pain with bilateral sciatica Chronic pain of both knees Ordered: 02/01/2019 [email or web address] Comment on above: Ordered: 02/01/2019 End: 04-15-2025 XR Knee - left 4 Views XR Knee Left 4+ Views (Note in Comments) Imaging Routine Left knee pain, unspecified chronicity 1 Occurrences starting 04/15/2024 until 04/15/2025 [facility] Work Phone: Comment on above: 1 Occurrences starti ng 04/15/2024 until 04/15/2025 ZINC, SERUM ZINC, SERUM Lab Routine Obesity, morbid, BMI 40.0-49.9 Gastroesophageal reflux disease, esophagitis presence not specified JASON (obstructive sleep apnea) Venous stasis Morbid obesity Chronic bilateral low back pain with bilateral sciatica Chronic pain of both knees Ordered: 02/01/2019 [email or web address] Comment on above: Ordered: 02/01/2019 [facility] Work Phone: NEGATED: Highlighted row has been ruled out! Planned Goals not documented [facility] Work Phone: Immunizations Immunization Date Immunization Notes Care Provider Loretta calderón 03-23-2020 influenza, injectabl e, quadrivalent, preservative free [facility] 03-23-2020 influenza, seasonal, injectable [facility] 03-23-2020 influenza virus vacc ine, unspecified formulation [address] Work Phone: 03-05-2019 influenza, injectabl e, quadrivalent, preservative free [facility] 03-05-2019 influenza, seasonal, injectable [facility] 04-03-2018 influenza, injectabl e, quadrivalent, preservative free [facility] 04-03-2018 influenza, seasonal, injectable [facility] 02-27-2017 influenza, injectabl e, quadrivalent, preservative free [facility] 02-27-2017 influenza, seasonal, injectable [facility] 02-12-2016 influenza, injectabl e, quadrivalent, preservative free [facility] 02-12-2016 influenza, seasonal, injectable [facility] 02-12-2015 influenza, injectabl e, quadrivalent, preservative free [facility] 02-12-2015 influenza, seasonal, injectable [facility] 02-11-2014 influenza, injectabl e, quadrivalent, preservative free [facility] 02-11-2014 influenza, seasonal, injectable [facility] Payers Date Payer Category Payer Self-pay [id number] 2022 Managed Care (Private) [facility] [id number] 2022 Managed Care (privat e) or private health insurance (indemnity), not otherwise specified [employer] [id number] 2022 Unknown [id number] 2017 Unknown 2017 Managed Care PPO (unspecified) [employer] [id number] 2015 Unknown [employer] xxxxxxxxxxxx 2015-Present [id number] 2013 Unknown [id number] 2013 Unknown [id number] 1.2.840.386509.1.13.385.2 .7.3.512409.315 1963 Unknown [id number] 2.16840.1.864749.3.579.2 1963 Unknown [id number] 2.16.840.1.207952.3.579.2 1963 Unknown [id number] 2.16840.1.270050.3.579.2 1963 Unknown [id number] 2.16840.1.170270.3.579.2 1963 Unknown [id number] 2.16840.1.650778.3.579.2 1963 Unknown [id number] 2.16840.1.114005.3.579.2 1963 Unknown [id number] 2.840.1.196521.3.579.2 1963 Unknown [id number] 2.16840.1.055343.3.579.2 356 1963 Unknown [id number] 2.840.1.245783.3.579.2 1963 Unknown [id number] 2.16840.1.774133.3.579.2 356 1963 Unknown [id number] 2.16840.1.057720.3.579.2 114 1963 Unknown [id number] 2.16840.1.937071.3.579.2 .1069 1963 Unknown [id number] 2.16840.1.050637.3.579.2 1963 Unknown [id number] 2.16840.1.586503.3.579.2 .90 1963 Unknown [id number] 2.16840.1.917825.3.579.2 1963 Unknown [id number] 2.16.840.1.611519.3.579.2 .3 1963 Unknown [id number] 2.16.840.1.442149.3.579.2 .1242 1963 Unknown [id number] 2.16.840.1.651568.3.579.2 .1242 1963 Unknown [id number] 2.16840.1.195571.3.579.2 .1242 1963 Unknown [id number] 2.16840.1.716142.3.579.2 .1242 1963 Unknown [id number] 2.840.1.871876.3.579.2 .1242 1963 Unknown [id number] 2.840.1.372627.3.579.2 .1242 1963 Unknown [id number] 2.840.1.813401.3.579.2 .1242 1963 Unknown [id number] 2.840.1.452992.3.579.2 .1242 1963 Unknown [id number] 2.840.1.330901.3.579.2 .1242 1963 Unknown [id number] 2.840.1.989754.3.579.2 .1242 1963 Unknown [id number] 2.840.1.224537.3.579.2 .1242 1963 Unknown [id number] 2.840.1.107100.3.579.2 .1242 1963 Unknown [id number] 2.16840.1.452547.3.579.2 .1242 1963 Unknown [id number] 2.16840.1.198907.3.579.2 .1242 1963 Unknown [id number] 2.16840.1.768379.3.579.2 .1242 1963 Unknown [id number] 2.840.1.775513.3.579.2 .124 1963 Unknown [id number] 2.840.1.287000.3.579.2 .1242 1963 Unknown [id number] 2.840.1.753869.3.579.2 .1242 1963 Unknown [id number] .840.1.779631.3.579.2 .1963 Unknown [id number] 2.840.1.821957.3.579.2 .1963 Unknown [id number] .0.1.891550.3.579.2 1963 Unknown [id number] 2.1.114371.3.579.2 .1963 Unknown [id number] .1.808837.3.579.2 1963 Unknown [id number] .1.424445.3.579.2 1963 Unknown [id number] 840.1.262714.3.579.2 1963 Unknown [id number] .1.144661.3.579.2 .1963 Unknown [id number] 840.1.183222.3.579.2 .1243 1963 Unknown [id number] 840.1.087258.3.579.2 .124 Unknown [id number] 2840.1.059304.3.579.2 .462 Unknown [id number] 2840.1.284167.3.579.2 .462 Unknown [id number] 2840.1.437566.3.579.2 .462 Unknown [id number] Unknown [id number] Unknown [id number] Unknown [id number] Unknown [id number] Unknown [id number] Social History Date Type Detail Facility Start: 12-06-2017 End: 07-27-2022 Tobacco smoking status NHIS Never smoker [facility] Start: 1965 Sex Assigned At Not on file O [facility] Start: 01-29-2018 End: 07-27-2022 Tobacco use and exposure Never used [facility] Start: 01-29-2018 End: 08-28-2024 Alcohol intake Current non-drinker of alcohol (finding) [facility] Start: 12-01-2022 End: 02-05-2025 No advance directives No advance directives [facility] Work Phone: Start: 03-30-2021 End: 03-30-2021 Tobacco smoking consumption unknown [facility] Start: 09-20-2019 Non-smoker [facility] Start: 1965 Sex Assigned At Female [facility] Start: 02-17-2022 End: 02-05-2025 Alcohol intake Ex-drinker (finding) [facility] Start: 02-06-2022 End: 02-29-2024 Exposure to SARS-CoV-2 (event) Not sure [facility] Start: 12-01-2022 End: 02-05-2025 Tobacco use panel [facility] Work Phone: Start: 06-20-2024 Gender identity Identifies as female gender (finding) [facility] Start: 06-20-2024 Sexual orientation Heterosexual (fin ding) [facility] Start: 04-09-2022 Sex Female [facility] NEGATED: Highlighted row - - [facility] Work Phone: Medical Equipment Procedure Code Equipment Code Equipment Origin al Text Equipment Identifier Dates CEMENT,BONE FARZAD H 1/2 BATCH FDA Start: 09-25-2019 FARRUKH X3 UNI ONLA Y TIBIAL INSER FDA Start: 09-25-2019 RESTORIS MCK FEM ORAL COMPONENT FDA Start: 09-25-2019 RESTORIS MCK ONL AY TIBIAL BASE FDA Start: 09-25-2019 CEMENT,BONE FARZAD H 1/2 BATCH FDA Start: 09-25-2019 FARRUKH X3 UNI ONLA Y TIBIAL INSER FDA Start: 09-25-2019 RESTORIS MCK FEM ORAL COMPONENT FDA Start: 09-25-2019 RESTORIS MCK ONL AY TIBIAL BASE FDA Start: 09-25-2019 CEMENT,BONE FARZAD H 1/2 BATCH FDA Start: 09-25-2019 FARRUKH X3 UNI ONLA Y TIBIAL INSER FDA Start: 09-25-2019 RESTORIS MCK FEM ORAL COMPONENT FDA Start: 09-25-2019 RESTORIS MCK ONL AY TIBIAL BASE FDA Start: 09-25-2019 CEMENT,BONE FARZAD H 1/2 BATCH FDA Start: 09-25-2019 FARRUKH X3 UNI ONLA Y TIBIAL INSER FDA Start: 09-25-2019 RESTORIS MCK FEM ORAL COMPONENT FDA Start: 09-25-2019 RESTORIS MCK ONL AY TIBIAL BASE FDA Start: 09-25-2019 CEMENT,BONE FARZAD H 1/2 BATCH FDA Start: 09-25-2019 FARRUKH X3 UNI ONLA Y TIBIAL INSER FDA Start: 09-25-2019 RESTORIS MCK FEM ORAL COMPONENT FDA Start: 09-25-2019 RESTORIS MCK ONL AY TIBIAL BASE FDA Start: 09-25-2019 CEMENT,BONE FARZAD H 1/2 BATCH FDA Start: 09-25-2019 FARRUKH X3 UNI ONLA Y TIBIAL INSER FDA Start: 09-25-2019 RESTORIS MCK FEM ORAL COMPONENT FDA Start: 09-25-2019 RESTORIS MCK ONL AY TIBIAL BASE FDA Start: 09-25-2019 CEMENT,BONE FARZAD H 1/2 BATCH FDA Start: 09-25-2019 FARRUKH X3 UNI ONLA Y TIBIAL INSER FDA Start: 09-25-2019 RESTORIS MCK FEM ORAL COMPONENT FDA Start: 09-25-2019 RESTORIS MCK ONL AY TIBIAL BASE FDA Start: 09-25-2019 CEMENT,BONE FARZAD H 1/2 BATCH FDA Start: 09-25-2019 FARRUKH X3 UNI ONLA Y TIBIAL INSER FDA Start: 09-25-2019 RESTORIS MCK FEM ORAL COMPONENT FDA Start: 09-25-2019 RESTORIS MCK ONL AY TIBIAL BASE FDA Start: 09-25-2019 Cath 1in Expansi on On-Q Silversoaker - [id number] Start: 07-03-2024 Component Sz4 Fe m Cr Lt Cementless Beaded W/Pa Triathlon - [id number] Start: 07-03-2024 Baseplate Sz3 Ti bial Tritanium Triathlon - [id number] Start: 07-03-2024 Insert Sz3-9 Tib ial Cr X3 Triathlon [id number] - [id number] Start: 07-03-2024 Patella 32mm Asymmetric Metal-Backed Tritanium Triathlon - [id number] Start: 07-03-2024 Goals Date Patient Goal Desired Activity /State Functional Status Date Assessment Result Facility 02-05-2025 Functional status 110/78 [facility] Work Phone: 02-05-2025 Vital signs 84 02/05/2025 1: 33 PM EDT Nadia Bhardwaj, INGRID [facility] Work Phone: 02-05-2025 Patient Health Questionnaire 2 item (PHQ-2) [Reported] [facility] Work Phone: 02-05-2025 [facility] Work Phone: 05-11-2020 PHQ-9 Adult Depressi on Score; Abnormal PHQ-9 Adult Depression Score 16 [facility] Work Phone: Comment on above: Q1: 2, Q2: 2, Q3: 2, Q4: 2, Q5: 2, Q6: 2, Q7: 2, Q8: 2, Q9: 0, NEGATED: Highlighted row Functional performance Functional status health issues are not documented [facility] Work Phone: Mental Status Date Assessment Result Facility NEGATED: Highlighted row Cognitive function [Interpretation] Cognitive status health issues are not documented [facility] Work Phone: Clinical Notes 01-25-2006 to 02-06-2025 Assessment & Plan Note - Yomi Lacy DO - 02/06/2025 9:49 PM EDTAssessment & Plan Note - Yomi Lacy DO - 02/06/2025 9:49 PM EDTMnarendra Lacy DO - 02/05/2025 1:20 PM EDT Note Date & Type Note Facility 02-06-2025 Evaluation + Plan note Associated Problem(s): Chronic neck pain - We reviewed options for further workup and tx - Using shared decision making, we decided to start with xr - Will follow up with results when available [facility] Work Phone: 02-06-2025 Miscellaneous Notes Associated Problem(s): Chronic neck pain - We reviewed options for further workup and tx - Using shared decision making, we decided to start with xr - Will follow up with results when available Associated Problem(s): Dyslipidemia - FLP improved - Coronary artery calcium score 0 in 06/2023 - Lifestyle modifications reviewed - Will continue to monitor documented in this encounter [facility] Work Phone: 02-06-2025 Evaluation + Plan note Associated Problem(s): Dyslipidemia - FLP improved - Coronary artery calcium score 0 in 06/2023 - Lifestyle modifications reviewed - Will continue to monitor [facility] Work Phone: 02-05-2025 History of Present illness Narrative Subjective Patient ID: Austin Maza is a 59 y.o. female who presents for yearly physical HPI Presenting today for annual follow up. She is overall feeling well at this time. She is managed on compounded GLP1 which she tolerates without adverse effects. She reports some frustration due to little weight loss with the medication, but pleased with the improvement in her FLP since starting the medication. She remains active jose at work and tries to be mindful of her diet. She also notes that she has been struggling with neck pain that has been getting worse over the past number of years. 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 Pain has improved with chiropractic manipulation in the past. Cervical Cancer Screening: s/p hyst due to AUB Breast Cancer Screening: due Osteoporosis Screening: plan to start at age 63 Colon Cancer Screening: Dr. Hobson ([place]) 08/03/2015, due 07/2025 Tobacco: never Alcohol: denies Recreational Drugs: denies Immunizations: she declines all immunizations Review of Systems Constitutional: Negative for chills and fever. Respiratory: Negative for cough and shortness of breath. Cardiovascular: Negative for chest pain and palpitations. Gastrointestinal: Negative for abdominal pain, constipation, diarrhea, nausea and vomiting. Genitourinary: Negative for dysuria. Musculoskeletal: Positive for neck pain. Skin: Negative for rash. Psychiatric/Behavioral: Negative for dysphoric mood. The patient is not nervous/anxious. Objective BP 110/78 Pulse 84 Ht 1.6 m (5' 3") Wt 100 kg (221 lb) BMI 39.15 kg/m Physical Exam Vitals reviewed. Constitutional: General: She is not in acute distress. Appearance: Normal appearance. HENT: Head: Normocephalic and atraumatic. Eyes: General: No scleral icterus. Conjunctiva/sclera: Conjunctivae normal. Cardiovascular: Rate and Rhythm: Normal rate and regular rhythm. Pulmonary: Effort: Pulmonary effort is normal. No respiratory distress. Breath sounds: Normal breath sounds. Abdominal: General: Bowel sounds are normal. There is no distension. Palpations: Abdomen is soft. Tenderness: There is no abdominal tenderness. There is no guarding or rebound. Musculoskeletal: General: No swelling or deformity. Cervical back: Normal range of motion and neck supple. Skin: General: Skin is warm. Neurological: General: No focal deficit present. Mental Status: She is alert. Psychiatric: Mood and Affect: Mood normal. Behavior: Behavior normal. Assessment/Plan Problem List Items Addressed This Visit ICD-10-CM Dyslipidemia E78.5 - FLP improved - Coronary artery calcium score 0 in 06/2023 - Lifestyle modifications reviewed - Will continue to monitor Class 2 severe obesity due to excess calories with serious comorbidity and body mass index (BMI) of 39.0 to 39.9 in adult E66.812, E66.01, Z68.39 Chronic neck pain M54.2, G89.29 - We reviewed options for further workup and tx - Using shared decision making, we decided to start with xr - Will follow up with results when available Relevant Orders XR cervical spine complete 4-5 views Follow Up In Primary Care - Health Maintenance Other Visit Diagnoses Codes Routine general medical examination at a health care facility - Primary Z00.00 Encounter for screening mammogram for breast cancer Z12.31 Relevant Orders BI mammo bilateral screening tomosynthesis Follow Up In Primary Care - Health Maintenance Follow up in 1yr for recheck, sooner if needed. documented in this encounter [facility] Work Phone: 09-27-2024 History of Present illness Narrative Abigail Quinn spoke iman Pizano for her three month f/u and she still has swelling and is concerned. Per Dr Lui she can stop in the office and pickup SCD's and he would also see her if needed. I have left her three messages to return my call regarding the swelling. documented in this encounter [facility] 08-28-2024 Note [facility] [address] [facility] [address] [facility] [address] Chief Complaint Patient presents with Left Knee - Follow-up, Wound Check Austin Maza returns to the office today for her 6 week post op on her left total knee replacement. She is doing well, still complains of stiffness. She isn't exactly where she wants to be but she is only 6 weeks out. She is taking otc pain medications as needed. She has finished up her aspirin regime. She has been able to return to some of her every day activities. The patient's past medical history, surgical history, social history, family history, medications and allergies were reviewed with the patient today and are available in the chart for further review. Allergies[1] Current Medications[2] Past Medical History: Diagnosis Date Arthritis Past Surgical History: Procedure Laterality Date ABLATION WITH PHENOL ARTHROPLASTY KNEE TOTAL ROBOTIC ASSISTED Left 07/03/2024 Procedure: Left total knee replacement Robotic; Surgeon: Anel Lui MD; Location: [facility]; Service: Ortho-Robotics; Laterality: Left; BACK SURGERY lumbar surgery for herniated disc CHOLECYSTECTOMY FOOT SURGERY HYSTERECTOMY VEIN LIGATION AND STRIPPING Social History[3] ORTHO: Left Knee Exam Range of Motion Extension: normal Flexion: 120 Tests Varus: negative Valgus: negative Other Erythema: present Scars: present Sensation: normal Pulse: present Swelling: mild Effusion: no effusion present Imaging: R Knee: No acute fracture or dislocation. Intact left total knee arthroplasty in good position without evidence of hardware complications or loosening. Assessment/Plan: After examination and reviewing of the patient images, she is doing very well. She is to continue with her at home physical therapy exercises. Continue with otc pain medications as needed. We will see her back in one year or sooner if needed. [1] Allergies Allergen Reactions Penicillins [2] Current Outpatient Medications: acetaminophen (TYLENOL) 325 MG tablet, Take 2 (two) tablets (650 mg total) by mouth every 6 (six) hours as needed for pain ., Disp: , Rfl: cyclobenzaprine (FLEXERIL) 10 MG tablet, Take 1 (one) tablet (10 mg total) by mouth 3 (three) times a day as needed for muscle spasms ., Disp: 30 tablet, Rfl: 0 ECHINACEA ORAL, Take by mouth., Disp: , Rfl: fluticasone (FLONASE) 50 mcg/actuation nasal spray, INSTILL 2 SPRAYS EACH NARES QD PRN FOR RELIEF OF ALLERGY SYMPTOMS., Disp: 16 g, Rfl: 0 GENERIC EXTERNAL MEDICATION, Take 2 tablets by mouth 2 (two) times a day Truvy supplement ., Disp: , Rfl: guaiFENesin (MUCINEX) 600 mg 12 hr tablet, Use 1 to 2 tablets every 12 hours as needed, expectorant (helps to thin secretions). Drink plenty of water.., Disp: 40 tablet, Rfl: 0 herbal drugs (DETOX DIETARY ORAL), Take 1 capsule by mouth 2 (two) times a day as needed (constipation) ., Disp: , Rfl: ibuprofen (ADVIL,MOTRIN) 200 MG tablet, Take 1 (one) tablet (200 mg total) by mouth every 6 (six) hours as needed for pain ., Disp: , Rfl: pantoprazole (PROTONIX) 20 MG tablet, Take 1 (one) tablet (20 mg total) by mouth daily Start: 07/04/24., Disp: 30 tablet, Rfl: 0 [3] Social History Socioeconomic History Marital status: Tobacco Use Smoking status: Never Smokeless tobacco: Never Vaping Use Vaping status: Never Used Substance and Sexual Activity Alcohol use: No Drug use: No AUTHENTICATED BY MARILOU BERNSTEIN, ON 08/28/2024 14:06:19 [facility] 08-28-2024 History of Present illness Narrative [address] [address] [facility] [address] [facility] [address] Chief Complaint Patient presents with Left Knee - Follow-up, Wound Check Austin Maza returns to the office today for her 6 week post op on her left total knee replacement. She is doing well, still complains of stiffness. She isn't exactly where she wants to be but she is only 6 weeks out. She is taking otc pain medications as needed. She has finished up her aspirin regime. She has been able to return to some of her every day activities. The patient's past medical history, surgical history, social history, family history, medications and allergies were reviewed with the patient today and are available in the chart for further review. Allergies[1] Current Medications[2] Past Medical History: Diagnosis Date Arthritis Past Surgical History: Procedure Laterality Date ABLATION WITH PHENOL ARTHROPLASTY KNEE TOTAL ROBOTIC ASSISTED Left 07/03/2024 Procedure: Left total knee replacement Robotic; Surgeon: Anel Lui MD; Location: Main OR; Service: Ortho-Robotics; Laterality: Left; BACK SURGERY lumbar surgery for herniated disc CHOLECYSTECTOMY FOOT SURGERY HYSTERECTOMY VEIN LIGATION AND STRIPPING Social History[3] ORTHO: Left Knee Exam Range of Motion Extension: normal Flexion: 120 Tests Varus: negative Valgus: negative Other Erythema: present Scars: present Sensation: normal Pulse: present Swelling: mild Effusion: no effusion present Imaging: R Knee: No acute fracture or dislocation. Intact left total knee arthroplasty in good position without evidence of hardware complications or loosening. Assessment/Plan: After examination and reviewing of the patient images, she is doing very well. She is to continue with her at home physical therapy exercises. Continue with otc pain medications as needed. We will see her back in one year or sooner if needed. [1] Allergies Allergen Reactions Penicillins [2] Current Outpatient Medications: acetaminophen (TYLENOL) 325 MG tablet, Take 2 (two) tablets (650 mg total) by mouth every 6 (six) hours as needed for pain ., Disp: , Rfl: cyclobenzaprine (FLEXERIL) 10 MG tablet, Take 1 (one) tablet (10 mg total) by mouth 3 (three) times a day as needed for muscle spasms ., Disp: 30 tablet, Rfl: 0 ECHINACEA ORAL, Take by mouth., Disp: , Rfl: fluticasone (FLONASE) 50 mcg/actuation nasal spray, INSTILL 2 SPRAYS EACH NARES QD PRN FOR RELIEF OF ALLERGY SYMPTOMS., Disp: 16 g, Rfl: 0 GENERIC EXTERNAL MEDICATION, Take 2 tablets by mouth 2 (two) times a day Truvy supplement ., Disp: , Rfl: guaiFENesin (MUCINEX) 600 mg 12 hr tablet, Use 1 to 2 tablets every 12 hours as needed, expectorant (helps to thin secretions). Drink plenty of water.., Disp: 40 tablet, Rfl: 0 herbal drugs (DETOX DIETARY ORAL), Take 1 capsule by mouth 2 (two) times a day as needed (constipation) ., Disp: , Rfl: ibuprofen (ADVIL,MOTRIN) 200 MG tablet, Take 1 (one) tablet (200 mg total) by mouth every 6 (six) hours as needed for pain ., Disp: , Rfl: pantoprazole (PROTONIX) 20 MG tablet, Take 1 (one) tablet (20 mg total) by mouth daily Start: 07/04/24., Disp: 30 tablet, Rfl: 0 [3] Social History Socioeconomic History Marital status: Tobacco Use Smoking status: Never Smokeless tobacco: Never Vaping Use Vaping status: Never Used Substance and Sexual Activity Alcohol use: No Drug use: No documented in this encounter [facility] 08-23-2024 Telephone encounter Note Patient requested refill for Flexeril. Surgery 2 left TKR, last fill 07/19. [facility] 08-23-2024 Miscellaneous Notes Patient requested refill for Flexeril. Surgery 07/03 left TKR, last fill 07/19. documented in this encounter [facility] 08-14-2024 Telephone encounter Note Prescription from yesterday printed to [facility]. [facility] 08-14-2024 Miscellaneous Notes Prescription from yesterday printed to [facility]. documented in this encounter [facility] 08-13-2024 Telephone encounter Note Patient requested a refill for pain medication. Surgery 2/ left TKR, last fill 07/19. [facility] 08-13-2024 Miscellaneous Notes Patient requested a refill for pain medication. Surgery 2/ left TKR, last fill 07/19. documented in this encounter [facility] 07-19-2024 Note Austin comes in toda y for followup left total knee replacement. She is 2 weeks out, doing absolutely fantastic. PHYSICAL EXAMINATION Wound is healed. No signs of infection. No DVT signs or symptoms. Calves soft. At this point in time, she has full extension, 112 degrees of flexion. No ligamentous instability. Extensor mechanism is intact. Calves soft. Negative Ricky. IMPRESSION Two weeks left total knee replacement. PLAN She will do outpatient physical therapy, local wound care, aspirin protocol and I will see her in one month. I did a narcotic review. Last medication was oxycodone on 07/11/2024. She did request a Flexeril refill. AUTHENTICATED BY ANEL LUI, ON 07/20/2024 11:22:43 [facility] 07-11-2024 Telephone encounter Note Patient requested refill for pain medication. Surgery 07/03 left TKR, last fill 07/03. Patient also has itching on left leg Dr Lui reviewed pictures . Petechiae from swelling. Medrol dose pack ordered per Dr Lui. [facility] 07-11-2024 Miscellaneous Notes Patient requested refill for pain medication. Surgery 07/03 left TKR, last fill 07/03. Patient also has itching on left leg Dr Lui reviewed pictures . Petechiae from swelling. Medrol dose pack ordered per Dr Lui. documented in this encounter [facility] 07-11-2024 History of Present illness Narrative Patient LVM she has a rash and blisters on her surgical leg. I requested a return phone call from patient or upload pictures to my chart. documented in this encounter [facility] 07-03-2024 Note Orthopedic Total Kne e Progress Note Assessment/Plan: Status Post left Total Knee Arthroplasty: Doing well postoperatively. Discharge today, Return to Clinic: 2 weeks LOS: 0 days Subjective: Post-Operative Day: 0 Status Post left Total Knee Arthroplasty Systemic or Specific Complaints:No Complaints Objective: Vital signs in last 24 hours: Temp: [97.3 degrees F (36.3 degrees C)-98.1 degrees F (36.7 degrees C)] 97.3 degrees F (36.3 degrees C) Heart Rate: [58-74] 67 Resp: [14-16] 16 BP: (99-129)/(67-94) 110/76 General: alert, appears stated age, and cooperative Wound: Wound clean and dry no evidence of infection. Motion: Extension: Full Extension DVT Exam: No evidence of DVT seen on physical exam. Data Review CBC: Lab Results Component Value Date WBC 4.01 (L) 06/06/2024 RBC 4.50 06/06/2024 HGB 12.8 06/06/2024 HCT 39.8 06/06/2024 PLT 173 06/06/2024 AUTHENTICATED BY ANEL LUI, ON 07/03/2024 13:26:40 [facility] 07-03-2024 Note [id number] FOR HOME MEDICAL EQUIPMENT PATIENT: Austin Maza : 1965 Statement of Care: I certify that Austin Maza is under my care and that I, a Nurse Practitioner, Physician's Test Technician, or Resident working with me, had a [id number]-[id number] encounter with this patient today to evaluate and discuss the need for home medical equipment. I certify that based on the findings of this evaluation, which included but was not limited to the [id number] requirements, the following home medical equipment is medically necessary: Walker for the treatment of mobility limitations to enable participation in mobility-related activities of daily living (MRADL) in the home. Based on the current evaluation, patient can safely use prescribed equipment to perform mobility-related activities of daily living (MRADL) in the home.. Signed by: Anel Lui MD on 07/03/2024 AUTHENTICATED BY ANEL LUI, ON 07/03/2024 07:21:00 [facility] 06-26-2024 History of Present illness Narrative Review of Systems All other systems reviewed and are negative. OFFICE CONSULTATION NOTE [facility] [address] [facility] [address] [facility] [id number] Physicians: Yomi Lacy DO (Family); Anel Lui,* (Referring) Subjective: Austin Maza is a 58 y.o. female seen in the office today for No chief complaint on file. . HPI patient here for preoperative clearance for left knee surgery she has no risk factors for coronary disease. She denies chest pains dizziness palpitations syncope breathlessness . She does have venous insufficiency of her legs previous to her knees she was an avid walker without difficulty. No history of diabetes or hypertension Assessment/Plan there are no cardiac issues to be addressed ECG: Low voltage Reviewed personally No problem-specific Assessment & Plan notes found for this encounter. Follow Up Ordered: No follow-ups on file. Patient's Medications New Prescriptions No medications on file Previous Medications ACETAMINOPHEN (TYLENOL) 325 MG TABLET Take 2 (two) tablets (650 mg total) by mouth every 6 (six) hours as needed for pain . ECHINACEA ORAL Take by mouth. FLUTICASONE (FLONASE) 50 MCG/ACTUATION NASAL SPRAY INSTILL 2 SPRAYS EACH NARES QD PRN FOR RELIEF OF ALLERGY SYMPTOMS. GENERIC EXTERNAL MEDICATION Take 2 tablets by mouth 2 (two) times a day Truvy supplement . GUAIFENESIN (MUCINEX) 600 MG 12 HR TABLET Use 1 to 2 tablets every 12 hours as needed, expectorant (helps to thin secretions). Drink plenty of water.. HERBAL DRUGS (DETOX DIETARY ORAL) Take 1 capsule by mouth 2 (two) times a day as needed (constipation) . IBUPROFEN (ADVIL,MOTRIN) 200 MG TABLET Take 1 (one) tablet (200 mg total) by mouth every 6 (six) hours as needed for pain . Modified Medications No medications on file Discontinued Medications No medications on file Histories: Past Medical History: Diagnosis Date Arthritis Past Surgical History: Procedure Laterality Date ABLATION WITH PHENOL BACK SURGERY lumbar surgery for herniated disc CHOLECYSTECTOMY FOOT SURGERY HYSTERECTOMY VEIN LIGATION AND STRIPPING No family history on file. Social History Tobacco Use Smoking status: Never Smokeless tobacco: Never Vaping Use Vaping status: Never Used Substance Use Topics Alcohol use: No Drug use: No Allergies Allergen Reactions Penicillins Review of Systems Constitutional: Negative. HENT: Negative. Eyes: Negative. Cardiovascular: Negative for palpitations. Respiratory: Negative. Endocrine: Negative. Skin: Negative. Musculoskeletal: Negative. Gastrointestinal: Negative. Genitourinary: Negative. Neurological: Negative. Psychiatric/Behavioral: Negative. All other systems reviewed and are negative. Overview of Problems Addressed: No problems updated. Objective: Vitals: There were no vitals taken for this visit. Physical Exam Constitutional: Appearance: Normal appearance. HENT: Head: Normocephalic and atraumatic. Nose: Nose normal. Eyes: Extraocular Movements: Extraocular movements intact. Pupils: Pupils are equal, round, and reactive to light. Cardiovascular: Rate and Rhythm: Normal rate and regular rhythm. Pulses: Normal pulses. Heart sounds: Normal heart sounds. Pulmonary: Effort: Pulmonary effort is normal. Breath sounds: Normal breath sounds. Abdominal: General: Abdomen is flat. Bowel sounds are normal. Palpations: Abdomen is soft. Musculoskeletal: General: Normal range of motion. Cervical back: Normal range of motion and neck supple. Skin: General: Skin is warm and dry. Neurological: General: No focal deficit present. Mental Status: She is alert and oriented to person, place, and time. Mental status is at baseline. 1. Pre-operative cardiovascular examination 2. Primary osteoarthritis of left knee Nirav Ballard MD 06/26/2024 documented in this encounter [facility] 06-26-2024 Note OFFICE CONSULTATION NOTE [facility] [address] ([address]) [facility] [address] [facility] [id number] Physicians: Yomi Lacy DO (Family); Anel Lui,* (Referring) Subjective: Austin Maza is a 58 y.o. female seen in the office today for No chief complaint on file. . HPI patient here for preoperative clearance for left knee surgery she has no risk factors for coronary disease. She denies chest pains dizziness palpitations syncope breathlessness . She does have venous insufficiency of her legs previous to her knees she was an avid walker without difficulty. No history of diabetes or hypertension Assessment/Plan there are no cardiac issues to be addressed ECG: Low voltage Reviewed personally No problem-specific Assessment & Plan notes found for this encounter. Follow Up Ordered: No follow-ups on file. Patient's Medications New Prescriptions No medications on file Previous Medications ACETAMINOPHEN (TYLENOL) 325 MG TABLET Take 2 (two) tablets (650 mg total) by mouth every 6 (six) hours as needed for pain . ECHINACEA ORAL Take by mouth. FLUTICASONE (FLONASE) 50 MCG/ACTUATION NASAL SPRAY INSTILL 2 SPRAYS EACH NARES QD PRN FOR RELIEF OF ALLERGY SYMPTOMS. GENERIC EXTERNAL MEDICATION Take 2 tablets by mouth 2 (two) times a day Truvy supplement . GUAIFENESIN (MUCINEX) 600 MG 12 HR TABLET Use 1 to 2 tablets every 12 hours as needed, expectorant (helps to thin secretions). Drink plenty of water.. HERBAL DRUGS (DETOX DIETARY ORAL) Take 1 capsule by mouth 2 (two) times a day as needed (constipation) . IBUPROFEN (ADVIL,MOTRIN) 200 MG TABLET Take 1 (one) tablet (200 mg total) by mouth every 6 (six) hours as needed for pain . Modified Medications No medications on file Discontinued Medications No medications on file Histories: Past Medical History: Diagnosis Date Arthritis Past Surgical History: Procedure Laterality Date ABLATION WITH PHENOL BACK SURGERY lumbar surgery for herniated disc CHOLECYSTECTOMY FOOT SURGERY HYSTERECTOMY VEIN LIGATION AND STRIPPING No family history on file. Social History Tobacco Use Smoking status: Never Smokeless tobacco: Never Vaping Use Vaping status: Never Used Substance Use Topics Alcohol use: No Drug use: No Allergies Allergen Reactions Penicillins Review of Systems Constitutional: Negative. HENT: Negative. Eyes: Negative. Cardiovascular: Negative for palpitations. Respiratory: Negative. Endocrine: Negative. Skin: Negative. Musculoskeletal: Negative. Gastrointestinal: Negative. Genitourinary: Negative. Neurological: Negative. Psychiatric/Behavioral: Negative. All other systems reviewed and are negative. Overview of Problems Addressed: No problems updated. Objective: Vitals: There were no vitals taken for this visit. Physical Exam Constitutional: Appearance: Normal appearance. HENT: Head: Normocephalic and atraumatic. Nose: Nose normal. Eyes: Extraocular Movements: Extraocular movements intact. Pupils: Pupils are equal, round, and reactive to light. Cardiovascular: Rate and Rhythm: Normal rate and regular rhythm. Pulses: Normal pulses. Heart sounds: Normal heart sounds. Pulmonary: Effort: Pulmonary effort is normal. Breath sounds: Normal breath sounds. Abdominal: General: Abdomen is flat. Bowel sounds are normal. Palpations: Abdomen is soft. Musculoskeletal: General: Normal range of motion. Cervical back: Normal range of motion and neck supple. Skin: General: Skin is warm and dry. Neurological: General: No focal deficit present. Mental Status: She is alert and oriented to person, place, and time. Mental status is at baseline. 1. Pre-operative cardiovascular examination 2. Primary osteoarthritis of left knee Nirav Ballard MD 06/26/2024 AUTHENTICATED BY NIRAV BALLARD, ON 06/26/2024 13:56:01 [facility] 06-21-2024 Note Austin Maza comes in today for presurgical consultation regarding her left knee degenerative arthrosis. She had a partial knee replacement on her right knee, and did not get complete relief and has had chronic pain with the right knee. Now, her left knee has [id number] medial compartment arthrosis and patellofemoral chondromalacia, and she has exhausted conservative measures including pills, shots, and physical therapy and presents now for presurgical visit regarding her left knee. She is tired of the pain. Tired of the IMAGING X-ray examination reveals end-stage left knee medial compartment degenerative arthrosis as well as patellofemoral degenerative changes. ILLNESSES Denies. MEDICATIONS Tylenol, Echinacea, Flonase, Mucinex, p.r.n. Advil. SURGERIES She has had ablation with phenol, lumbar back surgery, cholecystectomy, foot surgery, hysterectomy, vein ligation and stripping, right knee medial unicompartmental knee replacement. FAMILY HISTORY Noncontributory. SOCIAL HISTORY Does not smoke. Does not drink. REVIEW OF SYSTEMS Left knee pain, constipation. ALLERGIES Penicillin, low response. PHYSICAL EXAMINATION General: She is awake, alert, and oriented x3. Chest: Benign. Abdomen: Benign. Cardiac: Benign. Extremities: Bilateral lower extremities have 1+ edema. She has 2+ pulses. She has neurologically intact bilateral lower extremities. Left knee has a varus knee stance, 7 degree flexion contracture, 110 degrees of knee flexion, severe crepitus, mild knee effusion. No ligamentous instability. IMPRESSION Left knee degenerative arthrosis. PLAN We will proceed forward with left total knee replacement. All risks and complications were discussed. I have discussed all treatment options with the patient. The patient was part of the entire decision-making process. Mental health status was assessed. Narcotic review was performed. She has no listed narcotics. I informed the patient we would be using a Abigail total knee replacement system with Farrukh robotic assistance. I did a complete medication presurgical checklist with the patient. We also spent time talking about her significant constipation that she battles, and that narcotics and her constipation are significant. We also proceeded forward with placing her with sequential compression devices on both lower extremities to help with postoperative swelling and I will see her for left total knee replacement. AUTHENTICATED BY ANEL LUI, ON 06/22/2024 10:15:07 [facility] 04-17-2024 History of Present illness Narrative [facility] [address] ([address]) [facility] [address] [facility] [phone] 04/17/24 Impression 1. Primary osteoarthritis of left knee Ambulatory Ref to [facility] (PT/OT/ST) Handicap Placard 2. Chronic pain of left knee Ambulatory referral to Orthopedics 3. Status post right knee replacement partial medial side replacement Plan: The above diagnosis as well as the options for treatment were discussed with Austin in clinic today. -Discussed conservative treatment options and surgical options with Austin today. She has had steroid injections, PRP injections, and gel injections in the past on her right knee which did no good. She is terrified of needles and does not want to go through shots, knowing they haven't worked for her in the past. She would like to proceed forward with left total knee replacement with Dr. 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 -Patient scheduled for left total knee replacement with Dr. Lui. Procedure, Risks and Benefits explained to the patient. Questions were sought and answered. -Physical therapy ordered at [facility] per her request. Austin Link was agreeable to the plan and there were no learning barriers encountered. Follow-Up: Return in about 6 weeks (around 05/29/2024) for pre-op with Dr. Lui. Subjective History: Austin Maza is a pleasant 58 y.o. female seen as a new patient for left knee pain. She has a history of a right partial knee replacement done in [address] Roa, orthopedic surgeon in [place], [place]. Symptoms began several years ago without specific injury insidious onset. Symptoms are located global knee, occur with activity, with weight bearing, when going up stairs, when going down stairs, throughout the day, sitting, [id number], and after period of inactivity, and are described as dull, aching, and boring. This patient has attempted to relieve symptoms with rest, ice, heat, home exercises, and over the counter NSAIDs and analgesics which have provided minimal relief. Additional formal treatment measures include:evaluated by Dr. Roa. 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 Activities of daily living being affected by symptoms include ambulating, bending. Formal physical therapy for this left knee pain has not been attempted . Patient has felt unstable. She is not a smoker. History: History reviewed. No pertinent past medical history. Past Surgical History: Procedure Laterality Date ABLATION WITH PHENOL BACK SURGERY CHOLECYSTECTOMY FOOT SURGERY HYSTERECTOMY VEIN LIGATION AND STRIPPING History reviewed. No pertinent family history. Social History Tobacco Use Smoking status: Never Smokeless tobacco: Never Vaping Use Vaping status: Never Used Substance Use Topics Alcohol use: No Drug use: No Outpatient Medications as of 04/17/2024 Medication Sig BIOTIN ORAL Take by mouth. ECHINACEA ORAL Take by mouth. fluticasone (FLONASE) 50 mcg/actuation nasal spray INSTILL 2 SPRAYS EACH NARES QD PRN FOR RELIEF OF ALLERGY SYMPTOMS. guaiFENesin (MUCINEX) 600 mg 12 hr tablet Use 1 to 2 tablets every 12 hours as needed, expectorant (helps to thin secretions). Drink plenty of water.. ibuprofen (ADVIL,MOTRIN) 200 MG tablet Take 200 mg by mouth every 6 (six) hours as needed for pain. Allergies Allergen Reactions Penicillins Review of Systems: Review of Systems Constitutional: Negative for activity change. Respiratory: Negative for shortness of breath. Cardiovascular: Positive for leg swelling. Negative for chest pain. Gastrointestinal: Negative for nausea. Musculoskeletal: Positive for arthralgias, joint swelling and myalgias. Neurological: Negative for weakness and numbness. Objective Exam: Vitals: 04/17/24 1116 Weight: 95.3 kg (210 lb) Height: 5' 4" General: no acute distress Appearance: well nourished Neurologic: Patient is alert and oriented x3 pleasant and cooperative. Mood and affect: Normal HEENT: normocephalic, attraumatic. Extraocular muscles grossly normal. Pulm: respiratory effort is normal Left Knee - Physical Exam Standing: Gait: ambulates with a painful to bear weight gait, without an assistive device. Palpation: Tenderness to palpation medial and lateral joint lines. No signs or symptoms of DVT, bilateral calf soft, negative for erythema or increased warmth. ROM 0-105 degree flexion Muscle/Tendons Strength Flexion: limited (when compared bilaterally) Extension: limited (when compared bilaterally) Distal Neurovascular Status Grossly intact. Skin: intact Radiographs: 4 view standing knee: Xray images from today's date were reviewed today in clinic and discussed with the patient. A formal read will be perfomed by radiology. Initial findings and impressions: 04/17/24 XR Left Knee: Intact partial, medial joint replacement in her right knee. Severe medial compartment degeneration with bone spurring. Moderate patellofemoral degeneration and bone spurring. Data Reviewed for Today's Visit: Date & Encounter: 02/29/2024, @PCP@ Dr. Lacy CC: Yomi Lacy DO documented in this encounter [facility] 04-17-2024 Note [facility] [address] (11) [facility] [address] [facility] [phone] 04/17/24 Impression 1. Primary osteoarthritis of left knee Ambulatory Ref to [facility] (PT/OT/ST) Handicap Zahra 2. Chronic pain of left knee Ambulatory referral to Orthopedics 3. Status post right knee replacement partial medial side replacement Plan: The above diagnosis as well as the options for treatment were discussed with Austin in clinic today. -Discussed conservative treatment options and surgical options with Austin today. She has had steroid injections, PRP injections, and gel injections in the past on her right knee which did no good. She is terrified of needles and does not want to go through shots, knowing they haven't worked for her in the past. She would like to proceed forward with left total knee replacement with Dr. 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 -Patient scheduled for left total knee replacement with Dr. Lui. Procedure, Risks and Benefits explained to the patient. Questions were sought and answered. -Physical therapy ordered at [facility] per her request. Austin Maza was agreeable to the plan and there were no learning barriers encountered. Follow-Up: Return in about 6 weeks (around 05/29/2024) for pre-op with Dr. Lui. Subjective History: Austin Maza is a pleasant 58 y.o. female seen as a new patient for left knee pain. She has a history of a right partial knee replacement done in [address] Roa, orthopedic surgeon in [place], [place]. Symptoms began several years ago without specific injury insidious onset. Symptoms are located global knee, occur with activity, with weight bearing, when going up stairs, when going down stairs, throughout the day, sitting, [id number], and after period of inactivity, and are described as dull, aching, and boring. This patient has attempted to relieve symptoms with rest, ice, heat, home exercises, and over the counter NSAIDs and analgesics which have provided minimal relief. Additional formal treatment measures include:evaluated by Dr. Roa. 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 Activities of daily living being affected by symptoms include ambulating, bending. Formal physical therapy for this left knee pain has not been attempted . Patient has felt unstable. She is not a smoker. History: History reviewed. No pertinent past medical history. Past Surgical History: Procedure Laterality Date ABLATION WITH PHENOL BACK SURGERY CHOLECYSTECTOMY FOOT SURGERY HYSTERECTOMY VEIN LIGATION AND STRIPPING History reviewed. No pertinent family history. Social History Tobacco Use Smoking status: Never Smokeless tobacco: Never Vaping Use Vaping status: Never Used Substance Use Topics Alcohol use: No Drug use: No Outpatient Medications as of 04/17/2024 Medication Sig BIOTIN ORAL Take by mouth. ECHINACEA ORAL Take by mouth. fluticasone (FLONASE) 50 mcg/actuation nasal spray INSTILL 2 SPRAYS EACH NARES QD PRN FOR RELIEF OF ALLERGY SYMPTOMS. guaiFENesin (MUCINEX) 600 mg 12 hr tablet Use 1 to 2 tablets every 12 hours as needed, expectorant (helps to thin secretions). Drink plenty of water.. ibuprofen (ADVIL,MOTRIN) 200 MG tablet Take 200 mg by mouth every 6 (six) hours as needed for pain. Allergies Allergen Reactions Penicillins Review of Systems: Review of Systems Constitutional: Negative for activity change. Respiratory: Negative for shortness of breath. Cardiovascular: Positive for leg swelling. Negative for chest pain. Gastrointestinal: Negative for nausea. Musculoskeletal: Positive for arthralgias, joint swelling and myalgias. Neurological: Negative for weakness and numbness. Objective Exam: Vitals: 04/17/24 1116 Weight: 95.3 kg (210 lb) Height: 5' 4" General: no acute distress Appearance: well nourished Neurologic: Patient is alert and oriented x3 pleasant and cooperative. Mood and affect: Normal HEENT: normocephalic, attraumatic. Extraocular muscles grossly normal. Pulm: respiratory effort is normal Left Knee - Physical Exam Standing: Gait: ambulates with a painful to bear weight gait, without an assistive device. Palpation: Tenderness to palpation medial and lateral joint lines. No signs or symptoms of DVT, bilateral calf soft, negative for erythema or increased warmth. ROM 0-105 degree flexion Muscle/Tendons Strength Flexion: limited (when compared bilaterally) Extension: limited (when compared bilaterally) Distal Neurovascular Status Grossly intact. Skin: intact Radiographs: 4 view standing knee: Xray images from today's date were reviewed today in clinic and discussed with the patient. A formal read will be perfomed by radiology. Initial findings and imp (more content not included)... [facility] 03-03-2024 Evaluation + Plan note Associated Problem(s): Chronic pain of left knee Chronic and progressive. Using shared decision making, we decided to proceed with ortho eval. [facility] Work Phone: 03-03-2024 Miscellaneous Notes Associated Problem(s): Chronic pain of left knee Chronic and progressive. Using shared decision making, we decided to proceed with ortho eval. Associated Problem(s): Dyslipidemia FLP improved. Dietary modifications and recommendation for 150 minutes of moderate-intensity exercise per week reviewed. Associated Problem(s): Palpitations Improved. documented in this encounter [facility] Work Phone: 03-03-2024 Evaluation + Plan note Associated Problem(s): Dyslipidemia FLP improved. Dietary modifications and recommendation for 150 minutes of moderate-intensity exercise per week reviewed. [facility] Work Phone: 03-03-2024 Evaluation + Plan note Associated Problem(s): Palpitations Improved. [facility] Work Phone: 02-29-2024 History of Present illness Narrative Subjective Patient ID: Austin Maza is a 58 y.o. female who presents for physical for employer HPI BMI - she continues to work on lifestyle modifications, she has transitioned a few of her supplements from Truvy to Lifewise HLD - FLP improved by 20+ pts, does admit to getting more take out than usual, unfortunately has been eating out of convenience recently due to her schedule L knee - notes diffuse pain medially and laterally, worse with prolonged walking and standing at work, hurts to extend and flex, now having pain in the R hip due to conpensatory walk, hip pain better with chiropractic manipulation, L knee brace helping, s/p replacement on the R in the past Palpitations - much improved Cervical Cancer Screening: s/p hyst due to AUB Breast Cancer Screening: due Osteoporosis Screening: plan to start at age 63 Colon Cancer Screening: Dr. Hobson ([place]) 08/03/2015, due 07/2025 Tobacco: never Alcohol: denies Recreational Drugs: denies Immunizations: she declines all immunizations Review of Systems Constitutional: Negative for chills and fever. Respiratory: Negative for cough and shortness of breath. Cardiovascular: Negative for chest pain and palpitations. Gastrointestinal: Negative for abdominal pain, constipation, diarrhea and vomiting. Genitourinary: Negative for dysuria. Musculoskeletal: Positive for arthralgias. Skin: Negative for rash. Psychiatric/Behavioral: Negative for dysphoric mood. The patient is not nervous/anxious. Objective BP 122/72 Pulse 64 Ht 1.6 m (5' 3") Wt 95.8 kg (211 lb 3.2 oz) BMI 37.41 kg/m Physical Exam Constitutional: Appearance: Normal appearance. HENT: Head: Normocephalic and atraumatic. Eyes: General: No scleral icterus. Conjunctiva/sclera: Conjunctivae normal. Cardiovascular: Rate and Rhythm: Normal rate and regular rhythm. Heart sounds: No murmur heard. Pulmonary: Effort: Pulmonary effort is normal. No respiratory distress. Breath sounds: Normal breath sounds. Musculoskeletal: General: Tenderness (L knee bl joint line) present. No swelling. Normal range of motion. Cervical back: Normal range of motion and neck supple. Skin: General: Skin is warm and dry. Findings: No rash. Neurological: General: No focal deficit present. Mental Status: She is alert. Psychiatric: Mood and Affect: Mood normal. Behavior: Behavior normal. Assessment/Plan Problem List Items Addressed This Visit ICD-10-CM Palpitations R00.2 Improved. Dyslipidemia E78.5 FLP improved. Dietary modifications and recommendation for 150 minutes of moderate-intensity exercise per week reviewed. Class 2 severe obesity due to excess calories with serious comorbidity and body mass index (BMI) of 37.0 to 37.9 in adult E66.812, E66.01, Z68.37 Chronic pain of left knee - Primary M25.562, G89.29 Chronic and progressive. Using shared decision making, we decided to proceed with ortho eval. Relevant Orders Referral to Orthopaedic Surgery Follow Up In Primary Care - Health Maintenance Other Visit Diagnoses Codes Encounter for screening mammogram for breast cancer Z12.31 Relevant Orders BI mammo bilateral screening tomosynthesis Follow Up In Primary Care - Health Maintenance Follow up in 1yr for recheck, sooner if needed. documented in this encounter [facility] Work Phone: 01-20-2024 History of Present illness Narrative [facility] NOTE: Name: Austin Maza, 58 y.o. CSN:[id number] PCP: Yomi Lacy DO ALL: Allergies Allergen Reactions Penicillins Hives History: Chief Complaint: Hand Pain (Pain in right hand for 1 day. ) Encounter Date: 01/20/2024 HPI: The history was obtained from the patient. Austin is a 58 y.o. female, who presents with a chief complaint of Hand Pain (Pain in right hand for 1 day. ) mention she is having right ring finger pain and notable swelling the proximal phalanx region, she does endorse a history of being working with some debris and some various organic materials and did suffer some puncture wounds often she had to remove them from her proximal phalanx volar portion. No significant interruption during the activity but notes afterwards a few hours later she had some swelling and some pain radiating into the palm hurts when she flexes and extends her right ring finger. PMHx: Past Medical History: Diagnosis Date Other tear of medial meniscus, current injury, unspecified knee, initial encounter 03/23/2019 Medial meniscus tear Current Outpatient Medications Medication Sig Dispense Refill NON FORMULARY Unspecified Medication; TRUVY phentermine (Adipex-P) 37.5 mg tablet Take 1 tablet (37.5 mg) by mouth once daily in the morning. Take before meals. 30 tablet 0 No current facility-administered medications for this visit. PMSx: Past Surgical History: Procedure Laterality Date COSMETIC SURGERY OTHER SURGICAL HISTORY 05/29/2019 Meniscus repair OTHER SURGICAL HISTORY 05/29/2019 Dilation and curettage OTHER SURGICAL HISTORY 05/29/2019 Endometrial ablation OTHER SURGICAL HISTORY 05/11/2020 Knee surgery OTHER SURGICAL HISTORY 03/12/2019 Cholecystectomy OTHER SURGICAL HISTORY 03/12/2019 Varicose vein ligation OTHER SURGICAL HISTORY 03/12/2019 Merino's neuroma excision OTHER SURGICAL HISTORY 03/12/2019 Lower back surgery OTHER SURGICAL HISTORY 03/12/2019 Hysterectomy OTHER SURGICAL HISTORY 03/12/2019 Tonsillectomy OTHER SURGICAL HISTORY 03/12/2019 Skin biopsy Fam Hx: Family History Problem Relation Name Age of Onset Breast cancer Mother Heart attack Father Ankylosing spondylitis Brother SOC. Hx: Social History Socioeconomic History Marital status: Spouse name: Not on file Number of children: Not on file Years of education: Not on file Highest education level: Not on file Occupational History Not on file Tobacco Use Smoking status: Never Smokeless tobacco: Never Substance and Sexual Activity Alcohol use: Not on file Drug use: Not on file Sexual activity: Not on file Other Topics Concern Not on file Social History Narrative Not on file Social Determinants of Health Financial Resource Strain: Not on file Food Insecurity: Not on file Transportation Needs: Not on file Physical Activity: Not on file Stress: Not on file Social Connections: Not on file Intimate Partner Violence: Not on file Housing Stability: Not on file Vitals: 01/20/24 1215 BP: 127/81 Pulse: 66 Resp: 16 Temp: 37.1 C (98.7 F) SpO2: 98% 93 kg (205 lb) Physical Exam Vitals reviewed. Constitutional: Appearance: Normal appearance. She is normal weight. Cardiovascular: Rate and Rhythm: Normal rate. Pulmonary: Effort: Pulmonary effort is normal. Musculoskeletal: General: Normal range of motion. Cervical back: Normal range of motion. Comments: Swelling noted of the right proximal ring finger with some discomfort on palpation but there is no significant bogginess of the joint, suspect more of a tenosynovitis. Skin: General: Skin is warm. Capillary Refill: Capillary refill takes less than 2 seconds. Comments: No erythema or ecchymosis noted to region of complaint On autoscope review of the puncture wound site there is no retained foreign body and is just a small mild microscopic less than 1 mm abrasion to the proximal phalanx of the right ring finger. Neurological: General: No focal deficit present. Mental Status: She is alert. LABORATORY @ RADIOLOGICAL IMAGING (if done): X-rays of right hand reviewed there is no acute fracture. __ I did personally review Austin's past medical history, surgical history, social history, as well as family history (when relevant). In this case, I also oversaw the her drug management by reviewing her medication list, allergy list, as well as the medications that I prescribed during the UC course and/or recommended as an out-patient (including possible OTC medications such as acetaminophen, NSAIDs , etc). After reviewing the items above, I did look at previous medical documentation, such as recent hospitalizations, office visits, and/or recent consultations with PCP/specialist. SDOH: Another factor that I considered in Austin's care was her Social Determinants of Health (SDOH). During this UC encounter, she did not have social determinants of health. Those SDOH influencing Austin's care are: none ___ UC COURSE/MEDICAL DECISION MAKING: Austin is a 58 y.o., who presents with a working diagnosis of 1. Tenosynovitis of finger and hand with a differential to include: Sprain, strain, contusion, fracture, avulsion fracture, dislocation, tendinitis, tenosynovitis 1. Suspected more of an inflammatory type of his tenosynovitis from the puncture wounds and the work that she was performing, recommend use of anti-inflammatories range of motion she was splinted with a finger splint the office and encouraged to apply ice when able. There is no signs of any active infection therefore no antibiotic was prescribed, x-ray was pursued given the puncture wounds potential for foreign body and ruling out gas formation, and/or avulsion fracture. Gil De Leon PA-C Advanced Practice Provider [facility] documented in this encounter [facility] Work Phone: 08-17-2023 Evaluation + Plan note Associated Problem(s): Palpitations Resolved. We discussed that palpitations are possible adverse effect of any stimulant medication, including Adipex. She accepts this risk and prefers to trial the medication. Encouraged her to stop the medication and let us know if she has recurrence palpitations. [facility] Work Phone: 08-17-2023 Miscellaneous Notes Associated Problem(s): Palpitations Resolved. We discussed that palpitations are possible adverse effect of any stimulant medication, including Adipex. She accepts this risk and prefers to trial the medication. Encouraged her to stop the medication and let us know if she has recurrence palpitations. Associated Problem(s): Class 2 severe obesity with serious comorbidity and body mass index (BMI) of 36.0 to 36.9 in adult ([facility]) Currently following at weight loss clinic and being treated with compounded GLP1. We discussed additional options. She is interested in Adipex trial now that palpitations have resolved and cardiac workup is negative. Medication dosing and side effects reviewed. Dietary modifications and recommendation for 150 minutes of moderate-intensity exercise per week reviewed. UDS/CSA today. I have personally reviewed the OARRS for this patient. I have considered the risk dependence, addiction, and diversion. There are no concerns at this time. I believe that it is clinically appropriate for this patient to be prescribed this medication based on documented diagnosis. documented in this encounter [facility] Work Phone: 08-17-2023 Evaluation + Plan note Associated Problem(s): Class 2 severe obesity with serious comorbidity and body mass index (BMI) of 36.0 to 36.9 in adult ([facility]) Currently following at weight loss clinic and being treated with compounded GLP1. We discussed additional options. She is interested in Adipex trial now that palpitations have resolved and cardiac workup is negative. Medication dosing and side effects reviewed. Dietary modifications and recommendation for 150 minutes of moderate-intensity exercise per week reviewed. UDS/CSA today. I have personally reviewed the OARRS for this patient. I have considered the risk dependence, addiction, and diversion. There are no concerns at this time. I believe that it is clinically appropriate for this patient to be prescribed this medication based on documented diagnosis. [facility] Work Phone: 08-17-2023 History of Present illness Narrative Subjective Patient ID: Austin Maza is a 57 y.o. female who presents for Follow-up (3 month). HPI Palpitations - scheduled to see cardiology (Dr. Schwarz) in [place] next week, palpitations have resolved, hasn't had an episode in a couple weeks, she has been unable to elicit trigger, labs, Holter, and echo were unrevealing BMI - following at weight loss clinic, managed on compounded GLP1 weekly, having some indigestion but otherwise tolerating, down 10lb at home, she is very active at baseline and is planning to implement exercise regimen, she has also been paying more attention to her diet Review of Systems Constitutional: Negative for chills and fever. Respiratory: Negative for cough and shortness of breath. Cardiovascular: Negative for chest pain and palpitations. Skin: Negative for rash. Psychiatric/Behavioral: Negative for dysphoric mood. The patient is not nervous/anxious. Objective BP 118/76 Pulse 86 Wt 93.2 kg (205 lb 6.4 oz) SpO2 98% BMI 36.38 kg/m Physical Exam Constitutional: Appearance: Normal appearance. [...] This Visit ICD-10-CM Palpitations - Primary R00.2 Resolved. We discussed that palpitations are possible adverse effect of any stimulant medication, including Adipex. She accepts this risk and prefers to trial the medication. Encouraged her to stop the medication and let us know if she has recurrence palpitations. Relevant Orders Follow Up In Primary Care - Established Class 2 severe obesity with serious comorbidity and body mass index (BMI) of 36.0 to 36.9 in adult ([facility]) E66.01, Z68.36 Currently following at weight loss clinic and being treated with compounded GLP1. We discussed additional options. She is interested in Adipex trial now that palpitations have resolved and cardiac workup is negative. Medication dosing and side effects reviewed. Dietary modifications and recommendation for 150 minutes of moderate-intensity exercise per week reviewed. UDS/CSA today. I have personally reviewed the OARRS for this patient. I have considered the risk dependence, addiction, and diversion. There are no concerns at this time. I believe that it is clinically appropriate for this patient to be prescribed this medication based on documented diagnosis. Relevant Orders Drug Screen, Urine With Reflex to Confirmation Follow Up In Primary Care - Established Follow up in 1mo for recheck, sooner if needed. Time Spent Prep time on day of patient encounter: 1 minutes Time spent directly with patient, family or caregiver: 31 minutes Additional Time Spent on Patient Care Activities: 0 minutes Documentation Time: 7 minutes Other Time Spent: 0 minutes Total: 39 minutes documented in this encounter [facility] Work Phone: 05-19-2023 Evaluation + Plan note Associated Problem(s): Screening for heart disease Will obtain CACS for further risk stratification. [facility] Work Phone: 05-19-2023 Evaluation + Plan note Associated Problem(s): Palpitations Echo and labs (cbc, cmp, tsh) unrevealing. Symptoms persistent - a little less intense. Will await Holter report and will follow up with results. Did discuss PVCs as possible etiology and reasons for treatment. She would not be great candidate for BB trial given already-low HR. Return precautions reviewed. [facility] Work Phone: 05-19-2023 Miscellaneous Notes Associated Problem(s): Screening for heart disease Will obtain CACS for further risk stratification. Associated Problem(s): Palpitations Echo and labs (cbc, cmp, tsh) unrevealing. Symptoms persistent - a little less intense. Will await Holter report and will follow up with results. Did discuss PVCs as possible etiology and reasons for treatment. She would not be great candidate for BB trial given already-low HR. Return precautions reviewed. documented in this encounter [facility] Work Phone: 05-18-2023 History of Present illness Narrative Subjective Patient ID: Austin Maza is a 57 y.o. female who presents for 1 month check with labs and echo HPI Palpitations - still having frequent but more mild episodes, continue to be random, not associated with exertion and no associated symptoms, there has been no recurrence of chest pain or pressure, echo and labs including thyroid were unrevealing, she wore Holter and dropped it off yesterday so has not yet been read, denies development of new symptoms since last eval Review of Systems Constitutional: Negative for chills and fever. Respiratory: Negative for cough and shortness of breath. Cardiovascular: Positive for palpitations. Negative for chest pain. Skin: Negative for rash. Psychiatric/Behavioral: Negative for dysphoric mood. The patient is not nervous/anxious. Objective BP 112/80 Pulse 64 Ht 1.6 m (5' 3") Wt 96.5 kg (212 lb 12.8 oz) BMI 37.70 kg/m Physical Exam Constitutional: Appearance: Normal appearance. HENT: Head: Normocephalic and atraumatic. Eyes: General: No scleral icterus. Conjunctiva/sclera: Conjunctivae normal. Cardiovascular: Rate and Rhythm: Normal rate and regular rhythm. Heart sounds: No murmur heard. Pulmonary: Effort: Pulmonary effort is normal. No respiratory distress. Breath sounds: Normal breath sounds. Musculoskeletal: General: Normal range of motion. Cervical back: Normal range of motion and neck supple. Skin: General: Skin is warm and dry. Findings: No rash. Neurological: General: No focal deficit present. Mental Status: She is alert. Psychiatric: Mood and Affect: Mood normal. Behavior: Behavior normal. Assessment/Plan Problem List Items Addressed This Visit ICD-10-CM Screening for heart disease Z13.6 Will obtain CACS for further risk stratification. Relevant Orders CT cardiac scoring wo IV contrast Follow Up In Primary Care - Established Palpitations - Primary R00.2 Echo and labs (cbc, cmp, tsh) unrevealing. Symptoms persistent - a little less intense. Will await Holter report and will follow up with results. Did discuss PVCs as possible etiology and reasons for treatment. She would not be great candidate for BB trial given already-low HR. Return precautions reviewed. Relevant Orders Follow Up In Primary Care - Established Follow up in 3mo for recheck, sooner if needed. documented in this encounter [facility] Work Phone: 04-17-2023 Evaluation + Plan note Associated Problem(s): Palpitations Intermittent x2mo after episode of chest pain. Reviewed possible etiologies and usual workup. Will start with labs as well as echo and Holter and will follow up with results when available. Return precautions reviewed. Recommend ED eval if she has recurrence of CP. [facility] Work Phone: 04-17-2023 Miscellaneous Notes Associated Problem(s): [...] Lifestyle modifications reviewed. documented in this encounter [facility] Work Phone: 04-17-2023 Evaluation + Plan note Associated Problem(s): Dyslipidemia Decided not to proceed with CT coronary artery calcium scoring. Discussed utility of the exam. She will consider rescheduling. Lifestyle modifications reviewed. [facility] Work Phone: 04-17-2023 History of Present illness [...] 116/72 Pulse 64 Ht 1.6 m (5' 3") Wt 96.9 kg (213 lb 9.6 oz) [...] Transthoracic Echo (TTE) Complete Holter or Event [employer] Installer Follow Up In Primary Care - Established Dyslipidemia E78.5 Decided not to proceed with CT coronary artery calcium scoring. Discussed utility of the exam. She will consider rescheduling. Lifestyle modifications reviewed. Follow up in 1mo for recheck, sooner if needed. documented in this encounter [facility] Work Phone: 01-05-2023 Evaluation + Plan note Associated Problem(s): Moderate obstructive sleep apnea -We briefly discussed this condition and she will read about it [facility] Work Phone: 01-05-2023 Evaluation + Plan note Associated Problem(s): Numbness and tingling in right hand -I am still recommending that she complete the EMG [facility] Work Phone: 01-05-2023 Evaluation + Plan note Associated Problem(s): Chronic right shoulder pain -Much improved after treatment with Naprosyn [facility] Work Phone: 01-05-2023 Evaluation + Plan note Associated Problem(s): Screening for heart disease -She will be scheduled for this exam and she will see Dr. Lacy in follow-up to go over results and an active plan for further risk stratification [facility] Work Phone: 01-05-2023 Evaluation + Plan note Associated Problem(s): Dyslipidemia -We are giving her a handout today that goes over ways to improve cholesterol through diet [facility] Work Phone: 01-05-2023 Miscellaneous Notes Associated Problem(s): [...] cholesterol through diet documented in this encounter [facility] Work Phone: 01-05-2023 History of Present illness [...] She had lab work done through the [facility] on December 30 and we went over [...] list it was listed that she had "moderate "obstructive sleep apnea. She states that actually she has been tested more than once and each time she was advised that she was suffering from "mild "obstructive sleep apnea. We talked about the varying degrees of this condition and how it can affect energy levels and so forth. I did give her a handout that explains sleep apnea. Review of Systems Constitutional: Negative for unexpected weight change. Chronic "stable" fatigue Respiratory: Negative for cough, chest tightness, [...] CT cardiac scoring wo IV contrast Ana Vargas DO documented in this encounter [facility] Work Phone: 01-05-2023 Instructions Ana Vargas DO - 01/05/2023 1:20 PM EDT The [...] explaining sleep apnea documented in this encounter [facility] Work Phone: 12-01-2022 Evaluation + Plan note Associated Problem(s): Neck pain -She will get an x-ray of her cervical spine -We discussed the possibility of a radiculopathy from her neck down her right arm [facility] Work Phone: 12-01-2022 Evaluation + Plan note Associated Problem(s): Chronic right shoulder pain -I am sending her for x-rays of her right shoulder -I am prescribing Naprosyn 500 mg twice daily with food for the next 10 to 12 days [facility] Work Phone: 12-01-2022 Miscellaneous Notes Associated Problem(s): [...] impingement is occurring documented in this encounter [facility] Work Phone: 12-01-2022 Evaluation + Plan note [...] of where the nerve impingement is occurring [facility] Work Phone: 12-01-2022 History of Present illness [...] her neck down her right arm Ana Vargas DO documented in this encounter [facility] Work Phone: 12-01-2022 Instructions Ana Vargas DO - 12/01/2022 11:00 AM EDT As [...] it is important not to take any stgl-sqp-kecetix medications except for Tylenol. You can safely [...] of your studies documented in this encounter [facility] Work Phone: 07-27-2022 Evaluation + Plan note Associated Problem(s): Dyslipidemia Follow up in 6mo for recheck, sooner if needed. Labs prior to appt. [facility] Work Phone: 07-27-2022 Evaluation + Plan note Associated Problem(s): Sore throat Given timeline (symptomatic >10d), will provide rx for antibiotic to cover possible bacterial involvement. Patient will start the nasal steroid that she has at home. Medication dosing and side effects reviewed. We will also obtain covid/flu/GAS swab for exposure purposes and will fu with results. Return precautions reviewed. [facility] Work Phone: 03-15-2023 Miscellaneous Notes Associated Problem(s): Dyslipidemia Follow up in 6mo for recheck, sooner if needed. Labs prior to appt. Associated Problem(s): Sore throat Given timeline (symptomatic >10d), will provide rx for antibiotic to cover possible bacterial involvement. Patient will start the nasal steroid that she has at home. Medication dosing and side effects reviewed. We will also obtain covid/flu/GAS swab for exposure purposes and will fu with results. Return precautions reviewed. documented in this encounter [facility] Work Phone: 07-27-2022 History of Present illness Narrative 6 month check. Throat pain on and off for about 10 days. Worse at night, has tried flonase Subjective Patient ID: Austin Maza is a 56 y.o. female who presents for Throat Pain. HPI States that this episode started about 10 days ago. First noticed sore throat which she attributed to working 3rd shift for a few days. Was not having any other symptoms. Over the past week, developed cough. Was productive and persistent for 2-3d and is now dry and intermittent. Denies sinus pressure, ear pain, nasal congestion, rhinorrhea, fever, chills, abd pain, n/v/d, dysuria. 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 Did try ibuprofen for her throat which did not provide much relief. Has Flonase at home, but hasn't tried it yet. Review of Systems Constitutional: Negative for chills and fever. HENT: Positive for sore throat. Negative for ear pain, rhinorrhea and sinus pressure. Respiratory: Positive for cough. Negative for shortness of breath. Cardiovascular: Negative for chest pain and palpitations. Skin: Negative for rash. Psychiatric/Behavioral: Negative for dysphoric mood. The patient is not nervous/anxious. Objective BP 126/80 Pulse 76 Ht 1.6 m (5' 3") Wt 92 kg (202 lb 12.8 oz) BMI 35.92 kg/m Physical Exam Vitals reviewed. Constitutional: Appearance: Normal appearance. HENT: Head: Normocephalic and atraumatic. Right Ear: Tympanic membrane, ear canal and external ear normal. Left Ear: Tympanic membrane, ear canal and external ear normal. Nose: No congestion or rhinorrhea. Mouth/Throat: Mouth: Mucous membranes are moist. Pharynx: Oropharynx is clear. Posterior oropharyngeal erythema present. No oropharyngeal exudate. Comments: PND noted Eyes: General: No scleral icterus. Conjunctiva/sclera: Conjunctivae normal. Cardiovascular: Rate and Rhythm: Normal rate and regular rhythm. Pulmonary: Effort: Pulmonary effort is normal. No respiratory distress. Breath sounds: Normal breath sounds. Musculoskeletal: General: No deformity. Cervical back: Normal range of motion and neck supple. Lymphadenopathy: Cervical: No cervical adenopathy. Skin: General: Skin is warm and dry. Findings: No rash. Neurological: General: No focal deficit present. Mental Status: She is alert. Psychiatric: Mood and Affect: Mood normal. Behavior: Behavior normal. Assessment/Plan Problem List Items Addressed This Visit Dyslipidemia Follow up in 6mo for recheck, sooner if needed. Labs prior to appt. Relevant Orders Lipid Panel CBC and Auto Differential Comprehensive Metabolic Panel Sore throat - Primary Given timeline (symptomatic >10d), will provide rx for antibiotic to cover possible bacterial involvement. Patient will start the nasal steroid that she has at home. Medication dosing and side effects reviewed. We will also obtain covid/flu/GAS swab for exposure purposes and will fu with results. Return precautions reviewed. Relevant Medications doxycycline (Vibramycin) 100 mg capsule Other Relevant Orders Sars-CoV-2 and Influenza A/B PCR, Symptomatic Group A Streptococcus, PCR Other Visit Diagnoses Encounter for screening mammogram for malignant neoplasm of breast Relevant Orders BI mammo bilateral screening tomosynthesis documented in this encounter [facility] Work Phone: 02-17-2022 Procedure note Complete post op instructions reviewed with Farzad. He will get Rx today. Drain instructions reviewed [facility] 02-17-2022 Procedure note Complete post op instructions reviewed with Farzad. He will get Rx today. Drain instructions reviewed PANNICULECTOMY, ABDOMINOPLASTY, MEDIAL THIGH LIFT BILATERAL (B) OPERATIVE NOTE Date: 02/17/2022 Location: [facility] OR Name: Austin Maza, : 1965, Diagnosis [...] having surgery for L98.7 Z41.1. Surgeon(s) & Test Technician(s) * Cuauhtemoc Ortega MD - Primary Anesthesia: general ASA: III [...] excess skin and fat. I placed 215 Malaysian drains inferiorly and sutured the securely with [...] stable. Condition: stable documented in this encounter [facility] 02-17-2022 Hospital course Narrative The patient has a follow-up in the office in 5 to 7 days. Any questions call [phone] Regular diet Empty and record drain output [...] Registration Desk Upon Discharge Must Have a Lumber Sales Supervisor Home Responsible Adult First 24 Hours documented in this encounter [facility] 02-17-2022 Procedure note PANNICULECTOMY, ABDOMINOPLASTY, MEDIAL THIGH LIFT BILATERAL (B) OPERATIVE NOTE Date: 02/17/2022 Location: [facility] OR Name: Austin Maza, : 1965, Diagnosis [...] having surgery for L98.7 Z41.1. Surgeon(s) & Test Technician(s) * Cuahutemoc Ortega MD - Primary Anesthesia: general ASA: III [...] excess skin and fat. I placed 215 Malaysian drains inferiorly and sutured the securely with [...] Disposition: PACU - hemodynamically stable. Condition: stable [facility] 02-17-2022 History of Present illness Narrative Subjective/Objective: The patient presents today for a full abdominoplasty and medial thigh lift bilateral. Physical Exam Last Recorded Vitals: Blood pressure 131/87, pulse 68, temperature 37 C (98.6 F), temperature source Oral, resp. rate 15, height 1.613 m (63.5"), weight 90.8 kg (200 lb 2.8 oz), [...] thigh lift bilateral. documented in this encounter [facility] 02-17-2022 History and physical note Sound Consult [...] of above noted. Patient denies history of IA, cardiac stenting, cardiac bypass, pacemaker, defibrillator, heart [...] Systems: Pertinent positives as indicated in the TAZLINA. All other systems were reviewed and negative. Physical Examination: Vital Signs: Visit Vitals BP 131/87 Pulse 68 Temp 37 C (98.6 F) (Oral) Resp 15 Ht 1.613 m (63.5") Wt 90.8 kg (200 lb 2.8 oz) [...] x3 Psychiatric Alert, engaged, calm and cooperative [facility] Phone: 02-17-2022 History and physical note Sound [...] of above noted. Patient denies history of IA, cardiac stenting, cardiac bypass, pacemaker, defibrillator, heart [...] Systems: Pertinent positives as indicated in the TAZLINA. All other systems were reviewed and negative. Physical Examination: Vital Signs: Visit Vitals BP 131/87 Pulse 68 Temp 37 C (98.6 F) (Oral) Resp 15 Ht 1.613 m (63.5") Wt 90.8 kg (200 lb 2.8 oz) [...] calm and cooperative documented in this encounter [facility] 10-29-2021 History of Present illness Narrative sciaticaR knee had replacement [facility] in [place], 2yrs ago, better but not, meniscus repaired before, PT and shots multiple rounds, partial replacement, inside hurts, just happened a few days ago, wants to go to [facility] but not sure what to doL doing same, [employer] exercising, getting worselook into lipomasvaricose veins - teto soto in [place], wearing compression stockings, 11/10 doppler legs, maybe a proceduredr. pabon at [place], plastic surgery, was scheduled for 05/2021 but put off for now due to surgeon off, yesterday went to different doctor and [place] Dr. Les Gordon, checking with insurance, paniculectomy, sore on skin, maybe full tummy tuck and pay extra maybe, has lost 40lbs, taking Truvy, plateau for 1yr, wants to lose another 50, maybe 02/2022hair loss - started 3-4yrs ago, thinks it's hormonal, bad after babies, maybe due to stress, lasted for years, tried biotin, had extensive testing, thyroid nodules, went to dr. mchugh, "so tiny can't do anything about it"Cervical Cancer Screening: s/p hyst, 16yrs ago, [place], heavy bleeding, has 1 ovary remaining, agreeable to 1 more pap, [place] because it's paidBreast Cancer Screening: dueOsteoporosis ScreeninColon Cancer Screening: hx constipation, a few yrs ago, 50-53yrs, [place], unsure when to repeat, Dr. Martinez: neverAlcohol: deniesRecreational Drugs: deniesImmunizations: declines immunizations [facility] DO Work Phone: 10-17-2021 History of Present illness Narrative sciaticaR knee had replacement [place] in [place], 2yrs ago, better but not, meniscus repaired before, PT and shots multiple rounds, partial replacement, inside hurts, just happened a few days ago, wants to go to [facility] but not sure what to doL doing same, [employer] exercising, getting worselook into lipomasvaricose veins - teto soto in [place], wearing compression stockings, 11/10 doppler legs, maybe a proceduredr. pabon at [place], plastic surgery, was scheduled for 05/2021 but put off for now due to surgeon off, yesterday went to different doctor and [place] Dr. Les Gordon, checking with insurance, paniculectomy, sore on skin, maybe full tummy tuck and pay extra maybe, has lost 40lbs, taking Truvy, plateau for 1yr, wants to lose another 50, maybe 02/2022hair loss - started 3-4yrs ago, thinks it's hormonal, bad after babies, maybe due to stress, lasted for years, tried biotin, had extensive testing, thyroid nodules, went to dr. mchugh, "so tiny can't do anything about it"Cervical Cancer Screening: s/p hyst, 16yrs ago, [place], heavy bleeding, has 1 ovary remaining, agreeable to 1 more pap, Thanh because it's paidBreast Cancer Screening: dueOsteoporosis ScreeninColon Cancer Screening: hx constipation, a few yrs ago, 52-53yrs, [place], unsure when to repeat, Dr. Martinez: neverAlcohol: deniesRecreational Drugs: deniesImmunizations: declines immunizations [facility] DO Work Phone: 10-04-2018 History of Present illness Narrative El a 56 yo female here today with complaints of hair loss, hot flashes, fatigue, and scalp irritation. She reports hair loss is chronic and ongoing for years she has had "work up" by several different doctors with no valid reason as to why her hair is thinning. She report she eats healthy diet. She does use chemical to dye hair an het products to style hair.Hair thinning for last 3 years. "i think its hormonal" continuing to have hot flashes, I've tried [...] are lipomas.She denies any acute health issues. [facility] Work Phone: 10-02-2018 History of Present illness Narrative Eduinr thinning for last 3 years. "i think its hormonal" continuing to have hot flashes, I've tried endocrinology, hair clinic etc and no one can determine the causes. Have pain to head/scalp and itching. Would like referral to dermatology.fatty mass on right abd and left spine and arm [facility] Work Phone: 01-25-2006 History of Past i llness Narrative Problem Noted Date Resolved Date Acute pharyngitis 01/25/2006 08/30/2012 documented as of this encounter (statuses as of 06/29/2021) [facility] - Reportedphysical for work and pre op clearance for abdominal and thigh procedure 10/6[facility] DO Work Phone: Chief complaint Narrative - Reportedphysical for work and pre op clearance for abdominal and thigh procedure 10/6[facility] DO Work Phone: Evaluation noteNo assessment information available [facility] Work Phone: Evaluation note* Diagnosis Chronic right shoulder pain- Primary Pain in joint, shoulder region Neck pain Cervicalgia Numbness and tingling in right hand Disturbance of skin sensation documented in this encounter [facility] Work Phone: Evaluation note* Diagnosis Dyslipidemia- Primary Other and unspecified hyperlipidemia Screening for heart disease Screening for other and unspecified cardiovascular conditions Chronic right shoulder pain Pain in joint, shoulder region Numbness and tingling in right hand Disturbance of skin sensation Moderate obstructive sleep apnea documented in this encounter [facility] Work Phone: Evaluation note* Diagnosis Palpitations- Primary Dyslipidemia Other and unspecified hyperlipidemia documented in this encounter [facility] Work Phone: Evaluation note* Diagnosis Palpitations- Primary Screening for heart disease Screening for other and unspecified cardiovascular conditions documented in this encounter [facility] Work Phone: Evaluation note* Diagnosis Screening for heart disease Screening for other and unspecified cardiovascular conditions documented in this encounter [facility] Work Phone: Evaluation note* Diagnosis Palpitations- Primary Class 2 severe obesity due to excess calories with serious comorbidity and body mass index (BMI) of 36.0 to 36.9 in adult ([facility]) documented in this encounter [facility] Work Phone: Evaluation note* Diagnosis Sore throat- Primary Acute pharyngitis Encounter for screening mammogram for malignant neoplasm of breast Dyslipidemia Other and unspecified hyperlipidemia Dyslipidemia- Primary Other and unspecified hyperlipidemia Screening for heart disease Screening for other and unspecified cardiovascular conditions Chronic right shoulder pain Pain in joint, shoulder region Numbness and tingling in right hand Disturbance of skin sensation Moderate obstructive sleep apnea Palpitations- Primary Dyslipidemia Other and unspecified hyperlipidemia Palpitations- Primary Screening for heart disease Screening for other and unspecified cardiovascular conditions Palpitations- Primary Class 2 severe obesity due to excess calories with serious comorbidity and body mass index (BMI) of 36.0 to 36.9 in adult Chronic pain of left knee- Primary Encounter for screening mammogram for breast cancer Palpitations Dyslipidemia Other and unspecified hyperlipidemia Class 2 severe obesity due to excess calories with serious comorbidity and body mass index (BMI) of 37.0 to 37.9 in adult documented in this encounter [facility] Work Phone: Evaluation note* Diagnosis Left knee pain, unspecified chronicity- Primary [facility] Primary osteoarthritis of left knee- Primary Chronic pain of left knee Status post right knee replacement [facility] Diagnosis Sore throat- Primary Acute pharyngitis Encounter for screening mammogram for malignant neoplasm of breast Dyslipidemia Other and unspecified hyperlipidemia documented in this encounter [facility] Work Phone: Evaluation note* Diagnosis Sore throat- Primary Acute pharyngitis Encounter for screening mammogram for malignant neoplasm of breast Dyslipidemia Other and unspecified hyperlipidemia Dyslipidemia- Primary Other and unspecified hyperlipidemia Screening for heart disease Screening for other and unspecified cardiovascular conditions Chronic right shoulder pain Pain in joint, shoulder region Numbness and tingling in right hand Disturbance of skin sensation Moderate obstructive sleep apnea Palpitations- Primary Dyslipidemia Other and unspecified hyperlipidemia Palpitations- Primary Screening for heart disease Screening for other and unspecified cardiovascular conditions Palpitations- Primary Class 2 severe obesity due to excess calories with serious comorbidity and body mass index (BMI) of 36.0 to 36.9 in adult (Multi) Tenosynovitis of finger and hand- Primary Tenosynovitis of finger and hand documented in this encounter [facility] Work Phone: Evaluation note* Diagnosis Sore throat- Primary Acute pharyngitis Encounter for screening mammogram for malignant neoplasm of breast Dyslipidemia Other and unspecified hyperlipidemia Dyslipidemia- Primary Other and unspecified hyperlipidemia Screening for heart disease Screening for other and unspecified cardiovascular conditions Chronic right shoulder pain Pain in joint, shoulder region Numbness and tingling in right hand Disturbance of skin sensation Moderate obstructive sleep apnea Palpitations- Primary Dyslipidemia Other and unspecified hyperlipidemia Palpitations- Primary Screening for heart disease Screening for other and unspecified cardiovascular conditions Palpitations- Primary Class 2 severe obesity due to excess calories with serious comorbidity and body mass index (BMI) of 36.0 to 36.9 in adult (Multi) Tenosynovitis of finger and hand documented in this encounter [facility] Work Phone: Evaluation note* Diagnosis Primary osteoarthritis of left knee- Primary Hypertension, unspecified type Blood tests prior to treatment or procedure Pre-procedural laboratory examination documented in this encounter [facility] note* Diagnosis Primary osteoarthritis of left knee- Primary Primary osteoarthritis of left knee- Primary Primary osteoarthritis of left knee documented in this encounter [facility] note* Diagnosis Primary osteoarthritis of left knee- Primary Pre-operative cardiovascular examination- Primary Primary osteoarthritis of left knee Primary osteoarthritis of left knee documented in this encounter [facility] note* Diagnosis S/P total knee replacement, left- Primary documented in this encounter [facility] note* Diagnosis Status post total left knee replacement- Primary documented in this encounter [facility] note* Diagnosis Status post total left knee replacement- Primary documented in this encounter [facility] note* Diagnosis Status post total left knee replacement- Primary documented in this encounter [facility] note* Diagnosis Status post total left knee replacement- Primary documented in this encounter [facility] note* Diagnosis Status post total left knee replacement- Primary documented in this encounter [facility] note* Diagnosis Status post total left knee replacement- Primary documented in this encounter [facility] note* Diagnosis Sore throat- Primary Acute pharyngitis Encounter for screening mammogram for malignant neoplasm of breast Dyslipidemia Other and unspecified hyperlipidemia Dyslipidemia- Primary Other and unspecified hyperlipidemia Screening for heart disease Screening for other and unspecified cardiovascular conditions Chronic right shoulder pain Pain in joint, shoulder region Numbness and tingling in right hand Disturbance of skin sensation Moderate obstructive sleep apnea Palpitations- Primary Dyslipidemia Other and unspecified hyperlipidemia Palpitations- Primary Screening for heart disease Screening for other and unspecified cardiovascular conditions Palpitations- Primary Class 2 severe obesity due to excess calories with serious comorbidity and body mass index (BMI) of 36.0 to 36.9 in adult Routine general medical examination at a health care facility- Primary Chronic pain of left knee Encounter for screening mammogram for breast cancer Palpitations Dyslipidemia Other and unspecified hyperlipidemia Class 2 severe obesity due to excess calories with serious comorbidity and body mass index (BMI) of 37.0 to 37.9 in adult Routine general medical examination at a health care facility- Primary Encounter for screening mammogram for breast cancer Chronic neck pain Cervicalgia Class 2 severe obesity due to excess calories with serious comorbidity and body mass index (BMI) of 39.0 to 39.9 in adult Dyslipidemia Other and unspecified hyperlipidemia documented in this encounter [facility] Work Phone: History of Present illness [...] profile performed within the past five years. [facility] Work Phone: History of Present illness Narrative* This is a 56yo female with pmhx significant for knee pain, lipomas, varicose veins who presents today to establish and discuss as below. * Regarding knee pain, is s/p R TKR with Dr. Roa in [place] 2yrs ago. Reports improvement in pain,but still occasionally struggles. Went to PT and had multiple rounds of gel/steroid injections. More recently, has started having pain in the L knee which is similar to that pain that she had on the R. Is considering making appt with Dr. Lui for evaluation. * Regarding lipomas, * Regarding varicose veins, following with Dr. Teto Soto in [place]. Currently managing with compression stockings. Scheduled for ultrasound 11/10/2021 with possible procedure after per pt report. * look into lipomas * dr. pabon at [place], plastic surgery, was scheduled for 05/2021 but [...] testing, thyroid nodules, went to dr. mchugh, "so tiny can't do anything about it" * Cervical Cancer Screening: s/p hyst, 16yrs [...] Recreational Drugs: denies * Immunizations: declines immunizations [facility] 205 DO Work Phone: History of Present illness Narrative* This is a 56yo female with pmhx significant for knee pain, lipomas, varicose veins who presents today to establish and discuss as below. * Regarding knee pain, is s/p R TKR with Dr. Roa in [place] 2yrs ago. Reports improvement in pain,but still occasionally struggles. Went to PT and had multiple rounds of gel/steroid injections. More recently, has started having pain in the L knee which is similar to that pain that she had on the R. Is considering making appt with Dr. Lui for evaluation. * Regarding lipomas, reports multiple soft tissue masses including RUQ abdomen. Ultrasound was ordered in 12/2020, but I do not see that it was done. * Regarding varicose veins, following with Dr. Teto Soto in [place]. Currently managing with compression stockings. Scheduled for ultrasound 11/10/2021 with possible procedure after per pt report. * Regarding * dr. pabon at [place], plastic surgery, was scheduled for 05/2021 but [...] testing, thyroid nodules, went to dr. mchugh, "so tiny can't do anything about it" * Cervical Cancer Screening: s/p hyst, 16yrs ago, [place], heavy bleeding, has 1 ovary remaining, agreeable to 1 more pap, Thanh because it's paid * Breast Cancer Screening: due * Osteoporosis Screenin * Colon Cancer Screening: hx constipation, a few yrs ago, 52-53yrs, [place], unsure when to repeat, Dr. Mchugh * Tobacco: never * Alcohol: denies * Recreational Drugs: denies * Immunizations: declines immunizations [facility] 205 DO Work Phone: History of Present illness Narrative* This is a 56yo female with pmhx significant for knee pain, lipomas, varicose veins who presents today to establish and discuss as below. * Regarding knee pain, is s/p R TKR with Dr. Roa in [place] 2yrs ago. Reports improvement in pain,but still occasionally struggles. Went to PT and had multiple rounds of gel/steroid injections. More recently, has started having pain in the L knee which is similar to that pain that she had on the R. Is considering making appt with Dr. Lui for evaluation. * Regarding lipomas, reports multiple soft tissue masses including RUQ abdomen. Ultrasound was ordered in 12/2020, but I do not see that it was done. * Regarding varicose veins, following with Dr. Teto Soto in [place]. Currently managing with compression stockings. Scheduled for ultrasound 11/10/2021 with possible procedure after per pt report. * Regarding BMI, patient is planning to have panniculectomy and possible full tummy tuck. Was scheduled for 05/2021, but this was postponed due to logistics. Met with new surgeon yesterday in [facility]. Has already lost 40lbs and wants to lost 50 more. Tentative surgery date is 02/2022. * Regarding hair loss, first noticed 3-4yrs ago. Attributes to "hormones" or stress. Has tried biotinand states has had extensive testing which has been unremarkable. * Regarding thyroid nodule, states a small nodule was found during workup for hair loss. Was evaluated by Dr. Fernández ([place]) who told patient that "it's so tiny that nothing can be done" per pt report. * Cervical Cancer Screening: s/p hyst 16yrs ago in [place] due to heavy bleeding, 1 ovary remaining, agreeable to 1 more pap, plans to go to her obgyn in [place] * Breast Cancer Screening: due * Osteoporosis Screening: plan to start at age 63 * Colon Cancer Screening: colonoscopy a few yrs ago in [place], Dr. Fernández, unsure of details * Tobacco: never * Alcohol: denies * Recreational Drugs: denies * Immunizations: declines immunizations [facility] 205 DO Work Phone: History of Present [...] a diverse and healthy diet. * 02/17/2022 [facility]. panniculectomy and abdominopasty, thigh lift * dr. cuauhtemoc ortega * Revised Cardiac Risk Index * Low [...] declines all immunizations * get colonoscopy records [facility] 205 DO Work Phone: History of Present [...] s/p hyst, plans to make appt with project lead for annual. * Breast cancer screening: cancer screening reviewed and current. * Colorectal Cancer Screening: records remain pending. a colonoscopy was performed within the past ten years. * Metabolic screening: lipid profile performed 01/2022. * Patient presents today physical and preop exam. * Regarding preop exam, is scheduled for panniculectomy, abdominoplasty, thigh lift with Dr. Akil Abdul [facility] 02/17/2022. Is a little nervous, but overall excited for result. Has had multiplesurgeries under general anesthesia in the past without problem. Denies CP, SOB, RAJAN, LH, dizziness, abd pain, n/v/d. Is able to achieve >4 METs without symptoms. Risk of IA or cardiac arrest intraoperatively or up to 30 days post-op 0.2% according to [facility] Perioperative Risk Calculator. * Cervical Cancer Screening: hasn't scheduled yet * Breast Cancer Screening: utd * Osteoporosis Screening: plan to start at age 63 * Colon Cancer Screening: utd at [place], records pending * Tobacco: never * Alcohol: denies * Recreational Drugs: denies * Immunizations: declines all immunizations [facility] 205 DO Work Phone: Hospital Discharge instructions* Attachments The following attachments cannot be sent through Care Everywhere. * General Anesthesia (Tristanian) * Tummy Tuck: Post-op (Tristanian) documented in this encounterTr[facility] HealthReason for referral (narrative)* Consultation (Routine) - Authorized Specialty Diagnoses / Procedures Referred By Elba ham Referred To Contact Primary Care Diagnoses Palpitations Procedures Follow Up In Primary Care - Established Yomi Lacy DO [address] [facility] [address] [place] [address] Referral ID Status Reason Start Date Expiration Date V isits Requested Visits Authorized [id number] Authorized 04/17/2023 04/16/2024 1 1 * Cardiac Stress Testing (Routine) - Pending Review Specialty Diagnoses / Procedures Referred By Elba t Referred To Contact Cardiology Diagnoses Palpitations Procedures Holter or Event [employer] Yomi Lacy DO [address] [address] Referral ID Status Reason Start Date Expiration Date V isits Requested Visits Authorized [id number] Pending Review 04/17/2023 04/16/2024 1 1 * CV Imaging (Routine) - Pending Review Specialty Diagnoses / Procedures Referred By Elba t Referred To Contact Cardiology Diagnoses Palpitations Procedures Transthoracic Echo (TTE) Complete [place] ECHO TRANSTHORC R-T 2D W/WO M-MODE REC F-UP/LMTD [place] DOP ECHOCARD COLOR FLOW VELOCITY MAPPING [place] DOP ECHOCARD PULSE WAVE W/SPECTRAL F-UP/LMTD STD Yomi Lacy DO [address] [address] Referral ID Status Reason Start Date Expiration Date Visits Requested Visits Authorized [id number] Pending Review Perform Procedure 04/17/2023 04/16/2024 1 1 [facility] Work Phone: Reason for referral (narrative)* Consultation (Routine) - Authorized Specialty Diagnoses / Procedures Referred By Elba ham Referred To Contact Primary Care Diagnoses Palpitations Screening for heart disease Procedures Follow Up In Primary Care - Established Yomi Lacy DO [address] [address] Referral ID Status Reason Start Date Expiration Date V isits Requested Visits Authorized [id number] Authorized 05/18/2023 05/17/2024 1 1 * Imaging (Routine) - Pending Review Specialty Diagnoses / Procedures Referred By Elba ham Referred To Contact Radiology Diagnoses Screening for heart disease Procedures CT cardiac scoring wo IV contrast Yomi Lacy DO [address] [address] Referral ID Status Reason Start Date Expiration Date Visits Requested Visits Authorized [id number] Pending Review Perform Procedure 05/18/2023 05/17/2024 1 1 [facility] Work Phone: Reason for referral (narrative)* Consultation (Routine) - Authorized Specialty Diagnoses / Procedures Referred By Elba ham Referred To Contact Primary Care Diagnoses Palpitations Class 2 severe obesity due to excess calories with serious comorbidity and body mass index (BMI) of 36.0 to 36.9 in adult ([facility]) Procedures Follow Up In Primary Care - Established Yomi Lacy DO [address] [address] Referral ID Status Reason Start Date Expiration Date V isits Requested Visits Authorized [id number] Authorized 08/17/2023 08/16/2024 1 1 [facility] Work Phone: Reason for visit Narrative* Auth/Cert Specialty Diagnoses / Procedures Referred By Elba ham Referred To Contact Diagnoses Excessive and redundant skin and subcutaneous tissue Encounter for cosmetic surgery L98.7 Z41.1 Procedures [place] EXCISION EXCESSIVE SKIN SUBQ TISSUE ABD INFRAUMBILICAL PANNICULECTOMY [place] EXCISION EXCESSIVE SKIN AND SUBCUTANEOUS TISSUE ABDOMEN [place] EXCISION EXCESSIVE SKIN & SUBCUTANEOUS TISSUE THIGH PANNICULECTOMY ABDOMINOPLASTY MEDIAL THIGH LIFT BILATERAL Cuauhtemoc Ortega MD [address] [place] [id number] [address] Referral ID Status Reason Start Date Expiration Date Visits Re quested Visits Authorized [id number] 1 1 [employer] for visit Narrative* Consultation (Routine) - Authorized Specialty Diagnoses / Procedures Referred By Elba ham Referred To Contact Primary Care Diagnoses Palpitations Procedures Follow Up In Primary Care - [facility] Yomi Lacy, [address] [facility] [address] [place] [address] Referral ID Status Reason Start Date Expiration Date V isits Requested Visits Authorized [id number] Authorized 04/17/2023 04/16/2024 1 1 [facility] Work Phone: [employer] for visit Narrative* Consultation (Routine) - Authorized Specialty Diagnoses / Procedures Referred By Elba ham Referred To Contact Primary Care Diagnoses Chronic pain of left knee Encounter for screening mammogram for breast cancer Procedures Follow Up In Primary Care - [facility] Yomi Lacy, [address] [facility] [place] [place] [address] Phone: tel: fax: Referral ID Status Reason Start Date Expiration Date V isits Requested Visits Authorized [id number] Authorized 02/29/2024 02/28/2025 1 1 [facility] Work Phone: Instructions Name Dates Details Instructions not documented [...] history of ankylosing spondylitis: Brother(V17.89, Z82.69) Status:Active Relationship Condition Age at Onset Recorded Date/T arjun brother Arthritis Unknown daughter Asthma Unknown Alcoholism Unknown Anxiety and depression Unknown mother Malignant neoplasm of breast Unknown Melanoma in situ Unknown father Coronary artery disease Unknown Depression Unknown grandfather Alcoholism Unknown Hypertension Unknown grandmother Diabetes mellitus Unknown aunt Malignant neoplasm Unknown Anxiety Unknown Unknown Family Member Name Dates Details Family [...] Status:Active Advance Directives No Advanced Directives Records Found Advance Directive Response Recorded Date/ Time Advance Directives No July 20 3:10pm Living Will No September 20, 2019 8: 23am Power of Card Checker No September 20, 2019 8:23am Advance Directive Response Recorded Date/ Time Advance Directives No July 20 2:10pm Living Will No September 20, 2019 7: 23am Power of Card Checker No September 20, 2019 7:23am Date Activated Date Inactivated Comments 07/03/2024 9:25 AM 07/03/2024 11:37 PM History of Present Illness * Raquel Grayson - 02/01/2019 3:00 PM EDT Samples given at visit: VSL#3 [employer] Food Lot# [id number] Exp Date 10/2019 Qty 2 * Raquel Grayson - 02/01/2019 3:00 PM EDT 5 Times Sit to Stand Test: Time to Completion (in seconds): NA Modifications: NA used arms of chair/assist level Incomplete test: NA Timed Up and Go Test (TUG): Time to Completion (in seconds): NA Modifications: NA used assistive device Incomplete test: NA 2 Minute Walk Test: Distance (in meters): [...] Stand Test: Time to Completion (in seconds): NA Modifications: NA used arms of chair/assist level [...] issues she had with the last one. Chief Complaint and Reason for Visit Chief Complaint SCREENING Chief Complaint SCREENING BILAT VEIN STRIPPING Chief Complaint PREOP PREOP eye pain, blurry Chief Complaint PALPITATIONS Chief Complaint PALPITATIONS PALP Reason for Referral Specialty Diagnoses / Procedures Referred By Contac t Referred To Contact Radiology Diagnoses Neck pain Procedures XR cervical spine 2-3 views Ana Vargas DO [address] [facility] [place] [address] Referral ID Status Reason Start Date Expiration Date Visits Requested Visits Authorized [id number] Authorized Perform Procedure 12/01/2022 05/30/2023 1 1 Specialty Diagnoses / Procedures Referred By Contac t Referred To Contact Radiology Diagnoses Chronic right shoulder pain Procedures XR shoulder right 2+ views Ana Vargas DO [address] [facility] [place] [address] Referral ID Status Reason Start Date Expiration Date Visits Requested Visits Authorized [id number] Authorized Perform Procedure 12/01/2022 05/30/2023 1 1 Specialty Diagnoses / Procedures Referred By Contac t Referred To Contact Diagnoses Numbness and tingling in right hand Procedures EMG & nerve conduction Ana Vargas DO [address] [facility] [place] [address] Referral ID Status Reason Start Date Expiration Date V isits Requested Visits Authorized [id number] Authorized 12/01/2022 05/30/2023 1 1 Specialty Diagnoses / Procedures Referred By Contac t Referred To Contact Radiology Diagnoses Dyslipidemia Screening for heart disease Procedures CT cardiac scoring wo IV contrast Ana Vargas DO [address] [facility] [place] [address] Referral ID Status Reason Start Date Expiration Date Visits Requested Visits Authorized [id number] Authorized Perform Procedure 01/05/2023 07/04/2023 1 1 Specialty Diagnoses / Procedures Referred By Contac t Referred To Contact Radiology Diagnoses Screening for heart disease Procedures CT cardiac scoring wo IV contrast Yomi Lacy, DO [address] [address] Referral ID Status Reason Start Date Expiration Date Visits Requested Visits Authorized [id number] Authorized Perform Procedure 05/18/2023 05/17/2024 1 1 Specialty Diagnoses / Procedures Referred By Contac t Referred To Contact Radiology Diagnoses Encounter for screening mammogram for malignant neoplasm of breast Procedures BI mammo bilateral screening tomosynthesis Yomi Lacy, DO [address] [address] Referral ID Status Reason Start Date Expiration Date V isits Requested Visits Authorized [id number] Closed Perform Procedure 07/27/2022 01/23/2023 1 1 Specialty Diagnoses / Procedures Referred By Contac t Referred To Contact Radiology Diagnoses Tenosynovitis of finger and hand Procedures XR hand right 3+ views Gil De Leon PA-C [address] [place] [address] Referral ID Status Reason Start Date Expiration Date Visits Requested Visits Authorized [id number] Authorized Perform Procedure 01/20/2024 01/19/2025 1 1 Additional Source Comments INFORMATION SOURCE (unrecogn ized section and content) DATE CREATED AUTHOR 02/24/2018 [facility] DATE CREATED AUTHOR AUTHOR'S ORGANIZ ATION 09/21/2018 [facility] DATE CREATED AUTHOR AUTHOR'S ORGANIZ ATION 09/06/2019 [facility] DATE CREATED AUTHOR AUTHOR'S ORGANIZ ATION 02/13/2022 [facility] DATE CREATED AUTHOR AUTHOR'S ORGANIZ ATION 02/13/2022 [facility] DATE CREATED AUTHOR AUTHOR'S ORGANIZ ATION 03/16/2022 [facility] DATE CREATED AUTHOR AUTHOR'S ORGANIZ ATION 07/29/2022 [facility] DATE CREATED AUTHOR AUTHOR'S ORGANIZ ATION 07/20/2024 [facility] DATE CREATED AUTHOR AUTHOR'S ORGANIZ ATION 08/21/2024 [facility] DATE CREATED AUTHOR AUTHOR'S ORGANIZ ATION 08/31/2024 [facility] DATE CREATED AUTHOR AUTHOR'S ORGANIZ ATION 01/29/2025 [facility] DATE CREATED AUTHOR AUTHOR'S ORGANIZ ATION 02/14/2025 [facility] Reason for Visit (unrecogniz ed section and content) Reason Comments Other Bariatric Interview - Self Referral - Transfering from [facility] Reason Comments Nutrition Consultation Status Reason Specialty Diagnoses / Procedures Referred By Contact Referred To Contact Pending Review Registered Dietitian / Nutrition and Dietetics Diagnoses Initial Nutrition- PT is transfering from [place] Procedures NEW PATIENT - Sonia Garcia, RD [address] [place] [address] Reason Comments Establish Care Pt is intersted in B ariatric Surgery. She is transfering from [place], which program she started in October. Reason Comments Other Specialty Diagnoses / Procedures Referred By Elba ham Referred To Contact Radiology Diagnoses Screening for heart disease Procedures CT cardiac scoring wo IV contrast Yomi Lacy DO [address] [facility] [address] [place] [address] Referral ID Status Reason Start Date Expiration Date Visits Requested Visits Authorized [id number] Authorized Perform Procedure 05/18/2023 05/17/2024 1 1 Reason Comments Follow-up 3 month Specialty Diagnoses / Procedures Referred By Elba ham Referred To Contact Primary Care Diagnoses Palpitations Screening for heart disease Procedures Follow Up In Primary Care - Established Yomi Lacy DO [address] [facility] [address] [place] [address] Referral ID Status Reason Start Date Expiration Date V isits Requested Visits Authorized [id number] Authorized 05/18/2023 05/17/2024 1 1 Reason Comments Pain 23 YEARS OF WORKING/ WALKING FOR WORK CAUSED WEAR AND TEAR ON HER KNEE Specialty Diagnoses / Procedures Referred By Elba ham Referred To Contact Sports Medicine Diagnoses Left knee pain, unspecified chronicity Yomi Lacy DO [address] [facility] [address] [place] [address] Phone: tel: fax: Bing Ayers, CHEMIST [address] [place] [address] Phone: tel: fax: Referral ID Status Reason Start Date Expiration Date Visits Re quested Visits Authorized [id number] Closed 03/05/2024 03/05/2025 1 1 Reason Comments Throat Pain Reason Comments Hand Pain Pain in right hand f or 1 day. Specialty Diagnoses / Procedures Referred By Elba ham Referred To Contact Radiology Diagnoses Tenosynovitis of finger and hand Procedures XR hand right 3+ views Gil De Leon, PAJohannaC [address] [facility] [place] [address] Referral ID Status Reason Start Date Expiration Date Visits Requested Visits Authorized [id number] Authorized Perform Procedure 01/20/2024 01/19/2025 1 1 Reason Comments Pre-op Exam Left knee Reason Comments Pre-op Exam Left total knee repl acement Specialty Diagnoses / Procedures Referred By Elba ham Referred To Contact Cardiology Diagnoses Primary osteoarthritis of left knee Anel Lui MD [address] [place] [phone] Phone: tel: fax: [facility] [address] [place] [address], 3rd floor [place] [address] Phone: tel: fax: Referral ID Status Reason Start Date Expiration Date V isits Requested Visits Authorized [id number] Closed Specialty Services Required/Marybeth ent's Best Interest 05/22/2024 05/22/2025 1 1 Reason Onset Date Comments Medication Refill 07/11/2024 Reason Onset Date Comments Medication Refill 07/19/2024 Reason Comments Suture / Staple Removal Wound Check Reason Onset Date Comments Medication Refill 08/13/2024 Reason Onset Date Comments Medication Refill 08/14/2024 Reason Onset Date Comments Medication Refill 08/23/2024 Reason Onset Date Comments Medication Refill 08/15/2024 Reason Comments Follow-up Wound Check <item> Privacy Markings (unrecogniz ed section and content) Section Author: Clinton Pollard PROHIBITION ON REDISCLOSURE OF CONFIDENTIAL INFORMATION [...] or prosecute any alcohol or drug abuse patient.[facility] Care Teams (unrecognized sec tion and content) Director Of Transportation Relationship Specialty Start Date End Date Gaston Rojas MD [address] [place], [place] [id number] PCP - General Family Practice 01/19/17 09/22/19 Nora Dixon [address] [place] [address] PCP - General Family Practice 09/23/19 Director Of Transportation Relationship Specialty Start Date End Date Yomi Lacy DO [address] [place] [address] PCP - General Family Medicine 02/08/22 Director Of Transportation Relationship Specialty Start Date End Date Yomi Lacy DO [address] [address] PCP - General 10/20/21 Team Status: Active Member Role Status Dates Nora Dixon SURVEY DATA TECHNICIAN, SURVEY DATA TECHNICIAN-C Family Provider Active YOMI LACY DO Primary Care Provider Active Team Status: Inactive Member Role Status Dates YOMI LACY DO Primary Care Provider Active Dr. Ana Vargas MD Attending Provider, Referring Provider Active Director Of Transportation Relationship Specialty Start Date End Date Lacy, Yomi ShabnamDO [address] [address] PCP - General 10/20/21 Director Of Transportation Relationship Specialty Start Date End Date Yomi Lacy DO [address] [address] PCP - General 10/20/21 Team Status: Active Member Role Status Dates YOMI LACY DO Primary Care Provider Active Dr. Helder Macdonald MD Attending Provider Activ e Team Status: Inactive Member Role Status Dates YOMI LACY DO Primary Care Provide r, Attending Provider, Referring Provider Active Team Status: Active Member Role Status Dates YOMI LACY DO Primary Care Provider Active Dr. Helder Macdonald MD Attending Provider, Refe rring Provider Active Director Of Transportation Relationship Specialty Start Date End Date Lacy Yomi Haque DO [address] [address] PCP - General 10/20/21 Director Of Transportation Relationship Specialty Start Date End Date Yomi Lacy DO [address] [address] PCP - General 10/20/21 Director Of Transportation Relationship Specialty Start Date End Date Yomi Lacy DO [address] [address] PCP - General 10/20/21 Director Of Transportation Relationship Specialty Start Date End Date Nora Dixon, CHEMIST PCP - General Nurse Practitioner 12/06/17 Director Of Transportation Relationship Specialty Start Date End Date Nora Dixon, CHEMIST [address] [address] PCP - General Nurse Practitioner 12/06/17 Team Status: Active Member Role Status Dates YOMI LACY DO Primary Care Provider Active Health Risk Assessment Attending Provider Active Team Status: Active Member Role Status Dates YOMI LACY DO Primary Care Provide r, Attending Provider, Referring Provider Active Director Of Transportation Relationship Specialty Start Date End Date Yomi Lacy DO [address] [place] [id number] PCP - General 10/20/21 Director Of Transportation Relationship Specialty Start Date End Date Yomi Lacy DO [address] [address] PCP - General 10/20/21 Director Of Transportation Relationship Specialty Start Date End Date Yomi Lacy DO [address] [address] PCP - General 10/20/21 Director Of Transportation Relationship Specialty Start Date End Date Nora Dixon, CHEMIST [address] [address] PCP - General Nurse Practitioner 12/06/17 Director Of Transportation Relationship Specialty Start Date End Date Nora Dixon, CHEMIST [address] [place] [address] PCP - General Nurse Practitioner 12/06/17 Director Of Transportation Relationship Specialty Start Date End Date Yomi Lacy DO [address] [place] [address] PCP - General Family Medicine 06/26/24 Director Of Transportation Relationship Specialty Start Date End Date Yomi Lacy DO [address] [place], [place] [address] PCP - General Family Medicine 06/26/24 Director Of Transportation Relationship Specialty Start Date End Date Yomi Lacy DO [address] [place], [place] [address] PCP - General Family Medicine 06/26/24 Director Of Transportation Relationship Specialty Start Date End Date Yomi Lacy DO [address] [place] [address] PCP - General Family Medicine 06/26/24 Director Of Transportation Relationship Specialty Start Date End Date Yomi Lacy DO [address] [place] [address] PCP - General Family Medicine 06/26/24 Director Of Transportation Relationship Specialty Start Date End Date Yomi Lacy DO [address] [place] [address] PCP - General Family Medicine 06/26/24 Director Of Transportation Relationship Specialty Start Date End Date Yomi Lacy DO [address] [facility] [address] [place] [address] PCP - General Family Medicine 06/26/24 Director Of Transportation Relationship Specialty Start Date End Date Yomi Lacy DO [address] [facility] [address] [place] [address] PCP - General Family Medicine 06/26/24 Director Of Transportation Relationship Specialty Start Date End Date Yomi Lacy DO [address] [facility] [address] [place] [address] PCP - General 10/20/21 Goals (unrecognized section and content) Goals may be documented in a n alternate sectionGoals may be documented in an alternate sectionGoals may be documented in an alternate sectionGoals may be documented in an alternate sectionGoals may be documented in an alternate sectionGoals may be documented in an alternate sectionGoals may be documented in an alternate sectionGoals may be documented in an alternate section Ordered Prescriptions (unrec ognized section and content) Prescription Sig Dispensed Refills Start Date End oxyCODONE-acetaminophen (PERCOCET) 5-325 mg per tablet Take 1 tablet by mouth every 6 (six) hours if needed for severe pain for up to 4 days. Max Daily Amount: 4 tablets 15 tablet 0 02/17/2022 02/21/2022 Scheduled Active and Recently Administ ered Medications (unrecognized section and content) Medication Order 02/15/2022 02/16/2022 02/17/2022 acetaminophen (TYLENOL) tablet 1,000 mg (COMPLETED) 1,000 mg, oral, Once, On Shannan 02/17/22 at 0600, For 1 dose, Preprocedure, With a small sip of water in preop., Indications: For multimodal pain control. 612 (Given - Provid er: Mary Colón RN) ceFAZolin (ANCEF) 2 gram/20 mL IV syringe 2 g (COMPLETED) 2 g, intravenous, Administer over 3 Minutes, Once, On Shannan 02/17/22 at 0600, For 1 dose, Preprocedure, Indication: Prophylaxis-Surgical 0811 (Given - Provid er: Simon Castañeda MD) Continuous Medication Order 02/15/2022 02/16/2022 02/17/2022 lactated Ringer's infusion 20 mL/hr, intravenous, Continuous, Starting on Shannan 02/17/22 at 0600, Preprocedure 0613 (New Bag - Prov ider: Mary Colón RN)0747 (Continued by Anesthesia - Provider: Simon Castañeda MD)0926 (Paused - Provider: Simon Castañeda MD - Comment: Switch to gravity)0927 (New Bag - Provider: Simon Castañeda MD)1043 [...] Every 15 min PRN, itching, Starting on Shannan 02/17/22 at 1053, For [...] Recovery (only), 1st Line Option: -ONLY give [place] if patient is unable to take orally [...] 6 hours PRN, nausea, vomiting, Starting on Shanann 02/17/22 at 1053, Recovery (only)
1st Line [...] Recovery (only)
1st Line Option: -ONLY give [place] if patient is unable to take orally [...] BE BASED ON THE PRIMARY CLINICAL RECORDS. [employer] [facility]. provides no warranty or guarantee of the accuracy or completeness of information in this document.
== END | disposition home or self-care (01) ==
LOC: MTRAD 08:46
PROVIDERS: PCP Student in an Organized Health Care Education/Training Program; Referring Provider Student in an Organized Health Care Education/Training Program; Visit Provider Student in an Organized Health Care Education/Training Program
DX: M54.2 Cervicalgia (principal); G89.29 Other chronic pain
CPT/HCPCS: 72050